=== PATIENT | female | born 1940 ===

== ENCOUNTER 2016-06-09 15:46 | Inpatient (IN) | payer MEDICARE, OTHER ==
[2016-06-09 15:48] VITALS: BMI 32.9
--- NOTE | 2016-06-09 17:27 | CP.PCM.CON ---
History of Present Illness - History of Present Illness History of Present Illness: 75 yo female patient with PMHx of Anemia, arthritis, Atrial Fib, CAD, CHF, DM, HTN, HLD, ESRD (dialysis on //Mon), Hyperthyroidism, Hypothyroidism was seen at bedside ED this afternoon after request for podiatry consult. Patient presents with necrotic changes to Left foot. Patient was referred by Dr. Herrera for scheduled TMA surgery. (add-on) Patient states that she had a lot of pain to Left foot today. Patient understands that we have plan for surgical amputation tomorrow with Dr. Herrera. Patient is to be admitted for Left foot infection and IV Abx. Denies F/C/N/V/SOB. today. Past Patient History - Infectious Disease Hx of Infectious Diseases: None - Past Medical History & Family History Past Medical History?: Yes - Past Social History Smoking Status: Never Smoked - CARDIAC Hx Cardiac Disorders: Yes Hx Atrial Fibrillation: Yes Hx Congestive Heart Failure: Yes Hx Hypertension: Yes Hx Pacemaker: Yes - PULMONARY Hx Respiratory Disorders: Yes Hx Pneumonia: Yes - NEUROLOGICAL Hx Neurological Disorder: Yes - HEENT Hx HEENT Problems: No - RENAL Hx Chronic Kidney Disease: Yes Hx Dialysis: Yes (,,) Date of Last Dialysis Treatment: 05/10/16 - ENDOCRINE/METABOLIC Hx Endocrine Disorders: Yes Hx Diabetes Insipidus: Yes Hx Diabetes Mellitus Type 2: Yes Hx Hyperthyroidism: Yes Hx Hypothyroidism: Yes - HEMATOLOGICAL/ONCOLOGICAL Hx Blood Disorders: Yes Hx Anemia: Yes Hx Human Immunodeficiency Virus (HIV): No - INTEGUMENTARY Hx Dermatological Problems: No - MUSCULOSKELETAL/RHEUMATOLOGICAL Hx Musculoskeletal Disorders: Yes Hx Arthritis: Yes Hx Falls: Yes - GASTROINTESTINAL Hx Gastrointestinal Disorders: Yes Hx Gall Bladder Disease: Yes - GENITOURINARY/GYNECOLOGICAL Hx Genitourinary Disorders: No - PSYCHIATRIC Hx Psychophysiologic Disorder: No Hx Substance Use: No - SURGICAL HISTORY Hx Surgeries: Yes Hx Cholecystectomy: Yes Hx Coronary Artery Bypass Graft: Yes Hx Coronary Stent: Yes Other/Comment: Stent placement x2 (as per son) to left popliteal - ANESTHESIA Hx Anesthesia: Yes Hx Anesthesia Reactions: No Hx Malignant Hyperthermia: No Meds Allergies/Adverse Reactions: Allergies Allergy/AdvReac Type Severity Reaction Status Date / Time No Known Allergies Allergy Verified 04/15/15 18:53 Physical Exam - Constitutional Appears: Well, Non-toxic, No Acute Distress - Extremities Exam Additional comments: Left lower extremity exam DERM: Necrotic changes noted to surgical site of Hallux amputation. Necrotic changes also noted to 2nd digit as well as 5th digit from distal end to level of PIPJ. No open wound is noted. No drainage is noted. Erythema is noted to Left foot around the skin necrosis. VASC: Palpable DP noted 2/4. Non-palpable PT. Blenchable digits, [employer] less than 3 seconds to all digits bilaterally noted. ORTHO: Pain on palpation to right hallux, distal to MPJ NEURO: Gross sensation diminished - Neurological Exam Neurological exam: Alert, Oriented x3 - Psychiatric Exam Psychiatric exam: Normal Affect, Normal Mood - Skin Skin Exam: Normal Color, Warm Results - Vital Signs Recent Vital Signs: Last Vital Signs Temp 98.2 F 06/09/16 16:58 Pulse 76 06/09/16 16:58 Resp 16 06/09/16 16:58 BP 162/72 H 06/09/16 16:58 Pulse Ox 100 06/09/16 16:58 Assessment & Plan - Assessment and Plan (Free Text) Assessment: 75 year old female patient painful Left foot with gangrenous areas to Hallux amputation site, 2nd digit and 5th digit Plan: Patient was seen, evaluated and treated at bedside ED discussed with Dr. Herrera Patient is scheduled for Left foot TMA tomorrow Patient needs Medical clearance Podiatry will follow in-house
[2016-06-09] MEDS ORDERED: Piperacillin/Tazobact 4.5 GM in Sodium Chloride 0.9% 100 ML IVPB STA (17:45)
--- NOTE | 2016-06-09 18:13 | ED PDOC ---
Lower Extremity Pain/Injury Time Seen by Provider: 06/09/16 16:00 Chief Complaint (Nursing): Lower Extremity Problem/Injury Chief Complaint (Provider): Left Foot Pain History Per: Patient History/Exam Limitations: no limitations Current Symptoms Are (Timing): Still Present Additional Complaint(s): 17:43 Yolanda Mac is a 75 year old female with a history of CAD, CHF, hypertension, diabetes, hyperlipidemia, and end stage renal disease presents to the ED with a chief complaint of mild left foot pain and is here in preparation for TMA surgery tomorrow with Dr. Herrera. Past Medical History Reviewed: Historical Data, Nursing Documentation, Vital Signs Vital Signs: Last Vital Signs Temp 98.2 F 06/09/16 16:58 Pulse 76 06/09/16 16:58 Resp 16 06/09/16 16:58 BP 162/72 H 06/09/16 16:58 Pulse Ox 100 06/09/16 16:58 - Medical History PMH: Anemia, Arthritis, Atrial Fibrillation, CAD, CHF, Diabetes, Gall Bladder Disease, HTN, Hypercholesterolemia, Hyperthyroidism, Hypothyroidism, Kidney Stones, Pneumonia, End Stage Renal Disease (TTF), Chronic Kidney Disease Denies: HIV - Surgical History Surgical History: CABG, Cholecystectomy, Coronary Stent, Pacemaker - Family History Family History: States: Unknown Family Hx - Social History Current smoker - smoking cessation education provided: No Alcohol: Occasional - Immunization History Hx Tetanus Toxoid Vaccination: Yes Hx Influenza Vaccination: Yes Hx Pneumococcal Vaccination: Yes - Home Medications Home Medications: Ambulatory Orders Medication Instructions Recorded Aspirin [Aspirin EC] 81 mg PO DAILY #30 ect 08/26/14 Insulin Detemir [Levemir Flexpen] 40 unit SC HS 09/18/14 Rosuvastatin Calcium [Crestor] 40 mg PO HS 09/18/14 Pregabalin [Lyrica] 50 mg PO QPM 09/11/15 Levothyroxine [Synthroid] 75 mcg PO DAILY 03/23/16 amLODIPine [Norvasc] 10 mg PO DAILY 03/23/16 Meclizine [Meclizine*] 25 mg PO DAILY PRN 05/10/16 Metoprolol Tartrate [Lopressor] 50 mg PO BID 05/10/16 Pantoprazole [Protonix EC Tab] 40 mg PO DAILY 05/10/16 Sevelamer Carbonate [Renvela] 2 tab PO BID 05/10/16 guaiFENesin/Dextromethorphan 2 tsp PO QID PRN 05/10/16 [Robitussin DM] oxyCODONE/Acetaminophen [Percocet 1 tab PO Q6 PRN #10 tab 05/16/16 5/325 mg Tab] Clopidogrel [Plavix] 75 mg PO DAILY 06/09/16 Insulin Aspart [Novolog Flexpen] 20 units SC DAILY 06/09/16 Linagliptin [Tradjenta] 5 mg PO DAILY 06/09/16 Liraglutide [Victoza 3-Rafi] 1.8 mg SC DAILY 06/09/16 Omeprazole [Omeprazole] 40 mg PO DAILY 06/09/16 Valsartan [Diovan] 160 mg PO DAILY 06/09/16 hydrALAZINE [Apresoline] 25 mg PO QID 06/09/16 - Allergies Allergies/Adverse Reactions: Allergies Allergy/AdvReac Type Severity Reaction Status Date / Time No Known Allergies Allergy Verified 04/15/15 18:53 Review of Systems ROS Statement: Except As Marked, All Systems Reviewed And Found Negative Musculoskeletal: Positive for: Foot Pain (left foot pain) Physical Exam - Reviewed Nursing Documentation Reviewed: Yes Vital Signs Reviewed: Yes - Physical Exam Appears: Positive for: Non-toxic, No Acute Distress Head Exam: Positive for: ATRAUMATIC, NORMOCEPHALIC Skin: Positive for: Normal Color, Warm ENT: Positive for: Normal ENT Inspection Neck: Positive for: Painless ROM Cardiovascular/Chest: Positive for: Regular Rate, Rhythm. Negative for: Murmur Respiratory: Positive for: Normal Breath Sounds. Negative for: Wheezing Gastrointestinal/Abdominal: Positive for: Soft. Negative for: Tenderness Extremity: Positive for: Normal ROM, Capillary Refill (less than 2 s), Other ( left foot has been wrapped by podiatry). Negative for: Tenderness, Pedal Edema , Calf Tenderness, Deformity, Swelling Neurologic/Psych: Positive for: Alert, Oriented (x3) - Laboratory Results Result Diagrams: 06/09/16 19:25 06/09/16 19:25 - ECG O2 Sat by Pulse Oximetry: 100 (RA) Pulse Ox Interpretation: Normal Medical Decision Making Medical Decision Makin:45 Initial Impression: Left Foot Pain surgery tomorrow Initial Plan: * Type and Screen * CMP * CBC * PTT * PT * Blood Culture * Urine C&S * Urinalysis * Vancomycin 1 gm IV * Zosyn 4.5 gm IV * X-Ray Left Foot * Reevaluation labs reviewed. podiatry evaluated pt at bedside. iv abx ordered. 19:[address] Green, agreed to admit patient. Scribe Attestation: Documented by Maame Olvera, acting as a scribe for Poli Ochoa MD. Provider Scribe Attestation: All medical record entries made by the Scribe were at my direction and personally dictated by me. I have reviewed the chart and agree that the record accurately reflects my personal performance of the history, physical exam, medical decision making, and the department course for this patient. I have also personally directed, reviewed, and agree with the discharge instructions and disposition. Disposition - Clinical Impression Clinical Impression: Left foot infection - Patient ED Disposition Is Patient to be Admitted: Yes Discussed With : Howie Green Counseled Patient/Family Regarding: Studies Performed, Diagnosis - Disposition Disposition Time: 18:45 Condition: STABLE
[2016-06-09] MEDS ORDERED: Vancomycin 1 g Inj ONE (19:14)
[2016-06-09 19:37] LABS: BASO # 0.1 K/uL (0.0-0.2); BASO % 1.3 % (0.0-2.0); EOS # 0.2 K/uL (0.0-0.7); EOS % 2.3 % (0.0-4.0); HEMATOCRIT 32.4 % (34.0-47.0); LYMPH # 1.4 K/uL (1.0-4.3); LYMPH % 16.5 % (20.0-40.0); MEAN CELL VOLUME 94.5 fl (81.0-99.0); MEAN CORPUSCULAR HEMOGLOBIN 30.3 pg (27.0-31.0); MEAN CORPUSCULAR HGB CONC 32.1 g/dL (33.0-37.0); MEAN PLATELET VOLUME 9.2 fl (7.2-11.7); MONO # 1.3 K/uL (0.0-0.8); MONO % 14.5 % (0.0-10.0); NEUT # 5.7 K/uL (1.8-7.0); NEUT % 65.4 % (50.0-75.0); NRBC % 0.1 % (0.0-0.0); RED CELL DISTRIBUTION WIDTH 15.1 % (11.5-14.5); WHITE BLOOD COUNT 8.7 K/uL (4.8-10.8)
[2016-06-09 19:51] LABS: ALB/GLOB RATIO 0.9 (1.0-2.1); BILIRUBIN,TOTAL 0.5 mg/dl (0.2-1.3); CALCIUM 9.3 mg/dL (8.4-10.2); POTASSIUM 4.3 MMOL/L (3.6-5.0); TOTAL PROTEIN 8.1 G/DL (6.3-8.2)
[2016-06-09 19:52] LABS: PARTIAL THROMBOPLASTIN TIME 22.1 SECONDS (23.3-32.5)
[2016-06-09 22:47] LABS: RBC URINE 3 /hpf (0-3); URINE BACTERIA FEW (<OCC); URINE BILIRUBIN NEGATIVE (NEGATIVE); URINE BLOOD NEGATIVE (NEGATIVE); URINE COLOR YELLOW (YELLOW); URINE GLUCOSE (UA) NEG (Normal); URINE KETONE NEGATIVE (NEGATIVE); URINE LEUKOCYTE ESTERASE MOD Leu/uL (Negative); URINE PROTEIN 100 mg/dL (NEGATIVE); URINE UROBILINOGEN 0.2-1.0 mg/dL (0.2-1.0); WBC URINE 34 /hpf (0-5)
[2016-06-10] MEDS: Insulin Lispro (humaLOG) 100 Units/ml Inj SC SCH ×4 (06:58→23:35)
--- NOTE | 2016-06-10 07:00 | CP.PCM.CON ---
History of Present Illness - History of Present Illness History of Present Illness: 75 year old female with a history of CAD, CHF, hypertension, diabetes, hyperlipidemia, and end stage renal disease presents to the ED with a chief complaint of mild left foot pain and is here in preparation for TMA surgery tomorrow with Dr. Herrera. Pt denies chest pains, SOB, [place], Palpitations PMH: Anemia, Arthritis, Atrial Fibrillation, CAD, CHF, Diabetes, Gall Bladder Disease, HTN, Hypercholesterolemia, Hypothyroidism, Kidney Stones, Pneumonia, End Stage Renal Disease, Chronic Kidney Disease - Surgical History Surgical History: Cholecystectomy, Coronary Stent, Pacemaker EKG: Pacemaker rhythm Past Patient History - Infectious Disease Hx of Infectious Diseases: None - Past Medical History & Family History Past Medical History?: Yes - Past Social History Alcohol: Occasional - CARDIAC Hx Atrial Fibrillation: Yes Hx Congestive Heart Failure: Yes Hx Hypercholesterolemia: Yes Hx Hypertension: Yes Hx Pacemaker: Yes - PULMONARY Hx Pneumonia: Yes - NEUROLOGICAL Hx Neurological Disorder: No - HEENT Hx HEENT Problems: No - RENAL Hx Chronic Kidney Disease: Yes Hx Kidney Stones: Yes - ENDOCRINE/METABOLIC Hx Hyperthyroidism: Yes Hx Hypothyroidism: Yes - HEMATOLOGICAL/ONCOLOGICAL Hx Anemia: Yes Hx Human Immunodeficiency Virus (HIV): No - INTEGUMENTARY Hx Dermatological Problems: No - MUSCULOSKELETAL/RHEUMATOLOGICAL Hx Arthritis: Yes - GASTROINTESTINAL Hx Gall Bladder Disease: Yes - GENITOURINARY/GYNECOLOGICAL Hx Genitourinary Disorders: No - PSYCHIATRIC Hx Psychophysiologic Disorder: No - SURGICAL HISTORY Hx Cholecystectomy: Yes Hx Coronary Artery Bypass Graft: Yes Hx Coronary Stent: Yes - ANESTHESIA Hx Anesthesia: Yes Hx Anesthesia Reactions: No Hx Malignant Hyperthermia: No Meds Allergies/Adverse Reactions: Allergies Allergy/AdvReac Type Severity Reaction Status Date / Time No Known Allergies Allergy Verified 04/15/15 18:53 - Medications Medications: Current Medications Hydromorphone HCl (Dilaudid) 1 mg IVP Q4 PRN PRN Reason: Pain, severe (8-10) Last Admin: 06/10/16 02:39 Dose: 1 mg Insulin Human Lispro (Humalog) 0 units SC ACHS CATHIE PRN Reason: Protocol Last Admin: 06/10/16 06:58 Dose: Not Given Physical Exam - Respiratory Exam Respiratory Exam: NORMAL BREATHING PATTERN - Cardiovascular Exam Cardiovascular Exam: REGULAR RHYTHM Additional comments: pacemaker rhythm Results - Vital Signs Recent Vital Signs: Last Vital Signs Temp 98.5 F 06/10/16 05:52 Pulse 70 06/10/16 06:01 Resp 16 06/10/16 05:52 BP 144/74 06/10/16 06:01 Pulse Ox 100 06/09/16 23:38 - Labs Result Diagrams: 06/10/16 05:30 06/10/16 05:30 Labs: Laboratory Results - last 24 hr 06/09/16 06/09/16 06/09/16 19:25 19:59 21:39 WBC 8.7 RBC 3.43 L Hgb 10.4 L Hct 32.4 L MCV 94.5 MCH 30.3 MCHC 32.1 L RDW 15.1 H Plt Count 236 MPV 9.2 Neut % (Auto) 65.4 Lymph % (Auto) 16.5 L [place] % (Auto) 14.5 H Eos % (Auto) 2.3 Baso % (Auto) 1.3 Neut # 5.7 Lymph # 1.4 Howell # 1.3 H Eos # 0.2 Baso # 0.1 PT 11.9 H INR 1.14 H APTT 22.1 L Sodium 140 Potassium 4.3 Chloride 94 L Carbon Dioxide 30 Anion Gap 20 BUN 16 Creatinine 2.4 H Est GFR ( Amer) 24 Est GFR (Non-Af Amer) 20 Random Glucose 123 H Calcium 9.3 Total Bilirubin 0.5 AST 23 ALT 16 Alkaline Phosphatase 88 Total Protein 8.1 Albumin 3.9 Globulin 4.2 H Albumin/Globulin Ratio 0.9 L Urine Color Yellow Urine Clarity Slighty-cloudy Urine pH 7.0 Ur Specific [place] 1.015 Urine Protein 100 Urine Glucose (UA) Neg Urine Ketones Negative Urine Blood Negative Urine Nitrate Negative Urine Bilirubin Negative Urine Urobilinogen 0.2-1.0 Ur Leukocyte Esterase Mod Urine RBC (Auto) 3 Urine Microscopic WBC 34 H Ur Squamous Epith Cells 6 H Urine Bacteria Few H Hyaline Casts 0-2 Blood Type AB POSITIVE Antibody Screen Negative BBK History Checked Patient has bt Assessment & Plan (1) Necrotic toes Assessment and Plan: Cardiac hdz the patient is cleared for surgery Status: Acute Priority: High (2) Left foot infection Status: Acute (3) ESRD on hemodialysis Status: Acute Priority: High (4) CAD (coronary artery disease) Status: Chronic Priority: Medium (5) HTN (hypertension) Status: Chronic Priority: Medium (6) Hx of cardiac pacemaker Status: Chronic Priority: Medium
[2016-06-10 07:10] LABS: BASO # 0.1 K/uL (0.0-0.2); BASO % 1.7 % (0.0-2.0); EOS # 0.3 K/uL (0.0-0.7); HEMATOCRIT 28.6 % (34.0-47.0); LYMPH # 1.3 K/uL (1.0-4.3); LYMPH % 17.7 % (20.0-40.0); MEAN CELL VOLUME 93.3 fl (81.0-99.0); MEAN CORPUSCULAR HEMOGLOBIN 30.4 pg (27.0-31.0); MEAN CORPUSCULAR HGB CONC 32.6 g/dL (33.0-37.0); MONO % 14.4 % (0.0-10.0); NEUT # 4.5 K/uL (1.8-7.0); NEUT % 62.2 % (50.0-75.0); NRBC % 0.1 % (0.0-0.0); RED CELL DISTRIBUTION WIDTH 14.7 % (11.5-14.5); WHITE BLOOD COUNT 7.3 K/uL (4.8-10.8)
[2016-06-10 07:13] LABS: CALCIUM 8.9 mg/dL (8.4-10.2); POTASSIUM 4.4 MMOL/L (3.6-5.0)
[2016-06-10 07:21] LABS: PARTIAL THROMBOPLASTIN TIME 25.9 SECONDS (23.3-32.5)
--- NOTE | 2016-06-10 08:48 | CP.PCM.PN ---
Subjective - Date & Time of Evaluation Date of Evaluation: 06/10/16 Time of Evaluation: 07:30 - Subjective Subjective: 75 yo female patient with PMHx of Anemia, arthritis, Atrial Fib, CAD, CHF, DM, HTN, HLD, ESRD (dialysis on //Mon), Hyperthyroidism, Hypothyroidism was seen at bedside this morning for scheduled surgery of Left foot TMA with Dr. Herrera today. Patient was resting comfortably in bed this morning without any acute distress. AAO x3. Dressing to Left foot remains c/d/i. Patient complains of pain to Left foot upon palpation. Patient was explained of the podiatry surgical plan and she agrees with the plan. Patient denies F/C/N/V/SOB today Patient to OR today 1PM with Dr. Herrera Medical clearance, Nephrology clearance, Cardiology clearance in chart Objective - Vital Signs/Intake and Output Vital Signs (last 24 hours): Temp Pulse Resp BP Pulse Ox 98.7 F 67 20 144/61 96 06/10/16 08:18 06/10/16 08:18 06/10/16 08:18 06/10/16 08:18 06/10/16 08:18 - Medications Medications: Current Medications Hydromorphone HCl (Dilaudid) 1 mg IVP Q4 PRN PRN Reason: Pain, severe (8-10) Last Admin: 06/10/16 02:39 Dose: 1 mg Insulin Human Lispro (Humalog) 0 units SC ACHS CATHIE PRN Reason: Protocol Last Admin: 06/10/16 06:58 Dose: Not Given - Labs Labs: 06/10/16 05:30 06/10/16 05:30 PT 12.3 SECONDS (9.6-11.2) H 06/10/16 05:30 INR 1.18 (0.92-1.08) H 06/10/16 05:30 APTT 25.9 SECONDS (23.3-32.5) 06/10/16 05:30 - Constitutional Appears: Well, Non-toxic, No Acute Distress - Extremities Exam Additional comments: Left foot dressing remains clean dry and intact - Neurological Exam Neurological Exam: Alert, Awake, Oriented x3 - Psychiatric Exam Psychiatric exam: Normal Affect, Normal Mood - Skin Skin Exam: Normal Color, Warm Assessment and Plan - Assessment and Plan (Free Text) Assessment: 75 year old female patient painful Left foot with gangrenous areas to Hallux amputation site, 2nd digit and 5th digit Scheduled for Trans-metatarsal Amputation today at 1:[address] Herrera Plan: Pt was seen and examined in SDS Pt NPO status was confirmed All Pre-op testing was in the chart Pt has exhausted all conservative treatment at this time and is opting for surgical intervention Pt was explained procedure and post-operative course All pt's questions were answered to satisfaction No guarantees were made Pt understands all risks, benefits and complications of procedure Pt will follow-up with Dr. Herrera Medical clearance in chart Nephrology clearance in chart Cardiac clearance in chart
--- NOTE | 2016-06-10 11:21 | CARD ---
APPROVED REPORT EKG Measurement Heart [id number] <Conclusion> Atrial-paced rhythm Possible Lateral infarct, age undetermined Inferior infarct, age undetermined Abnormal ECG
--- NOTE | 2016-06-10 12:08 | CP.PCM.PN ---
Subjective - Date & Time of Evaluation Date of Evaluation: 06/10/16 Time of Evaluation: 12:06 - Subjective Subjective: full consult to follow Objective - Vital Signs/Intake and Output Vital Signs (last 24 hours): Temp Pulse Resp BP Pulse Ox 98.7 F 67 20 144/61 96 06/10/16 08:18 06/10/16 08:18 06/10/16 08:18 06/10/16 08:18 06/10/16 08:18 - Medications Medications: Current Medications Hydromorphone HCl (Dilaudid) 1 mg IVP Q4 PRN PRN Reason: Pain, severe (8-10) Last Admin: 06/10/16 10:26 Dose: 1 mg Insulin Human Lispro (Humalog) 0 units SC ACHS CATHIE PRN Reason: Protocol Last Admin: 06/10/16 12:03 Dose: Not Given - Labs Labs: 06/10/16 05:30 06/10/16 05:30 PT 12.3 SECONDS (9.6-11.2) H 06/10/16 05:30 INR 1.18 (0.92-1.08) H 06/10/16 05:30 APTT 25.9 SECONDS (23.3-32.5) 06/10/16 05:30 Assessment and Plan - Assessment and Plan (Free Text) Assessment: Full consult to follow. There is no renal contraindication for her surgery today. Will plan on dialysis tomorrow per her usual schedule.
[2016-06-10] MEDS ORDERED: Bupivacaine 0.5% Inj(30mL) ONE (13:00)
[2016-06-10] MEDS ORDERED: Propofol 10 mg/ml Inj (20 ML) ONE (13:19)
[2016-06-10] MEDS ORDERED: Midazolam 2 MG/2 ML VIAL ONE (13:19)
[2016-06-10] MEDS ORDERED: Sodium Chloride 0.9% 500 ML IV ONE (13:25)
[2016-06-10] MEDS ORDERED: Bupivacaine 0.5% 50 ML IJ ONE (13:40)
--- NOTE | 2016-06-10 13:40 | CP.PCM.HP ---
History of Present Illness - History of Present Illness History of Present Illness: CC: L foot infection. 75 y/o F admitted to [facility] on 06/09/16 due to L foot pain/ infection to have L foot surgery. Pt with no relief of symptoms. Pt scheduled by mo Ui Software Engineer, Dr Herrera for L TMA surgery 2nd to L foot surgical site infection, necrotic, associated to swelling and pain on site upon palpation of moderated intensity. Pt is S/P L foot partial Hallux amputation on 05/13/16 2nd to L foot Hallux dry gangrene, after, Pt was discharged on 05/16/16 in stable post surgical condition to continue PT at home, to f/u with PMD and Ui Software Engineer. Pt refused to go to [facility]. Upon Ui Software Engineer evaluation as out Pt, she was found with increased worsening changes in L foot surgical site and was referred to hospital for OR on 06/10/16 after medical clearances. Aggravating factor: Difficulty walking, decreased ROM. Pt denied: Fever, chills, dizziness, CP, SOB, abdominal pain, n/v/d, urinary symptoms, sick contact. PMHx: L foot Partial Hallux amputation, ESRD on HD, CKD, HTN, CAD with PPM, , Coronary stent, CHF, A Fib, Hypothyroidism, Hypercholesterolemia, Anemia. CXR shows: No infiltrate. L Foot X-Ray= No acute fx. EKG= Atrial-pace rhythm , possible lateral infarct age undetermined, Inferior infarct age undetermined. Present on Admission - Present on Admission Any Indicators Present on Admission: Yes History Surgical Site Infection Following: Orthopedic Procedures Review of Systems - Constitutional Constitutional: Other (negative) - EENT Eyes: Other (negative) Ears: Other (negative) Nose/Mouth/Throat: Other (negative) - Cardiovascular Cardiovascular: Other (negative) - Respiratory Respiratory: Other (negative) - Gastrointestinal Gastrointestinal: Other (negative) - Genitourinary Genitourinary: Other (negative) - Musculoskeletal Musculoskeletal: Other (L foot pain 2nd to infection, s/p L foot amputation) - Integumentary Integumentary: Erythema (L foot), Swelling - Neurological Neurological: Other (negative) - Psychiatric Psychiatric: Other (negative) - Endocrine Endocrine: Other (negative) - Hematologic/Lymphatic Hematologic: Other (negative) Past Patient History - Infectious Disease Hx of Infectious Diseases: None - Past Medical History & Family History Past Medical History?: Yes Pertinent Family History: Unknown - Past Social History Smoking Status: Never Smoked Alcohol: Occasional Drugs: Denies - CARDIAC Hx Cardiac Disorders: Yes Hx Atrial Fibrillation: Yes Hx Congestive Heart Failure: Yes Hx Hypercholesterolemia: Yes Hx Hypertension: Yes Hx Pacemaker: Yes - PULMONARY Hx Respiratory Disorders: Yes Hx Pneumonia: Yes - NEUROLOGICAL Hx Neurological Disorder: No - HEENT Hx HEENT Problems: No - RENAL Hx Chronic Kidney Disease: Yes Hx Dialysis: Yes Hx Kidney Stones: Yes Hx Renal Failure: Yes - ENDOCRINE/METABOLIC Hx Hyperthyroidism: Yes Hx Hypothyroidism: Yes - HEMATOLOGICAL/ONCOLOGICAL Hx Anemia: Yes Hx Human Immunodeficiency Virus (HIV): No - INTEGUMENTARY Hx Dermatological Problems: No - MUSCULOSKELETAL/RHEUMATOLOGICAL Hx Arthritis: Yes - GASTROINTESTINAL Hx Gall Bladder Disease: Yes - GENITOURINARY/GYNECOLOGICAL Hx Genitourinary Disorders: No - PSYCHIATRIC Hx Psychophysiologic Disorder: No - SURGICAL HISTORY Hx Surgeries: Yes Hx Amputation: Yes (L foot partial hallux amputation,) Hx Cholecystectomy: Yes Hx Coronary Artery Bypass Graft: Yes Hx Coronary Stent: Yes - ANESTHESIA Hx Anesthesia: Yes Hx Anesthesia Reactions: No Hx Malignant Hyperthermia: No Meds Allergies/Adverse Reactions: Allergies Allergy/AdvReac Type Severity Reaction Status Date / Time No Known Allergies Allergy Verified 04/15/15 18:53 Physical Exam - Constitutional Appears: No Acute Distress, Chronically Ill - Head Exam Head Exam: NORMAL INSPECTION - Eye Exam Eye Exam: PERRL - ENT Exam ENT Exam: Normal Oropharynx - Neck Exam Neck exam: Positive for: Normal Inspection - Respiratory Exam Respiratory Exam: NORMAL BREATHING PATTERN - Cardiovascular Exam Cardiovascular Exam: REGULAR RHYTHM Additional comments: PPM - GI/Abdominal Exam GI & Abdominal Exam: Normal Bowel Sounds, Soft - Extremities Exam Additional comments: L foot gangrenous to Hallux amputation site , 2nd and 5th digit - Back Exam Back exam: NORMAL INSPECTION - Neurological Exam Neurological exam: Alert, Oriented x3 Additional comments: No focal motor deficit, decreased sensation R-L foot. - Psychiatric Exam Psychiatric exam: Normal Mood - Skin Skin Exam: Erythema (L foot), Warm Results - Vital Signs Recent Vital Signs: Last Vital Signs Temp 98.7 F 06/10/16 08:18 Pulse 67 06/10/16 08:18 Resp 20 06/10/16 08:18 BP 144/61 06/10/16 08:18 Pulse Ox 96 06/10/16 08:18 reviewed J.P. - Labs Result Diagrams: 06/10/16 05:30 06/10/16 05:30 Labs: Laboratory Results - last 24 hr 06/09/16 06/09/16 06/09/16 19:25 19:59 21:39 WBC 8.7 RBC 3.43 L Hgb 10.4 L Hct 32.4 L MCV 94.5 MCH 30.3 MCHC 32.1 L RDW 15.1 H Plt Count 236 MPV 9.2 Neut % (Auto) 65.4 Lymph % (Auto) 16.5 L [place] % (Auto) 14.5 H Eos % (Auto) 2.3 Baso % (Auto) 1.3 Neut # 5.7 Lymph # 1.4 [place] # 1.3 H Eos # 0.2 Baso # 0.1 PT 11.9 H INR 1.14 H APTT 22.1 L Sodium 140 Potassium 4.3 Chloride 94 L Carbon Dioxide 30 Anion Gap 20 BUN 16 Creatinine 2.4 H Est GFR ( Amer) 24 Est GFR (Non-Af Amer) 20 POC Glucose (mg/dL) Random Glucose 123 H Calcium 9.3 Total Bilirubin 0.5 AST 23 ALT 16 Alkaline Phosphatase 88 Total Protein 8.1 Albumin 3.9 Globulin 4.2 H Albumin/Globulin Ratio 0.9 L Urine Color Yellow Urine Clarity Slighty-cloudy Urine pH 7.0 Ur Specific [place] 1.015 Urine Protein 100 Urine Glucose (UA) Neg Urine Ketones Negative Urine Blood Negative Urine Nitrate Negative Urine Bilirubin Negative Urine Urobilinogen 0.2-1.0 Ur Leukocyte Esterase Mod Urine RBC (Auto) 3 Urine Microscopic WBC 34 H Ur Squamous Epith Cells 6 H Urine Bacteria Few H Hyaline Casts 0-2 Blood Type AB POSITIVE Antibody Screen Negative BBK History Checked Patient has bt 06/10/16 06/10/16 06/10/16 05:30 06:44 10:44 WBC 7.3 RBC 3.07 L Hgb 9.3 L Hct 28.6 L MCV 93.3 MCH 30.4 MCHC 32.6 L RDW 14.7 H Plt Count 237 MPV 9.0 Neut % (Auto) 62.2 Lymph % (Auto) 17.7 L [place] % (Auto) 14.4 H Eos % (Auto) 4.0 Baso % (Auto) 1.7 Neut # 4.5 Lymph # 1.3 [place] # 1.0 H Eos # 0.3 Baso # 0.1 PT 12.3 H INR 1.18 H APTT 25.9 Sodium 142 Potassium 4.4 Chloride 96 L Carbon Dioxide 29 Anion Gap 21 H BUN 22 H Creatinine 3.1 H Est GFR ( Amer) 18 Est GFR (Non-Af Amer) 15 POC Glucose (mg/dL) 114 H 85 Random Glucose 109 H Calcium 8.9 Total Bilirubin AST ALT Alkaline Phosphatase Total Protein Albumin Globulin Albumin/Globulin Ratio Urine Color Urine Clarity Urine pH Ur Specific [place] Urine Protein Urine Glucose (UA) Urine Ketones Urine Blood Urine Nitrate Urine Bilirubin Urine Urobilinogen Ur Leukocyte Esterase Urine RBC (Auto) Urine Microscopic WBC Ur Squamous Epith Cells Urine Bacteria Hyaline Casts Blood Type Antibody Screen BBK History Checked reviewed J.P. - EKG Data EKG comments: reviewed J.P. - Imaging and Cardiology Chest x-ray Status: Report reviewed by me (Coco) Additional comment: L foot X-Ray= Reviewed J.P. Assessment & Plan - Assessment and Plan (Free Text) Assessment: L foot gangrenous area to Hallux amputation site, 2nd and 5th digit Acute high L foot pain Chronic high PVD Chronic high Diabetic Neuropathy Chronic high ESRD on HD Chronic high CAD Chronic CHF Chronic Hx of Paroxysmal A Fib Chronic DMII Chronic Hx Cardiac Pacemaker Chronic HTN Chronic Hypothyroidism Chronic Hyperlypidemia Chronic Anemia Chronic. Plan: Pt was cleared by Cardiology, Nephrology, Pt is medically cleared for surgery. - Date & Time Date: 06/10/16 Time: 12:00
[2016-06-10] MEDS ORDERED: Piperacillin/Tazobact 2.25 gm Inj IVPB ONE (13:45)
--- NOTE | 2016-06-10 14:49 | RAD ---
PROCEDURE: Left Foot Radiographs. HISTORY: left foot pain COMPARISON: 05/13/2016 FINDINGS: BONES: Status post amputation 1st digit at base of 1st proximal phalanx. Unchanged from prior examination. No osseous fracture. Examination limited to two views. JOINTS: Normal. SOFT TISSUES: Vascular calcifications OTHER FINDINGS: None. IMPRESSION: No acute fracture. Amputation 1st digit. No change from 05/13/2016.
--- NOTE | 2016-06-10 14:51 | RAD ---
HISTORY: preop COMPARISON: 05/10/2016 FINDINGS: LUNGS: No active pulmonary disease. PLEURA: No significant pleural effusion identified, no pneumothorax apparent. CARDIOVASCULAR: Permanent pacemaker. Vascular stent in the region of right subclavian vein OSSEOUS STRUCTURES: No significant abnormalities. VISUALIZED UPPER ABDOMEN: Normal. OTHER FINDINGS: None. IMPRESSION: No acute infiltrate. Pacemaker noted.
[2016-06-10] MEDS ORDERED: Oxycodone/Acetaminophen 5/325 mg Tab PO PRN (15:18)
--- NOTE | 2016-06-10 15:24 | PCM.SURG1 ---
Surgeon's Initial Post Op Note - Surgeon's Notes Surgeon: Mustapha Herrera DPM Insurance Compliance Analyst: Vianca Rubin, PGY1 Type of Anesthesia: General IV, Local Anesthesia Administered By: Dr. 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 3-0 vycryl, 4-0 nylon Post-Operative Diagnosis: Same as above Operation Performed: Left foot transmetatarsal amputation Specimen/Specimens Removed: Bone and soft tissue Estimated Blood Loss: EBL {In ML}: 5 Blood Products Given: N/A Drains Used: No Drains Post-Op Condition: Good Date of Surgery/Procedure: 06/10/16 Time of Surgery/Procedure: 13:20
--- NOTE | 2016-06-10 16:42 | CP.PCM.CON ---
History of Present Illness - History of Present Illness History of Present Illness: 75 year old female w/ PMH of ESRD, HTN, CAD, DM that presented w/ L foot pain. Shewas evaluated by podiatry and is going for TMA surgery today. I saw the patient preoperatively. She had just received a dose of narcots and was mildly confused and unable to give me any further history. ros: a full detailed ROS is negative except as in my hpi famhx: unable to obtain as pt is confused sochx: unable to obtain as pt is confused Past Patient History - Infectious Disease Hx of Infectious Diseases: None - Past Medical History & Family History Past Medical History?: Yes - Past Social History Alcohol: Occasional - CARDIAC Hx Atrial Fibrillation: Yes Hx Congestive Heart Failure: Yes Hx Hypercholesterolemia: Yes Hx Hypertension: Yes Hx Pacemaker: Yes - PULMONARY Hx Pneumonia: Yes - NEUROLOGICAL Hx Neurological Disorder: No - HEENT Hx HEENT Problems: No - RENAL Hx Chronic Kidney Disease: Yes Hx Dialysis: Yes Hx Kidney Stones: Yes - ENDOCRINE/METABOLIC Hx Hyperthyroidism: Yes Hx Hypothyroidism: Yes - HEMATOLOGICAL/ONCOLOGICAL Hx Anemia: Yes Hx Human Immunodeficiency Virus (HIV): No - INTEGUMENTARY Hx Dermatological Problems: No - MUSCULOSKELETAL/RHEUMATOLOGICAL Hx Arthritis: Yes - GASTROINTESTINAL Hx Gall Bladder Disease: Yes - GENITOURINARY/GYNECOLOGICAL Hx Genitourinary Disorders: No - PSYCHIATRIC Hx Psychophysiologic Disorder: No - SURGICAL HISTORY Hx Cholecystectomy: Yes Hx Coronary Artery Bypass Graft: Yes Hx Coronary Stent: Yes - ANESTHESIA Hx Anesthesia: Yes Hx Anesthesia Reactions: No Hx Malignant Hyperthermia: No Meds Allergies/Adverse Reactions: Allergies Allergy/AdvReac Type Severity Reaction Status Date / Time No Known Allergies Allergy Verified 04/15/15 18:53 - Medications Medications: Current Medications Acetaminophen (Tylenol 325mg Tab) 650 mg PO Q4 PRN PRN Reason: Pain, Mild (1-3) Amlodipine Besylate (Norvasc) 10 mg PO DAILY CATHIE Atorvastatin Calcium (Lipitor) 80 mg PO HS CATHIE Hydromorphone HCl (Dilaudid) 1 mg IVP Q4 PRN PRN Reason: Pain, severe (8-10) Last Admin: 06/10/16 10:26 Dose: 1 mg Vancomycin HCl 750 mg/ Sodium (Chloride) 250 mls @ 166.667 mls/hr IVPB TTS CATHIE Piperacillin Sod/Tazobactam (Sod 2.25 gm/ Sodium Chloride) 100 mls @ 100 mls/ hr IVPB Q8 [facility] Last Admin: 06/10/16 15:01 Dose: Not Given Insulin Human Lispro (Humalog) 0 units SC ACHS CATHIE PRN Reason: Protocol Last Admin: 06/10/16 12:03 Dose: Not Given Levothyroxine Sodium (Synthroid) 75 mcg PO DAILY@0630 [facility] Metoprolol Tartrate (Lopressor) 50 mg PO BID [facility] Oxycodone/Acetaminophen (Percocet 5/325 Mg Tab) 1 tab PO Q4 PRN PRN Reason: Pain, moderate (4-7) Stop: 06/13/16 15:19 Pantoprazole Sodium (Protonix Ec Tab) 40 mg PO DAILY [facility] Pregabalin (Lyrica) 50 mg PO QPM [facility] Sevelamer HCl (Renagel) 800 mg PO BID CATHIE Valsartan (Diovan) 160 mg PO DAILY [facility] Physical Exam - Constitutional Appears: Non-toxic - Head Exam Head Exam: ATRAUMATIC - Eye Exam Eye Exam: Normal appearance - ENT Exam ENT Exam: Normal Exam - Respiratory Exam Respiratory Exam: NORMAL BREATHING PATTERN - Cardiovascular Exam Cardiovascular Exam: +S1, +S2 - GI/Abdominal Exam GI & Abdominal Exam: Normal Bowel Sounds - Extremities Exam Additional comments: no edema - Neurological Exam Additional comments: confused - Psychiatric Exam Psychiatric exam: Flat Affect - Skin Additional comments: dressing on LLE Results - Vital Signs Recent Vital Signs: Last Vital Signs Temp 97.4 F L 06/10/16 16:30 Pulse 74 06/10/16 16:30 Resp 18 06/10/16 16:30 BP 122/63 06/10/16 16:30 Pulse Ox 97 06/10/16 16:30 - Labs Result Diagrams: 06/10/16 05:30 06/10/16 05:30 Labs: Laboratory Results - last 24 hr 06/09/16 06/09/16 06/09/16 19:25 19:59 21:39 WBC 8.7 RBC 3.43 L Hgb 10.4 L Hct 32.4 L MCV 94.5 MCH 30.3 MCHC 32.1 L RDW 15.1 H Plt Count 236 MPV 9.2 Neut % (Auto) 65.4 Lymph % (Auto) 16.5 L [place] % (Auto) 14.5 H Eos % (Auto) 2.3 Baso % (Auto) 1.3 Neut # 5.7 Lymph # 1.4 [place] # 1.3 H Eos # 0.2 Baso # 0.1 PT 11.9 H INR 1.14 H APTT 22.1 L Sodium 140 Potassium 4.3 Chloride 94 L Carbon Dioxide 30 Anion Gap 20 BUN 16 Creatinine 2.4 H Est GFR ( Amer) 24 Est GFR (Non-Af Amer) 20 POC Glucose (mg/dL) Random Glucose 123 H Calcium 9.3 Total Bilirubin 0.5 AST 23 ALT 16 Alkaline Phosphatase 88 Total Protein 8.1 Albumin 3.9 Globulin 4.2 H Albumin/Globulin Ratio 0.9 L Urine Color Yellow Urine Clarity Slighty-cloudy Urine pH 7.0 Ur Specific [place] 1.015 Urine Protein 100 Urine Glucose (UA) Neg Urine Ketones Negative Urine Blood Negative Urine Nitrate Negative Urine Bilirubin Negative Urine Urobilinogen 0.2-1.0 Ur Leukocyte Esterase Mod Urine RBC (Auto) 3 Urine Microscopic WBC 34 H Ur Squamous Epith Cells 6 H Urine Bacteria Few H Hyaline Casts 0-2 Blood Type AB POSITIVE Antibody Screen Negative BBK History Checked Patient has bt 06/10/16 06/10/16 06/10/16 05:30 06:44 10:44 WBC 7.3 RBC 3.07 L Hgb 9.3 L Hct 28.6 L MCV 93.3 MCH 30.4 MCHC 32.6 L RDW 14.7 H Plt Count 237 MPV 9.0 Neut % (Auto) 62.2 Lymph % (Auto) 17.7 L [place] % (Auto) 14.4 H Eos % (Auto) 4.0 Baso % (Auto) 1.7 Neut # 4.5 Lymph # 1.3 [place] # 1.0 H Eos # 0.3 Baso # 0.1 PT 12.3 H INR 1.18 H APTT 25.9 Sodium 142 Potassium 4.4 Chloride 96 L Carbon Dioxide 29 Anion Gap 21 H BUN 22 H Creatinine 3.1 H Est GFR ( Amer) 18 Est GFR (Non-Af Amer) 15 POC Glucose (mg/dL) 114 H 85 Random Glucose 109 H Calcium 8.9 Total Bilirubin AST ALT Alkaline Phosphatase Total Protein Albumin Globulin Albumin/Globulin Ratio Urine Color Urine Clarity Urine pH Ur Specific [place] Urine Protein Urine Glucose (UA) Urine Ketones Urine Blood Urine Nitrate Urine Bilirubin Urine Urobilinogen Ur Leukocyte Esterase Urine RBC (Auto) Urine Microscopic WBC Ur Squamous Epith Cells Urine Bacteria Hyaline Casts Blood Type Antibody Screen BBK History Checked 06/10/16 15:19 WBC RBC Hgb Hct MCV MCH MCHC RDW Plt Count MPV Neut % (Auto) Lymph % (Auto) [place] % (Auto) Eos % (Auto) Baso % (Auto) Neut # Lymph # [place] # Eos # Baso # PT INR APTT Sodium Potassium Chloride Carbon Dioxide Anion Gap BUN Creatinine Est GFR ( Amer) Est GFR (Non-Af Amer) POC Glucose (mg/dL) 133 H Random Glucose Calcium Total Bilirubin AST ALT Alkaline Phosphatase Total Protein Albumin Globulin Albumin/Globulin Ratio Urine Color Urine Clarity Urine pH Ur Specific [place] Urine Protein Urine Glucose (UA) Urine Ketones Urine Blood Urine Nitrate Urine Bilirubin Urine Urobilinogen Ur Leukocyte Esterase Urine RBC (Auto) Urine Microscopic WBC Ur Squamous Epith Cells Urine Bacteria Hyaline Casts Blood Type Antibody Screen BBK History Checked Assessment & Plan - Assessment and Plan (Free Text) Assessment: ESRD / CAD / HTN / Anemia/ Secondary hyperpara of renal origin/ Necrotic Toes L plan: hd tomorrow bp acceptable will check phos - on renvela currently willl resume epogen. for surgery today
--- NOTE | 2016-06-10 17:19 | RAD ---
PROCEDURE: Left foot dated 06/10/2016 HISTORY: s/p left foot surgery COMPARISON: Comparison made with prior study dated 06/09/2016 TECHNIQUE: PA and lateral views of the left foot performed. FINDINGS: Current study reveals interval transmetatarsal amputation changes of the 1st through 5th rays. Distal bone margins are sharp with no definitive evidence of cortical destructive changes at this time to suggest osteomyelitis. . The remaining osseous structures appear demineralized of likely due to disuse. Vascular calcifications are present. No evidence of gas seen within the soft tissues of the distal stump. If symptoms cellulitis or osteomyelitis suspected clinically, recommend followup MRI. IMPRESSION: Status post transmetatarsal amputation 1st through 5th rays. Distant bone margins appear sharp with no definitive cortical destructive changes to suggest osteomyelitis at this time. . Consider followup MRI if cellulitis or osteomyelitis suspected clinically
[2016-06-10] MEDS: Levothyroxine 75 MCG TAB PO SCH ×2 (17:45→18:02)
[2016-06-10] MEDS: Pantoprazole 40 mg EC Tab PO SCH ×2 (17:45→18:06)
[2016-06-11] MEDS: Levothyroxine 75 MCG TAB PO SCH (06:59)
[2016-06-11] MEDS: Insulin Lispro (humaLOG) 100 Units/ml Inj SC SCH ×4 (07:09→22:35)
[2016-06-11] MEDS ORDERED: EPOETIN ALFA 10,000 UNIT/ML ML IV SCH (09:00)
[2016-06-11] MEDS: Pantoprazole 40 mg EC Tab PO SCH (09:47)
--- NOTE | 2016-06-11 10:57 | CP.PCM.PN ---
Subjective - Date & Time of Evaluation Date of Evaluation: 06/11/16 Time of Evaluation: 07:40 - Subjective Subjective: 75 yo female patient with PMHx of Anemia, arthritis, Atrial Fib, CAD, CHF, DM, HTN, HLD, ESRD (dialysis on //Mon), Hyperthyroidism, Hypothyroidism was seen at bedside this morning. The patient is 1 day s/p Left foot TMA by Dr. Herrera. Patient was resting comfortably in bed this morning without any acute distress. AAO x3. Dressing to Left foot remains c/d/i. Patient complains of mild pain to Left foot upon palpation. Patient denies F/C/N/V/SOB today Objective - Vital Signs/Intake and Output Vital Signs (last 24 hours): Temp Pulse Resp BP Pulse Ox 98 F 74 18 139/75 93 L 06/11/16 08:40 06/11/16 08:40 06/11/16 08:40 06/11/16 08:40 06/11/16 08:40 - Medications Medications: Current Medications Acetaminophen (Tylenol 325mg Tab) 650 mg PO Q4 PRN PRN Reason: Pain, Mild (1-3) Amlodipine Besylate (Norvasc) 10 mg PO DAILY [facility] Last Admin: 06/11/16 09:47 Dose: Not Given Atorvastatin Calcium (Lipitor) 80 mg PO HS CATHIE Last Admin: 06/10/16 23:32 Dose: 80 mg Epoetin Sudheer (Procrit) 10,000 unit IV TTS CATHIE Hydromorphone HCl (Dilaudid) 1 mg IVP Q4 PRN PRN Reason: Pain, severe (8-10) Last Admin: 06/11/16 06:59 Dose: 1 mg Vancomycin HCl 750 mg/ Sodium (Chloride) 250 mls @ 166.667 mls/hr IVPB TTS CATHIE Last Admin: 06/11/16 09:49 Dose: 166.667 mls/hr Piperacillin Sod/Tazobactam (Sod 2.25 gm/ Sodium Chloride) 100 mls @ 100 mls/ hr IVPB Q8 [facility]ATHIE Last Admin: 06/11/16 09:48 Dose: 100 mls/hr Insulin Human Lispro (Humalog) 0 units SC ACHS CATHIE PRN Reason: Protocol Last Admin: 06/11/16 07:09 Dose: Not Given Levothyroxine Sodium (Synthroid) 75 mcg PO DAILY@0630 [facility] Last Admin: 06/11/16 06:59 Dose: 75 mcg Metoprolol Tartrate (Lopressor) 50 mg PO BID [facility] Last Admin: 06/11/16 09:46 Dose: Not Given Oxycodone/Acetaminophen (Percocet 5/325 Mg Tab) 1 tab PO Q4 PRN PRN Reason: Pain, moderate (4-7) Stop: 06/13/16 15:19 Pantoprazole Sodium (Protonix Ec Tab) 40 mg PO DAILY [facility] Last Admin: 06/11/16 09:47 Dose: 40 mg Pregabalin (Lyrica) 50 mg PO QPM [facility] Last Admin: 06/10/16 18:06 Dose: 50 mg Sevelamer HCl (Renagel) 800 mg PO BID [facility] Last Admin: 06/11/16 09:49 Dose: 800 mg Valsartan (Diovan) 160 mg PO DAILY [facility] Last Admin: 06/11/16 09:45 Dose: 160 mg - Labs Labs: 06/10/16 05:30 06/10/16 05:30 PT 12.3 SECONDS (9.6-11.2) H 06/10/16 05:30 INR 1.18 (0.92-1.08) H 06/10/16 05:30 APTT 25.9 SECONDS (23.3-32.5) 06/10/16 05:30 - Constitutional Appears: Well, Non-toxic, No Acute Distress - Extremities Exam Additional comments: Left lower extremity exam DERM: Surgical site well coapted with all sutures intact. No dehiscence or maceration is noted. No drainage is noted. No erythema is noted. No acute sign of infection is noted. VASC: Palpable DP noted 2/4. Non-palpable PT. Blenchable digits, TILE GRINDER less than 3 seconds to all digits bilaterally noted. ORTHO: Pain on palpation to right hallux, distal to MPJ NEURO: Gross sensation diminished - Neurological Exam Neurological Exam: Alert, Awake, Oriented x3 - Psychiatric Exam Psychiatric exam: Normal Affect, Normal Mood - Skin Skin Exam: Normal Color, Warm Assessment and Plan - Assessment and Plan (Free Text) Assessment: 75 year old female patient 1 day s/p Left foot TMA by Dr. Herrera Plan: Patient was seen, evaluated and treated at bedside labs and vitals reviewed discussed with Dr. Herrera Left foot dressed with Adaptic, DSD Continue IV Abx Patient to be non-weight bearing to Left foot Podiatry will follow in-house
--- NOTE | 2016-06-11 11:21 | CP.PCM.PN ---
Subjective - Date & Time of Evaluation Date of Evaluation: 06/11/16 Time of Evaluation: 11:00 - Subjective Subjective: Appears comfortable in bed Objective - Vital Signs/Intake and Output Vital Signs (last 24 hours): Temp Pulse Resp BP Pulse Ox 98 F 74 18 139/75 93 L 06/11/16 08:40 06/11/16 08:40 06/11/16 08:40 06/11/16 08:40 06/11/16 08:40 - Medications Medications: Current Medications Acetaminophen (Tylenol 325mg Tab) 650 mg PO Q4 PRN PRN Reason: Pain, Mild (1-3) Amlodipine Besylate (Norvasc) 10 mg PO DAILY [facility] Last Admin: 06/11/16 09:47 Dose: Not Given Atorvastatin Calcium (Lipitor) 80 mg PO HS [facility] Last Admin: 06/10/16 23:32 Dose: 80 mg Epoetin Sudheer (Procrit) 10,000 unit IV TTS [facility] Hydromorphone HCl (Dilaudid) 1 mg IVP Q4 PRN PRN Reason: Pain, severe (8-10) Last Admin: 06/11/16 06:59 Dose: 1 mg Vancomycin HCl 750 mg/ Sodium (Chloride) 250 mls @ 166.667 mls/hr IVPB TTS [facility] Last Admin: 06/11/16 09:49 Dose: 166.667 mls/hr Piperacillin Sod/Tazobactam (Sod 2.25 gm/ Sodium Chloride) 100 mls @ 100 mls/ hr IVPB Q8 [facility] Last Admin: 06/11/16 09:48 Dose: 100 mls/hr Insulin Human Lispro (Humalog) 0 units SC ACHS [facility] PRN Reason: Protocol Last Admin: 06/11/16 07:09 Dose: Not Given Levothyroxine Sodium (Synthroid) 75 mcg PO DAILY@0630 [facility] Last Admin: 06/11/16 06:59 Dose: 75 mcg Metoprolol Tartrate (Lopressor) 50 mg PO BID [facility] Last Admin: 06/11/16 09:46 Dose: Not Given Oxycodone/Acetaminophen (Percocet 5/325 Mg Tab) 1 tab PO Q4 PRN PRN Reason: Pain, moderate (4-7) Stop: 06/13/16 15:19 Pantoprazole Sodium (Protonix Ec Tab) 40 mg PO DAILY [facility] Last Admin: 06/11/16 09:47 Dose: 40 mg Pregabalin (Lyrica) 50 mg PO QPM [facility] Last Admin: 06/10/16 18:06 Dose: 50 mg Sevelamer HCl (Renagel) 800 mg PO BID [facility] Last Admin: 06/11/16 09:49 Dose: 800 mg Valsartan (Diovan) 160 mg PO DAILY [facility] Last Admin: 06/11/16 09:45 Dose: 160 mg - Labs Labs: 06/10/16 05:30 06/10/16 05:30 PT 12.3 SECONDS (9.6-11.2) H 06/10/16 05:30 INR 1.18 (0.92-1.08) H 06/10/16 05:30 APTT 25.9 SECONDS (23.3-32.5) 06/10/16 05:30 - Respiratory Exam Additional comments: Lungs clear - Cardiovascular Exam Cardiovascular Exam: REGULAR RHYTHM - Extremities Exam Additional comments: No edema. Lt foot dressed Assessment and Plan - Assessment and Plan (Free Text) Assessment: ESRD on HD S/P Lt transmetatarsl amputation CAD, A.fib DM Plan: Scheduled for HD today Orders entered. Consent obtained BP stable
--- NOTE | 2016-06-11 19:34 | CP.PCM.PN ---
Subjective - Subjective Subjective: Pain L foot Objective - Vital Signs/Intake and Output Vital Signs (last 24 hours): Temp Pulse Resp BP Pulse Ox 97.8 F 63 20 155/72 H 98 06/11/16 17:00 06/11/16 17:00 06/11/16 17:00 06/11/16 17:00 06/11/16 17:00 - Medications Medications: Current Medications Acetaminophen (Tylenol 325mg Tab) 650 mg PO Q4 PRN PRN Reason: Pain, Mild (1-3) Amlodipine Besylate (Norvasc) 10 mg PO DAILY [facility] Last Admin: 06/11/16 09:47 Dose: Not Given Atorvastatin Calcium (Lipitor) 80 mg PO HS [facility] Last Admin: 06/10/16 23:32 Dose: 80 mg Epoetin Sudheer (Procrit) 10,000 unit IV TTS [facility] Hydromorphone HCl (Dilaudid) 1 mg IVP Q4 PRN PRN Reason: Pain, severe (8-10) Last Admin: 06/11/16 13:52 Dose: 1 mg Vancomycin HCl 750 mg/ Sodium (Chloride) 250 mls @ 166.667 mls/hr IVPB TTS [facility] Last Admin: 06/11/16 09:49 Dose: 166.667 mls/hr Piperacillin Sod/Tazobactam (Sod 2.25 gm/ Sodium Chloride) 100 mls @ 100 mls/ hr IVPB Q8 [facility] Last Admin: 06/11/16 16:00 Dose: 100 mls/hr Insulin Human Lispro (Humalog) 0 units SC ACHS [facility] PRN Reason: Protocol Last Admin: 06/11/16 17:08 Dose: 2 units Levothyroxine Sodium (Synthroid) 75 mcg PO DAILY@0630 [facility] Last Admin: 06/11/16 06:59 Dose: 75 mcg Metoprolol Tartrate (Lopressor) 50 mg PO BID [facility] Last Admin: 06/11/16 12:39 Dose: 50 mg Oxycodone/Acetaminophen (Percocet 5/325 Mg Tab) 1 tab PO Q4 PRN PRN Reason: Pain, moderate (4-7) Stop: 06/13/16 15:19 Pantoprazole Sodium (Protonix Ec Tab) 40 mg PO DAILY [facility] Last Admin: 06/11/16 09:47 Dose: 40 mg Pregabalin (Lyrica) 50 mg PO QPM [facility] Last Admin: 06/10/16 18:06 Dose: 50 mg Sevelamer HCl (Renagel) 800 mg PO BID [facility] Last Admin: 06/11/16 09:49 Dose: 800 mg Valsartan (Diovan) 160 mg PO DAILY [facility] Last Admin: 06/11/16 09:45 Dose: 160 mg - Labs Labs: 06/10/16 05:30 06/10/16 05:30 PT 12.3 SECONDS (9.6-11.2) H 06/10/16 05:30 INR 1.18 (0.92-1.08) H 06/10/16 05:30 APTT 25.9 SECONDS (23.3-32.5) 06/10/16 05:30 - Constitutional Appears: No Acute Distress, Chronically Ill - Head Exam Head Exam: NORMAL INSPECTION - Eye Exam Eye Exam: PERRL - ENT Exam ENT Exam: Normal Oropharynx - Neck Exam Neck Exam: Normal Inspection - Respiratory Exam Respiratory Exam: NORMAL BREATHING PATTERN - Cardiovascular Exam Cardiovascular Exam: REGULAR RHYTHM Additional comments: PPM - GI/Abdominal Exam GI & Abdominal Exam: Soft, Normal Bowel Sounds - Extremities Exam Extremities Exam: Tenderness (L foot , dressing in place) - Back Exam Back Exam: NORMAL INSPECTION - Neurological Exam Neurological Exam: Alert, Oriented x3 Additional comments: no focal motor deficit , decreased sensation R L foot - Psychiatric Exam Psychiatric exam: Normal Mood - Skin Skin Exam: Warm Assessment and Plan - Assessment and Plan (Free Text) Assessment: s/p L foot TMA Acute High PVD Chronic high DM neuropathy Chronic high ESKD HD chronic high CAD CHF Hc PAF PPM DMII HTN Hypothyroidism Hyperlipidemia Anemia Plan: Continue Percocet , Merren and rest of treatment , PT
[2016-06-11] MEDS: HYDROmorphone 0.5 mg/0.5 ml ISec IVP PRN (20:39)
[2016-06-12] MEDS: HYDROmorphone 0.5 mg/0.5 ml ISec IVP PRN ×2 (03:06→14:49)
[2016-06-12] MEDS: Levothyroxine 75 MCG TAB PO SCH (08:00)
[2016-06-12] MEDS: Insulin Lispro (humaLOG) 100 Units/ml Inj SC SCH ×4 (09:08→21:40)
[2016-06-12] MEDS: Pantoprazole 40 mg EC Tab PO SCH (09:09)
--- NOTE | 2016-06-12 13:21 | CP.PCM.PN ---
Subjective - Date & Time of Evaluation Date of Evaluation: 06/12/16 Time of Evaluation: 09:45 - Subjective Subjective: 75 yo female patient is 2 days s/p Left foot TMA by Dr. Herrera. The patient has PMHx of Anemia, arthritis, Atrial Fib, CAD, CHF, DM, HTN, HLD, ESRD ( dialysis on //Mon), Hyperthyroidism, Hypothyroidism. She was resting comfortably in bed this morning without any acute distress. AAO x3. Dressing to Left foot remains c/d/i. Patient complains of mild pain to Left foot upon palpation. Patient denies F/C/N/V/SOB today Objective - Vital Signs/Intake and Output Vital Signs (last 24 hours): Temp Pulse Resp BP Pulse Ox 98.5 F 69 18 136/66 93 L 06/12/16 07:59 06/12/16 07:59 06/12/16 07:59 06/12/16 09:09 06/12/16 07:59 - Medications Medications: Current Medications Acetaminophen (Tylenol 325mg Tab) 650 mg PO Q4 PRN PRN Reason: Pain, Mild (1-3) Amlodipine Besylate (Norvasc) 10 mg PO DAILY [facility] Last Admin: 06/12/16 09:09 Dose: 10 mg Atorvastatin Calcium (Lipitor) 80 mg PO HS [facility] Last Admin: 06/11/16 22:36 Dose: 80 mg Epoetin Sudheer (Procrit) 10,000 unit IV TTS [facility] Last Admin: 06/11/16 20:47 Dose: 10,000 unit Hydromorphone HCl (Dilaudid) 1 mg IVP Q4 PRN PRN Reason: Pain, severe (8-10) Last Admin: 06/12/16 03:06 Dose: 1 mg Vancomycin HCl 750 mg/ Sodium (Chloride) 250 mls @ 166.667 mls/hr IVPB TTS [facility] Last Admin: 06/11/16 09:49 Dose: 166.667 mls/hr Piperacillin Sod/Tazobactam (Sod 2.25 gm/ Sodium Chloride) 100 mls @ 100 mls/ hr IVPB Q8 [facility] Last Admin: 06/12/16 09:07 Dose: 100 mls/hr Insulin Human Lispro (Humalog) 0 units SC ACHS [facility] PRN Reason: Protocol Last Admin: 06/12/16 09:08 Dose: 2 units Levothyroxine Sodium (Synthroid) 75 mcg PO DAILY@0630 [facility] Last Admin: 06/12/16 08:00 Dose: 75 mcg Metoprolol Tartrate (Lopressor) 50 mg PO BID [facility] Last Admin: 06/12/16 09:09 Dose: 50 mg Oxycodone/Acetaminophen (Percocet 5/325 Mg Tab) 1 tab PO Q4 PRN PRN Reason: Pain, moderate (4-7) Stop: 06/13/16 15:19 Pantoprazole Sodium (Protonix Ec Tab) 40 mg PO DAILY [facility] Last Admin: 06/12/16 09:09 Dose: 40 mg Pregabalin (Lyrica) 50 mg PO QPM [facility] Last Admin: 06/11/16 22:35 Dose: 50 mg Sevelamer HCl (Renagel) 800 mg PO BID [facility] Last Admin: 06/12/16 09:08 Dose: 800 mg Valsartan (Diovan) 160 mg PO DAILY [facility] Last Admin: 06/12/16 09:08 Dose: 160 mg - Labs Labs: 06/10/16 05:30 06/10/16 05:30 PT 12.3 SECONDS (9.6-11.2) H 06/10/16 05:30 INR 1.18 (0.92-1.08) H 06/10/16 05:30 APTT 25.9 SECONDS (23.3-32.5) 06/10/16 05:30 - Constitutional Appears: Well, Non-toxic, No Acute Distress - Extremities Exam Additional comments: Left lower extremity exam DERM: Surgical site well coapted with all sutures intact. No dehiscence or maceration is noted. No drainage is noted. No erythema is noted. No acute sign of infection is noted. VASC: Palpable DP noted 2/4. Non-palpable PT. Blenchable digits, MAKE UP MAN less than 3 seconds to all digits bilaterally noted. ORTHO: Pain on palpation to right hallux, distal to MPJ NEURO: Gross sensation diminished - Neurological Exam Neurological Exam: Alert, Awake, Oriented x3 - Psychiatric Exam Psychiatric exam: Normal Affect, Normal Mood - Skin Skin Exam: Normal Color, Warm Assessment and Plan - Assessment and Plan (Free Text) Assessment: 75 year old female patient 2 days s/p Left foot TMA by Dr. Herrera Plan: Patient was seen, evaluated and treated at bedside labs and vitals reviewed discussed with Dr. Herrera Left foot dressed with Adaptic, DSD Continue IV Abx Patient to be non-weight bearing to Left foot Podiatry will follow in-house
--- NOTE | 2016-06-12 13:56 | CP.PCM.CON ---
History of Present Illness - History of Present Illness History of Present Illness: 75 year old female with a history of CAD, CHF, hypertension, diabetes, hyperlipidemia, and end stage renal disease presents to the ED with a chief complaint of mild left foot pain Underwent TMA for chronic left foot infection referred for ID ecal of ESBL + E coli urine culture denies burning /pain on urination - Medical History PMH: Anemia, Arthritis, Atrial Fibrillation, CAD, CHF, Diabetes, Gall Bladder Disease, HTN, Hypercholesterolemia, Hyperthyroidism, Hypothyroidism, Kidney Stones, Pneumonia, End Stage Renal Disease (TTF), Chronic Kidney Disease Denies: HIV - Surgical History Surgical History: CABG, Cholecystectomy, Coronary Stent, Pacemaker Review of Systems - Constitutional Constitutional: As Per HPI, Anorexia, Malaise. absent: Fever - EENT Eyes: absent: As Per HPI, Blind Spots, Blurred Vision, Change in Vision, Decreased Night Vision, Diplopia, Discharge, Dry Eye, Exophthalmos, Floaters, Irritation, Itchy Eyes, Loss of Peripheral Vision, Pain, Photophobia, Requires Corrective Lenses, Sees Flashes, Spots in Vision, Tunnel Vision, Other Visual Disturbances, Loss of Vision, Other Ears: absent: As Per HPI, Decreased Hearing, Ear Discharge, Ear Pain, Tinnitus, Abnormal Hearing, Disequilibrium, Dizziness, Other Nose/Mouth/Throat: absent: As Per HPI, Epistaxis, Nasal Congestion, Nasal Discharge, Nasal Obstruction, Nasal Trauma, Nose Pain, Post Nasal Drip, Sinus Pain, Sinus Pressure, Bleeding Gums, Change in Voice, Dental Pain, Dry Mouth, Dysphagia, Halitosis, Hoarsness, Lip Swelling, Mouth Lesions, Mouth Pain, Odynophagia, Sore Throat, Throat Swelling, Tongue Swelling, Facial Pain, Neck Pain, Neck Mass, Other - Breasts Breasts: absent: As Per HPI, Change in Shape, Mass, Pain, Nipple Discharge, Nipple Inversion, Skin Changes, Swelling, Other - Cardiovascular Cardiovascular: absent: As Per HPI, Acrocyanosis, Chest Pain, Chest Pain at Rest , Chest Pain with Activity, Claudication, Diaphoresis, Dyspnea, Dyspnea on Exertion, Edema, Irregular Heart Rhythm, Pain Radiating to Arm/Neck/Jaw, Leg Edema, Leg Ulcers, Lightheadedness, Orthopnea, Palpitations, Paroxysmal Nocturnal Dyspnea, Pedal Edema, Radiating Pain, Rapid Heart Rate, Slow Heart Rate, Syncope, Other - Respiratory Respiratory: absent: As Per HPI, Cough, Dyspnea, Hemoptysis, Dyspnea on Exertion , Wheezing, Snoring, Stridor, Pain on Inspiration, Chest Congestion, Excessive Mucous Production, Change in Mucous Color, Pain with Coughing, Other - Gastrointestinal Gastrointestinal: absent: As Per HPI, Abdominal Pain, Belching, Bloating, Change in Bowel Habits, Change in Stool Character, Coffee Ground Emesis, Constipation, Cramping, Diarrhea, Dyspepsia, Dysphagia, Early Satiety, Excessive Flatus, Fecal Incontinence, Heartburn, Hematemesis, Hematochezia, Loose Stools, Melena, Nausea, Odynophagia, Temesmus, Vomiting, Other - Genitourinary Genitourinary: As Per HPI - Reproductive: Female Reproductive:Female: absent: As Per HPI, Amenorrhea, Amenorrhea/ Control, Currently Menstual, Cycle <21 Days, Cycle >35 Days, Cycle Variable, Menses 1-7 Days, Menses >/= 8 Days, Menses Variable, Cycle > 4 Weeks Between, No Menses for 6 Months, Heavy Menses, Light Menses, Normal Menses, Spotting Between Cycles , S/P Hysterectomy, Menopausal, Post Menopausal, Premenarche, Abnormal Vaginal Bleeding, Dysmenorrhea, Dyspareunia, Genital Lesions, Genital Pruritis, Pelvic Pain, Prolapse Symptoms, Sexual Dysfunction, Vaginal Discharge, Vaginal Dryness , Vaginal Odor, Vaginal Pruritis, Other - Menstruation Menstruation: absent: As Per HPI, Amenorrhea, Amenorrhea/ Control, Currently Menstual, Cycle <21 Days, Cycle >35 Days, Cycle Variable, Menses 1-7 Days, Menses >/= 8 Days, Menses Variable, Cycle > 4 Weeks Between, No Menses for 6 Months, Heavy Menses, Light Menses, Normal Menses, Spotting Between Cycles , S/P Hysterectomy, Menopausal, Post Menopausal, Premenarche, Abnormal Vaginal Bleeding, Dysmenorrhea, Other - Musculoskeletal Musculoskeletal: As Per HPI - Integumentary Integumentary: As Per HPI, Wounds - Neurological Neurological: As Per HPI, Tingling - Psychiatric Psychiatric: absent: As Per HPI, Abnormal Sleep Pattern, Anhedonia, Anxiety, Auditory Hallucinations, Behavioral Changes, Change in Appetite, Change in Libido, Confusion, Depression, Difficulty Concentrating, Hallucinations, Homicidal Ideation, Hopelessness, Irritability, Memory Loss, Mood Swings, Panic Attacks, Paranoia, Suicidal Ideation, Visual Hallucinations, Tactile Hallucinations, Other - Endocrine Endocrine: As Per HPI - Hematologic/Lymphatic Hematologic: absent: As Per HPI, Easy Bleeding, Easy Bruising, Lymphadenopathy, Other Past Patient History - Infectious Disease Hx of Infectious Diseases: None - Past Medical History & Family History Past Medical History?: Yes - Past Social History Smoking Status: Never Smoked Alcohol: Occasional Drugs: Denies - CARDIAC Hx Cardiac Disorders: Yes Hx Atrial Fibrillation: Yes Hx Congestive Heart Failure: Yes Hx Hypercholesterolemia: Yes Hx Hypertension: Yes Hx Pacemaker: Yes - PULMONARY Hx Respiratory Disorders: Yes Hx Pneumonia: Yes - NEUROLOGICAL Hx Neurological Disorder: No - HEENT Hx HEENT Problems: No - RENAL Hx Chronic Kidney Disease: Yes Hx Dialysis: Yes Hx Kidney Stones: Yes Hx Renal Failure: Yes - ENDOCRINE/METABOLIC Hx Hyperthyroidism: Yes Hx Hypothyroidism: Yes - HEMATOLOGICAL/ONCOLOGICAL Hx Anemia: Yes Hx Human Immunodeficiency Virus (HIV): No - INTEGUMENTARY Hx Dermatological Problems: No - MUSCULOSKELETAL/RHEUMATOLOGICAL Hx Arthritis: Yes - GASTROINTESTINAL Hx Gall Bladder Disease: Yes - GENITOURINARY/GYNECOLOGICAL Hx Genitourinary Disorders: No - PSYCHIATRIC Hx Psychophysiologic Disorder: No - SURGICAL HISTORY Hx Surgeries: Yes Hx Amputation: Yes (L foot partial hallux amputation,) Hx Cholecystectomy: Yes Hx Coronary Artery Bypass Graft: Yes Hx Coronary Stent: Yes - ANESTHESIA Hx Anesthesia: Yes Hx Anesthesia Reactions: No Hx Malignant Hyperthermia: No Meds Allergies/Adverse Reactions: Allergies Allergy/AdvReac Type Severity Reaction Status Date / Time No Known Allergies Allergy Verified 04/15/15 18:53 - Medications Medications: Current Medications Acetaminophen (Tylenol 325mg Tab) 650 mg PO Q4 PRN PRN Reason: Pain, Mild (1-3) Amlodipine Besylate (Norvasc) 10 mg PO DAILY [facility] Last Admin: 06/12/16 09:09 Dose: 10 mg Atorvastatin Calcium (Lipitor) 80 mg PO HS [facility] Last Admin: 06/11/16 22:36 Dose: 80 mg Epoetin Sudheer (Procrit) 10,000 unit IV TTS [facility] Last Admin: 06/11/16 20:47 Dose: 10,000 unit Hydromorphone HCl (Dilaudid) 1 mg IVP Q4 PRN PRN Reason: Pain, severe (8-10) Last Admin: 06/12/16 03:06 Dose: 1 mg Vancomycin HCl 750 mg/ Sodium (Chloride) 250 mls @ 166.667 mls/hr IVPB TTS [facility] Last Admin: 06/11/16 09:49 Dose: 166.667 mls/hr Piperacillin Sod/Tazobactam (Sod 2.25 gm/ Sodium Chloride) 100 mls @ 100 mls/ hr IVPB Q8 [facility] Last Admin: 06/12/16 09:07 Dose: 100 mls/hr Insulin Human Lispro (Humalog) 0 units SC ACHS [facility] PRN Reason: Protocol Last Admin: 06/12/16 13:23 Dose: 4 units Levothyroxine Sodium (Synthroid) 75 mcg PO DAILY@0630 [facility] Last Admin: 06/12/16 08:00 Dose: 75 mcg Metoprolol Tartrate (Lopressor) 50 mg PO BID [facility] Last Admin: 06/12/16 09:09 Dose: 50 mg Oxycodone/Acetaminophen (Percocet 5/325 Mg Tab) 1 tab PO Q4 PRN PRN Reason: Pain, moderate (4-7) Stop: 06/13/16 15:19 Pantoprazole Sodium (Protonix Ec Tab) 40 mg PO DAILY [facility] Last Admin: 06/12/16 09:09 Dose: 40 mg Pregabalin (Lyrica) 50 mg PO QPM [facility] Last Admin: 06/11/16 22:35 Dose: 50 mg Sevelamer HCl (Renagel) 800 mg PO BID [facility] Last Admin: 06/12/16 09:08 Dose: 800 mg Valsartan (Diovan) 160 mg PO DAILY [facility] Last Admin: 06/12/16 09:08 Dose: 160 mg Physical Exam - Constitutional Appears: Non-toxic, Chronically Ill - Head Exam Head Exam: ATRAUMATIC, NORMAL INSPECTION, NORMOCEPHALIC - Eye Exam Eye Exam: Normal appearance, PERRL. absent: Scleral icterus - ENT Exam ENT Exam: Mucous Membranes Moist, Normal External Ear Exam, Normal Oropharynx - Neck Exam Neck exam: Negative for: Lymphadenopathy, Thyromegaly - Respiratory Exam Respiratory Exam: Decreased Breath Sounds, Clear to Auscultation Bilateral - Cardiovascular Exam Cardiovascular Exam: REGULAR RHYTHM, +S1, +S2 - GI/Abdominal Exam GI & Abdominal Exam: Diminished Bowel Sounds, Soft. absent: Tenderness - Rectal Exam Rectal Exam: Deferred - Exam Exam: NORMAL INSPECTION - Extremities Exam Extremities exam: Positive for: pedal pulses present. Negative for: calf tenderness, pedal edema, tenderness - Back Exam Back exam: absent: CVA tenderness (L), CVA tenderness (R), paraspinal tenderness - Neurological Exam Neurological exam: Alert, CN II-XII Intact, Oriented x3, Reflexes Normal - Psychiatric Exam Psychiatric exam: Normal Mood - Skin Skin Exam: Dry Results - Vital Signs Recent Vital Signs: Last Vital Signs Temp 98.5 F 06/12/16 07:59 Pulse 69 06/12/16 07:59 Resp 18 06/12/16 07:59 BP 136/66 06/12/16 09:09 Pulse Ox 93 L 06/12/16 07:59 - Labs Result Diagrams: 06/10/16 05:30 06/10/16 05:30 Labs: Laboratory Results - last 24 hr 06/11/16 06/11/16 06/12/16 17:02 21:40 05:55 POC Glucose (mg/dL) 152 H 201 H 169 H 06/12/16 11:05 POC Glucose (mg/dL) 235 H Assessment & Plan - Assessment and Plan (Free Text) Assessment: positive blood c/s likely a contaminant urine c/s noted - colonization vs infection cont merrem for 7 days
[2016-06-12] MEDS: Meropenem 500 MG in Sodium Chloride 0.9% 100 ML IVPB SCH (15:00)
--- NOTE | 2016-06-12 15:11 | CP.PCM.PN ---
Subjective - Date & Time of Evaluation Date of Evaluation: 06/12/16 - Subjective Subjective: Pain L foot Objective - Vital Signs/Intake and Output Vital Signs (last 24 hours): Temp Pulse Resp BP Pulse Ox 98.5 F 69 18 136/66 93 L 06/12/16 07:59 06/12/16 07:59 06/12/16 07:59 06/12/16 09:09 06/12/16 07:59 - Medications Medications: Current Medications Acetaminophen (Tylenol 325mg Tab) 650 mg PO Q4 PRN PRN Reason: Pain, Mild (1-3) Amlodipine Besylate (Norvasc) 10 mg PO DAILY [facility] Last Admin: 06/12/16 09:09 Dose: 10 mg Atorvastatin Calcium (Lipitor) 80 mg PO HS [facility] Last Admin: 06/11/16 22:36 Dose: 80 mg Epoetin Sudheer (Procrit) 10,000 unit IV TTS [facility] Last Admin: 06/11/16 20:47 Dose: 10,000 unit Hydromorphone HCl (Dilaudid) 1 mg IVP Q4 PRN PRN Reason: Pain, severe (8-10) Last Admin: 06/12/16 14:49 Dose: 1 mg Vancomycin HCl 750 mg/ Sodium (Chloride) 250 mls @ 166.667 mls/hr IVPB TTS [facility] Last Admin: 06/11/16 09:49 Dose: 166.667 mls/hr Meropenem 500 mg/ Sodium (Chloride) 100 mls @ 100 mls/hr IVPB Q12H [facility] Insulin Human Lispro (Humalog) 0 units SC ACHS [facility] PRN Reason: Protocol Last Admin: 06/12/16 13:23 Dose: 4 units Levothyroxine Sodium (Synthroid) 75 mcg PO DAILY@0630 [facility] Last Admin: 06/12/16 08:00 Dose: 75 mcg Metoprolol Tartrate (Lopressor) 50 mg PO BID [facility] Last Admin: 06/12/16 09:09 Dose: 50 mg Oxycodone/Acetaminophen (Percocet 5/325 Mg Tab) 1 tab PO Q4 PRN PRN Reason: Pain, moderate (4-7) Stop: 06/13/16 15:19 Pantoprazole Sodium (Protonix Ec Tab) 40 mg PO DAILY [facility] Last Admin: 06/12/16 09:09 Dose: 40 mg Pregabalin (Lyrica) 50 mg PO QPM [facility] Last Admin: 06/11/16 22:35 Dose: 50 mg Sevelamer HCl (Renagel) 800 mg PO BID [facility] Last Admin: 06/12/16 09:08 Dose: 800 mg Valsartan (Diovan) 160 mg PO DAILY [facility] Last Admin: 06/12/16 09:08 Dose: 160 mg - Labs Labs: 06/10/16 05:30 06/10/16 05:30 PT 12.3 SECONDS (9.6-11.2) H 06/10/16 05:30 INR 1.18 (0.92-1.08) H 06/10/16 05:30 APTT 25.9 SECONDS (23.3-32.5) 06/10/16 05:30 - Constitutional Appears: No Acute Distress, Chronically Ill - Head Exam Head Exam: NORMAL INSPECTION - Eye Exam Eye Exam: PERRL - ENT Exam ENT Exam: Normal Oropharynx - Neck Exam Neck Exam: Normal Inspection - Respiratory Exam Respiratory Exam: NORMAL BREATHING PATTERN - Cardiovascular Exam Cardiovascular Exam: REGULAR RHYTHM Additional comments: PPM - GI/Abdominal Exam GI & Abdominal Exam: Soft, Normal Bowel Sounds - Extremities Exam Extremities Exam: Tenderness (L foot dressing) - Back Exam Back Exam: NORMAL INSPECTION - Neurological Exam Neurological Exam: Alert, Oriented x3 Additional comments: no focal motor deficit , decreased sensation distal legs , R L foot - Skin Skin Exam: Warm Assessment and Plan - Assessment and Plan (Free Text) Assessment: s/p L TMA Acute High UTI PVD Chronic high DM Neuropathy Chronic high ESKD Chronic high CAD CHF PAF-PPM DMII HTN Hypothyroidism Hyperlipidemia Anemia Plan: Continue Dilaudid , Percocet ,Lyrica , Merren and rest of treatment
[2016-06-12] MEDS: Oxycodone/Acetaminophen 5/325 mg Tab PO PRN (15:47)
--- NOTE | 2016-06-12 16:13 | CP.PCM.PN ---
Subjective - Date & Time of Evaluation Date of Evaluation: 06/19/16 Time of Evaluation: 03:35 - Subjective Subjective: C/o pain in Rt foot Objective - Vital Signs/Intake and Output Vital Signs (last 24 hours): Temp Pulse Resp BP Pulse Ox 98.5 F 69 18 136/66 93 L 06/12/16 07:59 06/12/16 07:59 06/12/16 07:59 06/12/16 09:09 06/12/16 07:59 - Medications Medications: Current Medications Acetaminophen (Tylenol 325mg Tab) 650 mg PO Q4 PRN PRN Reason: Pain, Mild (1-3) Amlodipine Besylate (Norvasc) 10 mg PO DAILY [facility] Last Admin: 06/12/16 09:09 Dose: 10 mg Atorvastatin Calcium (Lipitor) 80 mg PO HS [facility] Last Admin: 06/11/16 22:36 Dose: 80 mg Docusate Sodium (Colace) 200 mg PO DAILY [facility] Epoetin Sudheer (Procrit) 10,000 unit IV TTS [facility] Last Admin: 06/11/16 20:47 Dose: 10,000 unit Hydromorphone HCl (Dilaudid) 1 mg IVP Q4 PRN PRN Reason: Pain, severe (8-10) Last Admin: 06/12/16 14:49 Dose: 1 mg Vancomycin HCl 750 mg/ Sodium (Chloride) 250 mls @ 166.667 mls/hr IVPB TTS [facility] Last Admin: 06/11/16 09:49 Dose: 166.667 mls/hr Meropenem 500 mg/ Sodium (Chloride) 100 mls @ 100 mls/hr IVPB Q12H [facility] Insulin Human Lispro (Humalog) 0 units SC ACHS [facility] PRN Reason: Protocol Last Admin: 06/12/16 13:23 Dose: 4 units Lactulose (Enulose) 20 gm PO BID PRN PRN Reason: Constipation Levothyroxine Sodium (Synthroid) 75 mcg PO DAILY@0630 [facility] Last Admin: 06/12/16 08:00 Dose: 75 mcg Metoprolol Tartrate (Lopressor) 50 mg PO BID [facility] Last Admin: 06/12/16 09:09 Dose: 50 mg Oxycodone/Acetaminophen (Percocet 5/325 Mg Tab) 1 tab PO Q4 PRN PRN Reason: Pain, moderate (4-7) Stop: 06/13/16 15:19 Last Admin: 06/12/16 15:47 Dose: 1 tab Pantoprazole Sodium (Protonix Ec Tab) 40 mg PO DAILY [facility] Last Admin: 06/12/16 09:09 Dose: 40 mg Pregabalin (Lyrica) 50 mg PO QPM [facility] Last Admin: 06/11/16 22:35 Dose: 50 mg Sevelamer HCl (Renagel) 800 mg PO BID [facility] Last Admin: 06/12/16 09:08 Dose: 800 mg Valsartan (Diovan) 160 mg PO DAILY [facility] Last Admin: 06/12/16 09:08 Dose: 160 mg - Labs Labs: 06/10/16 05:30 06/10/16 05:30 PT 12.3 SECONDS (9.6-11.2) H 06/10/16 05:30 INR 1.18 (0.92-1.08) H 06/10/16 05:30 APTT 25.9 SECONDS (23.3-32.5) 06/10/16 05:30 - Respiratory Exam Additional comments: Lungs clear - Cardiovascular Exam Cardiovascular Exam: Irregular Rhythm - Extremities Exam Additional comments: BNo edema. Rt foot dressed Assessment and Plan - Assessment and Plan (Free Text) Assessment: ESRD S/P Rt TMA CAD,A>fib DM Plan: Etable on dialysis. Continue HD per schedule
[2016-06-13] MEDS: HYDROmorphone 0.5 mg/0.5 ml ISec IVP PRN ×2 (00:40→08:55)
[2016-06-13] MEDS: Meropenem 500 MG in Sodium Chloride 0.9% 100 ML IVPB SCH ×2 (01:18→16:16)
[2016-06-13] MEDS: Levothyroxine 75 MCG TAB PO SCH (06:15)
--- NOTE | 2016-06-13 08:10 | CP.PCM.PN ---
Subjective - Date & Time of Evaluation Date of Evaluation: 06/13/16 Time of Evaluation: 08:13 - Subjective Subjective: 75 year old female with PMHx of anemia, arthritis, Atrial Fib, CAD, CHF, DM, HTN , HLD, ESRD (dialysis on //Mon), Hyperthyroidism, Hypothyroidism was seen resting comfortably at bedside with attending, Dr. Herrera 3 days s/p Left foot TMA. AAO x3. Dressing to Left foot remains c/d/i. Patient complains of mild pain to Left foot upon palpation. She admits to less pain now compared to before the surgery. Patient denies F/C/N/V/SOB/CP Objective - Vital Signs/Intake and Output Vital Signs (last 24 hours): Temp Pulse Resp BP Pulse Ox 98.9 F 67 20 131/77 97 06/12/16 21:00 06/12/16 21:00 06/12/16 21:00 06/12/16 21:00 06/12/16 21:00 - Medications Medications: Current Medications Acetaminophen (Tylenol 325mg Tab) 650 mg PO Q4 PRN PRN Reason: Pain, Mild (1-3) Amlodipine Besylate (Norvasc) 10 mg PO DAILY [facility] Last Admin: 06/12/16 09:09 Dose: 10 mg Atorvastatin Calcium (Lipitor) 80 mg PO HS [facility] Last Admin: 06/12/16 21:49 Dose: 80 mg Docusate Sodium (Colace) 200 mg PO DAILY [facility] Last Admin: 06/12/16 20:36 Dose: 200 mg Epoetin Sudheer (Procrit) 10,000 unit IV TTS [facility] Last Admin: 06/11/16 20:47 Dose: 10,000 unit Heparin Sodium (Porcine) (Heparin) 5,000 units SC Q12 [facility] PRN Reason: Protocol Last Admin: 06/12/16 20:37 Dose: 5,000 units Hydromorphone HCl (Dilaudid) 1 mg IVP Q4 PRN PRN Reason: Pain, severe (8-10) Last Admin: 06/13/16 00:40 Dose: 1 mg Vancomycin HCl 750 mg/ Sodium (Chloride) 250 mls @ 166.667 mls/hr IVPB TTS [facility] Last Admin: 06/11/16 09:49 Dose: 166.667 mls/hr Meropenem 500 mg/ Sodium (Chloride) 100 mls @ 100 mls/hr IVPB Q12H [facility] Last Admin: 06/13/16 01:18 Dose: 100 mls/hr Insulin Human Lispro (Humalog) 0 units SC ACHS [facility] PRN Reason: Protocol Last Admin: 06/12/16 21:40 Dose: Not Given Lactulose (Enulose) 20 gm PO BID PRN PRN Reason: Constipation Last Admin: 06/12/16 17:07 Dose: 20 gm Levothyroxine Sodium (Synthroid) 75 mcg PO DAILY@0630 [facility] Last Admin: 06/13/16 06:15 Dose: 75 mcg Metoprolol Tartrate (Lopressor) 50 mg PO BID [facility] Last Admin: 06/12/16 17:02 Dose: 50 mg Oxycodone/Acetaminophen (Percocet 5/325 Mg Tab) 1 tab PO Q4 PRN PRN Reason: Pain, moderate (4-7) Stop: 06/13/16 15:19 Last Admin: 06/12/16 15:47 Dose: 1 tab Pantoprazole Sodium (Protonix Ec Tab) 40 mg PO DAILY [facility] Last Admin: 06/12/16 09:09 Dose: 40 mg Pregabalin (Lyrica) 50 mg PO QPM [facility] Last Admin: 06/12/16 18:50 Dose: 50 mg Sevelamer HCl (Renagel) 800 mg PO BID [facility] Last Admin: 06/12/16 17:03 Dose: 800 mg Valsartan (Diovan) 160 mg PO DAILY [facility] Last Admin: 06/12/16 09:08 Dose: 160 mg - Labs Labs: 06/10/16 05:30 06/10/16 05:30 PT 12.3 SECONDS (9.6-11.2) H 06/10/16 05:30 INR 1.18 (0.92-1.08) H 06/10/16 05:30 APTT 28.0 SECONDS (23.3-32.5) 06/12/16 20:30 - Constitutional Appears: Well, Non-toxic, No Acute Distress - Extremities Exam Additional comments: Left lower extremity focused exam: VASC: Palpable DP noted 2/4. Non-palpable PT. No edema noted. Skin temperature warm to warm from proximal to distal DERM: Surgical site well coapted with all sutures intact. No dehiscence or maceration is noted. No drainage is noted. No erythema is noted. No acute sign of infection noted. ORTHO: Pain on palpation to TMA site NEURO: Gross sensation diminished - Neurological Exam Neurological Exam: Alert, Awake, Oriented x3 - Psychiatric Exam Psychiatric exam: Normal Affect, Normal Mood Assessment and Plan - Assessment and Plan (Free Text) Assessment: 75 year old female patient 3 days s/p Left foot TMA by Dr. Herrera Plan: Patient was examined and evaluated with attending, Dr. Herrera labs and vitals reviewed Left foot dressed with betadine, DSD Continue IV Abx Patient to be non-weight bearing to Left foot Podiatry will follow in-house
[2016-06-13] MEDS: Insulin Lispro (humaLOG) 100 Units/ml Inj SC SCH ×4 (08:48→21:27)
[2016-06-13] MEDS: Pantoprazole 40 mg EC Tab PO SCH (08:51)
--- NOTE | 2016-06-13 10:45 | PQF CHF ---
This form is a permanent part of the medical record 06/13/16 Dr. Green, Documentation of a history of CHF. Would you please clarify the type and acuity Clarification of your documentation is requested to better reflect the severity of illness and intensity of treatment of your patient. Indicators present [x] Diagnosis of a history of CHF [] BNP > 200 [] Imaging Finding of Pulmonary Edema /Pleural Effusions [] Fluid/Volume Overload [] Pitting edema [] Ejection Fraction < 40% (Indicative of Systolic Heart Failure) [x] Ejection Fraction > 40% (Indicative of Diastolic Heart Failure) Echo March 2016 [] Dyspnea / Orthopenea / Paroxysmal Nocturnal Dyspnea [] Other: Location in the medical record that reflects the above clinical findings: [] Treatment Provided: [] PHYSICIAN'S RESPONSE Based on your medical judgment of the clinical indicators outlined above, are you treating this patient for a known or suspected: [] Acute CHF [] Systolic [] Diastolic [] Combined [] Chronic CHF [] Systolic [] Diastolic [] Combined [] Acute on Chronic CHF []Systolic [] Diastolic [] Combined [] CHF due hypertension [] Acute systolic []Chronic systolic [] Acute/ chronic systolic [] Other, please indicate: [] [] If Unable to Determine, please check the box, sign and date. Present On Admission (POA) Indicator: [] Present at the time of admission [] Not present at the time of admission [] Clinically Undetermined In responding to this query, please exercise your independent professional judgment. The fact that a question is asked does not imply that any particular answer is desired or expected. Thank you for your clarification on this documentation. If you have any questions please call:[phone] * Thank you, Nicky Regan RN CDMP [facility]
--- NOTE | 2016-06-13 11:15 | OP ---
PROCEDURE DATE: 06/10/2016 PRIMARY SURGEON: Dr. Mustapha Herrera. RN BONE MARROW TRANSPLANT: Dr. Vianca Rubin, PGY-1. ANESTHESIOLOGIST: Dr. Lore Ramirez. ANESTHESIA TYPE: IV sedation with local. 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 PROCEDURE PERFORMED: Left foot transmetatarsal amputation. INDICATIONS: The patient is a 75-year-old female with the above diagnosis. The patient has exhausted all conservative treatment options at this time and now is in need of surgical intervention. The patient's daughter signed the consent after careful explanation of risks, benefits, complications and alternatives for the surgical procedure. No guarantees were neither given nor implied. The patient's n.p.o. status was confirmed prior to taking the patient to the OR. PREPARATION: The patient was brought to the operating room and placed on the operating room table in a supine position. A well-padded pneumatic ankle tourniquet was placed on the patient's left ankle loosely in a supramalleolar position for potential use intraoperatively to control arterial flow. After induction of IV sedation, the patient received a total of 15 mL of 0.5% Marcaine plain in a local block type fashion to the left foot. Once local anesthesia was confirmed to be achieved, the left foot was then prepped and draped in the usual sterile manner. Esmarch was used to exsanguinate the patient's left foot after holding in elevated position for 2 minutes and the procedure began. DESCRIPTION OF PROCEDURE: The attending was present during the entire case. Attention was then directed to the dorsal aspect of the left foot in which, using a #15 blade, a circumferential incision was made surrounding the distal aspect of the metatarsals down to the level of bone leaving more skin and soft tissue plantarly than dorsally. All excess bleeders were ligated and cauterized as needed using electrocautery. The left foot was disarticulated at level of the metatarsophalangeal joints using sharp dissection using a #15 blade. All the tissue was then freed from all 5 metatarsal heads using a combination of sharp dissection with a #15 blade and periosteal elevators to the level of the distal 1/3 margin of their respective metatarsals. At this level, all 5 metatarsals were transected using an oscillating saw and removed from the left foot. The remaining sharp bone was then debrided down using hand rasp and oscillating saw to smoothness. Plantar tissue flap was then brought up dorsally to cover the metatarsal stumps. Soft tissue coverage was noted to be adequate at this time with no protruding bony margins into soft tissue flap. Wound site was then flushed with copious amounts of normal sterile saline. Subcutaneous tissue layer was reapproximated using #3-0 Vicryl. The skin was fully reapproximated using #4-0 nylon in a interrupted simple to horizontal- mattress stitch pattern. The wound was then dressed with Betadine-soaked Adaptic, 4 x 4 gauze, Leticia, Kerlix and loose Dewayne. POSTOPERATIVE CONDITION: The patient tolerated the anesthesia and procedure well and was escorted to the recovery room with vital signs stable and neurovascular status intact to the left foot. The patient will follow up with Dr. Herrera while in-house on outpatient basis upon discharge. Vianca Rubin DPM Mustapha Herrera DPM cc: [id number] TT: 06/13/2016 11:14:33 jonnie JEROME
[2016-06-13] MEDS: Oxycodone/Acetaminophen 5/325 mg Tab PO PRN (12:41)
--- NOTE | 2016-06-13 16:52 | CP.PCM.PN ---
Subjective - Date & Time of Evaluation Date of Evaluation: 06/13/16 Time of Evaluation: 12:20 - Subjective Subjective: F/U L TMA. Pt c/o of pain in left foot. Objective - Vital Signs/Intake and Output Vital Signs (last 24 hours): Temp Pulse Resp BP Pulse Ox 98.0 F 64 18 162/73 H 95 06/13/16 09:00 06/13/16 16:44 06/13/16 09:00 06/13/16 16:44 06/13/16 09:00 - Medications Medications: Current Medications Acetaminophen (Tylenol 325mg Tab) 650 mg PO Q4 PRN PRN Reason: Pain, Mild (1-3) Amlodipine Besylate (Norvasc) 10 mg PO DAILY [facility] Last Admin: 06/13/16 08:50 Dose: 10 mg Atorvastatin Calcium (Lipitor) 80 mg PO HS [facility] Last Admin: 06/12/16 21:49 Dose: 80 mg Docusate Sodium (Colace) 200 mg PO DAILY [facility] Last Admin: 06/13/16 08:45 Dose: 200 mg Epoetin Sudheer (Procrit) 10,000 unit IV TTS [facility] Last Admin: 06/11/16 20:47 Dose: 10,000 unit Heparin Sodium (Porcine) (Heparin) 5,000 units SC Q12 [facility] PRN Reason: Protocol Last Admin: 06/13/16 08:47 Dose: 5,000 units Hydromorphone HCl (Dilaudid) 1 mg IVP Q4 PRN PRN Reason: Pain, severe (8-10) Last Admin: 06/13/16 08:55 Dose: 1 mg Vancomycin HCl 750 mg/ Sodium (Chloride) 250 mls @ 166.667 mls/hr IVPB TTS [facility] Last Admin: 06/11/16 09:49 Dose: 166.667 mls/hr Meropenem 500 mg/ Sodium (Chloride) 100 mls @ 100 mls/hr IVPB Q12H [facility] Last Admin: 06/13/16 16:16 Dose: 100 mls/hr Insulin Human Lispro (Humalog) 0 units SC ACHS [facility] PRN Reason: Protocol Last Admin: 06/13/16 16:46 Dose: 2 units Lactulose (Enulose) 20 gm PO BID PRN PRN Reason: Constipation Last Admin: 06/12/16 17:07 Dose: 20 gm Levothyroxine Sodium (Synthroid) 75 mcg PO DAILY@0630 [facility] Last Admin: 06/13/16 06:15 Dose: 75 mcg Metoprolol Tartrate (Lopressor) 50 mg PO BID [facility] Last Admin: 06/13/16 16:44 Dose: 50 mg Pantoprazole Sodium (Protonix Ec Tab) 40 mg PO DAILY [facility] Last Admin: 06/13/16 08:51 Dose: 40 mg Pregabalin (Lyrica) 50 mg PO QPM [facility] Last Admin: 06/12/16 18:50 Dose: 50 mg Sevelamer HCl (Renagel) 800 mg PO BID [facility] Last Admin: 06/13/16 16:45 Dose: 800 mg Valsartan (Diovan) 160 mg PO DAILY [facility] Last Admin: 06/13/16 08:46 Dose: 160 mg - Labs Labs: 06/10/16 05:30 06/10/16 05:30 PT 12.3 SECONDS (9.6-11.2) H 06/10/16 05:30 INR 1.18 (0.92-1.08) H 06/10/16 05:30 APTT 28.0 SECONDS (23.3-32.5) 06/12/16 20:30 - Constitutional Appears: No Acute Distress, Chronically Ill - Head Exam Head Exam: NORMAL INSPECTION - Eye Exam Eye Exam: PERRL - ENT Exam ENT Exam: Normal Oropharynx - Neck Exam Neck Exam: Normal Inspection - Respiratory Exam Respiratory Exam: NORMAL BREATHING PATTERN - Cardiovascular Exam Cardiovascular Exam: REGULAR RHYTHM Additional comments: PPM - GI/Abdominal Exam GI & Abdominal Exam: Soft, Normal Bowel Sounds - Extremities Exam Extremities Exam: Tenderness (L foot) Additional comments: L foot dressing in place. - Back Exam Back Exam: NORMAL INSPECTION - Neurological Exam Neurological Exam: Alert, Oriented x3 Additional comments: No focal motor sensory deficit - Psychiatric Exam Psychiatric exam: Normal Mood - Skin Skin Exam: Warm Assessment and Plan - Assessment and Plan (Free Text) Assessment: S/P L TMA Acute high UTI E Coli ESBL Acute High PVD Chronic high DM Neuropathy Chronin high ESRD Chronic high CAD CHF PAF-PPM DMII HTN Hypothyroidism Hyperlipidemia Anemia Plan: Continue Meropenem, Vanco, Dilaudid and rest of Tx, F/U PT eval.
--- NOTE | 2016-06-13 17:27 | CP.PCM.PN ---
Subjective - Date & Time of Evaluation Date of Evaluation: 06/13/16 Time of Evaluation: 05:20 - Subjective Subjective: Comfortable in bed Objective - Vital Signs/Intake and Output Vital Signs (last 24 hours): Temp Pulse Resp BP Pulse Ox 98.8 F 64 20 162/73 H 95 06/13/16 16:53 06/13/16 16:53 06/13/16 16:53 06/13/16 16:53 06/13/16 16:53 - Medications Medications: Current Medications Acetaminophen (Tylenol 325mg Tab) 650 mg PO Q4 PRN PRN Reason: Pain, Mild (1-3) Amlodipine Besylate (Norvasc) 10 mg PO DAILY [facility] Last Admin: 06/13/16 08:50 Dose: 10 mg Atorvastatin Calcium (Lipitor) 80 mg PO HS [facility] Last Admin: 06/12/16 21:49 Dose: 80 mg Docusate Sodium (Colace) 200 mg PO DAILY [facility] Last Admin: 06/13/16 08:45 Dose: 200 mg Epoetin Sudheer (Procrit) 10,000 unit IV TTS [facility] Last Admin: 06/11/16 20:47 Dose: 10,000 unit Heparin Sodium (Porcine) (Heparin) 5,000 units SC Q12 [facility] PRN Reason: Protocol Last Admin: 06/13/16 08:47 Dose: 5,000 units Hydromorphone HCl (Dilaudid) 1 mg IVP Q4 PRN PRN Reason: Pain, severe (8-10) Last Admin: 06/13/16 08:55 Dose: 1 mg Vancomycin HCl 750 mg/ Sodium (Chloride) 250 mls @ 166.667 mls/hr IVPB TTS [facility] Last Admin: 06/11/16 09:49 Dose: 166.667 mls/hr Meropenem 500 mg/ Sodium (Chloride) 100 mls @ 100 mls/hr IVPB Q12H [facility] Last Admin: 06/13/16 16:16 Dose: 100 mls/hr Insulin Human Lispro (Humalog) 0 units SC ACHS [facility] PRN Reason: Protocol Last Admin: 06/13/16 16:46 Dose: 2 units Lactulose (Enulose) 20 gm PO BID PRN PRN Reason: Constipation Last Admin: 06/12/16 17:07 Dose: 20 gm Levothyroxine Sodium (Synthroid) 75 mcg PO DAILY@0630 [facility] Last Admin: 06/13/16 06:15 Dose: 75 mcg Metoprolol Tartrate (Lopressor) 50 mg PO BID [facility] Last Admin: 06/13/16 16:44 Dose: 50 mg Pantoprazole Sodium (Protonix Ec Tab) 40 mg PO DAILY [facility] Last Admin: 06/13/16 08:51 Dose: 40 mg Pregabalin (Lyrica) 50 mg PO QPM [facility] Last Admin: 06/12/16 18:50 Dose: 50 mg Sevelamer HCl (Renagel) 800 mg PO BID [facility] Last Admin: 06/13/16 16:45 Dose: 800 mg Valsartan (Diovan) 160 mg PO DAILY [facility] Last Admin: 06/13/16 08:46 Dose: 160 mg - Labs Labs: 06/10/16 05:30 06/10/16 05:30 PT 12.3 SECONDS (9.6-11.2) H 06/10/16 05:30 INR 1.18 (0.92-1.08) H 06/10/16 05:30 APTT 28.0 SECONDS (23.3-32.5) 06/12/16 20:30 - Respiratory Exam Respiratory Exam: NORMAL BREATHING PATTERN - Cardiovascular Exam Cardiovascular Exam: REGULAR RHYTHM - Extremities Exam Additional comments: No edema. Rt foot dressed Assessment and Plan - Assessment and Plan (Free Text) Assessment: ESRD on HD CAD, A.fib HTN DM Plan: For dialysis tomorrow Labs in am
[2016-06-14] MEDS: HYDROmorphone 0.5 mg/0.5 ml ISec IVP PRN ×4 (01:27→17:35)
[2016-06-14] MEDS: Meropenem 500 MG in Sodium Chloride 0.9% 100 ML IVPB SCH ×2 (01:30→13:10)
[2016-06-14] MEDS: Levothyroxine 75 MCG TAB PO SCH (05:56)
[2016-06-14] MEDS: Insulin Lispro (humaLOG) 100 Units/ml Inj SC SCH ×4 (07:10→22:20)
--- NOTE | 2016-06-14 07:34 | CP.PCM.PN ---
Subjective - Date & Time of Evaluation Date of Evaluation: 06/14/16 Time of Evaluation: 07:33 - Subjective Subjective: 75 year old female with PMHx of anemia, arthritis, Atrial Fib, CAD, CHF, DM, HTN , HLD, ESRD (dialysis on //Mon), Hyperthyroidism, Hypothyroidism was seen resting comfortably at bedside 4 days s/p Left foot TMA. AAO x3. Dressing to Left foot remains c/d/i. Patient complains of mild pain to Left foot upon palpation, and complained of pain last night that was relieved by pain medication. She admits to less pain now compared to before the surgery. Patient denies F/C/N/V/SOB/CP Objective - Vital Signs/Intake and Output Vital Signs (last 24 hours): Temp Pulse Resp BP Pulse Ox 98.8 F 71 18 152/55 H 95 06/14/16 01:00 06/14/16 01:00 06/14/16 01:00 06/14/16 01:00 06/14/16 01:00 - Medications Medications: Current Medications Acetaminophen (Tylenol 325mg Tab) 650 mg PO Q4 PRN PRN Reason: Pain, Mild (1-3) Amlodipine Besylate (Norvasc) 10 mg PO DAILY [facility] Last Admin: 06/13/16 08:50 Dose: 10 mg Atorvastatin Calcium (Lipitor) 80 mg PO HS [facility] Last Admin: 06/13/16 21:28 Dose: 80 mg Docusate Sodium (Colace) 200 mg PO DAILY [facility] Last Admin: 06/13/16 08:45 Dose: 200 mg Epoetin Sudheer (Procrit) 10,000 unit IV TTS [facility] Last Admin: 06/11/16 20:47 Dose: 10,000 unit Heparin Sodium (Porcine) (Heparin) 5,000 units SC Q12 [facility] PRN Reason: Protocol Last Admin: 06/13/16 21:26 Dose: 5,000 units Hydromorphone HCl (Dilaudid) 1 mg IVP Q4 PRN PRN Reason: Pain, severe (8-10) Last Admin: 06/14/16 01:27 Dose: 1 mg Vancomycin HCl 750 mg/ Sodium (Chloride) 250 mls @ 166.667 mls/hr IVPB TTS [facility] Last Admin: 06/11/16 09:49 Dose: 166.667 mls/hr Meropenem 500 mg/ Sodium (Chloride) 100 mls @ 100 mls/hr IVPB Q12H [facility] Last Admin: 06/14/16 01:30 Dose: 100 mls/hr Insulin Human Lispro (Humalog) 0 units SC ACHS [facility] PRN Reason: Protocol Last Admin: 06/14/16 07:10 Dose: 2 units Lactulose (Enulose) 20 gm PO BID PRN PRN Reason: Constipation Last Admin: 06/12/16 17:07 Dose: 20 gm Levothyroxine Sodium (Synthroid) 75 mcg PO DAILY@0630 [facility] Last Admin: 06/14/16 05:56 Dose: 75 mcg Metoprolol Tartrate (Lopressor) 50 mg PO BID [facility] Last Admin: 06/13/16 16:44 Dose: 50 mg Pantoprazole Sodium (Protonix Ec Tab) 40 mg PO DAILY [facility] Last Admin: 06/13/16 08:51 Dose: 40 mg Pregabalin (Lyrica) 50 mg PO QPM [facility] Last Admin: 06/13/16 19:55 Dose: 50 mg Sevelamer HCl (Renagel) 800 mg PO BID [facility] Last Admin: 06/13/16 16:45 Dose: 800 mg Valsartan (Diovan) 160 mg PO DAILY [facility] Last Admin: 06/13/16 08:46 Dose: 160 mg - Labs Labs: 06/10/16 05:30 06/10/16 05:30 PT 12.3 SECONDS (9.6-11.2) H 06/10/16 05:30 INR 1.18 (0.92-1.08) H 06/10/16 05:30 APTT 28.0 SECONDS (23.3-32.5) 06/12/16 20:30 - Constitutional Appears: Well, Non-toxic, No Acute Distress - Extremities Exam Additional comments: Left lower extremity focused exam: VASC: Palpable DP pulse noted 2/4. Non-palpable PT pulse. No edema noted. Skin temperature warm to warm from proximal to distal. DERM: Surgical site well coapted with all sutures intact. No dehiscence or maceration is noted. No drainage is noted. Blanchable erythema noted to the distal aspect of the foot. No acute sign of infection noted. ORTHO: Pain on palpation to TMA site NEURO: Gross sensation diminished - Neurological Exam Neurological Exam: Alert, Awake, Oriented x3 - Psychiatric Exam Psychiatric exam: Normal Affect, Normal Mood Assessment and Plan - Assessment and Plan (Free Text) Assessment: 75 year old female patient 4 days s/p Left foot TMA by Dr. Herrera Plan: Patient was examined and evaluated with Chart and vitals reviewed Left foot dressed with betadine, DSD Continue IV Abx Patient to be non-weight bearing to Left foot Podiatry will follow in-house
[2016-06-14 07:44] LABS: HEMATOCRIT 29.3 % (34.0-47.0); MEAN CELL VOLUME 93.3 fl (81.0-99.0); MEAN CORPUSCULAR HEMOGLOBIN 29.5 pg (27.0-31.0); MEAN CORPUSCULAR HGB CONC 31.6 g/dL (33.0-37.0); RED CELL DISTRIBUTION WIDTH 15.4 % (11.5-14.5); WHITE BLOOD COUNT 11.6 K/uL (4.8-10.8)
[2016-06-14 07:45] LABS: CALCIUM 8.8 mg/dL (8.4-10.2); PHOSPHOROUS 6.8 mg/dl (2.5-4.5); POTASSIUM 4.7 MMOL/L (3.6-5.0)
[2016-06-14] MEDS: Pantoprazole 40 mg EC Tab PO SCH (09:07)
--- NOTE | 2016-06-14 10:25 | CP.PCM.PN ---
Subjective - Date & Time of Evaluation Date of Evaluation: 06/14/16 Time of Evaluation: 08:00 - Subjective Subjective: 75 year old female with a history of CAD, CHF, hypertension, diabetes, hyperlipidemia, and end stage renal disease presents to the ED with a chief complaint of mild left foot pain Underwent TMA for chronic left foot infection referred for ID eval of ESBL + E coli urine culture started on IV merrem blood grew corynebacterium- likely a contaminant Objective - Vital Signs/Intake and Output Vital Signs (last 24 hours): Temp Pulse Resp BP Pulse Ox 98.7 F 70 20 155/68 H 95 06/14/16 08:21 06/14/16 08:21 06/14/16 08:21 06/14/16 08:21 06/14/16 08:21 - Medications Medications: Current Medications Acetaminophen (Tylenol 325mg Tab) 650 mg PO Q4 PRN PRN Reason: Pain, Mild (1-3) Amlodipine Besylate (Norvasc) 10 mg PO DAILY [facility] Last Admin: 06/13/16 08:50 Dose: 10 mg Atorvastatin Calcium (Lipitor) 80 mg PO HS [facility] Last Admin: 06/13/16 21:28 Dose: 80 mg Docusate Sodium (Colace) 200 mg PO DAILY [facility] Last Admin: 06/14/16 09:07 Dose: 200 mg Epoetin Sudheer (Procrit) 10,000 unit IV TTS [facility] Last Admin: 06/11/16 20:47 Dose: 10,000 unit Heparin Sodium (Porcine) (Heparin) 5,000 units SC Q12 [facility] PRN Reason: Protocol Last Admin: 06/14/16 09:05 Dose: 5,000 units Hydromorphone HCl (Dilaudid) 1 mg IVP Q4 PRN PRN Reason: Pain, severe (8-10) Last Admin: 06/14/16 09:02 Dose: 1 mg Vancomycin HCl 750 mg/ Sodium (Chloride) 250 mls @ 166.667 mls/hr IVPB TTS [facility] Last Admin: 06/11/16 09:49 Dose: 166.667 mls/hr Meropenem 500 mg/ Sodium (Chloride) 100 mls @ 100 mls/hr IVPB Q12H [facility] Last Admin: 06/14/16 01:30 Dose: 100 mls/hr Insulin Human Lispro (Humalog) 0 units SC ACHS [facility] PRN Reason: Protocol Last Admin: 06/14/16 07:10 Dose: 2 units Lactulose (Enulose) 20 gm PO BID PRN PRN Reason: Constipation Last Admin: 06/12/16 17:07 Dose: 20 gm Levothyroxine Sodium (Synthroid) 75 mcg PO DAILY@0630 [facility] Last Admin: 06/14/16 05:56 Dose: 75 mcg Metoprolol Tartrate (Lopressor) 50 mg PO BID [facility] Last Admin: 06/13/16 16:44 Dose: 50 mg Pantoprazole Sodium (Protonix Ec Tab) 40 mg PO DAILY [facility] Last Admin: 06/14/16 09:07 Dose: 40 mg Pregabalin (Lyrica) 50 mg PO QPM [facility] Last Admin: 06/13/16 19:55 Dose: 50 mg Sevelamer HCl (Renagel) 800 mg PO BID [facility] Last Admin: 06/13/16 16:45 Dose: 800 mg Valsartan (Diovan) 160 mg PO DAILY [facility] Last Admin: 06/13/16 08:46 Dose: 160 mg - Labs Labs: 06/14/16 06:25 06/14/16 06:25 PT 12.3 SECONDS (9.6-11.2) H 06/10/16 05:30 INR 1.18 (0.92-1.08) H 06/10/16 05:30 APTT 28.0 SECONDS (23.3-32.5) 06/12/16 20:30 - Constitutional Appears: Non-toxic, Chronically Ill - Head Exam Head Exam: NORMOCEPHALIC - Eye Exam Eye Exam: absent: Scleral icterus - ENT Exam ENT Exam: Mucous Membranes Dry - Neck Exam Neck Exam: absent: Lymphadenopathy - Respiratory Exam Respiratory Exam: Decreased Breath Sounds - Cardiovascular Exam Cardiovascular Exam: REGULAR RHYTHM - GI/Abdominal Exam GI & Abdominal Exam: Distended, Soft. absent: Tenderness - Rectal Exam Rectal Exam: Deferred - Exam Exam: NORMAL INSPECTION - Extremities Exam Extremities Exam: Tenderness. absent: Calf Tenderness - Back Exam Back Exam: absent: CVA tenderness (L), CVA tenderness (R) - Neurological Exam Neurological Exam: Alert, Awake, Oriented x3 Assessment and Plan - Assessment and Plan (Free Text) Plan: to cont iv rx vanco/merrem fo0r 7 days post op cont wound care
--- NOTE | 2016-06-14 12:08 | CP.PCM.PN ---
Subjective - Date & Time of Evaluation Date of Evaluation: 06/14/16 Time of Evaluation: 11:00 - Subjective Subjective: Appears more comfortable today Objective - Vital Signs/Intake and Output Vital Signs (last 24 hours): Temp Pulse Resp BP Pulse Ox 98.7 F 70 20 155/68 H 95 06/14/16 08:21 06/14/16 08:21 06/14/16 08:21 06/14/16 08:21 06/14/16 08:21 - Medications Medications: Current Medications Acetaminophen (Tylenol 325mg Tab) 650 mg PO Q4 PRN PRN Reason: Pain, Mild (1-3) Amlodipine Besylate (Norvasc) 10 mg PO DAILY [facility] Last Admin: 06/13/16 08:50 Dose: 10 mg Atorvastatin Calcium (Lipitor) 80 mg PO HS [facility] Last Admin: 06/13/16 21:28 Dose: 80 mg Docusate Sodium (Colace) 200 mg PO DAILY [facility] Last Admin: 06/14/16 09:07 Dose: 200 mg Epoetin Sudheer (Procrit) 10,000 unit IV TTS [facility] Last Admin: 06/11/16 20:47 Dose: 10,000 unit Heparin Sodium (Porcine) (Heparin) 5,000 units SC Q12 CATHIE PRN Reason: Protocol Last Admin: 06/14/16 09:05 Dose: 5,000 units Hydromorphone HCl (Dilaudid) 1 mg IVP Q4 PRN PRN Reason: Pain, severe (8-10) Last Admin: 06/14/16 09:02 Dose: 1 mg Vancomycin HCl 750 mg/ Sodium (Chloride) 250 mls @ 166.667 mls/hr IVPB TTS [facility] Last Admin: 06/11/16 09:49 Dose: 166.667 mls/hr Meropenem 500 mg/ Sodium (Chloride) 100 mls @ 100 mls/hr IVPB Q12H [facility] Last Admin: 06/14/16 01:30 Dose: 100 mls/hr Insulin Human Lispro (Humalog) 0 units SC ACHS [facility] PRN Reason: Protocol Last Admin: 06/14/16 11:39 Dose: 2 units Lactulose (Enulose) 20 gm PO BID PRN PRN Reason: Constipation Last Admin: 06/12/16 17:07 Dose: 20 gm Levothyroxine Sodium (Synthroid) 75 mcg PO DAILY@0630 [facility] Last Admin: 06/14/16 05:56 Dose: 75 mcg Metoprolol Tartrate (Lopressor) 50 mg PO BID [facility] Last Admin: 06/14/16 11:30 Dose: Not Given Pantoprazole Sodium (Protonix Ec Tab) 40 mg PO DAILY [facility] Last Admin: 06/14/16 09:07 Dose: 40 mg Pregabalin (Lyrica) 50 mg PO QPM [facility] Last Admin: 06/13/16 19:55 Dose: 50 mg Sevelamer HCl (Renagel) 800 mg PO BID [facility] Last Admin: 06/14/16 09:00 Dose: 800 mg Valsartan (Diovan) 160 mg PO DAILY [facility] Last Admin: 06/14/16 11:30 Dose: Not Given - Labs Labs: 06/14/16 06:25 06/14/16 06:25 PT 12.3 SECONDS (9.6-11.2) H 06/10/16 05:30 INR 1.18 (0.92-1.08) H 06/10/16 05:30 APTT 28.0 SECONDS (23.3-32.5) 06/12/16 20:30 - Respiratory Exam Additional comments: Lungs clear - Cardiovascular Exam Cardiovascular Exam: REGULAR RHYTHM - Extremities Exam Additional comments: No edema Rt foot dressed Assessment and Plan - Assessment and Plan (Free Text) Assessment: ESRD on HD CAD HTN S/P Rt TMA Plan: For dialysis today Labs stable
--- NOTE | 2016-06-14 17:05 | CP.PCM.PN ---
Subjective - Date & Time of Evaluation Date of Evaluation: 06/14/16 Time of Evaluation: 11:20 - Subjective Subjective: F/U S/P L TMA Pain L foot Objective - Vital Signs/Intake and Output Vital Signs (last 24 hours): Temp Pulse Resp BP Pulse Ox 98.2 F 76 18 164/83 H 93 L 06/14/16 12:05 06/14/16 12:05 06/14/16 12:05 06/14/16 12:05 06/14/16 12:05 - Medications Medications: Current Medications Acetaminophen (Tylenol 325mg Tab) 650 mg PO Q4 PRN PRN Reason: Pain, Mild (1-3) Amlodipine Besylate (Norvasc) 10 mg PO DAILY [facility] Last Admin: 06/13/16 08:50 Dose: 10 mg Atorvastatin Calcium (Lipitor) 80 mg PO HS [facility] Last Admin: 06/13/16 21:28 Dose: 80 mg Docusate Sodium (Colace) 200 mg PO DAILY [facility] Last Admin: 06/14/16 09:07 Dose: 200 mg Epoetin Sudheer (Procrit) 10,000 unit IV TTS [facility] Last Admin: 06/11/16 20:47 Dose: 10,000 unit Heparin Sodium (Porcine) (Heparin) 5,000 units SC Q12 CATHIE PRN Reason: Protocol Last Admin: 06/14/16 09:05 Dose: 5,000 units Hydromorphone HCl (Dilaudid) 1 mg IVP Q4 PRN PRN Reason: Pain, severe (8-10) Last Admin: 06/14/16 13:09 Dose: 1 mg Vancomycin HCl 750 mg/ Sodium (Chloride) 250 mls @ 166.667 mls/hr IVPB TTS [facility] Last Admin: 06/11/16 09:49 Dose: 166.667 mls/hr Meropenem 500 mg/ Sodium (Chloride) 100 mls @ 100 mls/hr IVPB Q12H [facility] Last Admin: 06/14/16 13:10 Dose: 100 mls/hr Insulin Human Lispro (Humalog) 0 units SC ACHS CATHIE PRN Reason: Protocol Last Admin: 06/14/16 11:39 Dose: 2 units Lactulose (Enulose) 20 gm PO BID PRN PRN Reason: Constipation Last Admin: 06/12/16 17:07 Dose: 20 gm Levothyroxine Sodium (Synthroid) 75 mcg PO DAILY@0630 [facility] Last Admin: 06/14/16 05:56 Dose: 75 mcg Metoprolol Tartrate (Lopressor) 50 mg PO BID [facility] Last Admin: 06/14/16 11:30 Dose: Not Given Pantoprazole Sodium (Protonix Ec Tab) 40 mg PO DAILY [facility] Last Admin: 06/14/16 09:07 Dose: 40 mg Pregabalin (Lyrica) 50 mg PO QPM [facility] Last Admin: 06/13/16 19:55 Dose: 50 mg Sevelamer HCl (Renagel) 800 mg PO BID [facility] Last Admin: 06/14/16 09:00 Dose: 800 mg Valsartan (Diovan) 160 mg PO DAILY [facility] Last Admin: 06/14/16 11:30 Dose: Not Given - Labs Labs: 06/14/16 06:25 06/14/16 06:25 PT 12.3 SECONDS (9.6-11.2) H 06/10/16 05:30 INR 1.18 (0.92-1.08) H 06/10/16 05:30 APTT 28.0 SECONDS (23.3-32.5) 06/12/16 20:30 - Constitutional Appears: No Acute Distress, Chronically Ill - Head Exam Head Exam: NORMAL INSPECTION - Eye Exam Eye Exam: PERRL - ENT Exam ENT Exam: Normal Exam - Neck Exam Neck Exam: Normal Inspection - Respiratory Exam Respiratory Exam: NORMAL BREATHING PATTERN - Cardiovascular Exam Cardiovascular Exam: REGULAR RHYTHM Additional comments: PPM - GI/Abdominal Exam GI & Abdominal Exam: Soft, Normal Bowel Sounds - Extremities Exam Extremities Exam: Tenderness (L foot) Additional comments: L foot dressing in place. - Back Exam Back Exam: NORMAL INSPECTION - Neurological Exam Neurological Exam: Alert, Oriented x3 Additional comments: No focal motor/sensory deficit. - Psychiatric Exam Psychiatric exam: Normal Mood - Skin Skin Exam: Warm Assessment and Plan - Assessment and Plan (Free Text) Assessment: S/P L TMA Acute high UTI ESBL E Coli PVD Chronic high DM Neuropathy Chronic high ESRD Chronic high CAD CHF PAF PPM DMII HTN Hypothyroidism Hyperlipidemia Anemia. Plan: continue Dilaudid , Lyrica , Merren , Vanco and rest of treatment
[2016-06-14 17:57] VITALS: RESP 20
[2016-06-15] MEDS: Meropenem 500 MG in Sodium Chloride 0.9% 100 ML IVPB SCH ×2 (01:48→13:08)
[2016-06-15] MEDS: Levothyroxine 75 MCG TAB PO SCH (06:18)
--- NOTE | 2016-06-15 07:19 | CP.PCM.PN ---
Subjective - Date & Time of Evaluation Date of Evaluation: 06/15/16 Time of Evaluation: 07:19 - Subjective Subjective: 75 year old female with PMHx of anemia, arthritis, Atrial Fib, CAD, CHF, DM, HTN , HLD, ESRD (dialysis on //Mon), Hyperthyroidism, Hypothyroidism was seen resting comfortably at bedside 5 days s/p Left foot TMA. AAO x3. Dressing to Left foot remains c/d/i. Patient states that she does have pain to her left foot. She admits to less pain now compared to before the surgery. Patient denies n/v/f/c/sob/cp. Objective - Vital Signs/Intake and Output Vital Signs (last 24 hours): Temp Pulse Resp BP Pulse Ox 97.8 F 84 20 148/64 97 06/14/16 22:00 06/14/16 22:00 06/14/16 22:00 06/14/16 22:00 06/14/16 22:00 - Medications Medications: Current Medications Acetaminophen (Tylenol 325mg Tab) 650 mg PO Q4 PRN PRN Reason: Pain, Mild (1-3) Amlodipine Besylate (Norvasc) 10 mg PO DAILY [facility] Last Admin: 06/14/16 18:03 Dose: Not Given Atorvastatin Calcium (Lipitor) 80 mg PO HS [facility] Last Admin: 06/14/16 22:11 Dose: 80 mg Docusate Sodium (Colace) 200 mg PO DAILY [facility] Last Admin: 06/14/16 09:07 Dose: 200 mg Epoetin Sudheer (Procrit) 10,000 unit IV TTS [facility] Last Admin: 06/11/16 20:47 Dose: 10,000 unit Heparin Sodium (Porcine) (Heparin) 5,000 units SC Q12 CATHIE PRN Reason: Protocol Last Admin: 06/14/16 22:07 Dose: 5,000 units Hydromorphone HCl (Dilaudid) 1 mg IVP Q4 PRN PRN Reason: Pain, severe (8-10) Last Admin: 06/14/16 17:35 Dose: 1 mg Vancomycin HCl 750 mg/ Sodium (Chloride) 250 mls @ 166.667 mls/hr IVPB TTS [facility] Last Admin: 06/11/16 09:49 Dose: 166.667 mls/hr Meropenem 500 mg/ Sodium (Chloride) 100 mls @ 100 mls/hr IVPB Q12H [facility] Last Admin: 06/15/16 01:48 Dose: 100 mls/hr Insulin Human Lispro (Humalog) 0 units SC ACHS [facility] PRN Reason: Protocol Last Admin: 06/14/16 22:20 Dose: Not Given Lactulose (Enulose) 20 gm PO BID PRN PRN Reason: Constipation Last Admin: 06/12/16 17:07 Dose: 20 gm Levothyroxine Sodium (Synthroid) 75 mcg PO DAILY@0630 [facility] Last Admin: 06/15/16 06:18 Dose: 75 mcg Metoprolol Tartrate (Lopressor) 50 mg PO BID [facility] Last Admin: 06/14/16 18:00 Dose: Not Given Pantoprazole Sodium (Protonix Ec Tab) 40 mg PO DAILY [facility] Last Admin: 06/14/16 09:07 Dose: 40 mg Pregabalin (Lyrica) 50 mg PO QPM [facility] Last Admin: 06/14/16 18:48 Dose: 50 mg Sevelamer HCl (Renagel) 800 mg PO BID [facility] Last Admin: 06/14/16 17:39 Dose: 800 mg Valsartan (Diovan) 160 mg PO DAILY [facility] Last Admin: 06/14/16 11:30 Dose: Not Given - Labs Labs: 06/14/16 06:25 06/14/16 06:25 PT 12.3 SECONDS (9.6-11.2) H 06/10/16 05:30 INR 1.18 (0.92-1.08) H 06/10/16 05:30 APTT 28.0 SECONDS (23.3-32.5) 06/12/16 20:30 - Constitutional Appears: Non-toxic, No Acute Distress - Extremities Exam Additional comments: Left lower extremity focused exam: VASC: Palpable DP pulse noted 2/4. Non-palpable PT pulse. No edema noted. Skin temperature warm to warm from proximal to distal. DERM: Surgical site well coapted with all sutures intact. No dehiscence or maceration is noted. No drainage is noted. Blanchable erythema noted to the distal aspect of the foot. No acute sign of infection noted. ORTHO: Pain on palpation to TMA site NEURO: Gross sensation diminished - Neurological Exam Neurological Exam: Alert, Awake, Oriented x3 - Psychiatric Exam Psychiatric exam: Normal Affect, Normal Mood Assessment and Plan - Assessment and Plan (Free Text) Assessment: 75 year old female patient 5 days s/p Left foot TMA by Dr. Herrera Plan: Patient was examined and evaluated with Chart and vitals reviewed Left foot dressed with betadine, DSD Continue IV Abx per ID Patient to be non-weight bearing to Left foot Podiatry will follow in-house
[2016-06-15] MEDS: Pantoprazole 40 mg EC Tab PO SCH (08:37)
[2016-06-15] MEDS: Insulin Lispro (humaLOG) 100 Units/ml Inj SC SCH ×2 (08:43→12:30)
[2016-06-15 08:57] VITALS: PULSE 75; O2SAT 93
--- NOTE | 2016-06-15 10:30 | CP.PCM.PN ---
Subjective - Date & Time of Evaluation Date of Evaluation: 06/15/16 Time of Evaluation: 10:27 - Subjective Subjective: seen and examined feels ok no n/v Objective - Vital Signs/Intake and Output Vital Signs (last 24 hours): Temp Pulse Resp BP Pulse Ox 98.5 F 75 20 147/89 93 L 06/15/16 08:57 06/15/16 08:57 06/15/16 08:57 06/15/16 08:57 06/15/16 08:57 - Medications Medications: Current Medications Acetaminophen (Tylenol 325mg Tab) 650 mg PO Q4 PRN PRN Reason: Pain, Mild (1-3) Amlodipine Besylate (Norvasc) 10 mg PO DAILY [facility] Last Admin: 06/15/16 08:38 Dose: 10 mg Atorvastatin Calcium (Lipitor) 80 mg PO HS [facility] Last Admin: 06/14/16 22:11 Dose: 80 mg Docusate Sodium (Colace) 200 mg PO DAILY [facility] Last Admin: 06/15/16 08:33 Dose: 200 mg Epoetin Sudheer (Procrit) 10,000 unit IV TTS [facility] Last Admin: 06/11/16 20:47 Dose: 10,000 unit Heparin Sodium (Porcine) (Heparin) 5,000 units SC Q12 CATHIE PRN Reason: Protocol Last Admin: 06/15/16 08:34 Dose: 5,000 units Hydromorphone HCl (Dilaudid) 1 mg IVP Q4 PRN PRN Reason: Pain, severe (8-10) Last Admin: 06/14/16 17:35 Dose: 1 mg Vancomycin HCl 750 mg/ Sodium (Chloride) 250 mls @ 166.667 mls/hr IVPB TTS [facility] Last Admin: 06/11/16 09:49 Dose: 166.667 mls/hr Meropenem 500 mg/ Sodium (Chloride) 100 mls @ 100 mls/hr IVPB Q12H [facility] Last Admin: 06/15/16 01:48 Dose: 100 mls/hr Insulin Human Lispro (Humalog) 0 units SC ACHS CATHIE PRN Reason: Protocol Last Admin: 06/15/16 08:43 Dose: 4 units Lactulose (Enulose) 20 gm PO BID PRN PRN Reason: Constipation Last Admin: 06/12/16 17:07 Dose: 20 gm Levothyroxine Sodium (Synthroid) 75 mcg PO DAILY@0630 [facility] Last Admin: 06/15/16 06:18 Dose: 75 mcg Metoprolol Tartrate (Lopressor) 50 mg PO BID [facility] Last Admin: 06/15/16 08:36 Dose: 50 mg Pantoprazole Sodium (Protonix Ec Tab) 40 mg PO DAILY [facility] Last Admin: 06/15/16 08:37 Dose: 40 mg Pregabalin (Lyrica) 50 mg PO QPM [facility] Last Admin: 06/14/16 18:48 Dose: 50 mg Sevelamer HCl (Renagel) 800 mg PO BID [facility] Last Admin: 06/15/16 08:37 Dose: 800 mg Valsartan (Diovan) 160 mg PO DAILY [facility] Last Admin: 06/15/16 08:33 Dose: 160 mg - Labs Labs: 06/14/16 06:25 06/14/16 06:25 PT 12.3 SECONDS (9.6-11.2) H 06/10/16 05:30 INR 1.18 (0.92-1.08) H 06/10/16 05:30 APTT 28.0 SECONDS (23.3-32.5) 06/12/16 20:30 - Constitutional Appears: Non-toxic - Head Exam Head Exam: ATRAUMATIC - Eye Exam Eye Exam: Normal appearance - ENT Exam ENT Exam: Mucous Membranes Moist - Neck Exam Neck Exam: Normal Inspection - Respiratory Exam Respiratory Exam: NORMAL BREATHING PATTERN - Cardiovascular Exam Cardiovascular Exam: +S1, +S2 - GI/Abdominal Exam GI & Abdominal Exam: Soft - Extremities Exam Additional comments: no edema - Neurological Exam Neurological Exam: Alert, Oriented x3 - Psychiatric Exam Psychiatric exam: Normal Affect - Skin Additional comments: dressing LLE Assessment and Plan - Assessment and Plan (Free Text) Assessment: ESRD/ HTN/ L TMA/ Anemia/ DM /Anemia of renal disease plan: HD tomorrow bp acceptable epo w/ hd dm per primary will inc renveal to 1600 tid
--- NOTE | 2016-06-15 10:38 | PQF GENQUE ---
This form is a permanent part of the medical record 06/15/16 Dr. Abhishek Green, Would you please document the findings of the pathology report in your notes. If acute osteomyelitis is ruled in would you please clarify the possible etiology ?diabetic related or other etiology or unable to determine. Admitted with Necrotic changes noted to surgical site of Hallux amputation Necrotic changes also noted to 2nd digit as well as 5th digit from distal end to level of PIPJ. No open wound is noted. No drainage is noted. Erythema is noted to Left foot around the skin necrosis. Left foot TMA performed. Pathology has come back with " bone underlying gangrene is viable and shows acute osteomyelitis" and other information contained in the pathology report. Clarification of your documentation is requested to better reflect the severity of illness and intensity of treatment of your patient. PHYSICIAN'S RESPONSE [ ] Osteomyelitis due to diabetes [ ] Osteomyelitis due to Other explanation ( please clarify) [ ] Unable to determine Based on your medical judgment of the clinical indicators outlined above please clarify the following: [] Practitioner response [] If unable to determine, please check the box, sign and date. Present On Admission (POA) Indicator: [] Present at the time of admission [] Not present at the time of admission [] Clinically Undetermined In responding to this query, please exercise your independent professional judgment. The fact that a question is asked does not imply that any particular answer is desired or expected. Thank you for your clarification on this documentation. If you have any questions please call:[phone] * Thank you, Nicky Regan RN [facility]
[2016-06-15] MEDS: HYDROmorphone 0.5 mg/0.5 ml ISec IVP PRN (10:52)
--- NOTE | 2016-06-15 14:18 | CP.PCM.PN ---
Subjective - Date & Time of Evaluation Date of Evaluation: 06/15/16 Time of Evaluation: 09:00 - Subjective Subjective: F/U S/P L TMA Pt with less pain in L foot. Objective - Vital Signs/Intake and Output Vital Signs (last 24 hours): Temp Pulse Resp BP Pulse Ox 98.5 F 75 20 147/89 93 L 06/15/16 08:57 06/15/16 08:57 06/15/16 08:57 06/15/16 08:57 06/15/16 08:57 - Medications Medications: Current Medications Acetaminophen (Tylenol 325mg Tab) 650 mg PO Q4 PRN PRN Reason: Pain, Mild (1-3) Amlodipine Besylate (Norvasc) 10 mg PO DAILY [facility] Last Admin: 06/15/16 08:38 Dose: 10 mg Atorvastatin Calcium (Lipitor) 80 mg PO HS [facility] Last Admin: 06/14/16 22:11 Dose: 80 mg Docusate Sodium (Colace) 200 mg PO DAILY [facility] Last Admin: 06/15/16 08:33 Dose: 200 mg Epoetin Sudheer (Procrit) 10,000 unit IV TTS [facility] Last Admin: 06/11/16 20:47 Dose: 10,000 unit Heparin Sodium (Porcine) (Heparin) 5,000 units SC Q12 CATHIE PRN Reason: Protocol Last Admin: 06/15/16 08:34 Dose: 5,000 units Hydromorphone HCl (Dilaudid) 1 mg IVP Q4 PRN PRN Reason: Pain, severe (8-10) Last Admin: 06/15/16 10:52 Dose: 1 mg Vancomycin HCl 750 mg/ Sodium (Chloride) 250 mls @ 166.667 mls/hr IVPB TTS [facility] Last Admin: 06/11/16 09:49 Dose: 166.667 mls/hr Meropenem 500 mg/ Sodium (Chloride) 100 mls @ 100 mls/hr IVPB Q12H [facility] Last Admin: 06/15/16 13:08 Dose: 100 mls/hr Insulin Human Lispro (Humalog) 0 units SC ACHS [facility]ATHIE PRN Reason: Protocol Last Admin: 06/15/16 12:30 Dose: 2 units Lactulose (Enulose) 20 gm PO BID PRN PRN Reason: Constipation Last Admin: 06/12/16 17:07 Dose: 20 gm Levothyroxine Sodium (Synthroid) 75 mcg PO DAILY@0630 [facility] Last Admin: 06/15/16 06:18 Dose: 75 mcg Metoprolol Tartrate (Lopressor) 50 mg PO BID [facility] Last Admin: 06/15/16 08:36 Dose: 50 mg Pantoprazole Sodium (Protonix Ec Tab) 40 mg PO DAILY [facility] Last Admin: 06/15/16 08:37 Dose: 40 mg Pregabalin (Lyrica) 50 mg PO QPM [facility] Last Admin: 06/14/16 18:48 Dose: 50 mg Sevelamer HCl (Renagel) 800 mg PO BID [facility] Last Admin: 06/15/16 08:37 Dose: 800 mg Sevelamer HCl (Renagel) 1,600 mg PO TID [facility] Last Admin: 06/15/16 12:28 Dose: 1,600 mg Valsartan (Diovan) 160 mg PO DAILY [facility] Last Admin: 06/15/16 08:33 Dose: 160 mg - Labs Labs: 06/14/16 06:25 06/14/16 06:25 PT 12.3 SECONDS (9.6-11.2) H 06/10/16 05:30 INR 1.18 (0.92-1.08) H 06/10/16 05:30 APTT 28.0 SECONDS (23.3-32.5) 06/12/16 20:30 - Constitutional Appears: No Acute Distress, Chronically Ill - Head Exam Head Exam: NORMAL INSPECTION - Eye Exam Eye Exam: PERRL - ENT Exam ENT Exam: Normal Oropharynx - Neck Exam Neck Exam: Normal Inspection - Respiratory Exam Respiratory Exam: NORMAL BREATHING PATTERN - Cardiovascular Exam Cardiovascular Exam: REGULAR RHYTHM Additional comments: PPM - GI/Abdominal Exam GI & Abdominal Exam: Soft, Normal Bowel Sounds - Extremities Exam Extremities Exam: Tenderness (L foot.) Additional comments: L foot dressing in place - Back Exam Back Exam: NORMAL INSPECTION - Neurological Exam Neurological Exam: Alert, Oriented x3 Additional comments: No focal motor/sensory deficit. - Psychiatric Exam Psychiatric exam: Normal Mood - Skin Skin Exam: Warm Assessment and Plan - Assessment and Plan (Free Text) Assessment: S/P L TMA Acute high PVD Chronic high DM Neuropathy Chronic high ESRD Chronic high CAD CHF PAF-PPM DMII HTN Hypothyroidism Hyperlipidemia Anemia. Plan: Pt improved and stable to be discharged to [facility] today.
[2016-06-15 16:28] VITALS: BP 145/66; TEMP 99.2
== END 2016-06-15 16:36 | DRG 856 ==
LOC: H.ER 15:46 → H.ERHOLD 19:22 → H.MEDSURG1 23:22
PROVIDERS: ADMIT Internal Medicine Pulmonary Disease; ATTEND Internal Medicine Pulmonary Disease
PROC: 0Y6N0ZB Detachment at Left Foot, Partial 2nd Ray, Open Approach (ICD-10-PCS; 2016-06-10)
PROC: 0Y6N0ZC Detachment at Left Foot, Partial 3rd Ray, Open Approach (ICD-10-PCS; 2016-06-10)
PROC: 0Y6N0ZD Detachment at Left Foot, Partial 4th Ray, Open Approach (ICD-10-PCS; 2016-06-10)
PROC: 0Y6N0ZF Detachment at Left Foot, Partial 5th Ray, Open Approach (ICD-10-PCS; 2016-06-10)
PROC: 0Y6N0Z9 Detachment at Left Foot, Partial 1st Ray, Open Approach (ICD-10-PCS; principal; 2016-06-10 13:00)
PROC: 5A1D60Z (ICD-10-PCS; 2016-06-11)
DX: T81.4XXA Infection following a procedure, initial encounter (principal); N18.6 End stage renal disease; I13.2 Hypertensive heart and chronic kidney disease with heart failure and with stage 5 chronic kidney disease, or end stage renal disease; E11.52 Type 2 diabetes mellitus with diabetic peripheral angiopathy with gangrene; N25.81 Secondary hyperparathyroidism of renal origin; M86.672 Other chronic osteomyelitis, left ankle and foot; E11.22 Type 2 diabetes mellitus with diabetic chronic kidney disease; I50.32 Chronic diastolic (congestive) heart failure; N39.0 Urinary tract infection, site not specified; I48.0 Paroxysmal atrial fibrillation; E11.40 Type 2 diabetes mellitus with diabetic neuropathy, unspecified; L08.89 Other specified local infections of the skin and subcutaneous tissue; I48.2 Chronic atrial fibrillation; G89.29 Other chronic pain; E78.5 Hyperlipidemia, unspecified; E03.9 Hypothyroidism, unspecified; D63.1 Anemia in chronic kidney disease; B96.20 Unspecified Escherichia coli [E. coli] as the cause of diseases classified elsewhere; I25.10 Atherosclerotic heart disease of native coronary artery without angina pectoris; Z89.422 Acquired absence of other left toe(s); M19.90 Unspecified osteoarthritis, unspecified site; E78.00 Pure hypercholesterolemia, unspecified; Z99.2 Dependence on renal dialysis; Z95.0 Presence of cardiac pacemaker; Z95.1 Presence of aortocoronary bypass graft; Z95.5 Presence of coronary angioplasty implant and graft; Z79.4 Long term (current) use of insulin; Z79.82 Long term (current) use of aspirin; Z79.01 Long term (current) use of anticoagulants; Z87.442 Personal history of urinary calculi

== ENCOUNTER 2016-08-27 16:54 | Inpatient (IN) | payer OTHER, MEDICARE ==
[2016-08-27 16:54] VITALS: BMI 32.9
--- NOTE | 2016-08-27 17:25 | ED PDOC ---
Lower Extremity Pain/Injury Time Seen by Provider: 08/27/16 17:05 Chief Complaint (Nursing): Lower Extremity Problem/Injury Chief Complaint (Provider): Left foot pain History Per: Patient History/Exam Limitations: no limitations Current Symptoms Are (Timing): Still Present Severity: Moderate Additional Complaint(s): Yolanda Mac is a 76 y/o female, with a past medical history of Diabetes Mellitus and Chronic Renal Failure, presenting to the ER on 08/27/2016 after being referred from her dialysis center, after completing dialysis, with left foot/stump pain. Patient is s/p amputation of digits from her left foot and is complaining of pain, myalgia, fever, and chills. Past Medical History Reviewed: Historical Data, Nursing Documentation, Vital Signs Vital Signs: Last Vital Signs Temp 98.8 F 08/27/16 16:56 Pulse 95 H 08/27/16 16:56 Resp 16 08/27/16 16:56 BP 126/66 08/27/16 16:56 Pulse Ox 95 08/27/16 16:56 - Medical History PMH: Anemia, Arthritis, Atrial Fibrillation, CAD, CHF, Diabetes, Gall Bladder Disease, HTN, Hypercholesterolemia, Hyperthyroidism, Hypothyroidism, Kidney Stones, Pneumonia, End Stage Renal Disease (TTF), Chronic Kidney Disease Denies: HIV - Surgical History Surgical History: CABG, Cholecystectomy, Coronary Stent, Pacemaker - Family History Family History: States: Unknown Family Hx - Social History Current smoker - smoking cessation education provided: No Alcohol: None Drugs: Denies - Immunization History Hx Tetanus Toxoid Vaccination: Yes Hx Influenza Vaccination: Yes Hx Pneumococcal Vaccination: Yes - Home Medications Home Medications: Ambulatory Orders Medication Instructions Recorded Aspirin [Aspirin EC] 81 mg PO DAILY #30 ect 08/26/14 Insulin Detemir [Levemir Flexpen] 40 unit SC HS 09/18/14 Rosuvastatin Calcium [Crestor] 40 mg PO HS 09/18/14 Pregabalin [Lyrica] 50 mg PO QPM 09/11/15 Levothyroxine [Synthroid] 75 mcg PO DAILY 03/23/16 amLODIPine [Norvasc] 10 mg PO DAILY 03/23/16 Meclizine [Meclizine*] 25 mg PO DAILY PRN 05/10/16 Metoprolol Tartrate [Lopressor] 50 mg PO BID 05/10/16 Pantoprazole [Protonix EC Tab] 40 mg PO DAILY 05/10/16 guaiFENesin/Dextromethorphan 2 tsp PO QID PRN 05/10/16 [Robitussin DM] oxyCODONE/Acetaminophen [Percocet 1 tab PO Q6 PRN #10 tab 05/16/16 5/325 mg Tab] Clopidogrel [Plavix] 75 mg PO DAILY 06/09/16 Insulin Aspart [Novolog Flexpen] 20 units SC DAILY 06/09/16 Linagliptin [Tradjenta] 5 mg PO DAILY 06/09/16 Liraglutide [Victoza 3-Rafi] 1.8 mg SC DAILY 06/09/16 Omeprazole 40 mg PO DAILY 06/09/16 Valsartan [Diovan] 160 mg PO DAILY 06/09/16 hydrALAZINE [Apresoline] 25 mg PO QID 06/09/16 Lactulose [Enulose] 20 gm PO BID PRN #0 udc 06/15/16 Meropenem [Merrem IV] 500 mg IV Q12 #12 pds 06/15/16 Sevelamer [Renagel] 1,600 mg PO TID tab 06/15/16 Vancomycin 750mg [Vancomycin 750 750 mg IV TTS #6 bag 06/15/16 mg in NS] - Allergies Allergies/Adverse Reactions: Allergies Allergy/AdvReac Type Severity Reaction Status Date / Time No Known Allergies Allergy Verified 04/15/15 18:53 Review of Systems ROS Statement: Except As Marked, All Systems Reviewed And Found Negative Constitutional: Positive for: Fever, Chills, Other ((+) myalgia ) Musculoskeletal: Positive for: Foot Pain ((+) left foot pain ) Neurological: Negative for: Weakness, Numbness Physical Exam - Reviewed Nursing Documentation Reviewed: Yes Vital Signs Reviewed: Yes - Physical Exam Appears: Positive for: Non-toxic, No Acute Distress Head Exam: Positive for: ATRAUMATIC, NORMOCEPHALIC Skin: Positive for: Normal Color. Negative for: Rash Eye Exam: Positive for: Normal appearance, EOMI, PERRL Neck: Positive for: Normal, Painless ROM, Supple Cardiovascular/Chest: Positive for: Regular Rate, Rhythm. Negative for: Murmur Respiratory: Positive for: Normal Breath Sounds. Negative for: Wheezing, Respiratory Distress Gastrointestinal/Abdominal: Positive for: Normal Exam, Soft. Negative for: Tenderness Extremity: Positive for: Normal ROM, Tenderness, Other (left foot stump inferior flap erythematous and tender with necrotic ulcer laterally with small amount of purulent drainage ). Negative for: Deformity, Swelling Neurologic/Psych: Positive for: Alert, Oriented. Negative for: Motor/Sensory Deficits - ECG O2 Sat by Pulse Oximetry: 95 Medical Decision Making Medical Decision Makin:05 Initial Impression- 76 y/o female with left foot/stump pain Initial Plan- * VBG Shock Panel * CMP * Urine dip * CBC w/ differential * XR Left Foot * Blood Cx * Re-evaluate 17:20 Additional orders- * Wound Cx * Vancomycin IVPB Documented by Harley Pennington, acting as a scribe for Tom Hurtado MD. All medical record entries made by the Scribe were at my direction and personally dictated by me. I have reviewed the chart and agree that the record accurately reflects my personal performance of the history, physical exam, medical decision making, and the department course for this patient. I have also personally directed, reviewed, and agree with the discharge instructions and disposition. Disposition - Clinical Impression Clinical Impression: ESRD on hemodialysis, Infection of amputation stump - Patient ED Disposition Is Patient to be Admitted: Yes - Disposition Disposition Time: 18:15 Condition: FAIR - Pt Status Changed To: Hospital Disposition Of: Inpatient - Admit Certification Admit to Inpatient:: After my assessment, the patient will require hospitalization for at least two midnights. This is because of the severity of symptoms shown, intensity of services needed, and/or the medical risk in this patient being treated as an outpatient. - POA Present On Arrival: Surgical Site Infection
[2016-08-27] MEDS ORDERED: Povidone Iodine Oint 10% Foilpak UD ONE (18:08)
[2016-08-27 18:17] LABS: BASO # 0.1 K/uL (0.0-0.2); BASO % 0.6 % (0.0-2.0); EOS # 0.1 K/uL (0.0-0.7); LYMPH # 0.9 K/uL (1.0-4.3); LYMPH % 6.1 % (20.0-40.0); MEAN CELL VOLUME 89.5 fl (81.0-99.0); MEAN CORPUSCULAR HEMOGLOBIN 28.4 pg (27.0-31.0); MEAN CORPUSCULAR HGB CONC 31.8 g/dL (33.0-37.0); MONO # 1.6 K/uL (0.0-0.8); MONO % 11.1 % (0.0-10.0); NEUT # 11.5 K/uL (1.8-7.0); NEUT % 81.2 % (50.0-75.0); PLATELET COUNT 323 K/uL (130-400); RED CELL DISTRIBUTION WIDTH 17.1 % (11.5-14.5); WHITE BLOOD COUNT 14.1 K/uL (4.8-10.8)
[2016-08-27 18:24] LABS: VENOUS BLOOD GAS BASE EXCESS 6.5 mmol/L (0.0-2.0); VENOUS BLOOD GAS PCO2 51 mmHg (40-60); VENOUS BLOOD PH 7.41 (7.32-7.43)
[2016-08-27 18:28] LABS: ALB/GLOB RATIO 0.9 (1.0-2.1); BILIRUBIN,TOTAL 0.6 mg/dl (0.2-1.3); CALCIUM 9.4 mg/dL (8.4-10.2); POTASSIUM 3.9 MMOL/L (3.6-5.0); TOTAL PROTEIN 8.2 G/DL (6.3-8.2)
[2016-08-27] MEDS ORDERED: Vancomycin 1 g Inj ONE (18:28)
--- NOTE | 2016-08-27 18:47 | CP.PCM.CON ---
History of Present Illness - History of Present Illness History of Present Illness: 75 year old female with PMHx of anemia, arthritis, Atrial Fib, CAD, CHF, DM, HTN , HLD, ESRD (dialysis on //Mon), Hyperthyroidism, Hypothyroidism was seen at bedside ED. She is 11 weeks s/p Left foot TMA. Patient states that she has been experiencing some chills and body aches over the couple days and her daughter brought her to ED. Patient complains of pain to Left foot surgical site especially upon palpation. Patient denies of any N/V/F/C or SOB today. Past Patient History - Infectious Disease Hx of Infectious Diseases: None - Past Medical History & Family History Past Medical History?: Yes - Past Social History Alcohol: None Drugs: Denies - CARDIAC Hx Atrial Fibrillation: Yes Hx Congestive Heart Failure: Yes Hx Hypercholesterolemia: Yes Hx Hypertension: Yes Hx Pacemaker: Yes - PULMONARY Hx Pneumonia: Yes - NEUROLOGICAL Hx Neurological Disorder: No - HEENT Hx HEENT Problems: No - RENAL Hx Chronic Kidney Disease: Yes Hx Kidney Stones: Yes - ENDOCRINE/METABOLIC Hx Hyperthyroidism: Yes Hx Hypothyroidism: Yes - HEMATOLOGICAL/ONCOLOGICAL Hx Anemia: Yes Hx Human Immunodeficiency Virus (HIV): No - INTEGUMENTARY Hx Dermatological Problems: No - MUSCULOSKELETAL/RHEUMATOLOGICAL Hx Arthritis: Yes - GASTROINTESTINAL Hx Gall Bladder Disease: Yes - GENITOURINARY/GYNECOLOGICAL Hx Genitourinary Disorders: No - PSYCHIATRIC Hx Psychophysiologic Disorder: No Hx Substance Use: No - SURGICAL HISTORY Hx Cholecystectomy: Yes Hx Coronary Artery Bypass Graft: Yes Hx Coronary Stent: Yes - ANESTHESIA Hx Anesthesia: Yes Hx Anesthesia Reactions: No Hx Malignant Hyperthermia: No Meds Allergies/Adverse Reactions: Allergies Allergy/AdvReac Type Severity Reaction Status Date / Time No Known Allergies Allergy Verified 04/15/15 18:53 - Medications Medications: Current Medications Vancomycin HCl 1 gm/ Sodium (Chloride) 250 mls @ 166.667 mls/hr IVPB ONCE ONE Stop: 08/27/16 18:57 Last Admin: 08/27/16 18:40 Dose: 166.667 mls/hr Physical Exam - Constitutional Appears: Well, Non-toxic, No Acute Distress - Extremities Exam Additional comments: Left lower extremity focused exam: DERM: Open wound is noted to Left foot stump surgical site measuring 5cm x 2cm x 0.2cm with necrotic base. Mild sero-sanguinous drainage is noted. NO purulent discharge is noted. No probe to bone. Skin erythematous around the wound. No mal -odor is noted. VASC: Palpable DP pulse noted 2/4. Non-palpable PT pulse. No edema noted. Skin temperature warm to warm from proximal to distal. ORTHO: Pain on palpation to TMA site NEURO: Gross sensation diminished - Neurological Exam Neurological exam: Alert, Oriented x3 - Psychiatric Exam Psychiatric exam: Normal Affect, Normal Mood - Skin Skin Exam: Normal Color, Warm Results - Vital Signs Recent Vital Signs: Last Vital Signs Temp 98.8 F 08/27/16 16:56 Pulse 95 H 08/27/16 16:56 Resp 16 08/27/16 16:56 BP 126/66 08/27/16 16:56 Pulse Ox 95 08/27/16 18:16 - Labs Result Diagrams: 08/27/16 18:00 08/27/16 18:00 Assessment & Plan - Assessment and Plan (Free Text) Assessment: 75 year old female patient presenting with wound dehiscence to Left TMA site ( DOS 06/10/16) Plan: Patient was examined and evaluated at bedside ED with all questions and concerns addressed discussed in detail with attending Dr. Herrera Chart and vitals reviewed Left foot dressed with betadine, DSD Wound culture taken Left foot Continue IV Abx Podiatry will follow in-house
--- NOTE | 2016-08-27 18:56 | RAD ---
PROCEDURE: Left foot dated 08/27/2016 HISTORY: Status post amputation. Rule out infection. COMPARISON: Comparison made with prior study 06/10/2016. FINDINGS: BONES: Re- demonstrated are transmetatarsal amputation involving 1st through 5th metatarsals. . The distal bone margins exhibit irregular lucent changes which may represent osteomyelitis particularly involving the 5th and 4th metatarsals. Additionally,, there appears to be localized ulceration along the lateral soft tissues just distal to the distal margin of the 5th metatarsal. There is diffuse soft tissue swelling and infiltration of the surrounding metatarsals and stump likely representing cellulitis. No definitive air is seen within the soft tissues. Findings findings are felt to represent osteomyelitis and surrounding cellulitis therefore followup MRI recommended confirm. JOINTS: The the joint spaces of the bones of the midfoot appear preserved. Questionable degenerative osteoarthritis involving the at tibiotalar articulation. SOFT TISSUES: Vascular calcifications are present. OTHER FINDINGS: None. IMPRESSION: Transmetatarsal amputation changes 1st through 5th metatarsals with areas of lucency involving the distal margins of wall of the metatarsals (particularly the 4th and 5th metatarsals). Additionally, there appears to be localized ulceration along the lateral soft tissues just distal to the distal margin of the 5th metatarsal. There is also diffuse surrounding soft tissue swelling. Findings are consistent with osteomyelitis and cellulitis. Recommend followup MRI. Note that this report was placed in PA review folder for followup. In addition, findings discussed with Dr. Hurtado at approximately 6:54 p.m. with written down and read back verification.
[2016-08-27 19:01] LABS: BASOPHIL 1 % (0-2); EOSINOPHIL 1 % (0-7); MYELOCYTE 1 % (0-0); NEUTROPHIL 87 % (42-75); TOTAL CELLS COUNTED 100
[2016-08-27 19:04] LABS: LARGE PLATELETS PRESENT
--- NOTE | 2016-08-27 22:51 | CP.PCM.CON ---
History of Present Illness - History of Present Illness History of Present Illness: SURGERY CONSULT NOTE FOR DR. OLIVARES 76F presents to [facility] with leg pain during dialysis. Patient has a amy catheter in right upper arm for dialysis access. She is a hard stick and has been a hard stick every time she comes to the hospital. She requires IV antibiotics at this time and surgery is consulted for central line access. PMH: DM, ESRD, CHF, HTN, HLD, Thyroid disease PSH: CABG, Cher, coronary stent, pacemaker, amy catheter Allergies: NKDA Past Patient History - Infectious Disease Hx of Infectious Diseases: None - Past Medical History & Family History Past Medical History?: Yes - Past Social History Alcohol: None Drugs: Denies - CARDIAC Hx Cardiac Disorders: Yes - PULMONARY Hx Respiratory Disorders: Yes - NEUROLOGICAL Hx Neurological Disorder: No - HEENT Hx HEENT Problems: No - RENAL Hx Chronic Kidney Disease: Yes - ENDOCRINE/METABOLIC Hx Endocrine Disorders: Yes - HEMATOLOGICAL/ONCOLOGICAL Hx Blood Disorders: Yes - INTEGUMENTARY Hx Dermatological Problems: No - MUSCULOSKELETAL/RHEUMATOLOGICAL Hx Musculoskeletal Disorders: Yes - GASTROINTESTINAL Hx Gall Bladder Disease: Yes - GENITOURINARY/GYNECOLOGICAL Hx Genitourinary Disorders: No - PSYCHIATRIC Hx Psychophysiologic Disorder: No - SURGICAL HISTORY Hx Cholecystectomy: Yes Hx Coronary Artery Bypass Graft: Yes Hx Coronary Stent: Yes - ANESTHESIA Hx Anesthesia: Yes Hx Anesthesia Reactions: No Hx Malignant Hyperthermia: No Meds Allergies/Adverse Reactions: Allergies Allergy/AdvReac Type Severity Reaction Status Date / Time No Known Allergies Allergy Verified 04/15/15 18:53 Physical Exam - Constitutional Appears: Non-toxic, No Acute Distress - Eye Exam Eye Exam: EOMI, PERRL - ENT Exam ENT Exam: Mucous Membranes Moist - Respiratory Exam Respiratory Exam: Clear to Auscultation Bilateral, NORMAL BREATHING PATTERN - Cardiovascular Exam Cardiovascular Exam: REGULAR RHYTHM, +S1, +S2 - GI/Abdominal Exam GI & Abdominal Exam: Soft. absent: Distended, Firm, Guarding, Rebound, Rigid, Tenderness - Extremities Exam Extremities exam: Negative for: pedal edema, tenderness Additional comments: left toes amputated, dressing on - Neurological Exam Neurological exam: Alert, Oriented x3 - Skin Skin Exam: Dry, Intact, Normal Color, Warm Results - Vital Signs Recent Vital Signs: Last Vital Signs Temp 98.4 F 08/27/16 21:49 Pulse 93 H 08/27/16 21:49 Resp 16 08/27/16 21:49 BP 124/60 08/27/16 21:49 Pulse Ox 100 08/27/16 19:21 - Labs Result Diagrams: 08/27/16 18:00 08/27/16 18:00 Assessment & Plan - Assessment and Plan (Free Text) Assessment: 76F with ESRD - difficult peripheral venous access - needs stat antibiotics - right groin central line placed Further recs discuss with Dr Gabo Calvert, PGY1
[2016-08-28] MEDS ORDERED: Oxycodone/Acetaminophen 5/325 mg Tab PO PRN (00:06)
[2016-08-28] MEDS: Oxycodone/Acetaminophen 5/325 mg Tab PO PRN ×3 (00:26→16:41)
--- NOTE | 2016-08-28 01:38 | PCM.PROC ---
Procedures Attestation:: I certify that I have explained the specified Operation(s) or Procedure(s), risks, benefits and reasonable alternatives to the Patient and/or other person responsible. The opportunity was given to ask questions and all questions answered - Central Line Placement Right Femoral Triple Lumen Catheter Aseptic technique was employed throughout the procedure: Full sterile barriers ( mask, hair cover, sterile gown, sterile gloves), Full body sterile drape, Chloraprep Antiseptic: 2 minute prep for Femoral CVP Time Out Performed: Yes Central Line Prep: Chlorhexidine-Alcohol Combination Local Anesthesia Used: Lidocaine 1% Amount of Anesthesia Used (mls): 2 Ultrasound Used for Placement: Yes Central Line Lumen Inserted: triple Central Line Length: 20 cm Post Procedure: Sutured in Place, Good Blood Return, All Ports Aspirated, Flushed, Capped, Sterile Dressing Applied Secured by: Suture Post procedure dressing: Gauze, Clear vapor permeable, Chlorhexidine disc ( Biopatch) Patient Tolerated Procedure: Well Immediate Complications: None
[2016-08-28] MEDS: Levothyroxine 75 MCG TAB PO SCH (05:46)
[2016-08-28] MEDS ORDERED: Pantoprazole 40 mg EC Tab PO SCH (06:00)
[2016-08-28 06:17] LABS: HEMATOCRIT 28.4 % (34.0-47.0); MEAN CELL VOLUME 89.3 fl (81.0-99.0); MEAN CORPUSCULAR HEMOGLOBIN 28.4 pg (27.0-31.0); MEAN CORPUSCULAR HGB CONC 31.8 g/dL (33.0-37.0); RED CELL DISTRIBUTION WIDTH 16.7 % (11.5-14.5); WHITE BLOOD COUNT 10.1 K/uL (4.8-10.8)
[2016-08-28 06:34] LABS: ALB/GLOB RATIO 0.9 (1.0-2.1); ALKALINE PHOSPHATASE 105 U/L (38-126); ALT/SGPT 30 U/L (9-52); AST/SGOT 49 U/L (14-36); BILIRUBIN,TOTAL 0.3 mg/dl (0.2-1.3); BLOOD UREA NITROGEN 16 mg/dl (7-17); CALCIUM 9.1 mg/dL (8.4-10.2); CARBON DIOXIDE 31 mmol/L (22-30); CHLORIDE 95 mmol/L (98-107); CHOLESTEROL 89 mg/dL (0-199); GFR AFRICAN-AMERICAN 18; GLUCOSE,RANDOM 106 mg/dL (65-105); POTASSIUM 3.6 MMOL/L (3.6-5.0); SODIUM 137 mmol/l (132-148); TOTAL PROTEIN 7.3 G/DL (6.3-8.2)
[2016-08-28 06:48] LABS: T4 6.29 ug/dl (5.5-11.0)
[2016-08-28 07:02] LABS: THYROID STIMULATING HORMONE 3.72 mIU/ML (0.46-4.68)
[2016-08-28 08:45] LABS: PARTIAL THROMBOPLASTIN TIME 30.8 Seconds (25.6-37.1)
[2016-08-28] MEDS ORDERED: Patient's Own Med (Sevelamer Carbonate [Renvela] 800 MG) PO SCH (09:00)
--- NOTE | 2016-08-28 10:55 | RAD ---
Abdomen dated 08/28/2016 Single AP supine portable view of the abdomen performed. Comparison made with prior study 12/05/2013. Comparison also made with CT scan of the abdomen and pelvis dated 09/19/2014. Comparison also made with chest radiograph dated 06/09/2016 No evidence of acute mechanical bowel obstruction. . Metallic clips seen in the right upper quadrant of the abdomen consisted prior cholecystectomy. Re- demonstrated are splenic artery calcifications. Calcification of the abdominal aorta and iliac arteries. Central venous catheter overlying the right aspect of the pelvis. Vague calcification again seen overlying hepatic parenchyma. There is scoliotic deformity of the lower thoracic and lumbar spine. Patchy atelectasis and or infiltrate changes in the left lung base. Cardiomegaly. Distal tips of disease bipolar pacemaker wires are present Impression: No evidence acute mechanical bowel obstruction. Left lower lobe atelectasis and or infiltrate. Cardiomegaly. In situ central venous line overlying the right aspect of the pelvis as above.
[2016-08-28] MEDS ORDERED: ceFAZolin 1 GM in Sodium Chloride 0.9% 100 ML IVPB SCH (11:45)
--- NOTE | 2016-08-28 11:46 | CP.PCM.PN ---
Subjective - Date & Time of Evaluation Date of Evaluation: 08/28/16 Time of Evaluation: 11:45 - Subjective Subjective: 75 year old female 11 weeks s/p Left foot TMA was seen at bedside this morning concerning Left foot wound dehiscence. Dressing to Left foot remains clean dry and intact. Patient denies of any overnight distress. Patient complains of pain to left foot while changing dressing but no pain is induced when resting. Patient denies of any N/V/F/C or SOB today. Objective - Vital Signs/Intake and Output Vital Signs (last 24 hours): Temp Pulse Resp BP Pulse Ox 98.8 F 72 20 167/92 H 96 08/28/16 08:44 08/28/16 09:06 08/28/16 08:44 08/28/16 09:06 08/28/16 08:44 - Medications Medications: Current Medications Amlodipine Besylate (Norvasc) 10 mg PO DAILY [facility] Last Admin: 08/28/16 09:06 Dose: 10 mg Aspirin (Ecotrin) 81 mg PO DAILY [facility] Last Admin: 08/28/16 09:04 Dose: 81 mg Atorvastatin Calcium (Lipitor) 80 mg PO DAILY [facility] Last Admin: 08/28/16 09:06 Dose: 80 mg Heparin Sodium (Porcine) (Heparin) 5,000 units SC Q12 [facility] PRN Reason: Protocol Last Admin: 08/28/16 09:05 Dose: 5,000 units Insulin Detemir (Levemir) 30 units SC HS [facility] Levothyroxine Sodium (Synthroid) 75 mcg PO DAILY@0630 [facility] Last Admin: 08/28/16 05:46 Dose: 75 mcg Metoprolol Tartrate (Lopressor) 100 mg PO Q12 [facility] Last Admin: 08/28/16 09:02 Dose: 100 mg Oxycodone/Acetaminophen (Percocet 5/325 Mg Tab) 2 tab PO Q4 PRN PRN Reason: Pain, moderate (4-7) Stop: 08/31/16 08:18 Pantoprazole Sodium (Protonix Ec Tab) 40 mg PO DAILY@0600 [facility] Pregabalin (Lyrica) 50 mg PO DAILY [facility] Sevelamer HCl (Renagel) 800 mg PO TID [facility] Last Admin: 08/28/16 09:02 Dose: 800 mg Sitagliptin Phosphate (Januvia) 25 mg PO DAILY [facility] Last Admin: 08/28/16 09:05 Dose: 25 mg Valsartan (Diovan) 160 mg PO DAILY [facility] Last Admin: 08/28/16 09:03 Dose: 160 mg - Labs Labs: 08/28/16 06:05 08/28/16 06:05 PT 15.2 Seconds (9.8-13.1) H 08/28/16 06:05 INR 1.3 (0.9-1.2) H 08/28/16 06:05 APTT 30.8 Seconds (25.6-37.1) 08/28/16 06:05 - Constitutional Appears: Well, Non-toxic, No Acute Distress - Extremities Exam Additional comments: Left lower extremity focused exam: DERM: Open wound is noted to Left foot stump surgical site measuring 5cm x 2cm x 0.2cm with necrotic base. Mild sero-sanguinous drainage is noted. NO purulent discharge is noted. No probe to bone. Skin erythematous around the wound. No mal -odor is noted. VASC: Palpable DP pulse noted 2/4. Non-palpable PT pulse. No edema noted. Skin temperature warm to warm from proximal to distal. ORTHO: Pain on palpation to TMA site NEURO: Gross sensation diminished - Neurological Exam Neurological Exam: Alert, Awake, Oriented x3 - Psychiatric Exam Psychiatric exam: Normal Affect, Normal Mood - Skin Skin Exam: Normal Color, Warm Assessment and Plan - Assessment and Plan (Free Text) Assessment: 75 year old female patient presenting with wound dehiscence to Left TMA site ( DOS 06/10/16) Plan: Patient was examined and evaluated at bedside ED with all questions and concerns addressed discussed in detail with attending Dr. Herrera Chart and vitals reviewed Left foot dressed with betadine, DSD Wound culture Left foot; pending Continue IV Abx as per ID Podiatry will follow in-house
[2016-08-28] MEDS ORDERED: Povidone Iodine Topical 10% Sol ONE (14:44)
--- NOTE | 2016-08-28 15:21 | CP.PCM.CON ---
History of Present Illness - History of Present Illness History of Present Illness: 76 y/o female with ESRD on maintenance HD, Amputation of Lt toes, CAD,CHF, chronic A.fib, DM ,HLD is admitted for c/o Pain at lt foot amputation site Pts dalysis schedule is TTS & she had dialysis yesterday Past Patient History - Infectious Disease Hx of Infectious Diseases: None - Past Medical History & Family History Past Medical History?: Yes - Past Social History Alcohol: None Drugs: Denies - CARDIAC Hx Cardiac Disorders: Yes - PULMONARY Hx Respiratory Disorders: Yes - NEUROLOGICAL Hx Neurological Disorder: No - HEENT Hx HEENT Problems: No - RENAL Hx Chronic Kidney Disease: Yes - ENDOCRINE/METABOLIC Hx Endocrine Disorders: Yes - HEMATOLOGICAL/ONCOLOGICAL Hx Blood Disorders: Yes - INTEGUMENTARY Hx Dermatological Problems: No - MUSCULOSKELETAL/RHEUMATOLOGICAL Hx Musculoskeletal Disorders: Yes - GASTROINTESTINAL Hx Gall Bladder Disease: Yes - GENITOURINARY/GYNECOLOGICAL Hx Genitourinary Disorders: No - PSYCHIATRIC Hx Psychophysiologic Disorder: No - SURGICAL HISTORY Hx Cholecystectomy: Yes Hx Coronary Artery Bypass Graft: Yes Hx Coronary Stent: Yes - ANESTHESIA Hx Anesthesia: Yes Hx Anesthesia Reactions: No Hx Malignant Hyperthermia: No Meds Allergies/Adverse Reactions: Allergies Allergy/AdvReac Type Severity Reaction Status Date / Time No Known Allergies Allergy Verified 04/15/15 18:53 - Medications Medications: Current Medications Amlodipine Besylate (Norvasc) 10 mg PO DAILY [facility] Last Admin: 08/28/16 09:06 Dose: 10 mg Aspirin (Ecotrin) 81 mg PO DAILY [facility] Last Admin: 08/28/16 09:04 Dose: 81 mg Atorvastatin Calcium (Lipitor) 80 mg PO DAILY [facility] Last Admin: 08/28/16 09:06 Dose: 80 mg Heparin Sodium (Porcine) (Heparin) 5,000 units SC Q12 [facility] PRN Reason: Protocol Last Admin: 08/28/16 09:05 Dose: 5,000 units Vancomycin HCl 1 gm/ Sodium (Chloride) 250 mls @ 166.667 mls/hr IVPB DAILY [facility] Piperacillin Sod/Tazobactam (Sod 2.25 gm/ Sodium Chloride) 100 mls @ 100 mls/ hr IVPB Q8 [facility] Insulin Detemir (Levemir) 30 units SC HS [facility] Levothyroxine Sodium (Synthroid) 75 mcg PO DAILY@0630 [facility] Last Admin: 08/28/16 05:46 Dose: 75 mcg Metoprolol Tartrate (Lopressor) 100 mg PO Q12 [facility] Last Admin: 08/28/16 09:02 Dose: 100 mg Oxycodone/Acetaminophen (Percocet 5/325 Mg Tab) 2 tab PO Q4 PRN PRN Reason: Pain, moderate (4-7) Stop: 08/31/16 08:18 Pantoprazole Sodium (Protonix Ec Tab) 40 mg PO DAILY@0600 [facility] Pregabalin (Lyrica) 50 mg PO DAILY [facility] Last Admin: 08/28/16 13:06 Dose: 50 mg Sevelamer HCl (Renagel) 800 mg PO TID [facility] Last Admin: 08/28/16 13:04 Dose: 800 mg Sitagliptin Phosphate (Januvia) 25 mg PO DAILY [facility] Last Admin: 08/28/16 09:05 Dose: 25 mg Valsartan (Diovan) 160 mg PO DAILY [facility] Last Admin: 08/28/16 09:03 Dose: 160 mg Physical Exam - Constitutional Appears: No Acute Distress Additional comments: C/o pain Lt foot - Head Exam Head Exam: ATRAUMATIC, NORMOCEPHALIC - Eye Exam Additional comments: No icterus - ENT Exam ENT Exam: Mucous Membranes Dry - Neck Exam Additional comments: JVD neg - Respiratory Exam Additional comments: Lungs clear - Cardiovascular Exam Cardiovascular Exam: Irregular Rhythm - GI/Abdominal Exam GI & Abdominal Exam: Soft Additional comments: Tenderness Over RLQ - Extremities Exam Additional comments: No edema. Lt foot dressed Results - Vital Signs Recent Vital Signs: Last Vital Signs Temp 98.8 F 08/28/16 08:44 Pulse 72 08/28/16 09:06 Resp 20 08/28/16 08:44 BP 167/92 H 08/28/16 09:06 Pulse Ox 96 08/28/16 08:44 - Labs Result Diagrams: 08/28/16 06:05 08/28/16 06:05 Labs: Laboratory Results - last 24 hr 08/28/16 08/28/16 08/28/16 02:15 06:05 06:05 WBC 10.1 RBC 3.18 L Hgb 9.0 L Hct 28.4 L MCV 89.3 MCH 28.4 MCHC 31.8 L RDW 16.7 H Plt Count 333 PT 15.2 H INR 1.3 H APTT 30.8 Sodium Potassium Chloride Carbon Dioxide Anion Gap BUN Creatinine Est GFR ( Amer) Est GFR (Non-Af Amer) POC Glucose (mg/dL) 123 H Random Glucose Calcium Total Bilirubin AST ALT Alkaline Phosphatase Total Protein Albumin Globulin Albumin/Globulin Ratio Triglycerides Cholesterol LDL Cholesterol Direct HDL Cholesterol Thyroxine (T4) TSH 3rd Generation 08/28/16 08/28/16 08/28/16 06:05 06:51 11:37 WBC RBC Hgb Hct MCV MCH MCHC RDW Plt Count PT INR APTT Sodium 137 Potassium 3.6 Chloride 95 L Carbon Dioxide 31 H Anion Gap 15 BUN 16 Creatinine 3.1 H Est GFR ( Amer) 18 Est GFR (Non-Af Amer) 15 POC Glucose (mg/dL) 124 H 184 H Random Glucose 106 H Calcium 9.1 Total Bilirubin 0.3 AST 49 H D ALT 30 Alkaline Phosphatase 105 Total Protein 7.3 Albumin 3.4 L Globulin 4.0 H Albumin/Globulin Ratio 0.9 L Triglycerides 121 Cholesterol 89 LDL Cholesterol Direct < 30 HDL Cholesterol 30 Thyroxine (T4) 6.29 TSH 3rd Generation 3.72 Assessment & Plan - Assessment and Plan (Free Text) Assessment: ESRD on maintenance HD S/P Lt foot toes amputation Abdominal pain CAD, A.fib DM Plan: Continue HD every TTS Abdominal is ordered Labs stable Epogen with HD
--- NOTE | 2016-08-28 17:39 | CP.PCM.CON ---
History of Present Illness - History of Present Illness History of Present Illness: Infectious Disease Consultation Note- Asked to see this patient at the request of HPI- History obtained mostly from the medical chart and the nurse. Pt. is a 76 year old female with ESRD on HD , DM II who was admitted yesterday from the HD center with complaints of pain in her left foot stump site. Pt. is s /p left foot TMA amputation 11 weeks ago and has wound dehiscence and is being f/u with podiatry. I'm being asked to evaluate for abx management and possible infected stump site. pt. currently is resting comfortably in bed and other than pain at stump site denies any other complaints. Also as per pt's nurse pt. has a mid-chest wound that as per pt's daughter has been present for 2 years and is superficial and occcasionally bleeds but has never had any pus. Review of Systems - Review of Systems Review of Systems: ROS- denies any fever or chills, denies any PURCELL, denies any cough, denies any sob, denies any chest pain, denies any abd. pain, denies any diarrhea, denies any n/v , pain at left foot stump site, denies any pus discharge Past Patient History - Infectious Disease Hx of Infectious Diseases: None - Past Medical History & Family History Past Medical History?: Yes - Past Social History Smoking Status: Never Smoked Alcohol: None Drugs: Denies Home Situation {Lives}: With Family - CARDIAC Hx Cardiac Disorders: Yes - PULMONARY Hx Respiratory Disorders: Yes - NEUROLOGICAL Hx Neurological Disorder: No - HEENT Hx HEENT Problems: No - RENAL Hx Chronic Kidney Disease: Yes - ENDOCRINE/METABOLIC Hx Endocrine Disorders: Yes Hx Diabetes Mellitus Type 2: Yes - INTEGUMENTARY Hx Dermatological Problems: No - MUSCULOSKELETAL/RHEUMATOLOGICAL Hx Musculoskeletal Disorders: Yes - GASTROINTESTINAL Hx Gall Bladder Disease: Yes - GENITOURINARY/GYNECOLOGICAL Hx Genitourinary Disorders: No - PSYCHIATRIC Hx Psychophysiologic Disorder: No - SURGICAL HISTORY Hx Cholecystectomy: Yes Hx Coronary Artery Bypass Graft: Yes Hx Coronary Stent: Yes - ANESTHESIA Hx Anesthesia: Yes Hx Anesthesia Reactions: No Hx Malignant Hyperthermia: No Meds Allergies/Adverse Reactions: Allergies Allergy/AdvReac Type Severity Reaction Status Date / Time No Known Allergies Allergy Verified 04/15/15 18:53 - Medications Medications: Current Medications Amlodipine Besylate (Norvasc) 10 mg PO DAILY [facility] Last Admin: 08/28/16 09:06 Dose: 10 mg Aspirin (Ecotrin) 81 mg PO DAILY [facility] Last Admin: 08/28/16 09:04 Dose: 81 mg Atorvastatin Calcium (Lipitor) 80 mg PO DAILY [facility] Last Admin: 08/28/16 09:06 Dose: 80 mg Epoetin Sudheer (Procrit) 4,000 unit IV TTS [facility] Heparin Sodium (Porcine) (Heparin) 5,000 units SC Q12 [facility] PRN Reason: Protocol Last Admin: 08/28/16 09:05 Dose: 5,000 units Vancomycin HCl 1 gm/ Sodium (Chloride) 250 mls @ 166.667 mls/hr IVPB DAILY [facility] Last Admin: 08/28/16 16:44 Dose: 166.667 mls/hr Piperacillin Sod/Tazobactam (Sod 2.25 gm/ Sodium Chloride) 100 mls @ 100 mls/ hr IVPB Q8 [facility] Last Admin: 08/28/16 16:45 Dose: 100 mls/hr Insulin Detemir (Levemir) 30 units SC HS [facility] Levothyroxine Sodium (Synthroid) 75 mcg PO DAILY@0630 [facility] Last Admin: 08/28/16 05:46 Dose: 75 mcg Metoprolol Tartrate (Lopressor) 100 mg PO Q12 [facility] Last Admin: 08/28/16 09:02 Dose: 100 mg Oxycodone/Acetaminophen (Percocet 5/325 Mg Tab) 2 tab PO Q4 PRN PRN Reason: Pain, moderate (4-7) Stop: 08/31/16 08:18 Last Admin: 08/28/16 16:41 Dose: 2 tab Pantoprazole Sodium (Protonix Ec Tab) 40 mg PO DAILY@0600 [facility] Pregabalin (Lyrica) 50 mg PO DAILY [facility] Last Admin: 08/28/16 13:06 Dose: 50 mg Sevelamer HCl (Renagel) 800 mg PO TID [facility] Last Admin: 08/28/16 16:43 Dose: 800 mg Sitagliptin Phosphate (Januvia) 25 mg PO DAILY [facility] Last Admin: 08/28/16 09:05 Dose: 25 mg Valsartan (Diovan) 160 mg PO DAILY [facility] Last Admin: 08/28/16 09:03 Dose: 160 mg Physical Exam - Constitutional Appears: Non-toxic, No Acute Distress - Head Exam Head Exam: ATRAUMATIC - Eye Exam Eye Exam: EOMI Pupil Exam: PERRL - ENT Exam ENT Exam: Normal Oropharynx - Neck Exam Neck exam: Positive for: Full Rom - Respiratory Exam Respiratory Exam: Clear to Auscultation Bilateral, NORMAL BREATHING PATTERN - Cardiovascular Exam Cardiovascular Exam: RRR, +S1, +S2 Additional comments: midchest superficail area of denuded skin 2 x 4 cm wirh mild bleeding, no pus, no malodor - GI/Abdominal Exam GI & Abdominal Exam: Normal Bowel Sounds, Soft Additional comments: NT, ND - Extremities Exam Additional comments: left foot TMA site the lateral edge with eschar necrotic , no discharge, no malodor - Neurological Exam Neurological exam: Alert, Oriented x3 Results - Vital Signs Recent Vital Signs: Last Vital Signs Temp 99.4 F 08/28/16 16:14 Pulse 63 08/28/16 16:14 Resp 20 08/28/16 16:14 BP 146/67 08/28/16 16:14 Pulse Ox 95 08/28/16 16:14 - Labs Result Diagrams: 08/28/16 06:05 08/28/16 06:05 Labs: Laboratory Results - last 24 hr 08/28/16 08/28/16 08/28/16 02:15 06:05 06:05 WBC 10.1 RBC 3.18 L Hgb 9.0 L Hct 28.4 L MCV 89.3 MCH 28.4 MCHC 31.8 L RDW 16.7 H Plt Count 333 PT 15.2 H INR 1.3 H APTT 30.8 Sodium Potassium Chloride Carbon Dioxide Anion Gap BUN Creatinine Est GFR ( Amer) Est GFR (Non-Af Amer) POC Glucose (mg/dL) 123 H Random Glucose Calcium Total Bilirubin AST ALT Alkaline Phosphatase Total Protein Albumin Globulin Albumin/Globulin Ratio Triglycerides Cholesterol LDL Cholesterol Direct HDL Cholesterol Thyroxine (T4) TSH 3rd Generation 08/28/16 08/28/16 08/28/16 06:05 06:51 11:37 WBC RBC Hgb Hct MCV MCH MCHC RDW Plt Count PT INR APTT Sodium 137 Potassium 3.6 Chloride 95 L Carbon Dioxide 31 H Anion Gap 15 BUN 16 Creatinine 3.1 H Est GFR ( Amer) 18 Est GFR (Non-Af Amer) 15 POC Glucose (mg/dL) 124 H 184 H Random Glucose 106 H Calcium 9.1 Total Bilirubin 0.3 AST 49 H D ALT 30 Alkaline Phosphatase 105 Total Protein 7.3 Albumin 3.4 L Globulin 4.0 H Albumin/Globulin Ratio 0.9 L Triglycerides 121 Cholesterol 89 LDL Cholesterol Direct < 30 HDL Cholesterol 30 Thyroxine (T4) 6.29 TSH 3rd Generation 3.72 08/28/16 16:34 WBC RBC Hgb Hct MCV MCH MCHC RDW Plt Count PT INR APTT Sodium Potassium Chloride Carbon Dioxide Anion Gap BUN Creatinine Est GFR ( Amer) Est GFR (Non-Af Amer) POC Glucose (mg/dL) 169 H Random Glucose Calcium Total Bilirubin AST ALT Alkaline Phosphatase Total Protein Albumin Globulin Albumin/Globulin Ratio Triglycerides Cholesterol LDL Cholesterol Direct HDL Cholesterol Thyroxine (T4) TSH 3rd Generation [facility] 08/27/16 18:00 Blood Blood Culture - Preliminary NO GROWTH AFTER 24 HOURS 08/27/16 18:00 Blood Blood Culture - Preliminary NO GROWTH AFTER 24 HOURS 08/27/16 17:40 Foot - Left Gram Stain - Final Accession No. : [id number] Patient Name / ID : JAJA ANI / [id number] Exam Date : 08/27/2016 17:22:06 ( Approved ) Study Comment : Sex / Age : F / 76Y Creator : Oli Avalos MD Dictator : Oli Avalos MD Nicker : Mission Assessment Specialist : Oli Avalos MD Approver2 : Report Date : 08/27/2016 18:55:00 My Comment : PROCEDURE: Left foot dated 08/27/2016 HISTORY: Status post amputation. Rule out infection. COMPARISON: Comparison made with prior study 06/10/2016. FINDINGS: BONES: Re- demonstrated are transmetatarsal amputation involving 1st through 5th metatarsals. . The distal bone margins exhibit irregular lucent changes which may represent osteomyelitis particularly involving the 5th and 4th metatarsals. Additionally,, there appears to be localized ulceration along the lateral soft tissues just distal to the distal margin of the 5th metatarsal. There is diffuse soft tissue swelling and infiltration of the surrounding metatarsals and stump likely representing cellulitis. No definitive air is seen within the soft tissues. Findings findings are felt to represent osteomyelitis and surrounding cellulitis therefore followup MRI recommended confirm. JOINTS: The the joint spaces of the bones of the midfoot appear preserved. Questionable degenerative osteoarthritis involving the at tibiotalar articulation. SOFT TISSUES: Vascular calcifications are present. OTHER FINDINGS: None. IMPRESSION: Transmetatarsal amputation changes 1st through 5th metatarsals with areas of lucency involving the distal margins of wall of the metatarsals (particularly the 4th and 5th metatarsals). Additionally, there appears to be localized ulceration along the lateral soft tissues just distal to the distal margin of the 5th metatarsal. There is also diffuse surrounding soft tissue swelling. Findings are consistent with osteomyelitis and cellulitis. Recommend followup MRI. Note that this report was placed in PA review folder for followup. In addition, findings discussed with Dr. Hurtado at approximately 6:54 p.m. with written down and read back verification. Assessment & Plan (1) Infection of amputation stump Status: Acute (2) ESRD on hemodialysis Status: Acute Priority: High - Assessment and Plan (Free Text) Assessment: A/P- 76 year old female with DM II, ESRD on HD, s/p left foot TMA admitted with left foot TMA infected stump. afebrile minimal leukocytosis resolving. blood cx- neg x 2 wound cx- pending foot xray- OM as per report. plan- check ESR. check MRI if no contraindication for f/o OM . No objection to continuing with current abx vanco and zosyn pending further results. may need arterial dopplers . May need further debridement or amputation pending further results. Thank you for allowing me to take part in the care of this patient.
--- NOTE | 2016-08-28 21:19 | CP.PCM.HP ---
History of Present Illness - History of Present Illness History of Present Illness: CC: Pain L foot stump. 76 y/o F with Hx of ESRD on HD TTS, was sent via EMS to [facility] from HD center dialysis for evaluation and Tx of intermittent L foot Stump pain, onset 3 wks BLACK TOPPER with no relief. Pt c/o of increased L foot aching pain, severe intensity of 9:10 not relief with pain medication, associated to tenderness and purulent discharge from site on DOA. Worsening symptoms: C/O of RUQ abdominal pain x one week increased with meals, denied: Nausea, vomiting or diarrhea , complains of open skin lesion mid upper sternum for one year , initially She had a verrucae , She took it out by herself , there after lesion was opening and closing. Pt denied: Fever, chills, n/v/d, melena, SOB, CP, dizziness, urinary symptoms, headache, sick contact. PMHx: S/P L TMA, PVD, Hx CABG, Coronary Stent, DM Neuropathy, DMII, ESRD on HD , CKD, CAD, CHF, PAF, PPM, HTN, Hypothyroidism, Hyperlipidemia, Anemia. Foot X-Ray consistent with Osteomyelitis and Cellulites. Abdomen X-Ray shows: No bowel obstructions. Present on Admission - Present on Admission Any Indicators Present on Admission: Yes History Surgical Site Infection Following: Orthopedic Procedures Review of Systems - Constitutional Constitutional: Other (negative) - EENT Eyes: Other (negative) Ears: Other (negative) Nose/Mouth/Throat: Other (negative) - Cardiovascular Cardiovascular: Other (negative) - Respiratory Respiratory: Other (negative) - Gastrointestinal Gastrointestinal: Abdominal Pain (RUQ) - Genitourinary Genitourinary: Other (negative) - Musculoskeletal Musculoskeletal: Other (L foot pain) - Integumentary Integumentary: Lesions (mid upper chest) - Neurological Neurological: Other (negative) - Psychiatric Psychiatric: Other (negative) - Endocrine Endocrine: Other (negative) - Hematologic/Lymphatic Hematologic: Other (negative) Past Patient History - Infectious Disease Hx of Infectious Diseases: None - Past Medical History & Family History Past Medical History?: Yes Pertinent Family History: Unknown - Past Social History Alcohol: None Drugs: Denies - CARDIAC Hx Cardiac Disorders: Yes Hx Atrial Fibrillation: Yes Hx Congestive Heart Failure: Yes Hx Hypercholesterolemia: Yes Hx Hypertension: Yes Hx Pacemaker: Yes - PULMONARY Hx Respiratory Disorders: Yes Hx Pneumonia: Yes - NEUROLOGICAL Hx Neurological Disorder: No - HEENT Hx HEENT Problems: No - RENAL Hx Chronic Kidney Disease: Yes Hx Dialysis: Yes Hx Kidney Stones: Yes Hx Renal Failure: Yes - ENDOCRINE/METABOLIC Hx Endocrine Disorders: Yes Hx Diabetes Mellitus Type 2: Yes Hx Hypothyroidism: Yes - HEMATOLOGICAL/ONCOLOGICAL Hx Blood Disorders: Yes Hx Anemia: Yes - INTEGUMENTARY Hx Dermatological Problems: No - MUSCULOSKELETAL/RHEUMATOLOGICAL Hx Musculoskeletal Disorders: Yes Hx Arthritis: Yes - GASTROINTESTINAL Hx Gastrointestinal Disorders: Yes Hx Gall Bladder Disease: Yes - GENITOURINARY/GYNECOLOGICAL Hx Genitourinary Disorders: No - PSYCHIATRIC Hx Psychophysiologic Disorder: No - SURGICAL HISTORY Hx Surgeries: Yes Hx Amputation: Yes (L TMA) Hx Cholecystectomy: Yes Hx Coronary Artery Bypass Graft: Yes Hx Coronary Stent: Yes - ANESTHESIA Hx Anesthesia: Yes Hx Anesthesia Reactions: No Hx Malignant Hyperthermia: No Meds Allergies/Adverse Reactions: Allergies Allergy/AdvReac Type Severity Reaction Status Date / Time No Known Allergies Allergy Verified 04/15/15 18:53 Physical Exam - Constitutional Appears: No Acute Distress, Chronically Ill - Head Exam Head Exam: NORMAL INSPECTION - Eye Exam Eye Exam: PERRL - ENT Exam ENT Exam: Normal Oropharynx - Neck Exam Neck exam: Positive for: Normal Inspection - Respiratory Exam Respiratory Exam: NORMAL BREATHING PATTERN - Cardiovascular Exam Cardiovascular Exam: Irregular Rhythm Additional comments: Mid upper chest with chronic non healing superficial abrasion. PPM. - GI/Abdominal Exam GI & Abdominal Exam: Normal Bowel Sounds, Soft, Tenderness (RUQ). absent: Guarding, Rebound - Extremities Exam Additional comments: Pain on palpation in L TMA, dressing , open wound L foot surgical stump, necrotic base , no supuration , DP palpable , R femoral LTC in place. - Back Exam Additional comments: Sacrum with dry healed scar and redness. - Neurological Exam Neurological exam: Alert, Oriented x3 Additional comments: Gross sensation diminished L R foot , motor no focal deficit. - Psychiatric Exam Psychiatric exam: Normal Affect, Normal Mood - Skin Skin Exam: Warm Additional comments: upper area skin mid upper sternum , round aprox 3 cm , small bleeding after taking out dressing, Results - Vital Signs Recent Vital Signs: Last Vital Signs Temp 99.4 F 08/28/16 16:14 Pulse 63 08/28/16 16:14 Resp 20 08/28/16 16:14 BP 146/67 08/28/16 16:14 Pulse Ox 95 08/28/16 16:14 reviewed J.P. - Labs Result Diagrams: 08/30/16 06:00 08/30/16 06:00 Labs: Laboratory Results - last 24 hr 08/28/16 08/28/16 08/28/16 02:15 06:05 06:05 WBC 10.1 RBC 3.18 L Hgb 9.0 L Hct 28.4 L MCV 89.3 MCH 28.4 MCHC 31.8 L RDW 16.7 H Plt Count 333 PT 15.2 H INR 1.3 H APTT 30.8 Sodium Potassium Chloride Carbon Dioxide Anion Gap BUN Creatinine Est GFR ( Amer) Est GFR (Non-Af Amer) POC Glucose (mg/dL) 123 H Random Glucose Calcium Total Bilirubin AST ALT Alkaline Phosphatase Total Protein Albumin Globulin Albumin/Globulin Ratio Triglycerides Cholesterol LDL Cholesterol Direct HDL Cholesterol Thyroxine (T4) TSH 3rd Generation 08/28/16 08/28/16 08/28/16 06:05 06:51 11:37 WBC RBC Hgb Hct MCV MCH MCHC RDW Plt Count PT INR APTT Sodium 137 Potassium 3.6 Chloride 95 L Carbon Dioxide 31 H Anion Gap 15 BUN 16 Creatinine 3.1 H Est GFR ( Amer) 18 Est GFR (Non-Af Amer) 15 POC Glucose (mg/dL) 124 H 184 H Random Glucose 106 H Calcium 9.1 Total Bilirubin 0.3 AST 49 H D ALT 30 Alkaline Phosphatase 105 Total Protein 7.3 Albumin 3.4 L Globulin 4.0 H Albumin/Globulin Ratio 0.9 L Triglycerides 121 Cholesterol 89 LDL Cholesterol Direct < 30 HDL Cholesterol 30 Thyroxine (T4) 6.29 TSH 3rd Generation 3.72 08/28/16 16:34 WBC RBC Hgb Hct MCV MCH MCHC RDW Plt Count PT INR APTT Sodium Potassium Chloride Carbon Dioxide Anion Gap BUN Creatinine Est GFR ( Amer) Est GFR (Non-Af Amer) POC Glucose (mg/dL) 169 H Random Glucose Calcium Total Bilirubin AST ALT Alkaline Phosphatase Total Protein Albumin Globulin Albumin/Globulin Ratio Triglycerides Cholesterol LDL Cholesterol Direct HDL Cholesterol Thyroxine (T4) TSH 3rd Generation reviewed J.P. - EKG Data EKG comments: reviewed J.P. - Impressions Impression: Foot and Abdomen X-Ray reviewed J.P. 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 Surgical and Senior Training Specialist consult appreciated, F/U: GI, ID, Nephrology consults. - Date & Time Date: 08/28/16 Time: 14:00
[2016-08-28] MEDS ORDERED: Patient's Own Med (Rosuvastatin Calcium [Crestor] 40 MG) PO SCH (22:00)
[2016-08-28] MEDS: Insulin Detemir 100 Units/ml Inj SC SCH (22:30)
[2016-08-29] MEDS: Levothyroxine 75 MCG TAB PO SCH ×2 (06:08→10:44)
[2016-08-29] MEDS: Pantoprazole 40 mg EC Tab PO SCH ×2 (06:08→10:44)
--- NOTE | 2016-08-29 06:39 | CP.PCM.PN ---
Subjective - Date & Time of Evaluation Date of Evaluation: 08/29/16 Time of Evaluation: 06:40 - Subjective Subjective: 75 year old female pt seen at bedside this AM 11 weeks s/p Left foot TMA concerning Left foot wound dehiscence with Dr. Herrera present. Dressing to Left foot remains clean dry and intact. Patient denies of any overnight distress. Pt does say the foot is tender, denies any calf pain however. Denies f /n/v/c/sob/cp at this time. Objective - Vital Signs/Intake and Output Vital Signs (last 24 hours): Temp Pulse Resp BP Pulse Ox 99.4 F 63 20 149/73 95 08/28/16 16:14 08/28/16 21:38 08/28/16 16:14 08/28/16 21:38 08/28/16 16:14 - Medications Medications: Current Medications Amlodipine Besylate (Norvasc) 10 mg PO DAILY [facility] Last Admin: 08/28/16 09:06 Dose: 10 mg Aspirin (Ecotrin) 81 mg PO DAILY [facility] Last Admin: 08/28/16 09:04 Dose: 81 mg Atorvastatin Calcium (Lipitor) 80 mg PO DAILY [facility] Last Admin: 08/28/16 09:06 Dose: 80 mg Epoetin Sudheer (Procrit) 4,000 unit IV TTS [facility] Heparin Sodium (Porcine) (Heparin) 5,000 units SC Q12 [facility] PRN Reason: Protocol Last Admin: 08/28/16 20:18 Dose: 5,000 units Vancomycin HCl 1 gm/ Sodium (Chloride) 250 mls @ 166.667 mls/hr IVPB DAILY [facility] Last Admin: 08/28/16 16:44 Dose: 166.667 mls/hr Piperacillin Sod/Tazobactam (Sod 2.25 gm/ Sodium Chloride) 100 mls @ 100 mls/ hr IVPB Q8 [facility] Last Admin: 08/29/16 00:36 Dose: 100 mls/hr Insulin Detemir (Levemir) 30 units SC HS [facility] Last Admin: 08/28/16 22:30 Dose: 30 units Levothyroxine Sodium (Synthroid) 75 mcg PO DAILY@0630 [facility] Last Admin: 08/29/16 06:08 Dose: Not Given Metoprolol Tartrate (Lopressor) 100 mg PO Q12 [facility] Last Admin: 08/28/16 21:38 Dose: 100 mg Oxycodone/Acetaminophen (Percocet 5/325 Mg Tab) 2 tab PO Q4 PRN PRN Reason: Pain, moderate (4-7) Stop: 08/31/16 08:18 Last Admin: 08/28/16 16:41 Dose: 2 tab Pantoprazole Sodium (Protonix Ec Tab) 40 mg PO DAILY@0600 [facility] Last Admin: 08/29/16 06:08 Dose: Not Given Pregabalin (Lyrica) 50 mg PO DAILY [facility] Last Admin: 08/28/16 13:06 Dose: 50 mg Sevelamer HCl (Renagel) 800 mg PO TID [facility] Last Admin: 08/28/16 16:43 Dose: 800 mg Sitagliptin Phosphate (Januvia) 25 mg PO DAILY [facility] Last Admin: 08/28/16 09:05 Dose: 25 mg Valsartan (Diovan) 160 mg PO DAILY [facility] Last Admin: 08/28/16 09:03 Dose: 160 mg - Labs Labs: 08/28/16 06:05 08/28/16 06:05 PT 15.2 Seconds (9.8-13.1) H 08/28/16 06:05 INR 1.3 (0.9-1.2) H 08/28/16 06:05 APTT 30.8 Seconds (25.6-37.1) 08/28/16 06:05 - Constitutional Appears: Non-toxic, No Acute Distress - Extremities Exam Extremities Exam: absent: Calf Tenderness Additional comments: Left lower extremity focused exam: DERM: open wound is noted to left foot stump surgical site measuring 5cm x 2cm x 0.2cm with necrotic base. No drainage noted today, no purulence,No probe to bone. Skin erythematous around the wound. No mal-odor is noted. VASC: Palpable DP pulse noted 2/4. Non-palpable PT pulse. No edema noted. Skin temperature warm to warm from proximal to distal. ORTHO: tenderness to palpation to TMA site NEURO: Gross sensation diminished - Neurological Exam Neurological Exam: Alert, Awake, Oriented x3 - Psychiatric Exam Psychiatric exam: Normal Affect, Normal Mood Assessment and Plan - Assessment and Plan (Free Text) Assessment: 75 year old female patient presenting with wound dehiscence to Left TMA site ( DOS 06/10/16) Plan: Patient S&E at bedside with Dr. Herrera present Chart, labs and vitals reviewed All sutures removed from left foot stump site with sterile #15 blade and ulceration was excisionally debrided of hyperkeratotic borders Pt tolerated procedure well without incident. Foot redressed with DSD. Santyl ordered and to be applied tomorrow C/w IV abx as per ID (vanc and zosyn) F/u wound cx left foot. No surgical interventions indicated at this time Podiatry will follow
--- NOTE | 2016-08-29 10:20 | US ---
HISTORY: right quad pain COMPARISON: None available. TECHNIQUE: Sonographic evaluation of the right upper quadrant of the abdomen. FINDINGS: LIVER: Measures 19.3 cm in length. Echotexture appears within normal limits. No focal hepatic mass identified. The main portal vein appears patent with normal directional flow. No intrahepatic bile duct dilatation. GALLBLADDER: Cholecystectomy. COMMON BILE DUCT: Measures approximately 7-8 mm, within normal limits in a patient of this age and cholecystectomy state. PANCREAS: Not visualized. RIGHT KIDNEY: Measures 9.8 x 4.7 x 4.1 cm. No obstructing calculus or hydronephrosis identified. AORTA: Limited visualization appears grossly unremarkable. IVC: Limited visualization appears grossly unremarkable. OTHER FINDINGS: None . IMPRESSION: Cholecystectomy. Hepatomegaly.
--- NOTE | 2016-08-29 11:14 | CP.PCM.PN ---
Subjective - Date & Time of Evaluation Date of Evaluation: 08/29/16 Time of Evaluation: 11:11 - Subjective Subjective: No new event reported overnight Patient and bed Complaining of some pain in the foot Objective - Vital Signs/Intake and Output Vital Signs (last 24 hours): Temp Pulse Resp BP Pulse Ox 97.8 F 61 20 168/69 H 96 08/29/16 07:35 08/29/16 07:35 08/29/16 07:35 08/29/16 10:43 08/29/16 07:35 - Medications Medications: Current Medications Amlodipine Besylate (Norvasc) 10 mg PO DAILY [facility] Last Admin: 08/29/16 10:43 Dose: 10 mg Aspirin (Ecotrin) 81 mg PO DAILY [facility] Last Admin: 08/29/16 10:44 Dose: 81 mg Atorvastatin Calcium (Lipitor) 80 mg PO DAILY [facility] Last Admin: 08/29/16 10:44 Dose: 80 mg Epoetin Sudheer (Procrit) 4,000 unit IV TTS [facility] Heparin Sodium (Porcine) (Heparin) 5,000 units SC Q12 [facility] PRN Reason: Protocol Last Admin: 08/29/16 10:45 Dose: 5,000 units Vancomycin HCl 1 gm/ Sodium (Chloride) 250 mls @ 166.667 mls/hr IVPB DAILY [facility] Last Admin: 08/29/16 10:42 Dose: 166.667 mls/hr Piperacillin Sod/Tazobactam (Sod 2.25 gm/ Sodium Chloride) 100 mls @ 100 mls/ hr IVPB Q8 [facility] Last Admin: 08/29/16 10:42 Dose: 100 mls/hr Insulin Detemir (Levemir) 30 units SC HS [facility] Last Admin: 08/28/16 22:30 Dose: 30 units Levothyroxine Sodium (Synthroid) 75 mcg PO DAILY@0630 [facility] Last Admin: 08/29/16 10:44 Dose: 75 mcg Metoprolol Tartrate (Lopressor) 100 mg PO Q12 [facility] Last Admin: 08/29/16 10:43 Dose: 100 mg Oxycodone/Acetaminophen (Percocet 5/325 Mg Tab) 2 tab PO Q4 PRN PRN Reason: Pain, moderate (4-7) Stop: 08/31/16 08:18 Last Admin: 08/28/16 16:41 Dose: 2 tab Pantoprazole Sodium (Protonix Ec Tab) 40 mg PO DAILY@0600 [facility] Last Admin: 08/29/16 10:44 Dose: 40 mg Pregabalin (Lyrica) 50 mg PO DAILY [facility] Last Admin: 08/29/16 10:47 Dose: 50 mg Sevelamer HCl (Renagel) 800 mg PO TID [facility] Last Admin: 08/29/16 10:43 Dose: 800 mg Sitagliptin Phosphate (Januvia) 25 mg PO DAILY [facility] Last Admin: 08/29/16 10:44 Dose: 25 mg Valsartan (Diovan) 160 mg PO DAILY [facility] Last Admin: 08/29/16 10:43 Dose: 160 mg - Labs Labs: 08/28/16 06:05 08/28/16 06:05 PT 15.2 Seconds (9.8-13.1) H 08/28/16 06:05 INR 1.3 (0.9-1.2) H 08/28/16 06:05 APTT 30.8 Seconds (25.6-37.1) 08/28/16 06:05 - Constitutional Appears: No Acute Distress - ENT Exam ENT Exam: Mucous Membranes Moist - Respiratory Exam Respiratory Exam: NORMAL BREATHING PATTERN. absent: Chest Wall Tenderness - Cardiovascular Exam Cardiovascular Exam: absent: JVD, Rubs - GI/Abdominal Exam GI & Abdominal Exam: Normal Bowel Sounds - Extremities Exam Extremities Exam: absent: Calf Tenderness - Back Exam Back Exam: absent: CVA tenderness (L), CVA tenderness (R) - Neurological Exam Neurological Exam: Alert Assessment and Plan (1) ESRD on hemodialysis Assessment & Plan: Patient with end stage renal disease on maintenance dialysis admitted with infected transmetatarsal amputation site. Patient receiving antibiotics as per ID Scheduled for hemodialysis TTS Continue monitoring Status: Acute
--- NOTE | 2016-08-29 13:11 | CP.PCM.PN ---
Subjective - Date & Time of Evaluation Date of Evaluation: 08/29/16 Time of Evaluation: 13:10 - Subjective Subjective: ID Note- Pt. seen and examined today. Denies any fever or chills. s/p bedside debridement of the necrotic TMA site by podiatry this am. Objective - Vital Signs/Intake and Output Vital Signs (last 24 hours): Temp Pulse Resp BP Pulse Ox 97.8 F 61 20 168/69 H 96 08/29/16 07:35 08/29/16 07:35 08/29/16 07:35 08/29/16 10:43 08/29/16 07:35 - Medications Medications: Current Medications Amlodipine Besylate (Norvasc) 10 mg PO DAILY [facility] Last Admin: 08/29/16 10:43 Dose: 10 mg Aspirin (Ecotrin) 81 mg PO DAILY [facility] Last Admin: 08/29/16 10:44 Dose: 81 mg Atorvastatin Calcium (Lipitor) 80 mg PO DAILY [facility] Last Admin: 08/29/16 10:44 Dose: 80 mg Collagenase (Santyl) 1 applic TOP DAILY [facility] Epoetin Sudheer (Procrit) 4,000 unit IV TTS [facility] Heparin Sodium (Porcine) (Heparin) 5,000 units SC Q12 [facility] PRN Reason: Protocol Last Admin: 08/29/16 10:45 Dose: 5,000 units Vancomycin HCl 1 gm/ Sodium (Chloride) 250 mls @ 166.667 mls/hr IVPB DAILY [facility] Last Admin: 08/29/16 10:42 Dose: 166.667 mls/hr Piperacillin Sod/Tazobactam (Sod 2.25 gm/ Sodium Chloride) 100 mls @ 100 mls/ hr IVPB Q8 [facility] Last Admin: 08/29/16 10:42 Dose: 100 mls/hr Insulin Detemir (Levemir) 30 units SC HS [facility] Last Admin: 08/28/16 22:30 Dose: 30 units Levothyroxine Sodium (Synthroid) 75 mcg PO DAILY@0630 [facility] Last Admin: 08/29/16 10:44 Dose: 75 mcg Metoprolol Tartrate (Lopressor) 100 mg PO Q12 [facility] Last Admin: 08/29/16 10:43 Dose: 100 mg Oxycodone/Acetaminophen (Percocet 5/325 Mg Tab) 2 tab PO Q4 PRN PRN Reason: Pain, moderate (4-7) Stop: 08/31/16 08:18 Last Admin: 08/28/16 16:41 Dose: 2 tab Pantoprazole Sodium (Protonix Ec Tab) 40 mg PO DAILY@0600 [facility] Last Admin: 08/29/16 10:44 Dose: 40 mg Pregabalin (Lyrica) 50 mg PO DAILY [facility] Last Admin: 08/29/16 10:47 Dose: 50 mg Sevelamer HCl (Renagel) 800 mg PO TID [facility] Last Admin: 08/29/16 10:43 Dose: 800 mg Sitagliptin Phosphate (Januvia) 25 mg PO DAILY [facility] Last Admin: 08/29/16 10:44 Dose: 25 mg Valsartan (Diovan) 160 mg PO DAILY [facility] Last Admin: 08/29/16 10:43 Dose: 160 mg - Labs Labs: 08/28/16 06:05 08/28/16 06:05 PT 15.2 Seconds (9.8-13.1) H 08/28/16 06:05 INR 1.3 (0.9-1.2) H 08/28/16 06:05 APTT 30.8 Seconds (25.6-37.1) 08/28/16 06:05 - Additional Findings Additional findings: - Constitutional Appears: Non-toxic, No Acute Distress - Head Exam Head Exam: ATRAUMATIC - Eye Exam Eye Exam: EOMI Pupil Exam: PERRL - ENT Exam ENT Exam: Normal Oropharynx - Neck Exam Neck exam: Positive for: Full Rom - Respiratory Exam Respiratory Exam: Clear to Auscultation Bilateral, NORMAL BREATHING PATTERN - Cardiovascular Exam Cardiovascular Exam: RRR, +S1, +S2 Additional comments: midchest superficail area of denuded skin 2 x 4 cm wirh mild bleeding, no pus, no malodor - GI/Abdominal Exam GI & Abdominal Exam: Normal Bowel Sounds, Soft Additional comments: NT, ND - Extremities Exam Additional comments: left foot TMA site dressing clean/dry/intact - Neurological Exam Neurological exam: Alert, Oriented x 3 Laboratory Results - last 72 hr 08/27/16 08/27/16 08/27/16 17:18 17:24 18:00 WBC 14.1 H RBC 3.69 L Hgb 10.5 L Hct 33.0 L MCV 89.5 D MCH 28.4 MCHC 31.8 L RDW 17.1 H Plt Count 323 MPV 9.0 Neut % (Auto) 81.2 H Lymph % (Auto) 6.1 L Dickenson % (Auto) 11.1 H Eos % (Auto) 1.0 Baso % (Auto) 0.6 Neut # 11.5 H Lymph # 0.9 L Dickenson # 1.6 H Eos # 0.1 Baso # 0.1 Neutrophils % (Manual) 87 H Lymphocytes % (Manual) 5 L Monocytes % (Manual) 5 Eosinophils % (Manual) 1 Basophils % (Manual) 1 Myelocytes % 1 H Platelet Estimate Normal Large Platelets Present Hypochromasia (manual) Slight Anisocytosis (manual) Slight PT INR APTT pO2 21 L VBG pH 7.41 VBG pCO2 51 VBG HCO3 28.8 VBG Total CO2 33.9 H VBG O2 Sat (Calc) 45.1 VBG Base Excess 6.5 H VBG Potassium 3.9 Sodium 130.0 L Chloride 95.0 L Glucose 140 H Lactate 1.6 FiO2 21.0 Potassium Carbon Dioxide Anion Gap BUN Creatinine Est GFR ( Amer) Est GFR (Non-Af Amer) POC Glucose (mg/dL) 166 H Random Glucose Hemoglobin A1c Calcium Total Bilirubin AST ALT Alkaline Phosphatase Total Protein Albumin Globulin Albumin/Globulin Ratio Triglycerides Cholesterol LDL Cholesterol Direct HDL Cholesterol Thyroxine (T4) TSH 3rd Generation Venous Blood Potassium 3.9 08/27/16 08/28/16 08/28/16 18:00 02:15 06:05 WBC 10.1 RBC 3.18 L Hgb 9.0 L Hct 28.4 L MCV 89.3 MCH 28.4 MCHC 31.8 L RDW 16.7 H Plt Count 333 MPV Neut % (Auto) Lymph % (Auto) Dickenson % (Auto) Eos % (Auto) Baso % (Auto) Neut # Lymph # Dickenson # Eos # Baso # Neutrophils % (Manual) Lymphocytes % (Manual) Monocytes % (Manual) Eosinophils % (Manual) Basophils % (Manual) Myelocytes % Platelet Estimate Large Platelets Hypochromasia (manual) Anisocytosis (manual) PT INR APTT pO2 VBG pH VBG pCO2 VBG HCO3 VBG Total CO2 VBG O2 Sat (Calc) VBG Base Excess VBG Potassium Sodium 135 Chloride 93 L Glucose Lactate FiO2 Potassium 3.9 Carbon Dioxide 28 Anion Gap 18 BUN 14 Creatinine 2.2 H Est GFR ( Amer) 26 Est GFR (Non-Af Amer) 22 POC Glucose (mg/dL) 123 H Random Glucose 142 H Hemoglobin A1c Calcium 9.4 Total Bilirubin 0.6 AST 38 H D ALT 31 Alkaline Phosphatase 122 Total Protein 8.2 Albumin 3.9 Globulin 4.3 H Albumin/Globulin Ratio 0.9 L Triglycerides Cholesterol LDL Cholesterol Direct HDL Cholesterol Thyroxine (T4) TSH 3rd Generation Venous Blood Potassium 08/28/16 08/28/16 08/28/16 06:05 06:05 06:05 WBC RBC Hgb Hct MCV MCH MCHC RDW Plt Count MPV Neut % (Auto) Lymph % (Auto) Dickenson % (Auto) Eos % (Auto) Baso % (Auto) Neut # Lymph # Dickenson # Eos # Baso # Neutrophils % (Manual) Lymphocytes % (Manual) Monocytes % (Manual) Eosinophils % (Manual) Basophils % (Manual) Myelocytes % Platelet Estimate Large Platelets Hypochromasia (manual) Anisocytosis (manual) PT 15.2 H INR 1.3 H APTT 30.8 pO2 VBG pH VBG pCO2 VBG HCO3 VBG Total CO2 VBG O2 Sat (Calc) VBG Base Excess VBG Potassium Sodium 137 Chloride 95 L Glucose Lactate FiO2 Potassium 3.6 Carbon Dioxide 31 H Anion Gap 15 BUN 16 Creatinine 3.1 H Est GFR ( Amer) 18 Est GFR (Non-Af Amer) 15 POC Glucose (mg/dL) Random Glucose 106 H Hemoglobin A1c 6.2 Calcium 9.1 Total Bilirubin 0.3 AST 49 H D ALT 30 Alkaline Phosphatase 105 Total Protein 7.3 Albumin 3.4 L Globulin 4.0 H Albumin/Globulin Ratio 0.9 L Triglycerides 121 Cholesterol 89 LDL Cholesterol Direct < 30 HDL Cholesterol 30 Thyroxine (T4) 6.29 TSH 3rd Generation 3.72 Venous Blood Potassium 08/28/16 08/28/16 08/28/16 06:51 11:37 16:34 WBC RBC Hgb Hct MCV MCH MCHC RDW Plt Count MPV Neut % (Auto) Lymph % (Auto) Dickenson % (Auto) Eos % (Auto) Baso % (Auto) Neut # Lymph # Dickenson # Eos # Baso # Neutrophils % (Manual) Lymphocytes % (Manual) Monocytes % (Manual) Eosinophils % (Manual) Basophils % (Manual) Myelocytes % Platelet Estimate Large Platelets Hypochromasia (manual) Anisocytosis (manual) PT INR APTT pO2 VBG pH VBG pCO2 VBG HCO3 VBG Total CO2 VBG O2 Sat (Calc) VBG Base Excess VBG Potassium Sodium Chloride Glucose Lactate FiO2 Potassium Carbon Dioxide Anion Gap BUN Creatinine Est GFR ( Amer) Est GFR (Non-Af Amer) POC Glucose (mg/dL) 124 H 184 H 169 H Random Glucose Hemoglobin A1c Calcium Total Bilirubin AST ALT Alkaline Phosphatase Total Protein Albumin Globulin Albumin/Globulin Ratio Triglycerides Cholesterol LDL Cholesterol Direct HDL Cholesterol Thyroxine (T4) TSH 3rd Generation Venous Blood Potassium 08/28/16 08/29/16 08/29/16 21:47 05:58 10:48 WBC RBC Hgb Hct MCV MCH MCHC RDW Plt Count MPV Neut % (Auto) Lymph % (Auto) Dickenson % (Auto) Eos % (Auto) Baso % (Auto) Neut # Lymph # Dickenson # Eos # Baso # Neutrophils % (Manual) Lymphocytes % (Manual) Monocytes % (Manual) Eosinophils % (Manual) Basophils % (Manual) Myelocytes % Platelet Estimate Large Platelets Hypochromasia (manual) Anisocytosis (manual) PT INR APTT pO2 VBG pH VBG pCO2 VBG HCO3 VBG Total CO2 VBG O2 Sat (Calc) VBG Base Excess VBG Potassium Sodium Chloride Glucose Lactate FiO2 Potassium Carbon Dioxide Anion Gap BUN Creatinine Est GFR ( Amer) Est GFR (Non-Af Amer) POC Glucose (mg/dL) 148 H 113 H 140 H Random Glucose Hemoglobin A1c Calcium Total Bilirubin AST ALT Alkaline Phosphatase Total Protein Albumin Globulin Albumin/Globulin Ratio Triglycerides Cholesterol LDL Cholesterol Direct HDL Cholesterol Thyroxine (T4) TSH 3rd Generation Venous Blood Potassium Microbiology 08/27/16 17:40 Foot - Left Gram Stain - Final 08/27/16 17:40 Foot - Left Wound Culture - Preliminary Gram Negative Cedrick Gram Positive Cocci 08/27/16 18:00 Blood Blood Culture - Preliminary NO GROWTH AFTER 24 HOURS 08/27/16 18:00 Blood Blood Culture - Preliminary NO GROWTH AFTER 24 HOURS Assessment and Plan (1) Infection of amputation stump Status: Acute (2) ESRD on hemodialysis Status: Acute - Assessment and Plan (Free Text) Assessment: A/P- 76 year old female with DM II, ESRD on HD, s/p left foot TMA admitted with left foot TMA infected stump. s/p excisional debridement of hyperkeratotic borders of the TMA ulcer afebrile minimal leukocytosis resolved. blood cx- neg x 2 wound cx- GNR and GPC foot xray- OM as per report. plan- as per podiatry no further surgical intervention needed at this time. since OM on plain xray advise to treat with IV abx for at least 4-6 weeks as outpatient. await ID and sensitivity of the GNR and GPC before deciding on abx as outpatient . for now continue current vanco and zosyn pending ID and sensitivity of the foot wound cx. pt. may be able to receive abx post HD days.
--- NOTE | 2016-08-29 14:54 | CP.PCM.PN ---
Subjective - Date & Time of Evaluation Date of Evaluation: 08/29/16 Time of Evaluation: 12:00 - Subjective Subjective: General Surgery progress note for Dr. Ayon General Surgery was asked to come see the patient again regarding a non-healing wound on the chest for 2 years. They are requesting a biopsy. Patient describes some bumps on her skin which she tried to remove at home. Patient says the wound periodically improves and then worsens again. Patient states that it starts bleeding when she gets dialysis. Patient denies any previous work up for this problem Objective - Vital Signs/Intake and Output Vital Signs (last 24 hours): Temp Pulse Resp BP Pulse Ox 97.8 F 61 20 168/69 H 96 08/29/16 07:35 08/29/16 07:35 08/29/16 07:35 08/29/16 10:43 08/29/16 07:35 - Medications Medications: Current Medications Amlodipine Besylate (Norvasc) 10 mg PO DAILY [facility] Last Admin: 08/29/16 10:43 Dose: 10 mg Aspirin (Ecotrin) 81 mg PO DAILY [facility] Last Admin: 08/29/16 10:44 Dose: 81 mg Atorvastatin Calcium (Lipitor) 80 mg PO DAILY [facility] Last Admin: 08/29/16 10:44 Dose: 80 mg Collagenase (Santyl) 1 applic TOP DAILY [facility] Epoetin Sudheer (Procrit) 4,000 unit IV TTS [facility] Heparin Sodium (Porcine) (Heparin) 5,000 units SC Q12 [facility] PRN Reason: Protocol Last Admin: 08/29/16 10:45 Dose: 5,000 units Vancomycin HCl 1 gm/ Sodium (Chloride) 250 mls @ 166.667 mls/hr IVPB DAILY [facility] Last Admin: 08/29/16 10:42 Dose: 166.667 mls/hr Piperacillin Sod/Tazobactam (Sod 2.25 gm/ Sodium Chloride) 100 mls @ 100 mls/ hr IVPB Q8 [facility] Last Admin: 08/29/16 10:42 Dose: 100 mls/hr Insulin Detemir (Levemir) 30 units SC HS [facility] Last Admin: 08/28/16 22:30 Dose: 30 units Levothyroxine Sodium (Synthroid) 75 mcg PO DAILY@0630 [facility] Last Admin: 08/29/16 10:44 Dose: 75 mcg Metoprolol Tartrate (Lopressor) 100 mg PO Q12 [facility] Last Admin: 08/29/16 10:43 Dose: 100 mg Oxycodone/Acetaminophen (Percocet 5/325 Mg Tab) 2 tab PO Q4 PRN PRN Reason: Pain, moderate (4-7) Stop: 08/31/16 08:18 Last Admin: 08/28/16 16:41 Dose: 2 tab Pantoprazole Sodium (Protonix Ec Tab) 40 mg PO DAILY@0600 [facility] Last Admin: 08/29/16 10:44 Dose: 40 mg Pregabalin (Lyrica) 50 mg PO DAILY [facility] Last Admin: 08/29/16 10:47 Dose: 50 mg Sevelamer HCl (Renagel) 800 mg PO TID [facility] Last Admin: 08/29/16 10:43 Dose: 800 mg Sitagliptin Phosphate (Januvia) 25 mg PO DAILY [facility] Last Admin: 08/29/16 10:44 Dose: 25 mg Valsartan (Diovan) 160 mg PO DAILY [facility] Last Admin: 08/29/16 10:43 Dose: 160 mg - Labs Labs: 08/28/16 06:05 08/28/16 06:05 PT 15.2 Seconds (9.8-13.1) H 08/28/16 06:05 INR 1.3 (0.9-1.2) H 08/28/16 06:05 APTT 30.8 Seconds (25.6-37.1) 08/28/16 06:05 - Constitutional Appears: Well, Non-toxic, No Acute Distress - Head Exam Head Exam: ATRAUMATIC, NORMOCEPHALIC - Eye Exam Eye Exam: Periorbital tenderness. absent: Conjunctival injection, Scleral icterus - ENT Exam ENT Exam: Mucous Membranes Moist, Normal Oropharynx - Respiratory Exam Respiratory Exam: NORMAL BREATHING PATTERN. absent: Accessory Muscle Use, Respiratory Distress - Cardiovascular Exam Cardiovascular Exam: RRR - GI/Abdominal Exam GI & Abdominal Exam: absent: Distended - Extremities Exam Extremities Exam: absent: Calf Tenderness, Pedal Edema, Tenderness Additional comments: right femoral triple lumen catheter in place with no erythema, discharge, bleed or hematoma appreciated - Neurological Exam Neurological Exam: Alert, Awake, Oriented x3 - Psychiatric Exam Psychiatric exam: Normal Affect, Normal Mood - Skin Additional comments: superficial skin wound in the upper chest approximately 3cm wide and 2cm vertical not extending into the subcutaneous tissue, actively bleeding, no purulent drainage expressible, no surrounding erythema. Borders of elevated scar tissue present. Assessment and Plan - Assessment and Plan (Free Text) Assessment: 76F with extensive PMH including CHF, DM, and ESRD on HD with a chronic non- healing skin wound of the chest for 2 years Plan: -Continue current manaement per primary -Apply compression dressings and change as needed -Consult wound care -Further recs regarding biopsy after evaluation by Dr. Ayon Thank you for this consult Discussed with Dr. Gabo Buchanan, PGY-4
--- NOTE | 2016-08-29 16:56 | CP.PCM.PN ---
Subjective - Date & Time of Evaluation Date of Evaluation: 08/29/16 Time of Evaluation: 10:20 - Subjective Subjective: Pain L foot Objective - Vital Signs/Intake and Output Vital Signs (last 24 hours): Temp Pulse Resp BP Pulse Ox 98.7 F 64 20 131/65 94 L 08/29/16 16:20 08/29/16 16:20 08/29/16 16:20 08/29/16 16:20 08/29/16 16:20 - Medications Medications: Current Medications Amlodipine Besylate (Norvasc) 10 mg PO DAILY [facility] Last Admin: 08/29/16 10:43 Dose: 10 mg Aspirin (Ecotrin) 81 mg PO DAILY [facility] Last Admin: 08/29/16 10:44 Dose: 81 mg Atorvastatin Calcium (Lipitor) 80 mg PO DAILY [facility] Last Admin: 08/29/16 10:44 Dose: 80 mg Collagenase (Santyl) 1 applic TOP DAILY [facility] Epoetin Sudheer (Procrit) 4,000 unit IV TTS [facility] Heparin Sodium (Porcine) (Heparin) 5,000 units SC Q12 [facility] PRN Reason: Protocol Last Admin: 08/29/16 10:45 Dose: 5,000 units Vancomycin HCl 1 gm/ Sodium (Chloride) 250 mls @ 166.667 mls/hr IVPB DAILY [facility] Last Admin: 08/29/16 10:42 Dose: 166.667 mls/hr Piperacillin Sod/Tazobactam (Sod 2.25 gm/ Sodium Chloride) 100 mls @ 100 mls/ hr IVPB Q8 [facility] Last Admin: 08/29/16 10:42 Dose: 100 mls/hr Insulin Detemir (Levemir) 30 units SC HS [facility] Last Admin: 08/28/16 22:30 Dose: 30 units Levothyroxine Sodium (Synthroid) 75 mcg PO DAILY@0630 [facility] Last Admin: 08/29/16 10:44 Dose: 75 mcg Metoprolol Tartrate (Lopressor) 100 mg PO Q12 [facility] Last Admin: 08/29/16 10:43 Dose: 100 mg Oxycodone/Acetaminophen (Percocet 5/325 Mg Tab) 2 tab PO Q4 PRN PRN Reason: Pain, moderate (4-7) Stop: 08/31/16 08:18 Last Admin: 08/28/16 16:41 Dose: 2 tab Pantoprazole Sodium (Protonix Ec Tab) 40 mg PO DAILY@0600 [facility] Last Admin: 08/29/16 10:44 Dose: 40 mg Pregabalin (Lyrica) 50 mg PO DAILY [facility] Last Admin: 08/29/16 10:47 Dose: 50 mg Sevelamer HCl (Renagel) 800 mg PO TID [facility] Last Admin: 08/29/16 10:43 Dose: 800 mg Sitagliptin Phosphate (Januvia) 25 mg PO DAILY [facility] Last Admin: 08/29/16 10:44 Dose: 25 mg Valsartan (Diovan) 160 mg PO DAILY [facility] Last Admin: 08/29/16 10:43 Dose: 160 mg - Labs Labs: 08/28/16 06:05 08/28/16 06:05 PT 15.2 Seconds (9.8-13.1) H 08/28/16 06:05 INR 1.3 (0.9-1.2) H 08/28/16 06:05 APTT 30.8 Seconds (25.6-37.1) 08/28/16 06:05 - Constitutional Appears: No Acute Distress, Chronically Ill - Eye Exam Eye Exam: PERRL - ENT Exam ENT Exam: Normal Exam - Neck Exam Neck Exam: Normal Inspection - Respiratory Exam Respiratory Exam: NORMAL BREATHING PATTERN - Cardiovascular Exam Cardiovascular Exam: Irregular Rhythm - GI/Abdominal Exam GI & Abdominal Exam: Soft, Tenderness (RUQ). 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
--- NOTE | 2016-08-29 17:54 | RAD ---
Right foot radiographs Comparison: None available Indication: Right heel pain Findings: Osseous demineralization limits evaluation for acute fracture lines. No acute displaced fracture identified. Mild degenerative changes. Small calcaneal enthesophyte/heel spur. No evidence of dislocation. Vascular calcifications. Soft tissue swelling. No evidence of radiopaque foreign body. Impression: No acute displaced fracture or dislocation identified. If symptoms persist or if there is continued clinical concern, x-ray follow-up in 7-10 days should be considered. Osseous demineralization. Degenerative changes.
[2016-08-29] MEDS: Insulin Detemir 100 Units/ml Inj SC SCH (23:16)
[2016-08-30] MEDS: Oxycodone/Acetaminophen 5/325 mg Tab PO PRN ×3 (01:11→14:39)
[2016-08-30] MEDS: Pantoprazole 40 mg EC Tab PO SCH (07:23)
[2016-08-30] MEDS: Levothyroxine 75 MCG TAB PO SCH (07:23)
[2016-08-30 08:07] LABS: HEMATOCRIT 30.1 % (34.0-47.0); MEAN CELL VOLUME 91.6 fl (81.0-99.0); MEAN CORPUSCULAR HEMOGLOBIN 28.3 pg (27.0-31.0); MEAN CORPUSCULAR HGB CONC 30.9 g/dL (33.0-37.0); RED CELL DISTRIBUTION WIDTH 17.5 % (11.5-14.5); WHITE BLOOD COUNT 10.9 K/uL (4.8-10.8)
--- NOTE | 2016-08-30 08:08 | CP.PCM.PN ---
Subjective - Date & Time of Evaluation Date of Evaluation: 08/30/16 Time of Evaluation: 07:03 - Subjective Subjective: General Surgery progress note for Dr. Ayon 76 yo Female patient was seen at bedside concerning chronic non-healing skin wound of the chest for 2 years. Pain controlled with Percocet. Patient denies of N/V/F/C or SOB Objective - Vital Signs/Intake and Output Vital Signs (last 24 hours): Temp Pulse Resp BP Pulse Ox 98.6 F 65 19 172/66 H 98 08/30/16 00:41 08/30/16 00:41 08/30/16 00:41 08/30/16 00:41 08/30/16 00:41 - Medications Medications: Current Medications Amlodipine Besylate (Norvasc) 10 mg PO DAILY [facility] Last Admin: 08/29/16 10:43 Dose: 10 mg Aspirin (Ecotrin) 81 mg PO DAILY [facility] Last Admin: 08/29/16 10:44 Dose: 81 mg Atorvastatin Calcium (Lipitor) 80 mg PO DAILY [facility] Last Admin: 08/29/16 10:44 Dose: 80 mg Collagenase (Santyl) 1 applic TOP DAILY [facility] Epoetin Sudheer (Procrit) 4,000 unit IV TTS [facility] Heparin Sodium (Porcine) (Heparin) 5,000 units SC Q12 [facility] PRN Reason: Protocol Last Admin: 08/29/16 21:24 Dose: 5,000 units Vancomycin HCl 1 gm/ Sodium (Chloride) 250 mls @ 166.667 mls/hr IVPB DAILY [facility] Last Admin: 08/29/16 10:42 Dose: 166.667 mls/hr Piperacillin Sod/Tazobactam (Sod 2.25 gm/ Sodium Chloride) 100 mls @ 100 mls/ hr IVPB Q8 [facility] Last Admin: 08/30/16 01:12 Dose: 100 mls/hr Insulin Detemir (Levemir) 30 units SC HS [facility] Last Admin: 08/29/16 23:16 Dose: 30 units Levothyroxine Sodium (Synthroid) 75 mcg PO DAILY@0630 [facility] Last Admin: 08/30/16 07:23 Dose: 75 mcg Metoprolol Tartrate (Lopressor) 100 mg PO Q12 [facility] Last Admin: 08/29/16 21:32 Dose: 100 mg Oxycodone/Acetaminophen (Percocet 5/325 Mg Tab) 2 tab PO Q4 PRN PRN Reason: Pain, moderate (4-7) Stop: 08/31/16 08:18 Last Admin: 08/30/16 07:25 Dose: 2 tab Pantoprazole Sodium (Protonix Ec Tab) 40 mg PO DAILY@0600 [facility] Last Admin: 08/30/16 07:23 Dose: 40 mg Pregabalin (Lyrica) 50 mg PO DAILY [facility] Last Admin: 08/29/16 10:47 Dose: 50 mg Sevelamer HCl (Renagel) 800 mg PO TID [facility] Last Admin: 08/29/16 17:33 Dose: 800 mg Sitagliptin Phosphate (Januvia) 25 mg PO DAILY [facility] Last Admin: 08/29/16 10:44 Dose: 25 mg Valsartan (Diovan) 160 mg PO DAILY [facility] Last Admin: 08/29/16 10:43 Dose: 160 mg - Labs Labs: 08/28/16 06:05 08/28/16 06:05 PT 15.2 Seconds (9.8-13.1) H 08/28/16 06:05 INR 1.3 (0.9-1.2) H 08/28/16 06:05 APTT 30.8 Seconds (25.6-37.1) 08/28/16 06:05 - Constitutional Appears: Well, Non-toxic, No Acute Distress - Head Exam Head Exam: ATRAUMATIC, NORMOCEPHALIC - Eye Exam Eye Exam: Periorbital tenderness. absent: Conjunctival injection, Scleral icterus - ENT Exam ENT Exam: Mucous Membranes Moist, Normal Oropharynx - Cardiovascular Exam Cardiovascular Exam: RRR - Extremities Exam Additional comments: right femoral triple lumen catheter in place with no erythema, discharge, bleed or hematoma appreciated - Psychiatric Exam Psychiatric exam: Normal Affect, Normal Mood - Skin Additional comments: superficial skin wound in the upper chest approximately 3cm wide and 2cm vertical not extending into the subcutaneous tissue, actively bleeding, no purulent drainage expressible, no surrounding erythema. Borders of elevated scar tissue present. Assessment and Plan - Assessment and Plan (Free Text) Assessment: 76F with extensive PMH including CHF, DM, and ESRD on HD with a chronic non- healing skin wound of the chest for 2 years Plan: -Continue current management per primary -Apply compression dressings and change as needed -Discussed with Dr. Ayon -Continue Woundcare -Planned for bedside skip biopsy tomorrow by Dr. Ayon
[2016-08-30 08:10] LABS: CALCIUM 8.6 mg/dL (8.4-10.2); POTASSIUM 4.6 MMOL/L (3.6-5.0)
--- NOTE | 2016-08-30 08:27 | PQF CHF ---
This form is a permanent part of the medical record 08/30/16 Dr. Green, Documentation of a history of CHF. Would you please clarify the type of CHF if known. Clarification of your documentation is requested to better reflect the severity of illness and intensity of treatment of your patient. Indicators present [x] Diagnosis of a history of CHF [] BNP > 200 [] Imaging Finding of Pulmonary Edema /Pleural Effusions [] Fluid/Volume Overload [] Pitting edema [] Ejection Fraction < 40% (Indicative of Systolic Heart Failure) [x] Ejection Fraction > 40% (Indicative of Diastolic Heart Failure) [] Dyspnea / Orthopenea / Paroxysmal Nocturnal Dyspnea [] Other: Location in the medical record that reflects the above clinical findings: [] Treatment Provided: [] PHYSICIAN'S RESPONSE Based on your medical judgment of the clinical indicators outlined above, are you treating this patient for a known or suspected: [] Acute CHF [] Systolic [] Diastolic [] Combined [] Chronic CHF [] Systolic [] Diastolic [] Combined [] Acute on Chronic CHF []Systolic [] Diastolic [] Combined [] CHF due hypertension [] Acute systolic []Chronic systolic [] Acute/ chronic systolic [] Other, please indicate: [] [] If Unable to Determine, please check the box, sign and date. Present On Admission (POA) Indicator: [] Present at the time of admission [] Not present at the time of admission [] Clinically Undetermined In responding to this query, please exercise your independent professional judgment. The fact that a question is asked does not imply that any particular answer is desired or expected. Thank you for your clarification on this documentation. If you have any questions please call:extension [phone] Medical Records Dept * Thank you, Nicky Regan RN CDMP MTDD
--- NOTE | 2016-08-30 08:34 | CON ---
DATE: 08/29/2016 REFERRING PHYSICIAN: Dr. Green. REASON FOR CONSULTATION: Abdominal pain. HISTORY OF PRESENT ILLNESS: This is a 76-year-old female with history of end-stage renal dialysis, ama heath, initially admitted for pain in the left foot stump site. She had a TMA about 11 weeks ago wi th dehiscence and basically had an infected wound site, for which she is being moderate. GI sh e has some intermittent chronic abdominal pain. The patient is lying in bed, comfortable, no apparen t distress. PAST MEDICAL HISTORY: As above. PAST SURGICAL HISTORY: As above. MEDICATIONS: Have been reviewed. REVIEW OF SYSTEMS: All other systems have been reviewed and negative apart from the HPI. PHYSICAL EXAMINATION: VITAL SIGNS: Here in the hospital grossly unremarkable. GENERAL: This is a pleasant, elderly-appearing female lying in bed, comfortable, in no apparent dist ress. HEAD: Normocephalic, atraumatic. EYES: Pupils equally reactive to light bilaterally. No conjunctival pallor or icterus. NECK: Supple, normal range of motion. No lymphadenopathy appreciated. LUNGS: Coarse breath sounds bilaterally. HEART: S1, S2. Regular rate and rhythm. No murmurs appreciated. ALLERGIES: Abdomen soft, nontender. Some discomfort in the right upper quadrant. . RECTAL: Deferred. EXTREMITIES: The patient had a left TMA. NEUROLOGIC: Alert and oriented x 3. LABORATORY DATA: WBC , hemoglobin , hematocrit 28.4, platelet count is normal. Abd ominal ultrasound shows cholecystectomy. ASSESSMENT AND PLAN: This is a 76-year-old female with abdominal pain and discomfort. This is probably more likely secondary to . From a gastroenterology standpoint, advance diet as tolerate d. Proton pump inhibitor twice a day. Consider CAT scan if patient's pain is not improved. Thank you for the consult. Neeraj Mike MD, PhD cc:Howie Green MD [id number] TT: 08/29/2016 17:41:27 Confirmation # [id number] Dictation # [id number]
--- NOTE | 2016-08-30 08:36 | CP.PCM.PN ---
Subjective - Date & Time of Evaluation Date of Evaluation: 08/30/16 Time of Evaluation: 08:50 - Subjective Subjective: 75 y/o female seen at bedside s/p 11 weeks of Left foot TMA concerning Left foot wound dehiscence. Patient complaints of mild pain at the surgical site but denies of any calf pain. Dressing appears to be C/D/I. Denies f/n/v/c/sob/cp at this time. No other pedal complaints at this time. Objective - Vital Signs/Intake and Output Vital Signs (last 24 hours): Temp Pulse Resp BP Pulse Ox 98.6 F 65 19 172/66 H 98 08/30/16 00:41 08/30/16 00:41 08/30/16 00:41 08/30/16 00:41 08/30/16 00:41 - Medications Medications: Current Medications Amlodipine Besylate (Norvasc) 10 mg PO DAILY [facility] Last Admin: 08/29/16 10:43 Dose: 10 mg Aspirin (Ecotrin) 81 mg PO DAILY [facility] Last Admin: 08/29/16 10:44 Dose: 81 mg Atorvastatin Calcium (Lipitor) 80 mg PO DAILY [facility] Last Admin: 08/29/16 10:44 Dose: 80 mg Collagenase (Santyl) 1 applic TOP DAILY [facility] Epoetin Sudheer (Procrit) 4,000 unit IV TTS [facility] Heparin Sodium (Porcine) (Heparin) 5,000 units SC Q12 [facility] PRN Reason: Protocol Last Admin: 08/29/16 21:24 Dose: 5,000 units Vancomycin HCl 1 gm/ Sodium (Chloride) 250 mls @ 166.667 mls/hr IVPB DAILY [facility] Last Admin: 08/29/16 10:42 Dose: 166.667 mls/hr Piperacillin Sod/Tazobactam (Sod 2.25 gm/ Sodium Chloride) 100 mls @ 100 mls/ hr IVPB Q8 [facility] Last Admin: 08/30/16 01:12 Dose: 100 mls/hr Insulin Detemir (Levemir) 30 units SC HS [facility] Last Admin: 08/29/16 23:16 Dose: 30 units Levothyroxine Sodium (Synthroid) 75 mcg PO DAILY@0630 [facility] Last Admin: 08/30/16 07:23 Dose: 75 mcg Metoprolol Tartrate (Lopressor) 100 mg PO Q12 [facility] Last Admin: 08/29/16 21:32 Dose: 100 mg Oxycodone/Acetaminophen (Percocet 5/325 Mg Tab) 2 tab PO Q4 PRN PRN Reason: Pain, moderate (4-7) Stop: 08/31/16 08:18 Last Admin: 08/30/16 07:25 Dose: 2 tab Pantoprazole Sodium (Protonix Ec Tab) 40 mg PO DAILY@0600 [facility] Last Admin: 08/30/16 07:23 Dose: 40 mg Pregabalin (Lyrica) 50 mg PO DAILY [facility] Last Admin: 08/29/16 10:47 Dose: 50 mg Sevelamer HCl (Renagel) 800 mg PO TID [facility] Last Admin: 08/29/16 17:33 Dose: 800 mg Sitagliptin Phosphate (Januvia) 25 mg PO DAILY [facility] Last Admin: 08/29/16 10:44 Dose: 25 mg Valsartan (Diovan) 160 mg PO DAILY [facility] Last Admin: 08/29/16 10:43 Dose: 160 mg - Labs Labs: 08/30/16 06:00 08/30/16 06:00 PT 15.2 Seconds (9.8-13.1) H 08/28/16 06:05 INR 1.3 (0.9-1.2) H 08/28/16 06:05 APTT 30.8 Seconds (25.6-37.1) 08/28/16 06:05 - Constitutional Appears: Well, Non-toxic, No Acute Distress - Extremities Exam Additional comments: Left lower extremity focused exam: DERM: Open wound is noted to left foot stump surgical site measuring 5cm x 2cm x 0.2cm. Wound base is necrotic. No noted purulence, drainage, or malodor. No probe to bone. Periwound is erythematous in nature. VASC: DP 2/4 bilaterally. Non-palpable PT pulse. No edema noted to the LE. Skin temperature warm to warm from proximal to distal. ORTHO: mild tenderness elicited to palpation to TMA site NEURO: Gross sensation diminished - Neurological Exam Neurological Exam: Alert, Awake, Oriented x3 - Psychiatric Exam Psychiatric exam: Normal Affect, Normal Mood Assessment and Plan - Assessment and Plan (Free Text) Assessment: 75 y/o female with wound dehiscence to Left TMA site (DOS 06/10/16) Plan: Patient was seen and evaluated at bedside Discussed plan with Dr. Herrera Chart, labs and vitals reviewed Open wound is dressed with saline wet to dry, Santyl application, DSD, and kerlix. C/w IV abx as per ID (kylie and sandrine), Dr. Whitt on consult recommendations appreciated Left foot wound culture positive for E.coli and positive for MRSA No surgical interventions indicated at this time Will order offloading prevalon boots to be worn at all times to both feet while in bed Podiatry will continue to follow
--- NOTE | 2016-08-30 11:13 | CP.PCM.PN ---
Subjective - Date & Time of Evaluation Date of Evaluation: 08/30/16 Time of Evaluation: 13:00 - Subjective Subjective: Id Note- pt. seen and examined today. Pt. denies any fever or chills. Only c/o pain in the left foot and some abd pain after eating. denies any nausea, denies any diarrhea. Objective - Vital Signs/Intake and Output Vital Signs (last 24 hours): Temp Pulse Resp BP Pulse Ox 97.9 F 62 20 146/67 94 L 08/30/16 08:38 08/30/16 08:38 08/30/16 08:38 08/30/16 08:38 08/30/16 08:38 - Medications Medications: Current Medications Amlodipine Besylate (Norvasc) 10 mg PO DAILY [facility] Last Admin: 08/29/16 10:43 Dose: 10 mg Aspirin (Ecotrin) 81 mg PO DAILY [facility] Last Admin: 08/30/16 10:49 Dose: 81 mg Atorvastatin Calcium (Lipitor) 80 mg PO DAILY [facility] Last Admin: 08/30/16 10:50 Dose: 80 mg Collagenase (Santyl) 1 applic TOP DAILY [facility] Epoetin Sudheer (Procrit) 4,000 unit IV TTS [facility] Heparin Sodium (Porcine) (Heparin) 5,000 units SC Q12 [facility] PRN Reason: Protocol Last Admin: 08/30/16 10:49 Dose: 5,000 units Vancomycin HCl 1 gm/ Sodium (Chloride) 250 mls @ 166.667 mls/hr IVPB DAILY [facility] Last Admin: 08/30/16 10:47 Dose: 166.667 mls/hr Piperacillin Sod/Tazobactam (Sod 2.25 gm/ Sodium Chloride) 100 mls @ 100 mls/ hr IVPB Q8 [facility] Last Admin: 08/30/16 10:48 Dose: 100 mls/hr Insulin Detemir (Levemir) 30 units SC HS [facility] Last Admin: 08/29/16 23:16 Dose: 30 units Levothyroxine Sodium (Synthroid) 75 mcg PO DAILY@0630 [facility] Last Admin: 08/30/16 07:23 Dose: 75 mcg Metoprolol Tartrate (Lopressor) 100 mg PO Q12 [facility] Last Admin: 08/29/16 21:32 Dose: 100 mg Oxycodone/Acetaminophen (Percocet 5/325 Mg Tab) 2 tab PO Q4 PRN PRN Reason: Pain, moderate (4-7) Stop: 08/31/16 08:18 Last Admin: 08/30/16 07:25 Dose: 2 tab Pantoprazole Sodium (Protonix Ec Tab) 40 mg PO DAILY@0600 [facility] Last Admin: 08/30/16 07:23 Dose: 40 mg Pregabalin (Lyrica) 50 mg PO DAILY [facility] Last Admin: 08/29/16 10:47 Dose: 50 mg Sevelamer HCl (Renagel) 800 mg PO TID [facility] Last Admin: 08/30/16 10:50 Dose: 800 mg Sitagliptin Phosphate (Januvia) 25 mg PO DAILY [facility] Last Admin: 08/30/16 10:49 Dose: 25 mg Valsartan (Diovan) 160 mg PO DAILY [facility] Last Admin: 08/29/16 10:43 Dose: 160 mg - Labs Labs: - Additional Findings Additional findings: - Constitutional Appears: Non-toxic, No Acute Distress - Head Exam Head Exam: ATRAUMATIC - Eye Exam Eye Exam: EOMI Pupil Exam: PERRL - ENT Exam ENT Exam: Normal Oropharynx - Neck Exam Neck exam: Positive for: Full Rom - Respiratory Exam Respiratory Exam: Clear to Auscultation Bilateral, NORMAL BREATHING PATTERN - Cardiovascular Exam Cardiovascular Exam: RRR, +S1, +S2 Additional comments: midchest superficial area of denuded skin 2 x 4 cm wit h mild bleeding, no pus, no malodor - GI/Abdominal Exam GI & Abdominal Exam: Normal Bowel Sounds, Soft Additional comments: NT, ND - Extremities Exam Additional comments: left foot TMA site dressing clean/dry/intact - Neurological Exam Neurological exam: Alert, Oriented x 3 Laboratory Results - last 72 hr 08/27/16 08/27/16 08/27/16 17:18 17:24 18:00 WBC 14.1 H RBC 3.69 L Hgb 10.5 L Hct 33.0 L MCV 89.5 D MCH 28.4 MCHC 31.8 L RDW 17.1 H Plt Count 323 MPV 9.0 Neut % (Auto) 81.2 H Lymph % (Auto) 6.1 L [place] % (Auto) 11.1 H Eos % (Auto) 1.0 Baso % (Auto) 0.6 Neut # 11.5 H Lymph # 0.9 L [place] # 1.6 H Eos # 0.1 Baso # 0.1 Neutrophils % (Manual) 87 H Lymphocytes % (Manual) 5 L Monocytes % (Manual) 5 Eosinophils % (Manual) 1 Basophils % (Manual) 1 Myelocytes % 1 H Platelet Estimate Normal Large Platelets Present Hypochromasia (manual) Slight Anisocytosis (manual) Slight ESR PT INR APTT pO2 21 L VBG pH 7.41 VBG pCO2 51 VBG HCO3 28.8 VBG Total CO2 33.9 H VBG O2 Sat (Calc) 45.1 VBG Base Excess 6.5 H VBG Potassium 3.9 Sodium 130.0 L Chloride 95.0 L Glucose 140 H Lactate 1.6 FiO2 21.0 Potassium Carbon Dioxide Anion Gap BUN Creatinine Est GFR ( Amer) Est GFR (Non-Af Amer) POC Glucose (mg/dL) 166 H Random Glucose Hemoglobin A1c Calcium Total Bilirubin AST ALT Alkaline Phosphatase Total Protein Albumin Globulin Albumin/Globulin Ratio Triglycerides Cholesterol LDL Cholesterol Direct HDL Cholesterol Thyroxine (T4) TSH 3rd Generation Venous Blood Potassium 3.9 Vancomycin Trough 08/27/16 08/28/16 08/28/16 18:00 02:15 06:05 WBC 10.1 RBC 3.18 L Hgb 9.0 L Hct 28.4 L MCV 89.3 MCH 28.4 MCHC 31.8 L RDW 16.7 H Plt Count 333 MPV Neut % (Auto) Lymph % (Auto) [place] % (Auto) Eos % (Auto) Baso % (Auto) Neut # Lymph # [place] # Eos # Baso # Neutrophils % (Manual) Lymphocytes % (Manual) Monocytes % (Manual) Eosinophils % (Manual) Basophils % (Manual) Myelocytes % Platelet Estimate Large Platelets Hypochromasia (manual) Anisocytosis (manual) ESR PT INR APTT pO2 VBG pH VBG pCO2 VBG HCO3 VBG Total CO2 VBG O2 Sat (Calc) VBG Base Excess VBG Potassium Sodium 135 Chloride 93 L Glucose Lactate FiO2 Potassium 3.9 Carbon Dioxide 28 Anion Gap 18 BUN 14 Creatinine 2.2 H Est GFR ( Amer) 26 Est GFR (Non-Af Amer) 22 POC Glucose (mg/dL) 123 H Random Glucose 142 H Hemoglobin A1c Calcium 9.4 Total Bilirubin 0.6 AST 38 H D ALT 31 Alkaline Phosphatase 122 Total Protein 8.2 Albumin 3.9 Globulin 4.3 H Albumin/Globulin Ratio 0.9 L Triglycerides Cholesterol LDL Cholesterol Direct HDL Cholesterol Thyroxine (T4) TSH 3rd Generation Venous Blood Potassium Vancomycin Trough 08/28/16 08/28/16 08/28/16 06:05 06:05 06:05 WBC RBC Hgb Hct MCV MCH MCHC RDW Plt Count MPV Neut % (Auto) Lymph % (Auto) [place] % (Auto) Eos % (Auto) Baso % (Auto) Neut # Lymph # [place] # Eos # Baso # Neutrophils % (Manual) Lymphocytes % (Manual) Monocytes % (Manual) Eosinophils % (Manual) Basophils % (Manual) Myelocytes % Platelet Estimate Large Platelets Hypochromasia (manual) Anisocytosis (manual) ESR PT 15.2 H INR 1.3 H APTT 30.8 pO2 VBG pH VBG pCO2 VBG HCO3 VBG Total CO2 VBG O2 Sat (Calc) VBG Base Excess VBG Potassium Sodium 137 Chloride 95 L Glucose Lactate FiO2 Potassium 3.6 Carbon Dioxide 31 H Anion Gap 15 BUN 16 Creatinine 3.1 H Est GFR ( Amer) 18 Est GFR (Non-Af Amer) 15 POC Glucose (mg/dL) Random Glucose 106 H Hemoglobin A1c 6.2 Calcium 9.1 Total Bilirubin 0.3 AST 49 H D ALT 30 Alkaline Phosphatase 105 Total Protein 7.3 Albumin 3.4 L Globulin 4.0 H Albumin/Globulin Ratio 0.9 L Triglycerides 121 Cholesterol 89 LDL Cholesterol Direct < 30 HDL Cholesterol 30 Thyroxine (T4) 6.29 TSH 3rd Generation 3.72 Venous Blood Potassium Vancomycin Trough 08/28/16 08/28/16 08/28/16 06:51 11:37 16:34 WBC RBC Hgb Hct MCV MCH MCHC RDW Plt Count MPV Neut % (Auto) Lymph % (Auto) [place] % (Auto) Eos % (Auto) Baso % (Auto) Neut # Lymph # [place] # Eos # Baso # Neutrophils % (Manual) Lymphocytes % (Manual) Monocytes % (Manual) Eosinophils % (Manual) Basophils % (Manual) Myelocytes % Platelet Estimate Large Platelets Hypochromasia (manual) Anisocytosis (manual) ESR PT INR APTT pO2 VBG pH VBG pCO2 VBG HCO3 VBG Total CO2 VBG O2 Sat (Calc) VBG Base Excess VBG Potassium Sodium Chloride Glucose Lactate FiO2 Potassium Carbon Dioxide Anion Gap BUN Creatinine Est GFR ( Amer) Est GFR (Non-Af Amer) POC Glucose (mg/dL) 124 H 184 H 169 H Random Glucose Hemoglobin A1c Calcium Total Bilirubin AST ALT Alkaline Phosphatase Total Protein Albumin Globulin Albumin/Globulin Ratio Triglycerides Cholesterol LDL Cholesterol Direct HDL Cholesterol Thyroxine (T4) TSH 3rd Generation Venous Blood Potassium Vancomycin Trough 08/28/16 08/29/16 08/29/16 21:47 05:58 10:48 WBC RBC Hgb Hct MCV MCH MCHC RDW Plt Count MPV Neut % (Auto) Lymph % (Auto) [place] % (Auto) Eos % (Auto) Baso % (Auto) Neut # Lymph # [place] # Eos # Baso # Neutrophils % (Manual) Lymphocytes % (Manual) Monocytes % (Manual) Eosinophils % (Manual) Basophils % (Manual) Myelocytes % Platelet Estimate Large Platelets Hypochromasia (manual) Anisocytosis (manual) ESR PT INR APTT pO2 VBG pH VBG pCO2 VBG HCO3 VBG Total CO2 VBG O2 Sat (Calc) VBG Base Excess VBG Potassium Sodium Chloride Glucose Lactate FiO2 Potassium Carbon Dioxide Anion Gap BUN Creatinine Est GFR ( Amer) Est GFR (Non-Af Amer) POC Glucose (mg/dL) 148 H 113 H 140 H Random Glucose Hemoglobin A1c Calcium Total Bilirubin AST ALT Alkaline Phosphatase Total Protein Albumin Globulin Albumin/Globulin Ratio Triglycerides Cholesterol LDL Cholesterol Direct HDL Cholesterol Thyroxine (T4) TSH 3rd Generation Venous Blood Potassium Vancomycin Trough 08/29/16 08/29/16 08/29/16 15:20 18:06 23:03 WBC RBC Hgb Hct MCV MCH MCHC RDW Plt Count MPV Neut % (Auto) Lymph % (Auto) [place] % (Auto) Eos % (Auto) Baso % (Auto) Neut # Lymph # [place] # Eos # Baso # Neutrophils % (Manual) Lymphocytes % (Manual) Monocytes % (Manual) Eosinophils % (Manual) Basophils % (Manual) Myelocytes % Platelet Estimate Large Platelets Hypochromasia (manual) Anisocytosis (manual) ESR 105 H PT INR APTT pO2 VBG pH VBG pCO2 VBG HCO3 VBG Total CO2 VBG O2 Sat (Calc) VBG Base Excess VBG Potassium Sodium Chloride Glucose Lactate FiO2 Potassium Carbon Dioxide Anion Gap BUN Creatinine Est GFR ( Amer) Est GFR (Non-Af Amer) POC Glucose (mg/dL) 184 H 152 H Random Glucose Hemoglobin A1c Calcium Total Bilirubin AST ALT Alkaline Phosphatase Total Protein Albumin Globulin Albumin/Globulin Ratio Triglycerides Cholesterol LDL Cholesterol Direct HDL Cholesterol Thyroxine (T4) TSH 3rd Generation Venous Blood Potassium Vancomycin Trough 08/30/16 08/30/16 08/30/16 05:04 06:00 06:00 WBC 10.9 H RBC 3.29 L Hgb 9.3 L Hct 30.1 L MCV 91.6 D MCH 28.3 MCHC 30.9 L RDW 17.5 H Plt Count 386 MPV Neut % (Auto) Lymph % (Auto) [place] % (Auto) Eos % (Auto) Baso % (Auto) Neut # Lymph # [place] # Eos # Baso # Neutrophils % (Manual) Lymphocytes % (Manual) Monocytes % (Manual) Eosinophils % (Manual) Basophils % (Manual) Myelocytes % Platelet Estimate Large Platelets Hypochromasia (manual) Anisocytosis (manual) ESR PT INR APTT pO2 VBG pH VBG pCO2 VBG HCO3 VBG Total CO2 VBG O2 Sat (Calc) VBG Base Excess VBG Potassium Sodium 130 L Chloride 93 L Glucose Lactate FiO2 Potassium 4.6 Carbon Dioxide 23 Anion Gap 19 BUN 34 H Creatinine 4.9 H Est GFR ( Amer) 10 Est GFR (Non-Af Amer) 9 POC Glucose (mg/dL) 149 H Random Glucose 128 H Hemoglobin A1c Calcium 8.6 Total Bilirubin AST ALT Alkaline Phosphatase Total Protein Albumin Globulin Albumin/Globulin Ratio Triglycerides Cholesterol LDL Cholesterol Direct HDL Cholesterol Thyroxine (T4) TSH 3rd Generation Venous Blood Potassium Vancomycin Trough 08/30/16 08/30/16 06:00 11:44 WBC RBC Hgb Hct MCV MCH MCHC RDW Plt Count MPV Neut % (Auto) Lymph % (Auto) [place] % (Auto) Eos % (Auto) Baso % (Auto) Neut # Lymph # [place] # Eos # Baso # Neutrophils % (Manual) Lymphocytes % (Manual) Monocytes % (Manual) Eosinophils % (Manual) Basophils % (Manual) Myelocytes % Platelet Estimate Large Platelets Hypochromasia (manual) Anisocytosis (manual) ESR PT INR APTT pO2 VBG pH VBG pCO2 VBG HCO3 VBG Total CO2 VBG O2 Sat (Calc) VBG Base Excess VBG Potassium Sodium Chloride Glucose Lactate FiO2 Potassium Carbon Dioxide Anion Gap BUN Creatinine Est GFR ( Amer) Est GFR (Non-Af Amer) POC Glucose (mg/dL) 117 H Random Glucose Hemoglobin A1c Calcium Total Bilirubin AST ALT Alkaline Phosphatase Total Protein Albumin Globulin Albumin/Globulin Ratio Triglycerides Cholesterol LDL Cholesterol Direct HDL Cholesterol Thyroxine (T4) TSH 3rd Generation Venous Blood Potassium Vancomycin Trough 29.2 H Microbiology 08/29/16 18:06 Chest Gram Stain - Final 08/27/16 17:40 Foot - Left Gram Stain - Final 08/27/16 17:40 Foot - Left Wound Culture - Final Escherichia Coli Methicillin Resistant S Aureus 08/27/16 18:00 Blood Blood Culture - Preliminary NO GROWTH AFTER 48 HOURS 08/27/16 18:00 Blood Blood Culture - Preliminary NO GROWTH AFTER 48 HOURS Assessment and Plan (1) Infection of amputation stump Status: Acute (2) ESRD on hemodialysis Status: Acute - Assessment and Plan (Free Text) Assessment: A/P- 76 year old female with DM II, ESRD on HD, s/p left foot TMA admitted with left foot TMA infected stump. s/p excisional debridement of hyperkeratotic borders of the TMA ulcer 1 day ago afebrile minimal leukocytosis resolved. blood cx- neg x 2 wound cx- MRSA, ESBL e.coli foot xray- OM as per report. plan- as per podiatry no further surgical intervention needed at this time. since OM on plain xray advise to treat with IV abx for at least 4-6 weeks as outpatient. based on the Id and sensitivity of the foot cx result advise to change zosyn to meropenem (renal dose ) and to continue with vancomycin . advise to get vancomycin 1 gram post HD days for total of 6 weeks and Meropenem 1 gram IV daily for total of 6 weeks. keep vanco trough <15. All above d/w patient and the [employer] freddy at length. .
--- NOTE | 2016-08-30 12:02 | CP.PCM.PN ---
Subjective - Date & Time of Evaluation Date of Evaluation: 08/30/16 Time of Evaluation: 07:20 Objective - Vital Signs/Intake and Output Vital Signs (last 24 hours): Temp Pulse Resp BP Pulse Ox 97.9 F 62 20 146/67 94 L 08/30/16 08:38 08/30/16 08:38 08/30/16 08:38 08/30/16 08:38 08/30/16 08:38 - Medications Medications: Current Medications Amlodipine Besylate (Norvasc) 10 mg PO DAILY [facility] Last Admin: 08/29/16 10:43 Dose: 10 mg Aspirin (Ecotrin) 81 mg PO DAILY [facility] Last Admin: 08/30/16 10:49 Dose: 81 mg Atorvastatin Calcium (Lipitor) 80 mg PO DAILY [facility] Last Admin: 08/30/16 10:50 Dose: 80 mg Collagenase (Santyl) 1 applic TOP DAILY [facility] Epoetin Sudheer (Procrit) 4,000 unit IV TTS [facility] Heparin Sodium (Porcine) (Heparin) 5,000 units SC Q12 [facility] PRN Reason: Protocol Last Admin: 08/30/16 10:49 Dose: 5,000 units Vancomycin HCl 1 gm/ Sodium (Chloride) 250 mls @ 166.667 mls/hr IVPB DAILY [facility] Last Admin: 08/30/16 10:47 Dose: 166.667 mls/hr Piperacillin Sod/Tazobactam (Sod 2.25 gm/ Sodium Chloride) 100 mls @ 100 mls/ hr IVPB Q8 [facility] Last Admin: 08/30/16 10:48 Dose: 100 mls/hr Insulin Detemir (Levemir) 30 units SC HS [facility] Last Admin: 08/29/16 23:16 Dose: 30 units Levothyroxine Sodium (Synthroid) 75 mcg PO DAILY@0630 [facility] Last Admin: 08/30/16 07:23 Dose: 75 mcg Metoprolol Tartrate (Lopressor) 100 mg PO Q12 [facility] Last Admin: 08/29/16 21:32 Dose: 100 mg Oxycodone/Acetaminophen (Percocet 5/325 Mg Tab) 2 tab PO Q4 PRN PRN Reason: Pain, moderate (4-7) Stop: 08/31/16 08:18 Last Admin: 08/30/16 07:25 Dose: 2 tab Pantoprazole Sodium (Protonix Ec Tab) 40 mg PO DAILY@0600 [facility] Last Admin: 08/30/16 07:23 Dose: 40 mg Pregabalin (Lyrica) 50 mg PO DAILY [facility] Last Admin: 08/29/16 10:47 Dose: 50 mg Sevelamer HCl (Renagel) 800 mg PO TID [facility] Last Admin: 08/30/16 10:50 Dose: 800 mg Sitagliptin Phosphate (Januvia) 25 mg PO DAILY [facility] Last Admin: 08/30/16 10:49 Dose: 25 mg Valsartan (Diovan) 160 mg PO DAILY [facility] Last Admin: 08/29/16 10:43 Dose: 160 mg - Labs Labs: 08/30/16 06:00 08/30/16 06:00 PT 15.2 Seconds (9.8-13.1) H 08/28/16 06:05 INR 1.3 (0.9-1.2) H 08/28/16 06:05 APTT 30.8 Seconds (25.6-37.1) 08/28/16 06:05
--- NOTE | 2016-08-30 13:26 | CP.PCM.PN ---
Subjective - Date & Time of Evaluation Date of Evaluation: 08/30/16 Time of Evaluation: 11:00 - Subjective Subjective: She was seen on hemodialysis Patient is awake and conscious Tolerating dialysis well Ultrafiltration goal about 5110-4082 mL Potassium about 2 mEq Sodium 138 Bicarbonate 34 Chest no rales Heart no rubs Abdomen soft Extremity no edema Status post transmetatarsal on the left with infected wound patient receiving intravenous antibiotics as per primary team Continue monitoring. Objective - Vital Signs/Intake and Output Vital Signs (last 24 hours): Temp Pulse Resp BP Pulse Ox 97.9 F 62 20 146/67 94 L 08/30/16 08:38 08/30/16 08:38 08/30/16 08:38 08/30/16 08:38 08/30/16 08:38 - Medications Medications: Current Medications Amlodipine Besylate (Norvasc) 10 mg PO DAILY [facility] Last Admin: 08/29/16 10:43 Dose: 10 mg Aspirin (Ecotrin) 81 mg PO DAILY [facility] Last Admin: 08/30/16 10:49 Dose: 81 mg Atorvastatin Calcium (Lipitor) 80 mg PO DAILY [facility] Last Admin: 08/30/16 10:50 Dose: 80 mg Collagenase (Santyl) 1 applic TOP DAILY [facility] Epoetin Sudheer (Procrit) 4,000 unit IV TTS [facility] Heparin Sodium (Porcine) (Heparin) 5,000 units SC Q12 [facility] PRN Reason: Protocol Last Admin: 08/30/16 10:49 Dose: 5,000 units Vancomycin HCl 1 gm/ Sodium (Chloride) 250 mls @ 166.667 mls/hr IVPB DAILY [facility] Last Admin: 08/30/16 10:47 Dose: 166.667 mls/hr Piperacillin Sod/Tazobactam (Sod 2.25 gm/ Sodium Chloride) 100 mls @ 100 mls/ hr IVPB Q8 [facility] Last Admin: 08/30/16 10:48 Dose: 100 mls/hr Insulin Detemir (Levemir) 30 units SC HS [facility] Last Admin: 08/29/16 23:16 Dose: 30 units Levothyroxine Sodium (Synthroid) 75 mcg PO DAILY@0630 [facility] Last Admin: 08/30/16 07:23 Dose: 75 mcg Metoprolol Tartrate (Lopressor) 100 mg PO Q12 [facility] Last Admin: 08/29/16 21:32 Dose: 100 mg Oxycodone/Acetaminophen (Percocet 5/325 Mg Tab) 2 tab PO Q4 PRN PRN Reason: Pain, moderate (4-7) Stop: 08/31/16 08:18 Last Admin: 08/30/16 07:25 Dose: 2 tab Pantoprazole Sodium (Protonix Ec Tab) 40 mg PO DAILY@0600 [facility] Last Admin: 08/30/16 07:23 Dose: 40 mg Pregabalin (Lyrica) 50 mg PO DAILY [facility] Last Admin: 08/29/16 10:47 Dose: 50 mg Sevelamer HCl (Renagel) 800 mg PO TID [facility] Last Admin: 08/30/16 10:50 Dose: 800 mg Sitagliptin Phosphate (Januvia) 25 mg PO DAILY [facility] Last Admin: 08/30/16 10:49 Dose: 25 mg Valsartan (Diovan) 160 mg PO DAILY [facility] Last Admin: 08/29/16 10:43 Dose: 160 mg - Labs Labs: 08/30/16 06:00 08/30/16 06:00 PT 15.2 Seconds (9.8-13.1) H 08/28/16 06:05 INR 1.3 (0.9-1.2) H 08/28/16 06:05 APTT 30.8 Seconds (25.6-37.1) 08/28/16 06:05 Assessment and Plan (1) ESRD on hemodialysis Status: Acute
[2016-08-30] MEDS: Epoetin Alfa 4000 UNIT/ML Inj IV SCH (14:35)
[2016-08-30] MEDS: Santyl Collagenase OINTMENT TOP SCH (14:35)
--- NOTE | 2016-08-30 16:36 | CP.PCM.PN ---
Subjective - Date & Time of Evaluation Date of Evaluation: 08/30/16 Time of Evaluation: 09:40 - Subjective Subjective: F/U Osteomyelitis L foot. Pt c/o of pain in L foot, no c/o of pain in chest open lesion. Objective - Vital Signs/Intake and Output Vital Signs (last 24 hours): Temp Pulse Resp BP Pulse Ox 98.4 F 70 17 164/73 H 97 08/30/16 16:06 08/30/16 16:06 08/30/16 16:06 08/30/16 16:06 08/30/16 16:06 - Medications Medications: Current Medications Amlodipine Besylate (Norvasc) 10 mg PO DAILY [facility] Last Admin: 08/30/16 14:34 Dose: 10 mg Aspirin (Ecotrin) 81 mg PO DAILY [facility] Last Admin: 08/30/16 10:49 Dose: 81 mg Atorvastatin Calcium (Lipitor) 80 mg PO DAILY [facility] Last Admin: 08/30/16 10:50 Dose: 80 mg Collagenase (Santyl) 1 applic TOP DAILY [facility] Last Admin: 08/30/16 14:35 Dose: 1 unit Epoetin Sudheer (Procrit) 4,000 unit IV TTS [facility] Last Admin: 08/30/16 14:35 Dose: 4,000 unit Heparin Sodium (Porcine) (Heparin) 5,000 units SC Q12 [facility] PRN Reason: Protocol Last Admin: 08/30/16 10:49 Dose: 5,000 units Vancomycin HCl 1 gm/ Sodium (Chloride) 250 mls @ 166.667 mls/hr IVPB DAILY [facility] Last Admin: 08/30/16 10:47 Dose: 166.667 mls/hr Piperacillin Sod/Tazobactam (Sod 2.25 gm/ Sodium Chloride) 100 mls @ 100 mls/ hr IVPB Q8 [facility] Last Admin: 08/30/16 10:48 Dose: 100 mls/hr Insulin Detemir (Levemir) 30 units SC HS [facility] Last Admin: 08/29/16 23:16 Dose: 30 units Levothyroxine Sodium (Synthroid) 75 mcg PO DAILY@0630 [facility] Last Admin: 08/30/16 07:23 Dose: 75 mcg Metoprolol Tartrate (Lopressor) 100 mg PO Q12 [facility] Last Admin: 08/30/16 14:34 Dose: 100 mg Oxycodone/Acetaminophen (Percocet 5/325 Mg Tab) 2 tab PO Q4 PRN PRN Reason: Pain, moderate (4-7) Stop: 08/31/16 08:18 Last Admin: 08/30/16 14:39 Dose: 2 tab Pantoprazole Sodium (Protonix Ec Tab) 40 mg PO DAILY@0600 [facility] Last Admin: 08/30/16 07:23 Dose: 40 mg Pregabalin (Lyrica) 50 mg PO DAILY [facility] Last Admin: 08/30/16 11:30 Dose: 50 mg Sevelamer HCl (Renagel) 800 mg PO TID [facility] Last Admin: 08/30/16 14:35 Dose: 800 mg Sitagliptin Phosphate (Januvia) 25 mg PO DAILY [facility] Last Admin: 08/30/16 10:49 Dose: 25 mg Valsartan (Diovan) 160 mg PO DAILY [facility] Last Admin: 08/30/16 14:33 Dose: 160 mg - Labs Labs: 08/30/16 06:00 08/30/16 06:00 PT 15.2 Seconds (9.8-13.1) H 08/28/16 06:05 INR 1.3 (0.9-1.2) H 08/28/16 06:05 APTT 30.8 Seconds (25.6-37.1) 08/28/16 06:05 - Constitutional Appears: No Acute Distress, Chronically Ill - Eye Exam Eye Exam: PERRL - ENT Exam ENT Exam: Normal Oropharynx - Neck Exam Neck Exam: Normal Inspection - Respiratory Exam Respiratory Exam: NORMAL BREATHING PATTERN - Cardiovascular Exam Cardiovascular Exam: Irregular Rhythm - GI/Abdominal Exam GI & Abdominal Exam: Soft, Tenderness (RUQ). absent: Guarding, Rebound - Extremities Exam Extremities Exam: Tenderness (L foot dressing in place) - Back Exam Back Exam: NORMAL INSPECTION - Neurological Exam Neurological Exam: Alert, Oriented x3 Additional comments: Decreased sensation R-L foot, no focal motor deficit. 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 Check up MRI, DC R femoral Catheter, to have pick line, continue Merro , Vanco and rest of Tx.
--- NOTE | 2016-08-30 18:10 | CP.PCM.PN ---
Subjective - Date & Time of Evaluation Date of Evaluation: 08/30/16 Time of Evaluation: 12:05 - Subjective Subjective: no overnight events Objective - Vital Signs/Intake and Output Vital Signs (last 24 hours): Temp Pulse Resp BP Pulse Ox 98.4 F 70 17 164/73 H 97 08/30/16 16:06 08/30/16 16:06 08/30/16 16:06 08/30/16 16:06 08/30/16 16:06 - Medications Medications: Current Medications Amlodipine Besylate (Norvasc) 10 mg PO DAILY [facility] Last Admin: 08/30/16 14:34 Dose: 10 mg Aspirin (Ecotrin) 81 mg PO DAILY [facility] Last Admin: 08/30/16 10:49 Dose: 81 mg Atorvastatin Calcium (Lipitor) 80 mg PO DAILY [facility] Last Admin: 08/30/16 10:50 Dose: 80 mg Collagenase (Santyl) 1 applic TOP DAILY [facility] Last Admin: 08/30/16 14:35 Dose: 1 unit Epoetin Sudheer (Procrit) 4,000 unit IV TTS [facility] Last Admin: 08/30/16 14:35 Dose: 4,000 unit Heparin Sodium (Porcine) (Heparin) 5,000 units SC Q12 [facility] PRN Reason: Protocol Last Admin: 08/30/16 10:49 Dose: 5,000 units Vancomycin HCl 1 gm/ Sodium (Chloride) 250 mls @ 166.667 mls/hr IVPB DAILY [facility] Last Admin: 08/30/16 10:47 Dose: 166.667 mls/hr Meropenem 1 gm/ Sodium (Chloride) 100 mls @ 100 mls/hr IVPB DAILY [facility] Insulin Detemir (Levemir) 30 units SC HS [facility] Last Admin: 08/29/16 23:16 Dose: 30 units Levothyroxine Sodium (Synthroid) 75 mcg PO DAILY@0630 [facility] Last Admin: 08/30/16 07:23 Dose: 75 mcg Metoprolol Tartrate (Lopressor) 100 mg PO Q12 [facility] Last Admin: 08/30/16 14:34 Dose: 100 mg Oxycodone/Acetaminophen (Percocet 5/325 Mg Tab) 2 tab PO Q4 PRN PRN Reason: Pain, moderate (4-7) Stop: 08/31/16 08:18 Last Admin: 08/30/16 14:39 Dose: 2 tab Pantoprazole Sodium (Protonix Ec Tab) 40 mg PO DAILY@0600 [facility] Last Admin: 08/30/16 07:23 Dose: 40 mg Pregabalin (Lyrica) 50 mg PO DAILY [facility] Last Admin: 08/30/16 11:30 Dose: 50 mg Sevelamer HCl (Renagel) 800 mg PO TID [facility] Last Admin: 08/30/16 17:19 Dose: 800 mg Sitagliptin Phosphate (Januvia) 25 mg PO DAILY [facility] Last Admin: 08/30/16 10:49 Dose: 25 mg Valsartan (Diovan) 160 mg PO DAILY [facility] Last Admin: 08/30/16 14:33 Dose: 160 mg - Labs Labs: 08/30/16 06:00 08/30/16 06:00 PT 15.2 Seconds (9.8-13.1) H 08/28/16 06:05 INR 1.3 (0.9-1.2) H 08/28/16 06:05 APTT 30.8 Seconds (25.6-37.1) 08/28/16 06:05 - GI/Abdominal Exam GI & Abdominal Exam: Soft, Normal Bowel Sounds Assessment and Plan - Assessment and Plan (Free Text) Assessment: 76 yo female with abd pain continue current plan abx laxatives prn
--- NOTE | 2016-08-30 18:55 | RAD ---
HISTORY: Attention right rib cage-pain COMPARISON: Chest x-ray performed 06/09/16 TECHNIQUE: Chest, one view. FINDINGS: LUNGS: The left lung base is not well visualized, presumably due to soft tissue attenuation due to habitus. Mild atelectasis/ infiltrate or small effusion cannot be excluded. No definite pneumothorax. Please note that chest x-ray has limited sensitivity for the detection of pulmonary masses. CARDIOVASCULAR: Dual lead left-sided pacemaker. Cardiomegaly. Atherosclerotic calcification of the aorta. OSSEOUS STRUCTURES: Degenerative changes of the spine and shoulders. Acromioclavicular arthropathy. Evidence of bilateral calcific tendinitis. VISUALIZED UPPER ABDOMEN: Unremarkable. OTHER FINDINGS: Vascular stent in expected location of the right subclavian vein. IMPRESSION: The left lung base is not well visualized, presumably due to soft tissue attenuation secondary to habitus. Mild atelectasis/ infiltrate or small effusion cannot be excluded. Cardiomegaly. Dual lead left-sided pacemaker.
[2016-08-30] MEDS: Insulin Detemir 100 Units/ml Inj SC SCH (22:00)
[2016-08-31] MEDS: Pantoprazole 40 mg EC Tab PO SCH (05:32)
[2016-08-31] MEDS: Levothyroxine 75 MCG TAB PO SCH (05:33)
[2016-08-31 07:16] LABS: HEMATOCRIT 29.4 % (34.0-47.0); MEAN CELL VOLUME 91.3 fl (81.0-99.0); MEAN CORPUSCULAR HEMOGLOBIN 28.2 pg (27.0-31.0); MEAN CORPUSCULAR HGB CONC 30.9 g/dL (33.0-37.0); RED CELL DISTRIBUTION WIDTH 17.2 % (11.5-14.5); WHITE BLOOD COUNT 12.8 K/uL (4.8-10.8)
[2016-08-31 07:25] LABS: ALB/GLOB RATIO 0.9 (1.0-2.1); BILIRUBIN,TOTAL 0.1 mg/dl (0.2-1.3); CALCIUM 8.8 mg/dL (8.4-10.2); POTASSIUM 4.2 MMOL/L (3.6-5.0)
--- NOTE | 2016-08-31 07:47 | CP.PCM.PN ---
Subjective - Date & Time of Evaluation Date of Evaluation: 08/31/16 Time of Evaluation: 08:30 - Subjective Subjective: 75 y/o female seen at bedside today 11 weeks s/p left foot TMA concerning left foot wound dehiscence. Patient complaints of mild pain at the surgical site and in the general area of the left foot. Dressing appears to be C/D/I. Denies f/n/ v/c/sob/cp at this time. Patient has no other pedal complaints at this time. Objective - Vital Signs/Intake and Output Vital Signs (last 24 hours): Temp Pulse Resp BP Pulse Ox 98.1 F 61 20 135/69 96 08/31/16 00:30 08/31/16 00:30 08/31/16 00:30 08/31/16 00:30 08/31/16 00:30 - Medications Medications: Current Medications Amlodipine Besylate (Norvasc) 10 mg PO DAILY [facility] Last Admin: 08/30/16 14:34 Dose: 10 mg Aspirin (Ecotrin) 81 mg PO DAILY [facility] Last Admin: 08/30/16 10:49 Dose: 81 mg Atorvastatin Calcium (Lipitor) 80 mg PO DAILY [facility] Last Admin: 08/30/16 10:50 Dose: 80 mg Collagenase (Santyl) 1 applic TOP DAILY [facility] Last Admin: 08/30/16 14:35 Dose: 1 unit Epoetin Sudheer (Procrit) 4,000 unit IV TTS [facility] Last Admin: 08/30/16 14:35 Dose: 4,000 unit Heparin Sodium (Porcine) (Heparin) 5,000 units SC Q12 [facility] PRN Reason: Protocol Last Admin: 08/30/16 21:21 Dose: 5,000 units Vancomycin HCl 1 gm/ Sodium (Chloride) 250 mls @ 166.667 mls/hr IVPB DAILY [facility] Last Admin: 08/30/16 10:47 Dose: 166.667 mls/hr Meropenem 1 gm/ Sodium (Chloride) 100 mls @ 100 mls/hr IVPB DAILY [facility] Insulin Detemir (Levemir) 30 units SC HS [facility] Last Admin: 08/30/16 22:00 Dose: 30 units Levothyroxine Sodium (Synthroid) 75 mcg PO DAILY@0630 [facility] Last Admin: 08/31/16 05:33 Dose: 75 mcg Metoprolol Tartrate (Lopressor) 100 mg PO Q12 [facility] Last Admin: 08/30/16 21:58 Dose: 100 mg Oxycodone/Acetaminophen (Percocet 5/325 Mg Tab) 2 tab PO Q4 PRN PRN Reason: Pain, moderate (4-7) Stop: 08/31/16 08:18 Last Admin: 08/30/16 14:39 Dose: 2 tab Pantoprazole Sodium (Protonix Ec Tab) 40 mg PO DAILY@0600 [facility] Last Admin: 08/31/16 05:32 Dose: 40 mg Pregabalin (Lyrica) 50 mg PO DAILY [facility] Last Admin: 08/30/16 11:30 Dose: 50 mg Sevelamer HCl (Renagel) 800 mg PO TID [facility] Last Admin: 08/30/16 17:19 Dose: 800 mg Sitagliptin Phosphate (Januvia) 25 mg PO DAILY [facility] Last Admin: 08/30/16 10:49 Dose: 25 mg Valsartan (Diovan) 160 mg PO DAILY [facility] Last Admin: 08/30/16 14:33 Dose: 160 mg - Labs Labs: 08/31/16 05:15 08/31/16 05:15 PT 15.2 Seconds (9.8-13.1) H 08/28/16 06:05 INR 1.3 (0.9-1.2) H 08/28/16 06:05 APTT 30.8 Seconds (25.6-37.1) 08/28/16 06:05 - Constitutional Appears: Well, Non-toxic, No Acute Distress - Extremities Exam Additional comments: Left lower extremity focused exam: DERM: Open wound noted to left foot stump surgical site measuring 5cm x 2cm x 0.2cm. Wound base is necrotic. No noted purulence, drainage, or malodor. Wound does not probe to bone. Periwound is erythematous. VASC: DP 2/4. Non-palpable PT pulse. No edema noted to the LE. Skin temperature warm to warm from proximal to distal. ORTHO: Mild tenderness to palpation at TMA surgical ite NEURO: Gross sensation diminished - Neurological Exam Neurological Exam: Alert, Awake, Oriented x3 - Psychiatric Exam Psychiatric exam: Normal Affect, Normal Mood Assessment and Plan - Assessment and Plan (Free Text) Assessment: 75 y/o female with wound dehiscence to Left TMA site (DOS 06/10/16) Plan: Patient was seen and evaluated at bedside Discussed plan with Dr. Herrera Chart, labs and vitals reviewed Open wound is dressed with saline wet to dry dressing, Santyl, DSD, and kerlix. Per Dr. Herrera pt will require daily dressing changes with santyl x 4-6 weeks at [facility] C/w IV abx as per ID - Dr. Whitt changed to Vanco and Meropenem, recommending IB abx for 4-6 weeks Left foot wound culture positive for E.coli and positive for MRSA No surgical interventions indicated at this time Applied offloading prevalon boots to both feet to be worn at all times while in bed Stable per podiatry Podiatry will continue to follow
--- NOTE | 2016-08-31 07:54 | CP.PCM.PN ---
Subjective - Date & Time of Evaluation Date of Evaluation: 08/31/16 Time of Evaluation: 07:20 - Subjective Subjective: Pt S/e at bedside this AM. NAEO. Patient's wound is being treated with medihoney and has stopped bleeding. Objective - Vital Signs/Intake and Output Vital Signs (last 24 hours): Temp Pulse Resp BP Pulse Ox 98.1 F 61 20 135/69 96 08/31/16 00:30 08/31/16 00:30 08/31/16 00:30 08/31/16 00:30 08/31/16 00:30 - Medications Medications: Current Medications Amlodipine Besylate (Norvasc) 10 mg PO DAILY [facility] Last Admin: 08/30/16 14:34 Dose: 10 mg Aspirin (Ecotrin) 81 mg PO DAILY [facility] Last Admin: 08/30/16 10:49 Dose: 81 mg Atorvastatin Calcium (Lipitor) 80 mg PO DAILY [facility] Last Admin: 08/30/16 10:50 Dose: 80 mg Collagenase (Santyl) 1 applic TOP DAILY [facility] Last Admin: 08/30/16 14:35 Dose: 1 unit Epoetin Sudheer (Procrit) 4,000 unit IV TTS [facility] Last Admin: 08/30/16 14:35 Dose: 4,000 unit Heparin Sodium (Porcine) (Heparin) 5,000 units SC Q12 [facility] PRN Reason: Protocol Last Admin: 08/30/16 21:21 Dose: 5,000 units Vancomycin HCl 1 gm/ Sodium (Chloride) 250 mls @ 166.667 mls/hr IVPB DAILY [facility] Last Admin: 08/30/16 10:47 Dose: 166.667 mls/hr Meropenem 1 gm/ Sodium (Chloride) 100 mls @ 100 mls/hr IVPB DAILY [facility] Insulin Detemir (Levemir) 30 units SC HS [facility] Last Admin: 08/30/16 22:00 Dose: 30 units Levothyroxine Sodium (Synthroid) 75 mcg PO DAILY@0630 [facility] Last Admin: 08/31/16 05:33 Dose: 75 mcg Metoprolol Tartrate (Lopressor) 100 mg PO Q12 [facility] Last Admin: 08/30/16 21:58 Dose: 100 mg Oxycodone/Acetaminophen (Percocet 5/325 Mg Tab) 2 tab PO Q4 PRN PRN Reason: Pain, moderate (4-7) Stop: 08/31/16 08:18 Last Admin: 08/30/16 14:39 Dose: 2 tab Pantoprazole Sodium (Protonix Ec Tab) 40 mg PO DAILY@0600 [facility] Last Admin: 08/31/16 05:32 Dose: 40 mg Pregabalin (Lyrica) 50 mg PO DAILY [facility] Last Admin: 08/30/16 11:30 Dose: 50 mg Sevelamer HCl (Renagel) 800 mg PO TID [facility] Last Admin: 08/30/16 17:19 Dose: 800 mg Sitagliptin Phosphate (Januvia) 25 mg PO DAILY [facility] Last Admin: 08/30/16 10:49 Dose: 25 mg Valsartan (Diovan) 160 mg PO DAILY [facility] Last Admin: 08/30/16 14:33 Dose: 160 mg - Labs Labs: 08/31/16 05:15 08/31/16 05:15 PT 15.2 Seconds (9.8-13.1) H 08/28/16 06:05 INR 1.3 (0.9-1.2) H 08/28/16 06:05 APTT 30.8 Seconds (25.6-37.1) 08/28/16 06:05 - Constitutional Appears: Well, Non-toxic, No Acute Distress - Head Exam Head Exam: ATRAUMATIC, NORMOCEPHALIC - Eye Exam Eye Exam: Normal appearance. absent: Conjunctival injection, Scleral icterus - ENT Exam ENT Exam: Mucous Membranes Moist, Normal Oropharynx - Respiratory Exam Respiratory Exam: NORMAL BREATHING PATTERN. absent: Accessory Muscle Use, Respiratory Distress - Extremities Exam Extremities Exam: absent: Calf Tenderness, Pedal Edema, Tenderness - Neurological Exam Neurological Exam: Alert, Awake, Oriented x3 - Psychiatric Exam Psychiatric exam: Normal Affect, Normal Mood - Skin Additional comments: Superficial skin wound of the anterior chest not actively bleeding with heaped up scar tissue border Assessment and Plan - Assessment and Plan (Free Text) Assessment: 76F with extensive PMH including CHF, DM, and ESRD on HD with a chronic non- healing skin wound of the chest for 2 years Plan: -Continue current management per primary -Apply compression dressings and change as needed -Continue woundcare per woundcare nurse -Planned for bedside skip biopsy today Discussed with Dr. Gabo Buchanan, PGY1
[2016-08-31] MEDS: Meropenem 1 GM in Sodium Chloride 0.9% 100 ML IVPB SCH (08:49)
[2016-08-31] MEDS ORDERED: Oxycodone/Acetaminophen 5/325 mg Tab PO PRN (09:49)
--- NOTE | 2016-08-31 10:09 | CP.PCM.PN ---
Subjective - Date & Time of Evaluation Date of Evaluation: 08/31/16 Time of Evaluation: 10:08 - Subjective Subjective: Patient and bed no significant changes Appeared to be comfortable Vital sign noted to be acceptable Chest no rales Heart no rubs Abdomen soft Extremity no edema Impression and plan Patient has a foot ulcer receiving intravenous antibiotics as recommended End stage renal disease hemodialysis TTS as ordered Continue monitoring Objective - Vital Signs/Intake and Output Vital Signs (last 24 hours): Temp Pulse Resp BP Pulse Ox 98 F 67 20 180/77 H 93 L 08/31/16 08:40 08/31/16 08:54 08/31/16 08:40 08/31/16 08:54 08/31/16 08:40 - Medications Medications: Current Medications Amlodipine Besylate (Norvasc) 10 mg PO DAILY [facility] Last Admin: 08/31/16 08:48 Dose: 10 mg Aspirin (Ecotrin) 81 mg PO DAILY [facility] Last Admin: 08/31/16 08:52 Dose: 81 mg Atorvastatin Calcium (Lipitor) 80 mg PO DAILY [facility] Last Admin: 08/31/16 08:53 Dose: 80 mg Collagenase (Santyl) 1 applic TOP DAILY [facility] Last Admin: 08/30/16 14:35 Dose: 1 unit Epoetin Sudheer (Procrit) 4,000 unit IV TTS [facility] Last Admin: 08/30/16 14:35 Dose: 4,000 unit Heparin Sodium (Porcine) (Heparin) 5,000 units SC Q12 [facility] PRN Reason: Protocol Last Admin: 08/30/16 21:21 Dose: 5,000 units Vancomycin HCl 1 gm/ Sodium (Chloride) 250 mls @ 166.667 mls/hr IVPB DAILY [facility] Last Admin: 08/30/16 10:47 Dose: 166.667 mls/hr Meropenem 1 gm/ Sodium (Chloride) 100 mls @ 100 mls/hr IVPB DAILY [facility] Last Admin: 08/31/16 08:49 Dose: 100 mls/hr Insulin Detemir (Levemir) 30 units SC HS [facility] Last Admin: 08/30/16 22:00 Dose: 30 units Levothyroxine Sodium (Synthroid) 75 mcg PO DAILY@0630 [facility] Last Admin: 08/31/16 05:33 Dose: 75 mcg Metoprolol Tartrate (Lopressor) 100 mg PO Q12 [facility] Last Admin: 08/31/16 08:54 Dose: 100 mg Oxycodone/Acetaminophen (Percocet 5/325 Mg Tab) 2 tab PO Q6 PRN PRN Reason: Pain, severe (8-10) Stop: 09/03/16 10:01 Last Admin: 08/31/16 10:05 Dose: 2 tab Pantoprazole Sodium (Protonix Ec Tab) 40 mg PO DAILY@0600 [facility] Last Admin: 08/31/16 05:32 Dose: 40 mg Pregabalin (Lyrica) 50 mg PO DAILY [facility] Last Admin: 08/31/16 09:00 Dose: 50 mg Sevelamer HCl (Renagel) 800 mg PO TID [facility] Last Admin: 08/31/16 08:50 Dose: 800 mg Sitagliptin Phosphate (Januvia) 25 mg PO DAILY [facility] Last Admin: 08/30/16 10:49 Dose: 25 mg Valsartan (Diovan) 160 mg PO DAILY [facility] Last Admin: 08/31/16 08:52 Dose: 160 mg - Labs Labs: 08/31/16 05:15 08/31/16 05:15 PT 15.2 Seconds (9.8-13.1) H 08/28/16 06:05 INR 1.3 (0.9-1.2) H 08/28/16 06:05 APTT 30.8 Seconds (25.6-37.1) 08/28/16 06:05 Assessment and Plan (1) ESRD on hemodialysis Status: Acute
[2016-08-31] MEDS ORDERED: Epinephrine /Lidocaine HCL 1:100,000/2% 30 ml INJ ONE (12:34)
[2016-08-31] MEDS ORDERED: Lidocaine 2% Inj (20ml) ONE (12:59)
[2016-08-31] MEDS: Oxycodone/Acetaminophen 5/325 mg Tab PO PRN ×2 (14:03→20:36)
--- NOTE | 2016-08-31 16:16 | CP.PCM.PN ---
Subjective - Date & Time of Evaluation Date of Evaluation: 08/31/16 Time of Evaluation: 12:00 - Subjective Subjective: F/U Osteomyelitis L foot. Pt c/o of severe pain in L foot earlier, intensity 8:10, taking Percocet. Objective - Vital Signs/Intake and Output Vital Signs (last 24 hours): Temp Pulse Resp BP Pulse Ox 98 F 67 20 180/77 H 93 L 08/31/16 08:40 08/31/16 08:54 08/31/16 08:40 08/31/16 08:54 08/31/16 08:40 - Medications Medications: Current Medications Amlodipine Besylate (Norvasc) 10 mg PO DAILY [facility] Last Admin: 08/31/16 08:48 Dose: 10 mg Aspirin (Ecotrin) 81 mg PO DAILY [facility] Last Admin: 08/31/16 08:52 Dose: 81 mg Atorvastatin Calcium (Lipitor) 80 mg PO DAILY [facility] Last Admin: 08/31/16 08:53 Dose: 80 mg Collagenase (Santyl) 1 applic TOP DAILY [facility] Last Admin: 08/30/16 14:35 Dose: 1 unit Epoetin Sudheer (Procrit) 4,000 unit IV TTS [facility] Last Admin: 08/30/16 14:35 Dose: 4,000 unit Heparin Sodium (Porcine) (Heparin) 5,000 units SC Q12 [facility] PRN Reason: Protocol Last Admin: 08/30/16 21:21 Dose: 5,000 units Vancomycin HCl 1 gm/ Sodium (Chloride) 250 mls @ 166.667 mls/hr IVPB DAILY [facility] Last Admin: 08/30/16 10:47 Dose: 166.667 mls/hr Meropenem 1 gm/ Sodium (Chloride) 100 mls @ 100 mls/hr IVPB DAILY [facility] Last Admin: 08/31/16 08:49 Dose: 100 mls/hr Insulin Detemir (Levemir) 30 units SC HS [facility] Last Admin: 08/30/16 22:00 Dose: 30 units Levothyroxine Sodium (Synthroid) 75 mcg PO DAILY@0630 [facility] Last Admin: 08/31/16 05:33 Dose: 75 mcg Metoprolol Tartrate (Lopressor) 100 mg PO Q12 [facility] Last Admin: 08/31/16 08:54 Dose: 100 mg Oxycodone/Acetaminophen (Percocet 5/325 Mg Tab) 2 tab PO Q4 PRN PRN Reason: Pain, severe (8-10) Stop: 09/03/16 17:01 Last Admin: 08/31/16 14:03 Dose: 2 tab Pantoprazole Sodium (Protonix Ec Tab) 40 mg PO DAILY@0600 [facility] Last Admin: 08/31/16 05:32 Dose: 40 mg Pregabalin (Lyrica) 50 mg PO DAILY [facility] Last Admin: 08/31/16 09:00 Dose: 50 mg Sevelamer HCl (Renagel) 800 mg PO TID [facility] Last Admin: 08/31/16 08:50 Dose: 800 mg Sitagliptin Phosphate (Januvia) 25 mg PO DAILY [facility] Last Admin: 08/30/16 10:49 Dose: 25 mg Valsartan (Diovan) 160 mg PO DAILY [facility] Last Admin: 08/31/16 08:52 Dose: 160 mg - Labs Labs: 08/31/16 05:15 08/31/16 05:15 PT 15.2 Seconds (9.8-13.1) H 08/28/16 06:05 INR 1.3 (0.9-1.2) H 08/28/16 06:05 APTT 30.8 Seconds (25.6-37.1) 08/28/16 06:05 - Constitutional Appears: No Acute Distress, Chronically Ill - Head Exam Head Exam: NORMAL INSPECTION - Eye Exam Eye Exam: PERRL - ENT Exam ENT Exam: Normal Oropharynx - Neck Exam Neck Exam: Normal Inspection - Respiratory Exam Respiratory Exam: NORMAL BREATHING PATTERN - Cardiovascular Exam Cardiovascular Exam: Irregular Rhythm - GI/Abdominal Exam GI & Abdominal Exam: Soft, Tenderness (RUQ), Normal Bowel Sounds. absent: Guarding, Rebound - Extremities Exam Extremities Exam: Tenderness (L foot, dressing in place) - Back Exam Back Exam: NORMAL INSPECTION - Neurological Exam Neurological Exam: Alert, Oriented x3 Additional comments: Decreased sensation R-L foot, no focal motor deficit. 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
--- NOTE | 2016-08-31 21:37 | CP.PCM.PN ---
Subjective - Date & Time of Evaluation Date of Evaluation: 08/31/16 Time of Evaluation: 15:30 - Subjective Subjective: no overnight events Objective - Vital Signs/Intake and Output Vital Signs (last 24 hours): Temp Pulse Resp BP Pulse Ox 98.1 F 71 20 117/58 L 90 L 08/31/16 16:18 08/31/16 16:18 08/31/16 16:18 08/31/16 16:18 08/31/16 16:18 - Medications Medications: Current Medications Amlodipine Besylate (Norvasc) 10 mg PO DAILY [facility] Last Admin: 08/31/16 08:48 Dose: 10 mg Aspirin (Ecotrin) 81 mg PO DAILY [facility] Last Admin: 08/31/16 08:52 Dose: 81 mg Atorvastatin Calcium (Lipitor) 80 mg PO DAILY [facility] Last Admin: 08/31/16 08:53 Dose: 80 mg Collagenase (Santyl) 1 applic TOP DAILY [facility] Last Admin: 08/30/16 14:35 Dose: 1 unit Epoetin Sudheer (Procrit) 4,000 unit IV TTS [facility] Last Admin: 08/30/16 14:35 Dose: 4,000 unit Heparin Sodium (Porcine) (Heparin) 5,000 units SC Q12 [facility] PRN Reason: Protocol Last Admin: 08/31/16 09:00 Dose: 5,000 units Vancomycin HCl 1 gm/ Sodium (Chloride) 250 mls @ 166.667 mls/hr IVPB DAILY [facility] Last Admin: 08/30/16 10:47 Dose: 166.667 mls/hr Meropenem 1 gm/ Sodium (Chloride) 100 mls @ 100 mls/hr IVPB DAILY [facility] Last Admin: 08/31/16 08:49 Dose: 100 mls/hr Insulin Detemir (Levemir) 30 units SC HS [facility] Last Admin: 08/30/16 22:00 Dose: 30 units Levothyroxine Sodium (Synthroid) 75 mcg PO DAILY@0630 [facility] Last Admin: 08/31/16 05:33 Dose: 75 mcg Metoprolol Tartrate (Lopressor) 100 mg PO Q12 [facility] Last Admin: 08/31/16 08:54 Dose: 100 mg Oxycodone/Acetaminophen (Percocet 5/325 Mg Tab) 2 tab PO Q4 PRN PRN Reason: Pain, severe (8-10) Stop: 09/03/16 17:01 Last Admin: 08/31/16 20:36 Dose: 2 tab Pantoprazole Sodium (Protonix Ec Tab) 40 mg PO DAILY@0600 [facility] Last Admin: 08/31/16 05:32 Dose: 40 mg Pregabalin (Lyrica) 50 mg PO DAILY [facility] Last Admin: 08/31/16 09:00 Dose: 50 mg Sevelamer HCl (Renagel) 800 mg PO TID [facility] Last Admin: 08/31/16 17:58 Dose: 800 mg Sitagliptin Phosphate (Januvia) 25 mg PO DAILY [facility] Last Admin: 08/31/16 09:00 Dose: 25 mg Valsartan (Diovan) 160 mg PO DAILY [facility] Last Admin: 08/31/16 08:52 Dose: 160 mg - Labs Labs: 08/31/16 05:15 08/31/16 05:15 PT 15.2 Seconds (9.8-13.1) H 08/28/16 06:05 INR 1.3 (0.9-1.2) H 08/28/16 06:05 APTT 30.8 Seconds (25.6-37.1) 08/28/16 06:05 - GI/Abdominal Exam GI & Abdominal Exam: Tenderness, Normal Bowel Sounds Assessment and Plan - Assessment and Plan (Free Text) Assessment: 76 yo female with multiple medical problems cont current care await bx results
[2016-08-31] MEDS: Insulin Detemir 100 Units/ml Inj SC SCH (21:51)
[2016-09-01] MEDS: Oxycodone/Acetaminophen 5/325 mg Tab PO PRN ×2 (03:46→21:37)
[2016-09-01] MEDS: Levothyroxine 75 MCG TAB PO SCH (05:52)
[2016-09-01] MEDS: Pantoprazole 40 mg EC Tab PO SCH (05:52)
--- NOTE | 2016-09-01 07:14 | CP.PCM.PN ---
Subjective - Date & Time of Evaluation Date of Evaluation: 09/01/16 Time of Evaluation: 06:30 - Subjective Subjective: 75 y/o female seen at bedside today 11 weeks s/p left foot TMA concerning left foot wound dehiscence. Patient continues to experience mild to moderate pain at the surgical site. Dressing is clean, dry and intact. Patient denies f/n/v/c/sob /cp at this time. Patient has no other pedal complaints. Objective - Vital Signs/Intake and Output Vital Signs (last 24 hours): Temp Pulse Resp BP Pulse Ox 98.3 F 61 20 150/70 91 L 09/01/16 00:06 09/01/16 00:06 09/01/16 00:06 09/01/16 00:06 09/01/16 00:06 - Medications Medications: Current Medications Amlodipine Besylate (Norvasc) 10 mg PO DAILY [facility] Last Admin: 08/31/16 08:48 Dose: 10 mg Aspirin (Ecotrin) 81 mg PO DAILY [facility] Last Admin: 08/31/16 08:52 Dose: 81 mg Atorvastatin Calcium (Lipitor) 80 mg PO DAILY [facility] Last Admin: 08/31/16 08:53 Dose: 80 mg Collagenase (Santyl) 1 applic TOP DAILY [facility] Last Admin: 08/30/16 14:35 Dose: 1 unit Epoetin Sudheer (Procrit) 4,000 unit IV TTS [facility] Last Admin: 08/30/16 14:35 Dose: 4,000 unit Heparin Sodium (Porcine) (Heparin) 5,000 units SC Q12 [facility] PRN Reason: Protocol Last Admin: 08/31/16 21:52 Dose: 5,000 units Vancomycin HCl 1 gm/ Sodium (Chloride) 250 mls @ 166.667 mls/hr IVPB DAILY [facility] Last Admin: 08/30/16 10:47 Dose: 166.667 mls/hr Meropenem 1 gm/ Sodium (Chloride) 100 mls @ 100 mls/hr IVPB DAILY [facility] Last Admin: 08/31/16 08:49 Dose: 100 mls/hr Insulin Detemir (Levemir) 30 units SC HS [facility] Last Admin: 08/31/16 21:51 Dose: 30 units Levothyroxine Sodium (Synthroid) 75 mcg PO DAILY@0630 [facility] Last Admin: 09/01/16 05:52 Dose: 75 mcg Metoprolol Tartrate (Lopressor) 100 mg PO Q12 [facility] Last Admin: 08/31/16 21:51 Dose: 100 mg Oxycodone/Acetaminophen (Percocet 5/325 Mg Tab) 2 tab PO Q4 PRN PRN Reason: Pain, severe (8-10) Stop: 09/03/16 17:01 Last Admin: 09/01/16 03:46 Dose: 2 tab Pantoprazole Sodium (Protonix Ec Tab) 40 mg PO DAILY@0600 [facility] Last Admin: 09/01/16 05:52 Dose: 40 mg Pregabalin (Lyrica) 50 mg PO DAILY [facility] Last Admin: 08/31/16 09:00 Dose: 50 mg Sevelamer HCl (Renagel) 800 mg PO TID [facility] Last Admin: 08/31/16 17:58 Dose: 800 mg Sitagliptin Phosphate (Januvia) 25 mg PO DAILY [facility] Last Admin: 08/31/16 09:00 Dose: 25 mg Valsartan (Diovan) 160 mg PO DAILY [facility] Last Admin: 08/31/16 08:52 Dose: 160 mg - Labs Labs: 08/31/16 05:15 08/31/16 05:15 PT 15.2 Seconds (9.8-13.1) H 08/28/16 06:05 INR 1.3 (0.9-1.2) H 08/28/16 06:05 APTT 30.8 Seconds (25.6-37.1) 08/28/16 06:05 - Constitutional Appears: Well, Non-toxic, No Acute Distress - Extremities Exam Additional comments: Left lower extremity focused exam: DERM: Open wound noted to left foot stump surgical site measuring 5cm x 2cm x 0.2cm. Wound base is necrotic. No noted purulence, drainage, or malodor. Wound does not probe to bone. Periwound is erythematous. VASC: DP 2/4. PT pulse non-palpable. No edema noted to the LE. Skin temperature warm to warm from proximal to distal. ORTHO: Mild tenderness to palpation at TMA surgical site NEURO: Gross sensation diminished - Neurological Exam Neurological Exam: Alert, Awake, Oriented x3 Assessment and Plan - Assessment and Plan (Free Text) Assessment: 75 y/o female with wound dehiscence to Left TMA site (DOS 3/31/17) Plan: Patient was seen and evaluated at bedside Discussed plan with Dr. Herrera Chart, labs and vitals reviewed Open wound dressed with saline wet to dry dressing, Santyl, DSD, and kerlix. Per Dr. Herrera pt will require daily dressing changes with santyl x 4-6 weeks at residential C/w IV abx as per ID - Dr. Whitt changed to Vanco and Meropenem, recommending IV abx for 4-6 weeks Left foot wound culture positive for E.coli and positive for MRSA No surgical interventions indicated at this time Continue with offloading prevalon boots to both feet to be worn at all times while in bed Stable per podiatry Podiatry will continue to follow
[2016-09-01] MEDS: Meropenem 1 GM in Sodium Chloride 0.9% 100 ML IVPB SCH (09:37)
--- NOTE | 2016-09-01 10:06 | CP.PCM.PN ---
Subjective - Date & Time of Evaluation Date of Evaluation: 09/01/16 Time of Evaluation: 10:00 - Subjective Subjective: no new complaints Objective - Vital Signs/Intake and Output Vital Signs (last 24 hours): Temp Pulse Resp BP Pulse Ox 97.8 F 70 20 160/71 H 93 L 09/01/16 08:18 09/01/16 09:38 09/01/16 08:18 09/01/16 09:38 09/01/16 08:18 - Medications Medications: Current Medications Amlodipine Besylate (Norvasc) 10 mg PO DAILY [facility] Last Admin: 09/01/16 09:38 Dose: 10 mg Aspirin (Ecotrin) 81 mg PO DAILY [facility] Last Admin: 09/01/16 09:35 Dose: 81 mg Atorvastatin Calcium (Lipitor) 80 mg PO DAILY [facility] Last Admin: 09/01/16 09:36 Dose: 80 mg Collagenase (Santyl) 1 applic TOP DAILY [facility] Last Admin: 08/30/16 14:35 Dose: 1 unit Epoetin Sudheer (Procrit) 4,000 unit IV TTS [facility] Last Admin: 08/30/16 14:35 Dose: 4,000 unit Heparin Sodium (Porcine) (Heparin) 5,000 units SC Q12 [facility] PRN Reason: Protocol Last Admin: 08/31/16 21:52 Dose: 5,000 units Vancomycin HCl 1 gm/ Sodium (Chloride) 250 mls @ 166.667 mls/hr IVPB DAILY [facility] Last Admin: 08/30/16 10:47 Dose: 166.667 mls/hr Meropenem 1 gm/ Sodium (Chloride) 100 mls @ 100 mls/hr IVPB DAILY [facility] Last Admin: 09/01/16 09:37 Dose: 100 mls/hr Insulin Detemir (Levemir) 30 units SC HS [facility] Last Admin: 08/31/16 21:51 Dose: 30 units Levothyroxine Sodium (Synthroid) 75 mcg PO DAILY@0630 [facility] Last Admin: 09/01/16 05:52 Dose: 75 mcg Metoprolol Tartrate (Lopressor) 100 mg PO Q12 [facility] Last Admin: 09/01/16 09:36 Dose: 100 mg Oxycodone/Acetaminophen (Percocet 5/325 Mg Tab) 2 tab PO Q4 PRN PRN Reason: Pain, severe (8-10) Stop: 09/03/16 17:01 Last Admin: 09/01/16 03:46 Dose: 2 tab Pantoprazole Sodium (Protonix Ec Tab) 40 mg PO DAILY@0600 [facility] Last Admin: 09/01/16 05:52 Dose: 40 mg Pregabalin (Lyrica) 50 mg PO DAILY [facility] Last Admin: 09/01/16 09:48 Dose: 50 mg Sevelamer HCl (Renagel) 800 mg PO TID [facility] Last Admin: 09/01/16 09:41 Dose: 800 mg Sitagliptin Phosphate (Januvia) 25 mg PO DAILY [facility] Last Admin: 09/01/16 09:42 Dose: 25 mg Valsartan (Diovan) 160 mg PO DAILY [facility] Last Admin: 09/01/16 09:35 Dose: 160 mg - Labs Labs: 08/31/16 05:15 08/31/16 05:15 PT 15.2 Seconds (9.8-13.1) H 08/28/16 06:05 INR 1.3 (0.9-1.2) H 08/28/16 06:05 APTT 30.8 Seconds (25.6-37.1) 08/28/16 06:05 - GI/Abdominal Exam GI & Abdominal Exam: Soft, Normal Bowel Sounds Assessment and Plan - Assessment and Plan (Free Text) Assessment: 76 yo female with abd discomfort await bx results laxatives prn
[2016-09-01] MEDS ORDERED: Lidocaine 1% Inj (20ml) ONE (11:15)
--- NOTE | 2016-09-01 11:21 | CP.PCM.PN ---
Subjective - Date & Time of Evaluation Date of Evaluation: 09/01/16 Time of Evaluation: 11:20 - Subjective Subjective: Patient about to have hemodialysis now No significant changes reported Vital signs stable Chest no rales Heart no rubs Abdomen soft Extremity no edema Impression and plan End stage renal disease hemodialysis Scheduled was sodium bath 138 Potassium bath 2.5 mEq Bicarbonate bath 34 Patient has anemia I disease EPO to 8000u Continue the same otherwise Objective - Vital Signs/Intake and Output Vital Signs (last 24 hours): Temp Pulse Resp BP Pulse Ox 97.8 F 70 20 160/71 H 93 L 09/01/16 08:18 09/01/16 09:38 09/01/16 08:18 09/01/16 09:38 09/01/16 08:18 - Medications Medications: Current Medications Amlodipine Besylate (Norvasc) 10 mg PO DAILY [facility] Last Admin: 09/01/16 09:38 Dose: 10 mg Aspirin (Ecotrin) 81 mg PO DAILY [facility] Last Admin: 09/01/16 09:35 Dose: 81 mg Atorvastatin Calcium (Lipitor) 80 mg PO DAILY [facility] Last Admin: 09/01/16 09:36 Dose: 80 mg Collagenase (Santyl) 1 applic TOP DAILY [facility] Last Admin: 08/30/16 14:35 Dose: 1 unit Epoetin Sudheer (Procrit) 8,000 unit IV TTS [facility] Heparin Sodium (Porcine) (Heparin) 5,000 units SC Q12 [facility] PRN Reason: Protocol Last Admin: 08/31/16 21:52 Dose: 5,000 units Vancomycin HCl 1 gm/ Sodium (Chloride) 250 mls @ 166.667 mls/hr IVPB DAILY [facility] Last Admin: 08/30/16 10:47 Dose: 166.667 mls/hr Meropenem 1 gm/ Sodium (Chloride) 100 mls @ 100 mls/hr IVPB DAILY [facility] Last Admin: 09/01/16 09:37 Dose: 100 mls/hr Insulin Detemir (Levemir) 30 units SC HS [facility] Last Admin: 08/31/16 21:51 Dose: 30 units Levothyroxine Sodium (Synthroid) 75 mcg PO DAILY@0630 [facility] Last Admin: 09/01/16 05:52 Dose: 75 mcg Metoprolol Tartrate (Lopressor) 100 mg PO Q12 [facility] Last Admin: 09/01/16 09:36 Dose: 100 mg Oxycodone/Acetaminophen (Percocet 5/325 Mg Tab) 2 tab PO Q4 PRN PRN Reason: Pain, severe (8-10) Stop: 09/03/16 17:01 Last Admin: 09/01/16 03:46 Dose: 2 tab Pantoprazole Sodium (Protonix Ec Tab) 40 mg PO DAILY@0600 [facility] Last Admin: 09/01/16 05:52 Dose: 40 mg Pregabalin (Lyrica) 50 mg PO DAILY [facility] Last Admin: 09/01/16 09:48 Dose: 50 mg Sevelamer HCl (Renagel) 800 mg PO TID [facility] Last Admin: 09/01/16 09:41 Dose: 800 mg Sitagliptin Phosphate (Januvia) 25 mg PO DAILY [facility] Last Admin: 09/01/16 09:42 Dose: 25 mg Valsartan (Diovan) 160 mg PO DAILY [facility] Last Admin: 09/01/16 09:35 Dose: 160 mg - Labs Labs: 08/31/16 05:15 08/31/16 05:15 PT 15.2 Seconds (9.8-13.1) H 08/28/16 06:05 INR 1.3 (0.9-1.2) H 08/28/16 06:05 APTT 30.8 Seconds (25.6-37.1) 08/28/16 06:05 Assessment and Plan (1) ESRD on hemodialysis Status: Acute
--- NOTE | 2016-09-01 11:39 | PCM.SURG1 ---
Surgeon's Initial Post Op Note - Surgeon's Notes Surgeon: [employer] Repairer: None Type of Anesthesia: Local Pre-Operative Diagnosis: Infection Operative Findings: Patent left basilic vein. Possible occlusion/stenosis in the brachicephalic vein junction. Post-Operative Diagnosis: Infection. Operation Performed: Left arm basilic vein 4F SL 35cm PICC placed with tip at the brachiocephalic vein junction. Specimen/Specimens Removed: None. Estimated Blood Loss: EBL {In ML}: 1 Blood Products Given: N/A Drains Used: No Drains Post-Op Condition: Good Date of Surgery/Procedure: 09/01/16 Time of Surgery/Procedure: 11:30
--- NOTE | 2016-09-01 11:50 | CP.PCM.PN ---
Subjective - Date & Time of Evaluation Date of Evaluation: 09/01/16 Time of Evaluation: 11:50 - Subjective Subjective: ID Note- pt. seen and examined today. denies any fever or chills . c/o left foot pain. Objective - Vital Signs/Intake and Output Vital Signs (last 24 hours): Temp Pulse Resp BP Pulse Ox 98 F 84 18 148/87 99 09/01/16 11:21 09/01/16 11:21 09/01/16 11:21 09/01/16 11:21 09/01/16 11:21 - Medications Medications: Current Medications Amlodipine Besylate (Norvasc) 10 mg PO DAILY [facility] Last Admin: 09/01/16 09:38 Dose: 10 mg Aspirin (Ecotrin) 81 mg PO DAILY [facility] Last Admin: 09/01/16 09:35 Dose: 81 mg Atorvastatin Calcium (Lipitor) 80 mg PO DAILY [facility] Last Admin: 09/01/16 09:36 Dose: 80 mg Collagenase (Santyl) 1 applic TOP DAILY [facility] Last Admin: 08/30/16 14:35 Dose: 1 unit Epoetin Sudheer (Procrit) 8,000 unit IV TTS [facility] Heparin Sodium (Porcine) (Heparin) 5,000 units SC Q12 [facility] PRN Reason: Protocol Last Admin: 08/31/16 21:52 Dose: 5,000 units Vancomycin HCl 1 gm/ Sodium (Chloride) 250 mls @ 166.667 mls/hr IVPB DAILY [facility] Last Admin: 08/30/16 10:47 Dose: 166.667 mls/hr Meropenem 1 gm/ Sodium (Chloride) 100 mls @ 100 mls/hr IVPB DAILY [facility] Last Admin: 09/01/16 09:37 Dose: 100 mls/hr Insulin Detemir (Levemir) 30 units SC HS [facility] Last Admin: 08/31/16 21:51 Dose: 30 units Levothyroxine Sodium (Synthroid) 75 mcg PO DAILY@0630 [facility] Last Admin: 09/01/16 05:52 Dose: 75 mcg Metoprolol Tartrate (Lopressor) 100 mg PO Q12 [facility] Last Admin: 09/01/16 09:36 Dose: 100 mg Oxycodone/Acetaminophen (Percocet 5/325 Mg Tab) 2 tab PO Q4 PRN PRN Reason: Pain, severe (8-10) Stop: 09/03/16 17:01 Last Admin: 09/01/16 03:46 Dose: 2 tab Pantoprazole Sodium (Protonix Ec Tab) 40 mg PO DAILY@0600 [facility] Last Admin: 09/01/16 05:52 Dose: 40 mg Pregabalin (Lyrica) 50 mg PO DAILY [facility] Last Admin: 09/01/16 09:48 Dose: 50 mg Sevelamer HCl (Renagel) 800 mg PO TID [facility] Last Admin: 09/01/16 09:41 Dose: 800 mg Sitagliptin Phosphate (Januvia) 25 mg PO DAILY [facility] Last Admin: 09/01/16 09:42 Dose: 25 mg Valsartan (Diovan) 160 mg PO DAILY [facility] Last Admin: 09/01/16 09:35 Dose: 160 mg - Labs Labs: - Additional Findings Additional findings: - Constitutional Appears: Non-toxic, No Acute Distress - Head Exam Head Exam: ATRAUMATIC - Eye Exam Eye Exam: EOMI Pupil Exam: PERRL - ENT Exam ENT Exam: Normal Oropharynx - Neck Exam Neck exam: Positive for: Full Rom - Respiratory Exam Respiratory Exam: Clear to Auscultation Bilateral, NORMAL BREATHING PATTERN - Cardiovascular Exam Cardiovascular Exam: RRR, +S1, +S2 Additional comments: midchest superficial area of denuded skin 2 x 4 cm wit h mild bleeding, no pus, no malodor - GI/Abdominal Exam GI & Abdominal Exam: Normal Bowel Sounds, Soft Additional comments: NT, ND - Extremities Exam Additional comments: left foot TMA site dressing clean/dry/intact - Neurological Exam Neurological exam: Alert, Oriented x 3 Laboratory Results - last 72 hr 08/29/16 08/29/16 08/29/16 15:20 18:06 23:03 WBC RBC Hgb Hct MCV MCH MCHC RDW Plt Count ESR 105 H Sodium Potassium Chloride Carbon Dioxide Anion Gap BUN Creatinine Est GFR ( Amer) Est GFR (Non-Af Amer) POC Glucose (mg/dL) 184 H 152 H Random Glucose Calcium Total Bilirubin AST ALT Alkaline Phosphatase Total Protein Albumin Globulin Albumin/Globulin Ratio Vancomycin Trough Hepatitis A IgM Ab Hep Bs Antigen Hep B Core IgM Ab Hepatitis C Antibody 08/30/16 08/30/16 08/30/16 05:04 06:00 06:00 WBC 10.9 H RBC 3.29 L Hgb 9.3 L Hct 30.1 L MCV 91.6 D MCH 28.3 MCHC 30.9 L RDW 17.5 H Plt Count 386 ESR Sodium 130 L Potassium 4.6 Chloride 93 L Carbon Dioxide 23 Anion Gap 19 BUN 34 H Creatinine 4.9 H Est GFR ( Amer) 10 Est GFR (Non-Af Amer) 9 POC Glucose (mg/dL) 149 H Random Glucose 128 H Calcium 8.6 Total Bilirubin AST ALT Alkaline Phosphatase Total Protein Albumin Globulin Albumin/Globulin Ratio Vancomycin Trough Hepatitis A IgM Ab Hep Bs Antigen Hep B Core IgM Ab Hepatitis C Antibody 08/30/16 08/30/16 08/30/16 06:00 10:59 11:44 WBC RBC Hgb Hct MCV MCH MCHC RDW Plt Count ESR Sodium Potassium Chloride Carbon Dioxide Anion Gap BUN Creatinine Est GFR ( Amer) Est GFR (Non-Af Amer) POC Glucose (mg/dL) 117 H Random Glucose Calcium Total Bilirubin AST ALT Alkaline Phosphatase Total Protein Albumin Globulin Albumin/Globulin Ratio Vancomycin Trough 29.2 H Hepatitis A IgM Ab Negative Hep Bs Antigen Negative Hep B Core IgM Ab Negative Hepatitis C Antibody Reactive H 08/30/16 08/30/16 08/31/16 16:17 21:47 05:14 WBC RBC Hgb Hct MCV MCH MCHC RDW Plt Count ESR Sodium Potassium Chloride Carbon Dioxide Anion Gap BUN Creatinine Est GFR ( Amer) Est GFR (Non-Af Amer) POC Glucose (mg/dL) 155 H 157 H 70 Random Glucose Calcium Total Bilirubin AST ALT Alkaline Phosphatase Total Protein Albumin Globulin Albumin/Globulin Ratio Vancomycin Trough Hepatitis A IgM Ab Hep Bs Antigen Hep B Core IgM Ab Hepatitis C Antibody 08/31/16 08/31/16 08/31/16 05:15 05:15 08:22 WBC 12.8 H RBC 3.22 L Hgb 9.1 L Hct 29.4 L MCV 91.3 MCH 28.2 MCHC 30.9 L RDW 17.2 H Plt Count 377 ESR Sodium 139 Potassium 4.2 Chloride 98 Carbon Dioxide 29 Anion Gap 16 BUN 19 H Creatinine 3.9 H Est GFR ( Amer) 13 Est GFR (Non-Af Amer) 11 POC Glucose (mg/dL) Random Glucose 53 L Calcium 8.8 Total Bilirubin 0.1 L AST 38 H D ALT 25 Alkaline Phosphatase 71 Total Protein 7.0 Albumin 3.3 L Globulin 3.7 Albumin/Globulin Ratio 0.9 L Vancomycin Trough 34.9 H Hepatitis A IgM Ab Hep Bs Antigen Hep B Core IgM Ab Hepatitis C Antibody 08/31/16 08/31/16 08/31/16 11:10 15:46 21:48 WBC RBC Hgb Hct MCV MCH MCHC RDW Plt Count ESR Sodium Potassium Chloride Carbon Dioxide Anion Gap BUN Creatinine Est GFR ( Amer) Est GFR (Non-Af Amer) POC Glucose (mg/dL) 100 132 H 143 H Random Glucose Calcium Total Bilirubin AST ALT Alkaline Phosphatase Total Protein Albumin Globulin Albumin/Globulin Ratio Vancomycin Trough Hepatitis A IgM Ab Hep Bs Antigen Hep B Core IgM Ab Hepatitis C Antibody 09/01/16 09/01/16 09/01/16 06:17 06:53 12:11 WBC RBC Hgb Hct MCV MCH MCHC RDW Plt Count ESR Sodium Potassium Chloride Carbon Dioxide Anion Gap BUN Creatinine Est GFR ( Amer) Est GFR (Non-Af Amer) POC Glucose (mg/dL) 66 68 91 Random Glucose Calcium Total Bilirubin AST ALT Alkaline Phosphatase Total Protein Albumin Globulin Albumin/Globulin Ratio Vancomycin Trough Hepatitis A IgM Ab Hep Bs Antigen Hep B Core IgM Ab Hepatitis C Antibody Microbiology 08/29/16 18:06 Chest Gram Stain - Final 08/29/16 18:06 Chest Wound Culture - Preliminary No growth. 08/27/16 18:00 Blood Blood Culture - Preliminary NO GROWTH AFTER 4 DAYS 08/27/16 18:00 Blood Blood Culture - Preliminary NO GROWTH AFTER 4 DAYS 08/27/16 17:40 Foot - Left Gram Stain - Final 08/27/16 17:40 Foot - Left Wound Culture - Final Escherichia Coli Methicillin Resistant S Aureus Accession No. : [id number] Patient Name / ID : JAJA LAW / [id number] Exam Date : 08/30/2016 17:13:46 ( Approved ) Study Comment : Sex / Age : F / [id number] Creator : Maria E Kenyon MD Dictator : Maria E Kenyon MD Review Consultant : Lineworker : Maria E Kenyon MD Approver2 : Report Date : 08/30/2016 18:53:36 My Comment : HISTORY: Attention right rib cage-pain COMPARISON: Chest x-ray performed 06/09/16 TECHNIQUE: Chest, one view. FINDINGS: LUNGS: The left lung base is not well visualized, presumably due to soft tissue attenuation due to habitus. Mild atelectasis/ infiltrate or small effusion cannot be excluded. No definite pneumothorax. Please note that chest x-ray has limited sensitivity for the detection of pulmonary masses. CARDIOVASCULAR: Dual lead left-sided pacemaker. Cardiomegaly. Atherosclerotic calcification of the aorta. OSSEOUS STRUCTURES: Degenerative changes of the spine and shoulders. Acromioclavicular arthropathy. Evidence of bilateral calcific tendinitis. VISUALIZED UPPER ABDOMEN: Unremarkable. OTHER FINDINGS: Vascular stent in expected location of the right subclavian vein. IMPRESSION: The left lung base is not well visualized, presumably due to soft tissue attenuation secondary to habitus. Mild atelectasis/ infiltrate or small effusion cannot be excluded. Cardiomegaly. Dual lead left-sided pacemaker. Assessment and Plan (1) Infection of amputation stump Status: Acute (2) ESRD on hemodialysis Status: Acute - Assessment and Plan (Free Text) Assessment: A/P- 76 year old female with DM II, ESRD on HD, s/p left foot TMA admitted with left foot TMA infected stump. s/p excisional debridement of hyperkeratotic borders of the TMA ulcer 2 day ago afebrile minimal leukocytosis today blood cx- neg x 2 wound cx- MRSA, ESBL e.coli foot xray- OM as per report. chest wound cx- negative plan- as per podiatry no further surgical intervention needed at this time. since OM on plain xray advise to treat with IV abx for at least 4-6 weeks as outpatient. based on the Id and sensitivity of the foot cx result advise to continue meropenem (renal dose ) and to continue with vancomycin . advise to get vancomycin 1 gram post HD days for total of 6 weeks and Meropenem 1 gram IV daily for total of 6 weeks. keep vanco trough <15. check wbc in am. All above d/w patient and the [employer] freddy at length. .
--- NOTE | 2016-09-01 15:38 | CP.PCM.PN ---
Subjective - Date & Time of Evaluation Date of Evaluation: 09/01/16 Time of Evaluation: 14:00 - Subjective Subjective: Pt s/e at bedside this AM. NAEO. Patient underwent a PICC today successfully. Patient was resting comfortably when we went in. We removed the femoral TLC without any complications Objective - Vital Signs/Intake and Output Vital Signs (last 24 hours): Temp Pulse Resp BP Pulse Ox 98 F 84 18 148/87 99 09/01/16 11:21 09/01/16 11:21 09/01/16 11:21 09/01/16 11:09/01/16 11:21 - Medications Medications: Current Medications Amlodipine Besylate (Norvasc) 10 mg PO DAILY [facility] Last Admin: 09/01/16 09:38 Dose: 10 mg Aspirin (Ecotrin) 81 mg PO DAILY [facility] Last Admin: 09/01/16 09:35 Dose: 81 mg Atorvastatin Calcium (Lipitor) 80 mg PO DAILY [facility] Last Admin: 09/01/16 09:36 Dose: 80 mg Collagenase (Santyl) 1 applic TOP DAILY [facility] Last Admin: 08/30/16 14:35 Dose: 1 unit Epoetin Sudheer (Procrit) 8,000 unit IV TTS [facility] Heparin Sodium (Porcine) (Heparin) 5,000 units SC Q12 [facility] PRN Reason: Protocol Last Admin: 08/31/16 21:52 Dose: 5,000 units Vancomycin HCl 1 gm/ Sodium (Chloride) 250 mls @ 166.667 mls/hr IVPB DAILY [facility] Last Admin: 08/30/16 10:47 Dose: 166.667 mls/hr Meropenem 1 gm/ Sodium (Chloride) 100 mls @ 100 mls/hr IVPB DAILY [facility] Last Admin: 09/01/16 09:37 Dose: 100 mls/hr Insulin Detemir (Levemir) 30 units SC HS [facility] Last Admin: 08/31/16 21:51 Dose: 30 units Levothyroxine Sodium (Synthroid) 75 mcg PO DAILY@0630 [facility] Last Admin: 09/01/16 05:52 Dose: 75 mcg Metoprolol Tartrate (Lopressor) 100 mg PO Q12 [facility] Last Admin: 09/01/16 09:36 Dose: 100 mg Oxycodone/Acetaminophen (Percocet 5/325 Mg Tab) 2 tab PO Q4 PRN PRN Reason: Pain, severe (8-10) Stop: 09/03/16 17:01 Last Admin: 09/01/16 03:46 Dose: 2 tab Pantoprazole Sodium (Protonix Ec Tab) 40 mg PO DAILY@0600 [facility] Last Admin: 09/01/16 05:52 Dose: 40 mg Pregabalin (Lyrica) 50 mg PO DAILY [facility] Last Admin: 09/01/16 09:48 Dose: 50 mg Sevelamer HCl (Renagel) 800 mg PO TID [facility] Last Admin: 09/01/16 09:41 Dose: 800 mg Sitagliptin Phosphate (Januvia) 25 mg PO DAILY [facility] Last Admin: 09/01/16 09:42 Dose: 25 mg Valsartan (Diovan) 160 mg PO DAILY [facility] Last Admin: 09/01/16 09:35 Dose: 160 mg - Labs Labs: 08/31/16 05:15 08/31/16 05:15 PT 15.2 Seconds (9.8-13.1) H 08/28/16 06:05 INR 1.3 (0.9-1.2) H 08/28/16 06:05 APTT 30.8 Seconds (25.6-37.1) 08/28/16 06:05 - Constitutional Appears: Non-toxic, No Acute Distress - Head Exam Head Exam: ATRAUMATIC, NORMOCEPHALIC - Eye Exam Eye Exam: Normal appearance. absent: Conjunctival injection, Scleral icterus - ENT Exam ENT Exam: Mucous Membranes Moist, Normal Oropharynx - Respiratory Exam Respiratory Exam: NORMAL BREATHING PATTERN. absent: Accessory Muscle Use, Wheezes - GI/Abdominal Exam GI & Abdominal Exam: absent: Distended - Extremities Exam Additional comments: TLC in the right groin without sign of hematoma, drainage, or infection - Neurological Exam Neurological Exam: Alert, Awake, Oriented x3 - Psychiatric Exam Psychiatric exam: Flat Affect, Normal Mood - Skin Skin Exam: Dry, Normal Color, Warm Additional comments: Chronic wound on chest covered in dressing intact and medihoney, no active bleeding Assessment and Plan - Assessment and Plan (Free Text) Assessment: 76F with extensive past medical history with TLC in the right groin and chronic skin wound of the chest POD#1 s/p punch biopsy -PICC placed today -Removed TLC -Skin wound doing well, follow up pathology At this time surgery will sign off the patient. Please contact surgery again with any concerns or questions. Discussed with Dr. Gabo Buhcanan, PGY1
[2016-09-01] MEDS ORDERED: Epoetin Alfa 4000 UNIT/ML Inj IV ONE (17:54)
[2016-09-01] MEDS: Epoetin Alfa 4000 UNIT/ML Inj IV SCH (18:15)
--- NOTE | 2016-09-01 18:29 | CP.PCM.PN ---
Subjective - Date & Time of Evaluation Date of Evaluation: 09/01/16 Time of Evaluation: 16:50 - Subjective Subjective: F/U L foot Osteomyelitis. Pt continue with pain in L leg and L foot, having HD now, L arm PICC inserted today. Objective - Vital Signs/Intake and Output Vital Signs (last 24 hours): Temp Pulse Resp BP Pulse Ox 98.2 F 72 20 124/59 L 93 L 09/01/16 16:06 09/01/16 16:06 09/01/16 16:06 09/01/16 16:06 09/01/16 16:06 - Medications Medications: Current Medications Amlodipine Besylate (Norvasc) 10 mg PO DAILY [facility] Last Admin: 09/01/16 09:38 Dose: 10 mg Aspirin (Ecotrin) 81 mg PO DAILY [facility] Last Admin: 09/01/16 09:35 Dose: 81 mg Atorvastatin Calcium (Lipitor) 80 mg PO DAILY [facility] Last Admin: 09/01/16 09:36 Dose: 80 mg Collagenase (Santyl) 1 applic TOP DAILY [facility] Last Admin: 08/30/16 14:35 Dose: 1 unit Epoetin Sudheer (Procrit) 8,000 unit IV TTS [facility] Heparin Sodium (Porcine) (Heparin) 5,000 units SC Q12 [facility] PRN Reason: Protocol Last Admin: 09/01/16 09:00 Dose: 5,000 units Vancomycin HCl 1 gm/ Sodium (Chloride) 250 mls @ 166.667 mls/hr IVPB DAILY [facility] Last Admin: 08/30/16 10:47 Dose: 166.667 mls/hr Meropenem 1 gm/ Sodium (Chloride) 100 mls @ 100 mls/hr IVPB DAILY [facility] Last Admin: 09/01/16 09:37 Dose: 100 mls/hr Insulin Detemir (Levemir) 30 units SC HS [facility] Last Admin: 08/31/16 21:51 Dose: 30 units Levothyroxine Sodium (Synthroid) 75 mcg PO DAILY@0630 [facility] Last Admin: 09/01/16 05:52 Dose: 75 mcg Metoprolol Tartrate (Lopressor) 100 mg PO Q12 [facility] Last Admin: 09/01/16 09:36 Dose: 100 mg Oxycodone/Acetaminophen (Percocet 5/325 Mg Tab) 2 tab PO Q4 PRN PRN Reason: Pain, severe (8-10) Stop: 09/03/16 17:01 Last Admin: 09/01/16 03:46 Dose: 2 tab Pantoprazole Sodium (Protonix Ec Tab) 40 mg PO DAILY@0600 [facility] Last Admin: 09/01/16 05:52 Dose: 40 mg Pregabalin (Lyrica) 50 mg PO DAILY [facility] Last Admin: 09/01/16 09:48 Dose: 50 mg Sevelamer HCl (Renagel) 800 mg PO TID [facility] Last Admin: 09/01/16 17:40 Dose: 800 mg Sitagliptin Phosphate (Januvia) 25 mg PO DAILY [facility] Last Admin: 09/01/16 09:42 Dose: 25 mg Valsartan (Diovan) 160 mg PO DAILY [facility] Last Admin: 09/01/16 09:35 Dose: 160 mg - Labs Labs: 08/31/16 05:15 08/31/16 05:15 PT 15.2 Seconds (9.8-13.1) H 08/28/16 06:05 INR 1.3 (0.9-1.2) H 08/28/16 06:05 APTT 30.8 Seconds (25.6-37.1) 08/28/16 06:05 - Constitutional Appears: No Acute Distress, Chronically Ill - Head Exam Head Exam: NORMAL INSPECTION - Eye Exam Eye Exam: PERRL - ENT Exam ENT Exam: Normal Oropharynx - Neck Exam Neck Exam: Normal Inspection - Respiratory Exam Respiratory Exam: NORMAL BREATHING PATTERN - Cardiovascular Exam Cardiovascular Exam: Irregular Rhythm - GI/Abdominal Exam GI & Abdominal Exam: Soft, Tenderness (RUQ), Normal Bowel Sounds. absent: Guarding, Rebound - Extremities Exam Extremities Exam: Tenderness (L foot, dressing in place) Additional comments: L arm PICC line in place. 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
[2016-09-01 18:33] LABS: HEMATOCRIT 32.6 % (34.0-47.0); MEAN CELL VOLUME 89.7 fl (81.0-99.0); MEAN CORPUSCULAR HGB CONC 31.2 g/dL (33.0-37.0); RED CELL DISTRIBUTION WIDTH 17.9 % (11.5-14.5); WHITE BLOOD COUNT 16.6 K/uL (4.8-10.8)
[2016-09-01] MEDS: Insulin Detemir 100 Units/ml Inj SC SCH (21:40)
[2016-09-02] MEDS: Levothyroxine 75 MCG TAB PO SCH (05:57)
[2016-09-02] MEDS: Pantoprazole 40 mg EC Tab PO SCH (05:57)
[2016-09-02] MEDS: Oxycodone/Acetaminophen 5/325 mg Tab PO PRN ×2 (05:58→18:47)
--- NOTE | 2016-09-02 06:29 | CP.PCM.PN ---
Subjective - Date & Time of Evaluation Date of Evaluation: 09/02/16 Time of Evaluation: 06:27 - Subjective Subjective: 76 year old female patient seen at bedside today 11 weeks s/p left foot TMA with distal stump wound dehiscence. Patient reports persistent pain at the surgical site and on the bottom of her foot. Patient denies any calf pain to her LLE. Patient denies pain to her RLE. Patient denies N/V/F/C/SOB. No other pedal complaints. Objective - Vital Signs/Intake and Output Vital Signs (last 24 hours): Temp Pulse Resp BP Pulse Ox 98.2 F 81 20 121/61 93 L 09/01/16 16:06 09/01/16 21:38 09/01/16 16:06 09/01/16 21:38 09/01/16 16:06 - Medications Medications: Current Medications Amlodipine Besylate (Norvasc) 10 mg PO DAILY [facility] Last Admin: 09/01/16 09:38 Dose: 10 mg Aspirin (Ecotrin) 81 mg PO DAILY [facility] Last Admin: 09/01/16 09:35 Dose: 81 mg Atorvastatin Calcium (Lipitor) 80 mg PO DAILY [facility] Last Admin: 09/01/16 09:36 Dose: 80 mg Collagenase (Santyl) 1 applic TOP DAILY [facility] Last Admin: 08/30/16 14:35 Dose: 1 unit Epoetin Sudheer (Procrit) 8,000 unit IV TTS [facility] Heparin Sodium (Porcine) (Heparin) 5,000 units SC Q12 [facility] PRN Reason: Protocol Last Admin: 09/01/16 21:39 Dose: 5,000 units Vancomycin HCl 1 gm/ Sodium (Chloride) 250 mls @ 166.667 mls/hr IVPB DAILY [facility] Last Admin: 08/30/16 10:47 Dose: 166.667 mls/hr Meropenem 1 gm/ Sodium (Chloride) 100 mls @ 100 mls/hr IVPB DAILY [facility] Last Admin: 09/01/16 09:37 Dose: 100 mls/hr Insulin Detemir (Levemir) 30 units SC HS [facility] Last Admin: 09/01/16 21:40 Dose: 30 units Levothyroxine Sodium (Synthroid) 75 mcg PO DAILY@0630 [facility] Last Admin: 09/02/16 05:57 Dose: 75 mcg Metoprolol Tartrate (Lopressor) 100 mg PO Q12 [facility] Last Admin: 09/01/16 21:38 Dose: 100 mg Oxycodone/Acetaminophen (Percocet 5/325 Mg Tab) 2 tab PO Q4 PRN PRN Reason: Pain, severe (8-10) Stop: 09/03/16 17:01 Last Admin: 09/02/16 05:58 Dose: 2 tab Pantoprazole Sodium (Protonix Ec Tab) 40 mg PO DAILY@0600 [facility] Last Admin: 09/02/16 05:57 Dose: 40 mg Pregabalin (Lyrica) 50 mg PO DAILY [facility] Last Admin: 09/01/16 09:48 Dose: 50 mg Sevelamer HCl (Renagel) 800 mg PO TID [facility] Last Admin: 09/01/16 17:40 Dose: 800 mg Sitagliptin Phosphate (Januvia) 25 mg PO DAILY [facility] Last Admin: 09/01/16 09:42 Dose: 25 mg Valsartan (Diovan) 160 mg PO DAILY [facility] Last Admin: 09/01/16 09:35 Dose: 160 mg - Labs Labs: 09/01/16 18:29 09/01/16 18:29 PT 15.2 Seconds (9.8-13.1) H 08/28/16 06:05 INR 1.3 (0.9-1.2) H 08/28/16 06:05 APTT 30.8 Seconds (25.6-37.1) 08/28/16 06:05 - Constitutional Appears: Well, Non-toxic, No Acute Distress - Extremities Exam Additional comments: Focused LLE exam: Vasc: DP pulse 2/4. PT pulse nonpalpable. No edema noted. Skin temperature warm to cool from proximal to distal b/l. Neuro: Gross sensation diminished. Derm: Wound noted to lateral aspect of left foot stump surgical site measuring 5 x 2 x 0.2 cm. Wound base is 50% necrotic and 50% fibrous. Mild serosanguinous drainage noted. No purulence, fluctuance, or malodor noted. Periwound erythema noted. Superficial wound noted to distal medial stump surgical site. Wound is 20 % necrotic and 80% fibrous. No drainage noted. No purulence, fluctuance, or malodor noted. Ortho: Pain on palpation to distal stump. Mild pain on palpation noted to plantar aspect of foot. - Neurological Exam Neurological Exam: Alert, Awake, Oriented x3 - Psychiatric Exam Psychiatric exam: Normal Affect, Normal Mood Assessment and Plan - Assessment and Plan (Free Text) Assessment: 75 year old female with wound dehiscence to left TMA surgical site (DOS 06/10/16) Plan: Patient seen and evaluated at bedside Discussed with attending, Dr. Herrera Charts, labs, vitals reviewed: afebrile, leukocytosis Santyl was not at bedside - wounds dressed with DSD, Santyl to be reordered from pharmacy Per Dr. Herrera pt will require daily dressing changes [facility] C/w IV abx as per ID - Dr. Whitt changed to Meropenem, recommending IB abx for 4-6 weeks Left foot wound culture positive for E.coli and positive for MRSA No surgical interventions indicated at this time offloading prevalon boots to both feet to be worn at all times while in bed Stable per podiatry Podiatry will continue to follow while in-house
[2016-09-02] MEDS: Meropenem 1 GM in Sodium Chloride 0.9% 100 ML IVPB SCH (11:20)
--- NOTE | 2016-09-02 13:12 | CP.PCM.PN ---
Subjective - Date & Time of Evaluation Date of Evaluation: 09/02/16 Time of Evaluation: 13:10 - Subjective Subjective: Patient in bed awake consciousness No acute distress Eating okay with good appetite Physical exam Chest clear no rales Heart no rubs Abdomen soft Extremity no edema Lab data reviewed because of the anemia we'll increase EPO yesterday Continue hemodialysis TTS Antibiotics as per primary team Objective - Vital Signs/Intake and Output Vital Signs (last 24 hours): Temp Pulse Resp BP Pulse Ox 98.4 F 71 20 108/61 92 L 09/02/16 09:00 09/02/16 11:21 09/02/16 09:00 09/02/16 11:21 09/02/16 09:00 - Medications Medications: Current Medications Amlodipine Besylate (Norvasc) 10 mg PO DAILY [facility] Last Admin: 09/02/16 11:21 Dose: 10 mg Aspirin (Ecotrin) 81 mg PO DAILY [facility] Last Admin: 09/02/16 11:19 Dose: 81 mg Atorvastatin Calcium (Lipitor) 80 mg PO DAILY [facility] Last Admin: 09/02/16 11:19 Dose: 80 mg Collagenase (Santyl) 1 applic TOP DAILY [facility] Last Admin: 08/30/16 14:35 Dose: 1 unit Epoetin Sudheer (Procrit) 8,000 unit IV TTS [facility] Heparin Sodium (Porcine) (Heparin) 5,000 units SC Q12 [facility] PRN Reason: Protocol Last Admin: 09/02/16 11:19 Dose: 5,000 units Vancomycin HCl 1 gm/ Sodium (Chloride) 250 mls @ 166.667 mls/hr IVPB DAILY [facility] Last Admin: 08/30/16 10:47 Dose: 166.667 mls/hr Meropenem 1 gm/ Sodium (Chloride) 100 mls @ 100 mls/hr IVPB DAILY [facility] Last Admin: 09/02/16 11:20 Dose: 100 mls/hr Insulin Detemir (Levemir) 30 units SC HS [facility] Last Admin: 09/01/16 21:40 Dose: 30 units Levothyroxine Sodium (Synthroid) 75 mcg PO DAILY@0630 [facility] Last Admin: 09/02/16 05:57 Dose: 75 mcg Metoprolol Tartrate (Lopressor) 100 mg PO Q12 [facility] Last Admin: 09/02/16 11:20 Dose: 100 mg Oxycodone/Acetaminophen (Percocet 5/325 Mg Tab) 2 tab PO Q4 PRN PRN Reason: Pain, severe (8-10) Stop: 09/03/16 17:01 Last Admin: 09/02/16 05:58 Dose: 2 tab Pantoprazole Sodium (Protonix Ec Tab) 40 mg PO DAILY@0600 [facility] Last Admin: 09/02/16 05:57 Dose: 40 mg Pregabalin (Lyrica) 50 mg PO DAILY [facility] Last Admin: 09/02/16 11:27 Dose: 50 mg Sevelamer HCl (Renagel) 800 mg PO TID [facility] Last Admin: 09/02/16 11:21 Dose: 800 mg Sitagliptin Phosphate (Januvia) 25 mg PO DAILY [facility] Last Admin: 09/02/16 11:19 Dose: 25 mg Valsartan (Diovan) 160 mg PO DAILY [facility] Last Admin: 09/02/16 11:18 Dose: 160 mg - Labs Labs: 09/01/16 18:29 09/01/16 18:29 PT 15.2 Seconds (9.8-13.1) H 08/28/16 06:05 INR 1.3 (0.9-1.2) H 08/28/16 06:05 APTT 30.8 Seconds (25.6-37.1) 08/28/16 06:05 Assessment and Plan (1) ESRD on hemodialysis Status: Acute
--- NOTE | 2016-09-02 13:32 | CP.PCM.PN ---
Subjective - Date & Time of Evaluation Date of Evaluation: 09/02/16 Time of Evaluation: 13:31 - Subjective Subjective: ID Note- pt. s/p punch bx of her chest skin lesion . pt. denies any fever. Objective - Vital Signs/Intake and Output Vital Signs (last 24 hours): Temp Pulse Resp BP Pulse Ox 98.4 F 71 20 108/61 92 L 09/02/16 09:00 09/02/16 11:21 09/02/16 09:00 09/02/16 11:21 09/02/16 09:00 - Medications Medications: Current Medications Amlodipine Besylate (Norvasc) 10 mg PO DAILY [facility] Last Admin: 09/02/16 11:21 Dose: 10 mg Aspirin (Ecotrin) 81 mg PO DAILY [facility] Last Admin: 09/02/16 11:19 Dose: 81 mg Atorvastatin Calcium (Lipitor) 80 mg PO DAILY [facility] Last Admin: 09/02/16 11:19 Dose: 80 mg Collagenase (Santyl) 1 applic TOP DAILY [facility] Last Admin: 08/30/16 14:35 Dose: 1 unit Epoetin Sudheer (Procrit) 8,000 unit IV TTS [facility] Heparin Sodium (Porcine) (Heparin) 5,000 units SC Q12 [facility]ATHIE PRN Reason: Protocol Last Admin: 09/02/16 11:19 Dose: 5,000 units Vancomycin HCl 1 gm/ Sodium (Chloride) 250 mls @ 166.667 mls/hr IVPB DAILY [facility] Last Admin: 08/30/16 10:47 Dose: 166.667 mls/hr Meropenem 1 gm/ Sodium (Chloride) 100 mls @ 100 mls/hr IVPB DAILY [facility] Last Admin: 09/02/16 11:20 Dose: 100 mls/hr Insulin Detemir (Levemir) 30 units SC HS [facility] Last Admin: 09/01/16 21:40 Dose: 30 units Levothyroxine Sodium (Synthroid) 75 mcg PO DAILY@0630 [facility] Last Admin: 09/02/16 05:57 Dose: 75 mcg Metoprolol Tartrate (Lopressor) 100 mg PO Q12 [facility] Last Admin: 09/02/16 11:20 Dose: 100 mg Oxycodone/Acetaminophen (Percocet 5/325 Mg Tab) 2 tab PO Q4 PRN PRN Reason: Pain, severe (8-10) Stop: 09/03/16 17:01 Last Admin: 09/02/16 05:58 Dose: 2 tab Pantoprazole Sodium (Protonix Ec Tab) 40 mg PO DAILY@0600 [facility] Last Admin: 09/02/16 05:57 Dose: 40 mg Pregabalin (Lyrica) 50 mg PO DAILY [facility] Last Admin: 09/02/16 11:27 Dose: 50 mg Sevelamer HCl (Renagel) 800 mg PO TID [facility] Last Admin: 09/02/16 11:21 Dose: 800 mg Sitagliptin Phosphate (Januvia) 25 mg PO DAILY [facility] Last Admin: 09/02/16 11:19 Dose: 25 mg Valsartan (Diovan) 160 mg PO DAILY [facility] Last Admin: 09/02/16 11:18 Dose: 160 mg - Labs Labs: - Additional Findings Additional findings: - Constitutional Appears: Non-toxic, No Acute Distress - Head Exam Head Exam: ATRAUMATIC - Eye Exam Eye Exam: EOMI Pupil Exam: PERRL - ENT Exam ENT Exam: Normal Oropharynx - Neck Exam Neck exam: Positive for: Full Rom - Respiratory Exam Respiratory Exam: Clear to Auscultation Bilateral, NORMAL BREATHING PATTERN - Cardiovascular Exam Cardiovascular Exam: RRR, +S1, +S2 Additional comments: midchest superficial area of denuded skin 2 x 4 cm with superfical skin lesion and mild pus, no malodor Laboratory Results - last 72 hr 08/30/16 08/30/16 08/30/16 10:59 16:17 21:47 WBC RBC Hgb Hct MCV MCH MCHC RDW Plt Count Sodium Potassium Chloride Carbon Dioxide Anion Gap BUN Creatinine Est GFR ( Amer) Est GFR (Non-Af Amer) POC Glucose (mg/dL) 155 H 157 H Random Glucose Calcium Total Bilirubin AST ALT Alkaline Phosphatase Total Protein Albumin Globulin Albumin/Globulin Ratio Vancomycin Trough Hepatitis A IgM Ab Negative Hep Bs Antigen Negative Hep B Core IgM Ab Negative Hepatitis C Antibody Reactive H 08/31/16 08/31/16 08/31/16 05:14 05:15 05:15 WBC 12.8 H RBC 3.22 L Hgb 9.1 L Hct 29.4 L MCV 91.3 MCH 28.2 MCHC 30.9 L RDW 17.2 H Plt Count 377 Sodium 139 Potassium 4.2 Chloride 98 Carbon Dioxide 29 Anion Gap 16 BUN 19 H Creatinine 3.9 H Est GFR ( Amer) 13 Est GFR (Non-Af Amer) 11 POC Glucose (mg/dL) 70 Random Glucose 53 L Calcium 8.8 Total Bilirubin 0.1 L AST 38 H D ALT 25 Alkaline Phosphatase 71 Total Protein 7.0 Albumin 3.3 L Globulin 3.7 Albumin/Globulin Ratio 0.9 L Vancomycin Trough Hepatitis A IgM Ab Hep Bs Antigen Hep B Core IgM Ab Hepatitis C Antibody 08/31/16 08/31/16 08/31/16 08:22 11:10 15:46 WBC RBC Hgb Hct MCV MCH MCHC RDW Plt Count Sodium Potassium Chloride Carbon Dioxide Anion Gap BUN Creatinine Est GFR ( Amer) Est GFR (Non-Af Amer) POC Glucose (mg/dL) 100 132 H Random Glucose Calcium Total Bilirubin AST ALT Alkaline Phosphatase Total Protein Albumin Globulin Albumin/Globulin Ratio Vancomycin Trough 34.9 H Hepatitis A IgM Ab Hep Bs Antigen Hep B Core IgM Ab Hepatitis C Antibody 08/31/16 09/01/16 09/01/16 21:48 06:17 06:53 WBC RBC Hgb Hct MCV MCH MCHC RDW Plt Count Sodium Potassium Chloride Carbon Dioxide Anion Gap BUN Creatinine Est GFR ( Amer) Est GFR (Non-Af Amer) POC Glucose (mg/dL) 143 H 66 68 Random Glucose Calcium Total Bilirubin AST ALT Alkaline Phosphatase Total Protein Albumin Globulin Albumin/Globulin Ratio Vancomycin Trough Hepatitis A IgM Ab Hep Bs Antigen Hep B Core IgM Ab Hepatitis C Antibody 09/01/16 09/01/16 09/01/16 12:11 15:48 18:29 WBC 16.6 H RBC 3.64 L Hgb 10.2 L Hct 32.6 L MCV 89.7 MCH 28.0 MCHC 31.2 L RDW 17.9 H Plt Count 395 Sodium Potassium Chloride Carbon Dioxide Anion Gap BUN Creatinine Est GFR ( Amer) Est GFR (Non-Af Amer) POC Glucose (mg/dL) 91 99 Random Glucose Calcium Total Bilirubin AST ALT Alkaline Phosphatase Total Protein Albumin Globulin Albumin/Globulin Ratio Vancomycin Trough Hepatitis A IgM Ab Hep Bs Antigen Hep B Core IgM Ab Hepatitis C Antibody 09/01/16 09/01/16 09/02/16 18:29 21:30 07:10 WBC RBC Hgb Hct MCV MCH MCHC RDW Plt Count Sodium 139 Potassium 4.0 Chloride 98 Carbon Dioxide 32 H Anion Gap 13 BUN 10 Creatinine 2.2 H Est GFR ( Amer) 26 Est GFR (Non-Af Amer) 22 POC Glucose (mg/dL) 187 H 107 Random Glucose 129 H Calcium 9.0 Total Bilirubin AST ALT Alkaline Phosphatase Total Protein Albumin Globulin Albumin/Globulin Ratio Vancomycin Trough Hepatitis A IgM Ab Hep Bs Antigen Hep B Core IgM Ab Hepatitis C Antibody 09/02/16 09/02/16 09/02/16 11:29 11:30 15:46 WBC RBC Hgb Hct MCV MCH MCHC RDW Plt Count Sodium Potassium Chloride Carbon Dioxide Anion Gap BUN Creatinine Est GFR ( Amer) Est GFR (Non-Af Amer) POC Glucose (mg/dL) 103 151 H Random Glucose Calcium Total Bilirubin AST ALT Alkaline Phosphatase Total Protein Albumin Globulin Albumin/Globulin Ratio Vancomycin Trough 24.6 H Hepatitis A IgM Ab Hep Bs Antigen Hep B Core IgM Ab Hepatitis C Antibody Microbiology 08/29/16 18:06 Chest Gram Stain - Final 08/29/16 18:06 Chest Wound Culture - Final Coagulase Neg Staphylococcus 08/27/16 18:00 Blood Blood Culture - Final NO GROWTH AFTER 5 DAYS 08/27/16 18:00 Blood Gram Stain - Final TEST NOT PERFORMED 08/27/16 18:00 Blood Blood Culture - Final NO GROWTH AFTER 5 DAYS 08/27/16 18:00 Blood Gram Stain - Final TEST NOT PERFORMED 08/27/16 17:40 Foot - Left Gram Stain - Final 08/27/16 17:40 Foot - Left Wound Culture - Final Escherichia Coli Methicillin Resistant S Aureus - GI/Abdominal Exam GI & Abdominal Exam: Normal Bowel Sounds, Soft Additional comments: NT, ND - Extremities Exam Additional comments: left foot TMA site dressing clean/dry/intact - Neurological Exam Neurological exam: Alert, Oriented x 3 Assessment and Plan (1) Infection of amputation stump Status: Acute (2) ESRD on hemodialysis Status: Acute - Assessment and Plan (Free Text) Assessment: A/P- 76 year old female with DM II, ESRD on HD, s/p left foot TMA admitted with left foot TMA infected stump. s/p excisional debridement of hyperkeratotic borders of the TMA ulcer 3 day ago at bedside by podiatry. s/p punch bx of the chest lesion 2 days ago - Path report basal cell carcinoma afebrile rise in leukocytosis today blood cx- neg x 2 foot wound cx- MRSA, ESBL e.coli chest wound ccx- coag neg staph foot xray- OM as per report. chest wound cx- negative plan- as per podiatry no further surgical intervention needed at this time. since OM on plain xray advise to treat with IV abx for at least 4-6 weeks as outpatient. based on the Id and sensitivity of the foot cx result advise to continue meropenem (renal dose ) and to continue with vancomycin . advise to get vancomycin 1 gram post HD days for total of 6 weeks and Meropenem 1 gram IV daily for total of 6 weeks. today is day #6 of meropenem, keep vanco trough <15. check wbc in am. await chest Ct result r/o any effusoin or infiltrate. await oncology rec regarding new finding of basal cell carcinoma of the chest wall lesion. All above d/w patient and the [employer] freddy at length. .
--- NOTE | 2016-09-02 14:33 | CP.PCM.PN ---
Subjective - Date & Time of Evaluation Date of Evaluation: 09/02/16 Time of Evaluation: 15:00 - Subjective Subjective: Patient s/e at bedside this AM. NAEO. Patient denies any chest pain or pain in the skin wound of her chest. Objective - Vital Signs/Intake and Output Vital Signs (last 24 hours): Temp Pulse Resp BP Pulse Ox 98.4 F 71 20 108/61 92 L 09/02/16 09:00 09/02/16 11:21 09/02/16 09:00 09/02/16 11:21 09/02/16 09:00 - Medications Medications: Current Medications Amlodipine Besylate (Norvasc) 10 mg PO DAILY [facility] Last Admin: 09/02/16 11:21 Dose: 10 mg Aspirin (Ecotrin) 81 mg PO DAILY [facility] Last Admin: 09/02/16 11:19 Dose: 81 mg Atorvastatin Calcium (Lipitor) 80 mg PO DAILY [facility] Last Admin: 09/02/16 11:19 Dose: 80 mg Collagenase (Santyl) 1 applic TOP DAILY [facility] Last Admin: 08/30/16 14:35 Dose: 1 unit Epoetin Sudheer (Procrit) 8,000 unit IV TTS [facility] Heparin Sodium (Porcine) (Heparin) 5,000 units SC Q12 [facility]ATHIE PRN Reason: Protocol Last Admin: 09/02/16 11:19 Dose: 5,000 units Vancomycin HCl 1 gm/ Sodium (Chloride) 250 mls @ 166.667 mls/hr IVPB DAILY [facility] Last Admin: 08/30/16 10:47 Dose: 166.667 mls/hr Meropenem 1 gm/ Sodium (Chloride) 100 mls @ 100 mls/hr IVPB DAILY [facility] Last Admin: 09/02/16 11:20 Dose: 100 mls/hr Insulin Detemir (Levemir) 30 units SC HS [facility] Last Admin: 09/01/16 21:40 Dose: 30 units Levothyroxine Sodium (Synthroid) 75 mcg PO DAILY@0630 [facility] Last Admin: 09/02/16 05:57 Dose: 75 mcg Metoprolol Tartrate (Lopressor) 100 mg PO Q12 [facility] Last Admin: 09/02/16 11:20 Dose: 100 mg Oxycodone/Acetaminophen (Percocet 5/325 Mg Tab) 2 tab PO Q4 PRN PRN Reason: Pain, severe (8-10) Stop: 09/03/16 17:01 Last Admin: 09/02/16 05:58 Dose: 2 tab Pantoprazole Sodium (Protonix Ec Tab) 40 mg PO DAILY@0600 [facility] Last Admin: 09/02/16 05:57 Dose: 40 mg Pregabalin (Lyrica) 50 mg PO DAILY [facility] Last Admin: 09/02/16 11:27 Dose: 50 mg Sevelamer HCl (Renagel) 800 mg PO TID [facility] Last Admin: 09/02/16 11:21 Dose: 800 mg Sitagliptin Phosphate (Januvia) 25 mg PO DAILY [facility] Last Admin: 09/02/16 11:19 Dose: 25 mg Valsartan (Diovan) 160 mg PO DAILY [facility] Last Admin: 09/02/16 11:18 Dose: 160 mg - Labs Labs: 09/01/16 18:29 09/01/16 18:29 PT 15.2 Seconds (9.8-13.1) H 08/28/16 06:05 INR 1.3 (0.9-1.2) H 08/28/16 06:05 APTT 30.8 Seconds (25.6-37.1) 08/28/16 06:05 - Constitutional Appears: No Acute Distress - Head Exam Head Exam: ATRAUMATIC, NORMOCEPHALIC - Eye Exam Eye Exam: Normal appearance. absent: Conjunctival injection, Scleral icterus - ENT Exam ENT Exam: Mucous Membranes Moist, Normal Oropharynx - Respiratory Exam Respiratory Exam: NORMAL BREATHING PATTERN. absent: Accessory Muscle Use, Respiratory Distress - GI/Abdominal Exam GI & Abdominal Exam: absent: Distended - Extremities Exam Additional comments: right groin site where the TLC was removed is covered in a dressing c/d/i with no swelling or surrounding erythema - Neurological Exam Neurological Exam: Altered (lethargic), Awake - Psychiatric Exam Psychiatric exam: Normal Affect, Normal Mood - Skin Skin Exam: Dry, Normal Color, Warm Additional comments: Skin lesion on anterior chest--raised, smooth borders with central ulceration, approximately 4xcm horizontal and 3cm vertical dimensions Assessment and Plan - Assessment and Plan (Free Text) Assessment: 76F with extensive past medical history with chronic skin lesion of the chest POD#2 s/p punch biopsy Pathology from skin lesion: basal cell carcinoma Surgical recommendation is excision of skin lesion. Given its size it will likely need a skin graft after excision. Discussed results with Dr. Green who consulted heme/onc and is awaiting their recommendations regarding treatment Please contact surgery team once decision has been made about treatment plan and patient/family decisions regarding possible surgery We will continue to follow with you CT of chest ordered by primary d/t increasing WBC. Will follow up Discussed with Dr. Gabo Buchanan, PGY1
[2016-09-02] MEDS: Santyl Collagenase OINTMENT TOP SCH (14:49)
--- NOTE | 2016-09-02 15:00 | CP.PCM.PN ---
Subjective - Date & Time of Evaluation Date of Evaluation: 09/02/16 - Subjective Subjective: F/U Osteomyelitis L foot. Pain L foot requiring pain medication, edema RUE Objective - Vital Signs/Intake and Output Vital Signs (last 24 hours): Temp Pulse Resp BP Pulse Ox 98.4 F 71 20 108/61 92 L 09/02/16 09:00 09/02/16 11:21 09/02/16 09:00 09/02/16 11:21 09/02/16 09:00 - Medications Medications: Current Medications Amlodipine Besylate (Norvasc) 10 mg PO DAILY [facility] Last Admin: 09/02/16 11:21 Dose: 10 mg Aspirin (Ecotrin) 81 mg PO DAILY [facility] Last Admin: 09/02/16 11:19 Dose: 81 mg Atorvastatin Calcium (Lipitor) 80 mg PO DAILY [facility] Last Admin: 09/02/16 11:19 Dose: 80 mg Collagenase (Santyl) 1 applic TOP DAILY [facility] Last Admin: 09/02/16 14:49 Dose: 1 unit Epoetin Sudheer (Procrit) 8,000 unit IV TTS [facility] Heparin Sodium (Porcine) (Heparin) 5,000 units SC Q12 [facility] PRN Reason: Protocol Last Admin: 09/02/16 11:19 Dose: 5,000 units Vancomycin HCl 1 gm/ Sodium (Chloride) 250 mls @ 166.667 mls/hr IVPB DAILY [facility] Last Admin: 08/30/16 10:47 Dose: 166.667 mls/hr Meropenem 1 gm/ Sodium (Chloride) 100 mls @ 100 mls/hr IVPB DAILY [facility] Last Admin: 09/02/16 11:20 Dose: 100 mls/hr Insulin Detemir (Levemir) 30 units SC HS [facility] Last Admin: 09/01/16 21:40 Dose: 30 units Levothyroxine Sodium (Synthroid) 75 mcg PO DAILY@0630 [facility] Last Admin: 09/02/16 05:57 Dose: 75 mcg Metoprolol Tartrate (Lopressor) 100 mg PO Q12 [facility] Last Admin: 09/02/16 11:20 Dose: 100 mg Oxycodone/Acetaminophen (Percocet 5/325 Mg Tab) 2 tab PO Q4 PRN PRN Reason: Pain, severe (8-10) Stop: 09/03/16 17:01 Last Admin: 09/02/16 05:58 Dose: 2 tab Pantoprazole Sodium (Protonix Ec Tab) 40 mg PO DAILY@0600 [facility] Last Admin: 09/02/16 05:57 Dose: 40 mg Pregabalin (Lyrica) 50 mg PO DAILY [facility] Last Admin: 09/02/16 11:27 Dose: 50 mg Sevelamer HCl (Renagel) 800 mg PO TID [facility] Last Admin: 09/02/16 14:49 Dose: 800 mg Sitagliptin Phosphate (Januvia) 25 mg PO DAILY [facility] Last Admin: 09/02/16 11:19 Dose: 25 mg Valsartan (Diovan) 160 mg PO DAILY [facility] Last Admin: 09/02/16 11:18 Dose: 160 mg - Labs Labs: 09/01/16 18:29 09/01/16 18:29 PT 15.2 Seconds (9.8-13.1) H 08/28/16 06:05 INR 1.3 (0.9-1.2) H 08/28/16 06:05 APTT 30.8 Seconds (25.6-37.1) 08/28/16 06:05 - Constitutional Appears: No Acute Distress, Chronically Ill - Head Exam Head Exam: NORMAL INSPECTION - Eye Exam Eye Exam: PERRL - ENT Exam ENT Exam: Normal Oropharynx - Neck Exam Neck Exam: Normal Inspection - Respiratory Exam Respiratory Exam: NORMAL BREATHING PATTERN - Cardiovascular Exam Cardiovascular Exam: Irregular Rhythm - GI/Abdominal Exam GI & Abdominal Exam: Soft, Normal Bowel Sounds - Extremities Exam Extremities Exam: Tenderness (L foot TMA, dressing in place) Additional comments: Swelling ,edema RUE , AV shunt R arm , PICC line L arm in place - Back Exam Back Exam: NORMAL INSPECTION - Neurological Exam Neurological Exam: Alert, Oriented x3 Additional comments: Decreased sensation R-L foot, no focal motor deficit. 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
--- NOTE | 2016-09-02 15:41 | CT ---
CT chest without IV contrast Indication: Leukocytosis Technique: Contiguous axial images were obtained through the chest without intravenous contrast enhancement. Sagittal and coronal reconstructions were generated and reviewed. This CT exam was performed using 1 or more of the falling dose reduction techniques: Automated exposure control, adjustment of the MAA and/or kV according to patient size, and/or use of iterative reconstruction technique. Radiation dose (DLP): 650.74 MGy-cm. Comparison: Chest x-ray performed 08/30/16, CT chest without contrast performed 03/27/16 Findings: The inferior thyroid gland is not well visualized due to streak artifact from left-sided pacer. Question calcified nodule within the right lobe. Consider thyroid ultrasound follow-up if indicated. Endovascular stent within the right subclavian vein extending to the SVC. Dual lead left-sided pacemaker. Cardiomegaly. Dense coronary artery and valvular calcifications. Dense atherosclerotic calcifications of the aorta. Moderate size left lower lobe and lingular consolidation. Small left pleural effusion. Right basilar atelectasis. No pneumothorax. Small hiatal hernia/distal esophageal wall thickening. Limited visualization of the noncontrast upper abdomen: Cholecystectomy. Dense calcifications in the right hepatic lobe of unclear significance. Dense vascular calcifications. Degenerative changes. Chronic T11 and L1 vertebral body compression fracture deformities. Minor fish mouth end-plate deformities involving several upper thoracic vertebral bodies. Impression: Moderate size left lower lobe and lingular consolidation. Small left pleural effusion. Right basilar atelectasis. Additional findings as above.
--- NOTE | 2016-09-02 17:39 | VASCULAR ---
Procedure: Ultrasound and fluoroscopically placed left upper extremity PICC. Clinical indication: Long-term IV antibiotics. Technique: The relative risks and indications of the procedure were explained to the patient and written informed consent obtained. The patient was placed supine on the angiographic table and the left arm prepped and draped in the usual sterile fashion. A tourniquet was applied to the left axilla. 1% lidocaine was used to anesthetize the skin and soft tissues at the puncture site above the elbow. The left basilic vein was punctured under direct ultrasound guidance with a micropuncture set. Permanent image was stored. A 0.018 guidewire was advanced centrally and used to measure the length to the SVC/RA junction. A for Japanese single -lumen PICC size 35 cm long was advanced to the SVC/RA junction under fluoroscopic guidance. The catheter was flushed and secured. The patient tolerated the procedure well. Postprocedure chest image was obtained to ensure location of the catheter tip at the SVC right atrial junction. No postprocedure pneumothorax identified. Impression: Ultrasound and fluoroscopically placed left upper extremity PICC. A 4 Japanese single -lumen PICC line size 35 cm long was advanced to the SVC/RA junction. PICC is ready for use.
[2016-09-02] MEDS: Insulin Detemir 100 Units/ml Inj SC SCH (22:51)
[2016-09-03] MEDS: Levothyroxine 75 MCG TAB PO SCH (06:58)
[2016-09-03 08:03] LABS: BASO # 0.1 K/uL (0.0-0.2); BASO % 0.8 % (0.0-2.0); EOS # 0.2 K/uL (0.0-0.7); HEMATOCRIT 32.7 % (34.0-47.0); LYMPH # 1.6 K/uL (1.0-4.3); LYMPH % 13.7 % (20.0-40.0); MEAN CORPUSCULAR HEMOGLOBIN 27.9 pg (27.0-31.0); MEAN CORPUSCULAR HGB CONC 30.4 g/dL (33.0-37.0); MEAN PLATELET VOLUME 8.3 fl (7.2-11.7); MONO # 1.7 K/uL (0.0-0.8); MONO % 14.5 % (0.0-10.0); NEUT # 8.2 K/uL (1.8-7.0); NRBC % 0.2 % (0.0-0.0); RED CELL DISTRIBUTION WIDTH 18.4 % (11.5-14.5); WHITE BLOOD COUNT 11.8 K/uL (4.8-10.8)
[2016-09-03 08:06] LABS: MEAN CELL VOLUME 91.9 fl (81.0-99.0)
[2016-09-03 08:11] LABS: ALB/GLOB RATIO 0.9 (1.0-2.1); BILIRUBIN,TOTAL 0.2 mg/dl (0.2-1.3); CALCIUM 9.3 mg/dL (8.4-10.2); TOTAL PROTEIN 7.6 G/DL (6.3-8.2)
[2016-09-03] MEDS: Pantoprazole 40 mg EC Tab PO SCH (08:36)
[2016-09-03] MEDS: Meropenem 1 GM in Sodium Chloride 0.9% 100 ML IVPB SCH (09:36)
[2016-09-03] MEDS: Oxycodone/Acetaminophen 5/325 mg Tab PO PRN ×2 (09:50→22:06)
--- NOTE | 2016-09-03 09:53 | CP.PCM.CON ---
History of Present Illness - History of Present Illness History of Present Illness: This is a 76 yrs old female who was admitted for severe stump pain after amputation of 3 digits of her left foot. She has a h/o HTN, DM, CAD, CRD, Hypothyroidism, hyperlopidemia, and Gall bladder disease. She has been in the hospital since 08/27 and her foot has been taken care of with minimal pain, no signs of infection. Now she had a lesion on the right chest wall , and the biopsy of this shows a basal cell carcinoma. A consult is requested for the treatment of the same. She does have some itching of the lesion, but no pain. Past Patient History - Infectious Disease Hx of Infectious Diseases: None - Past Medical History & Family History Past Medical History?: Yes - Past Social History Alcohol: None Drugs: Denies - CARDIAC Hx Cardiac Disorders: Yes Hx Atrial Fibrillation: Yes Hx Congestive Heart Failure: Yes Hx Hypercholesterolemia: Yes Hx Hypertension: Yes Hx Pacemaker: Yes - PULMONARY Hx Respiratory Disorders: Yes Hx Pneumonia: Yes - NEUROLOGICAL Hx Neurological Disorder: No - HEENT Hx HEENT Problems: No - RENAL Hx Chronic Kidney Disease: Yes Hx Dialysis: Yes Hx Kidney Stones: Yes Hx Renal Failure: Yes - ENDOCRINE/METABOLIC Hx Endocrine Disorders: Yes Hx Diabetes Mellitus Type 2: Yes Hx Hypothyroidism: Yes - HEMATOLOGICAL/ONCOLOGICAL Hx Blood Disorders: Yes Hx Anemia: Yes - INTEGUMENTARY Hx Dermatological Problems: No - MUSCULOSKELETAL/RHEUMATOLOGICAL Hx Musculoskeletal Disorders: Yes Hx Arthritis: Yes - GASTROINTESTINAL Hx Gastrointestinal Disorders: Yes Hx Gall Bladder Disease: Yes - GENITOURINARY/GYNECOLOGICAL Hx Genitourinary Disorders: No - PSYCHIATRIC Hx Psychophysiologic Disorder: No - SURGICAL HISTORY Hx Surgeries: Yes Hx Amputation: Yes (L TMA) Hx Cholecystectomy: Yes Hx Coronary Artery Bypass Graft: Yes Hx Coronary Stent: Yes - ANESTHESIA Hx Anesthesia: Yes Hx Anesthesia Reactions: No Hx Malignant Hyperthermia: No Meds Home Medications: Home Medication List Medication Instructions Recorded Confirmed Type Collagenase [Santyl] 1 applic TOP DAILY 09/01/16 Rx Epoetin Sudheer [Procrit] 8,000 unit IV TTS ml 09/01/16 Rx Heparin 5,000 units SC Q12 vial 09/01/16 Rx Meropenem [Merrem IV] 1 gm IVPB DAILY #42 vial 09/01/16 Rx Vancomycin 1 GM [Vancomycin 1GM in 1 gm IVPB TTS #18 bag 09/01/16 Rx Normal Saline Addvantage] oxyCODONE/Acetaminophen [Percocet 2 tab PO Q4 PRN #20 tab 09/01/16 Rx 5/325 mg Tab] Allergies/Adverse Reactions: Allergies Allergy/AdvReac Type Severity Reaction Status Date / Time No Known Allergies Allergy Verified 04/15/15 18:53 - Medications Medications: Current Medications Amlodipine Besylate (Norvasc) 10 mg PO DAILY [facility] Last Admin: 09/03/16 09:35 Dose: Not Given Aspirin (Ecotrin) 81 mg PO DAILY [facility] Last Admin: 09/03/16 09:34 Dose: 81 mg Atorvastatin Calcium (Lipitor) 80 mg PO DAILY [facility] Last Admin: 09/03/16 09:33 Dose: 80 mg Collagenase (Santyl) 1 applic TOP DAILY [facility] Last Admin: 09/02/16 14:49 Dose: 1 unit Epoetin Sudheer (Procrit) 8,000 unit IV TTS [facility] Heparin Sodium (Porcine) (Heparin) 5,000 units SC Q12 [facility] PRN Reason: Protocol Last Admin: 09/03/16 09:34 Dose: 5,000 units Vancomycin HCl 1 gm/ Sodium (Chloride) 250 mls @ 166.667 mls/hr IVPB DAILY [facility] Last Admin: 08/30/16 10:47 Dose: 166.667 mls/hr Meropenem 1 gm/ Sodium (Chloride) 100 mls @ 100 mls/hr IVPB DAILY [facility] Last Admin: 09/03/16 09:36 Dose: 100 mls/hr Insulin Detemir (Levemir) 30 units SC HS [facility] Last Admin: 09/02/16 22:51 Dose: 30 units Levothyroxine Sodium (Synthroid) 75 mcg PO DAILY@0630 [facility] Last Admin: 09/03/16 06:58 Dose: 75 mcg Metoprolol Tartrate (Lopressor) 100 mg PO Q12 [facility] Last Admin: 09/03/16 09:35 Dose: Not Given Oxycodone/Acetaminophen (Percocet 5/325 Mg Tab) 2 tab PO Q4 PRN PRN Reason: Pain, severe (8-10) Stop: 09/03/16 17:01 Last Admin: 09/03/16 09:50 Dose: 2 tab Pantoprazole Sodium (Protonix Ec Tab) 40 mg PO DAILY@0600 [facility] Last Admin: 09/03/16 08:36 Dose: 40 mg Pregabalin (Lyrica) 50 mg PO DAILY [facility] Last Admin: 09/03/16 09:50 Dose: 50 mg Sevelamer HCl (Renagel) 800 mg PO TID [facility] Last Admin: 09/03/16 09:33 Dose: 800 mg Sitagliptin Phosphate (Januvia) 25 mg PO DAILY [facility] Last Admin: 09/03/16 09:33 Dose: 25 mg Valsartan (Diovan) 160 mg PO DAILY [facility] Last Admin: 09/03/16 09:32 Dose: 160 mg Physical Exam - Additional Findings Additional findings: Physical exam: Pt is alert, awake in no acute distress neck; supple, no adenopathy Chest; Clear, no rales or rhonchi Heart ; RSR, no murmur Abd; Soft no mass, no h/s megaly EXT:Foot wound healing well. On the right chest wall closer to the midline is a lesion 3 cms in size, raised edges,biopsy diagnosis of basal cell cancer Results - Vital Signs Recent Vital Signs: Last Vital Signs Temp 97.7 F 09/03/16 08:03 Pulse 62 09/03/16 08:03 Resp 20 09/03/16 08:03 BP 142/63 09/03/16 08:03 Pulse Ox 96 09/03/16 08:03 - Labs Result Diagrams: 09/03/16 06:00 09/03/16 06:00 Labs: Laboratory Results - last 24 hr 09/02/16 09/02/16 09/02/16 11:29 11:30 15:46 WBC RBC Hgb Hct MCV MCH MCHC RDW Plt Count MPV Neut % (Auto) Lymph % (Auto) [place] % (Auto) Eos % (Auto) Baso % (Auto) Neut # Lymph # [place] # Eos # Baso # Sodium Potassium Chloride Carbon Dioxide Anion Gap BUN Creatinine Est GFR ( Amer) Est GFR (Non-Af Amer) POC Glucose (mg/dL) 103 151 H Random Glucose Calcium Total Bilirubin AST ALT Alkaline Phosphatase Total Protein Albumin Globulin Albumin/Globulin Ratio Vancomycin Trough 24.6 H 09/02/16 09/03/16 09/03/16 21:44 06:00 06:00 WBC 11.8 H RBC 3.56 L Hgb 9.9 L Hct 32.7 L MCV 91.9 D MCH 27.9 MCHC 30.4 L RDW 18.4 H Plt Count 375 MPV 8.3 Neut % (Auto) 69.0 Lymph % (Auto) 13.7 L [place] % (Auto) 14.5 H Eos % (Auto) 2.0 Baso % (Auto) 0.8 Neut # 8.2 H Lymph # 1.6 [place] # 1.7 H Eos # 0.2 Baso # 0.1 Sodium 138 Potassium 5.0 Chloride 98 Carbon Dioxide 27 Anion Gap 18 BUN 27 H Creatinine 4.5 H Est GFR ( Amer) 11 Est GFR (Non-Af Amer) 9 POC Glucose (mg/dL) 140 H Random Glucose 47 L Calcium 9.3 Total Bilirubin 0.2 AST 19 ALT 27 Alkaline Phosphatase 71 Total Protein 7.6 Albumin 3.6 Globulin 4.1 H Albumin/Globulin Ratio 0.9 L Vancomycin Trough 09/03/16 09/03/16 06:28 08:29 WBC RBC Hgb Hct MCV MCH MCHC RDW Plt Count MPV Neut % (Auto) Lymph % (Auto) [place] % (Auto) Eos % (Auto) Baso % (Auto) Neut # Lymph # [place] # Eos # Baso # Sodium Potassium Chloride Carbon Dioxide Anion Gap BUN Creatinine Est GFR ( Amer) Est GFR (Non-Af Amer) POC Glucose (mg/dL) 60 L 72 Random Glucose Calcium Total Bilirubin AST ALT Alkaline Phosphatase Total Protein Albumin Globulin Albumin/Globulin Ratio Vancomycin Trough Assessment & Plan - Assessment and Plan (Free Text) Assessment: Impression; In addition to several co morbid problems, pt has a basal cell cancer on the right chest wall. Plan: Plan; I feel pt needs a wider and deeper exicion of the lesion. - Date & Time Date: 09/03/16 Time: 10:09
--- NOTE | 2016-09-03 12:07 | CP.PCM.PN ---
Subjective - Date & Time of Evaluation Date of Evaluation: 09/03/16 Time of Evaluation: 08:10 - Subjective Subjective: 76 year old female seen at bedside today resting comfortably. Patient is AAOx3 and NAD. Patient is 11 weeks s/p left foot TMA concerning wound dehiscence. Patient reports persistent pain to left foot, specifically at the bottom of her foot and at the surgical site. Patient denies any pain to either heel. Patient denies calf pain. Patient denies N/V/F/D/SOB. No other pedal complaints. Objective - Vital Signs/Intake and Output Vital Signs (last 24 hours): Temp Pulse Resp BP Pulse Ox 97.7 F 62 20 142/63 96 09/03/16 08:03 09/03/16 08:03 09/03/16 08:03 09/03/16 08:03 09/03/16 08:03 - Medications Medications: Current Medications Amlodipine Besylate (Norvasc) 10 mg PO DAILY [facility] Last Admin: 09/03/16 09:35 Dose: Not Given Aspirin (Ecotrin) 81 mg PO DAILY [facility] Last Admin: 09/03/16 09:34 Dose: 81 mg Atorvastatin Calcium (Lipitor) 80 mg PO DAILY [facility] Last Admin: 09/03/16 09:33 Dose: 80 mg Collagenase (Santyl) 1 applic TOP DAILY [facility] Last Admin: 09/02/16 14:49 Dose: 1 unit Epoetin Sudheer (Procrit) 8,000 unit IV TTS [facility] Heparin Sodium (Porcine) (Heparin) 5,000 units SC Q12 [facility] PRN Reason: Protocol Last Admin: 09/03/16 09:34 Dose: 5,000 units Vancomycin HCl 1 gm/ Sodium (Chloride) 250 mls @ 166.667 mls/hr IVPB DAILY [facility] Last Admin: 08/30/16 10:47 Dose: 166.667 mls/hr Meropenem 1 gm/ Sodium (Chloride) 100 mls @ 100 mls/hr IVPB DAILY [facility] Last Admin: 09/03/16 09:36 Dose: 100 mls/hr Insulin Detemir (Levemir) 30 units SC HS [facility] Last Admin: 09/02/16 22:51 Dose: 30 units Levothyroxine Sodium (Synthroid) 75 mcg PO DAILY@0630 [facility] Last Admin: 09/03/16 06:58 Dose: 75 mcg Metoprolol Tartrate (Lopressor) 100 mg PO Q12 [facility] Last Admin: 09/03/16 09:35 Dose: Not Given Oxycodone/Acetaminophen (Percocet 5/325 Mg Tab) 2 tab PO Q4 PRN PRN Reason: Pain, severe (8-10) Stop: 09/03/16 17:01 Last Admin: 09/03/16 09:50 Dose: 2 tab Pantoprazole Sodium (Protonix Ec Tab) 40 mg PO DAILY@0600 [facility] Last Admin: 09/03/16 08:36 Dose: 40 mg Pregabalin (Lyrica) 50 mg PO DAILY [facility] Last Admin: 09/03/16 09:50 Dose: 50 mg Sevelamer HCl (Renagel) 800 mg PO TID [facility] Last Admin: 09/03/16 09:33 Dose: 800 mg Sitagliptin Phosphate (Januvia) 25 mg PO DAILY [facility] Last Admin: 09/03/16 09:33 Dose: 25 mg Valsartan (Diovan) 160 mg PO DAILY [facility] Last Admin: 09/03/16 09:32 Dose: 160 mg - Labs Labs: 09/03/16 06:00 09/03/16 06:00 PT 15.2 Seconds (9.8-13.1) H 08/28/16 06:05 INR 1.3 (0.9-1.2) H 08/28/16 06:05 APTT 30.8 Seconds (25.6-37.1) 08/28/16 06:05 - Constitutional Appears: Well, Non-toxic, No Acute Distress - Extremities Exam Additional comments: Focused left lower extremity physical exam: Vasc: DP pulse 2/4. PT pulse nonpalpable. No edema noted. SKin temperature warm to cool from proximal to distal. Neuro: Gross sensation diminished. Derm: Open wound noted to distal aspect of left stump measuring 5 x 2 x 0.2 cm. Wound base is necrotic. No purulence, drainage, malodor noted. Wound does not probe to bone. Periwound is erythematous. Ortho: Tenderness to palpation to TMA surgical site and plantar aspect of foot. No pain on palpation noted to calf. - Neurological Exam Neurological Exam: Alert, Awake, Oriented x3 - Psychiatric Exam Psychiatric exam: Normal Affect Assessment and Plan - Assessment and Plan (Free Text) Assessment: 76 year old F with wound dehiscence to L TMA (DOS 06/10/16) Plan: Patient was seen and evaluated at bedside Discussed plan with Dr. Herrera Chart, labs and vitals reviewed Open wound dressed with saline wet to dry dressing, DSD, and kerlix. Santyl ordered --will dress tomorrow. Per Dr. Herrera pt will require daily dressing changes with santyl x 4-6 weeks at custodial C/w IV abx as per ID - Dr. Whitt changed to Vanco and Meropenem, recommending IV abx for 4-6 weeks Left foot wound culture positive for E.coli and positive for MRSA No surgical interventions indicated at this time Continue with offloading prevalon boots to both feet to be worn at all times while in bed Stable per podiatry Podiatry will continue to follow
[2016-09-03] MEDS: Epoetin Alfa 20000 UNIT/ML (RENAL DOSE) IV SCH (16:28)
[2016-09-03] MEDS: Santyl Collagenase OINTMENT TOP SCH (16:31)
[2016-09-03] MEDS ORDERED: Meropenem 1 GM in Sodium Chloride 0.9% 100 ML IVPB SCH (17:01)
--- NOTE | 2016-09-03 17:10 | CP.PCM.PN ---
Subjective - Date & Time of Evaluation Date of Evaluation: 09/03/16 Time of Evaluation: 15:20 - Subjective Subjective: L foot Osteomyelitis. Pt c/o of pain in L foot. Objective - Vital Signs/Intake and Output Vital Signs (last 24 hours): Temp Pulse Resp BP Pulse Ox 98.5 F 64 20 123/66 95 09/03/16 16:53 09/03/16 16:53 09/03/16 16:53 09/03/16 16:53 09/03/16 16:53 - Medications Medications: Current Medications Amlodipine Besylate (Norvasc) 10 mg PO DAILY [facility] Last Admin: 09/03/16 09:35 Dose: Not Given Aspirin (Ecotrin) 81 mg PO DAILY [facility] Last Admin: 09/03/16 09:34 Dose: 81 mg Atorvastatin Calcium (Lipitor) 80 mg PO DAILY [facility] Last Admin: 09/03/16 09:33 Dose: 80 mg Collagenase (Santyl) 1 applic TOP DAILY [facility] Last Admin: 09/03/16 16:31 Dose: Not Given Epoetin Sudheer (Procrit) 8,000 unit IV TTS [facility] Last Admin: 09/03/16 16:28 Dose: 8,000 unit Heparin Sodium (Porcine) (Heparin) 5,000 units SC Q12 [facility] PRN Reason: Protocol Last Admin: 09/03/16 09:34 Dose: 5,000 units Vancomycin HCl 1 gm/ Sodium (Chloride) 250 mls @ 166.667 mls/hr IVPB DAILY [facility] Last Admin: 08/30/16 10:47 Dose: 166.667 mls/hr Meropenem 1 gm/ Sodium (Chloride) 100 mls @ 100 mls/hr IVPB DAILY [facility] Insulin Detemir (Levemir) 30 units SC HS [facility] Last Admin: 09/02/16 22:51 Dose: 30 units Levothyroxine Sodium (Synthroid) 75 mcg PO DAILY@0630 [facility] Last Admin: 09/03/16 06:58 Dose: 75 mcg Metoprolol Tartrate (Lopressor) 100 mg PO Q12 [facility] Last Admin: 09/03/16 09:35 Dose: Not Given Pantoprazole Sodium (Protonix Ec Tab) 40 mg PO DAILY@0600 [facility] Last Admin: 09/03/16 08:36 Dose: 40 mg Pregabalin (Lyrica) 50 mg PO DAILY [facility] Last Admin: 09/03/16 09:50 Dose: 50 mg Sevelamer HCl (Renagel) 800 mg PO TID [facility] Last Admin: 09/03/16 16:42 Dose: 800 mg Sitagliptin Phosphate (Januvia) 25 mg PO DAILY [facility] Last Admin: 09/03/16 09:33 Dose: 25 mg Valsartan (Diovan) 160 mg PO DAILY [facility] Last Admin: 09/03/16 09:32 Dose: 160 mg - Labs Labs: 09/03/16 06:00 09/03/16 06:00 PT 15.2 Seconds (9.8-13.1) H 08/28/16 06:05 INR 1.3 (0.9-1.2) H 08/28/16 06:05 APTT 30.8 Seconds (25.6-37.1) 08/28/16 06:05 - Constitutional Appears: No Acute Distress, Chronically Ill - Head Exam Head Exam: NORMAL INSPECTION - Eye Exam Eye Exam: PERRL - ENT Exam ENT Exam: Normal Oropharynx - Neck Exam Neck Exam: Normal Inspection - Respiratory Exam Respiratory Exam: NORMAL BREATHING PATTERN - Cardiovascular Exam Cardiovascular Exam: Irregular Rhythm - GI/Abdominal Exam GI & Abdominal Exam: Soft, Normal Bowel Sounds - Extremities Exam Extremities Exam: Tenderness (L foot TMA, dressing in place) Additional comments: Swelling, edema RUE, AV shunt R arm, PICC line L arm in place. - Back Exam Back Exam: NORMAL INSPECTION - Neurological Exam Neurological Exam: Alert, Oriented x3 Additional comments: Decreased sensation R-L foot, no focal motor deficit. 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 Hematology consult appreciated, f/u Venous U-S RUE, Plastic Surgery consult for excision and skin graft of basal cell carcinoma.
[2016-09-03] MEDS: Insulin Detemir 100 Units/ml Inj SC SCH (22:00)
--- NOTE | 2016-09-03 22:39 | CP.PCM.PN ---
Subjective - Date & Time of Evaluation Date of Evaluation: 09/03/16 Time of Evaluation: 15:00 - Subjective Subjective: no events overnight Objective - Vital Signs/Intake and Output Vital Signs (last 24 hours): Temp Pulse Resp BP Pulse Ox 98.5 F 88 20 106/61 95 09/03/16 16:53 09/03/16 21:56 09/03/16 16:53 09/03/16 21:56 09/03/16 16:53 - Medications Medications: Current Medications Amlodipine Besylate (Norvasc) 10 mg PO DAILY [facility] Last Admin: 09/03/16 09:35 Dose: Not Given Aspirin (Ecotrin) 81 mg PO DAILY [facility] Last Admin: 09/03/16 09:34 Dose: 81 mg Atorvastatin Calcium (Lipitor) 80 mg PO DAILY [facility] Last Admin: 09/03/16 09:33 Dose: 80 mg Collagenase (Santyl) 1 applic TOP DAILY [facility] Last Admin: 09/03/16 16:31 Dose: Not Given Epoetin Sudheer (Procrit) 8,000 unit IV TTS [facility] Last Admin: 09/03/16 16:28 Dose: 8,000 unit Heparin Sodium (Porcine) (Heparin) 5,000 units SC Q12 [facility] PRN Reason: Protocol Last Admin: 09/03/16 21:57 Dose: 5,000 units Vancomycin HCl 1 gm/ Sodium (Chloride) 250 mls @ 166.667 mls/hr IVPB DAILY [facility] Last Admin: 08/30/16 10:47 Dose: 166.667 mls/hr Meropenem 1 gm/ Sodium (Chloride) 100 mls @ 100 mls/hr IVPB DAILY@0900 [facility] Insulin Detemir (Levemir) 30 units SC HS [facility] Last Admin: 09/03/16 22:00 Dose: 30 units Levothyroxine Sodium (Synthroid) 75 mcg PO DAILY@0630 [facility] Last Admin: 09/03/16 06:58 Dose: 75 mcg Metoprolol Tartrate (Lopressor) 100 mg PO Q12 [facility] Last Admin: 09/03/16 21:56 Dose: 100 mg Oxycodone/Acetaminophen (Percocet 5/325 Mg Tab) 2 tab PO Q4 PRN PRN Reason: Pain, severe (8-10) Stop: 09/06/16 21:53 Last Admin: 06/24/17 22:06 Dose: 2 tab Pantoprazole Sodium (Protonix Ec Tab) 40 mg PO DAILY@0600 [facility] Last Admin: 09/03/16 08:36 Dose: 40 mg Pregabalin (Lyrica) 50 mg PO DAILY [facility] Last Admin: 09/03/16 09:50 Dose: 50 mg Sevelamer HCl (Renagel) 800 mg PO TID [facility] Last Admin: 09/03/16 16:42 Dose: 800 mg Sitagliptin Phosphate (Januvia) 25 mg PO DAILY [facility] Last Admin: 09/03/16 09:33 Dose: 25 mg Valsartan (Diovan) 160 mg PO DAILY [facility] Last Admin: 09/03/16 09:32 Dose: 160 mg - Labs Labs: 09/03/16 06:00 09/03/16 06:00 PT 15.2 Seconds (9.8-13.1) H 08/28/16 06:05 INR 1.3 (0.9-1.2) H 08/28/16 06:05 APTT 30.8 Seconds (25.6-37.1) 08/28/16 06:05 - Constitutional Appears: Non-toxic, No Acute Distress - Head Exam Head Exam: NORMAL INSPECTION - Eye Exam Eye Exam: Normal appearance - ENT Exam ENT Exam: Mucous Membranes Moist - Neck Exam Neck Exam: Normal Inspection - Respiratory Exam Respiratory Exam: NORMAL BREATHING PATTERN - Cardiovascular Exam Cardiovascular Exam: +S1, +S2 - GI/Abdominal Exam GI & Abdominal Exam: Soft - Neurological Exam Neurological Exam: Alert, Awake, Oriented x3 Assessment and Plan - Assessment and Plan (Free Text) Plan: esrd/htn/skin lesion BCC/anemia hd tts anemia,stable on epo but with new diagnosis of basal cell cancer, defer to oncology for recommendations if any about mark and BCC jayson reviewed bp ok
[2016-09-04] MEDS: Oxycodone/Acetaminophen 5/325 mg Tab PO PRN ×2 (02:17→06:28)
[2016-09-04] MEDS: Levothyroxine 75 MCG TAB PO SCH (06:28)
[2016-09-04] MEDS: Pantoprazole 40 mg EC Tab PO SCH (06:29)
[2016-09-04] MEDS: Santyl Collagenase OINTMENT TOP SCH ×2 (08:57→08:58)
[2016-09-04] MEDS: Meropenem 1 GM in Sodium Chloride 0.9% 100 ML IVPB SCH (09:02)
--- NOTE | 2016-09-04 09:41 | CP.PCM.PN ---
Subjective - Date & Time of Evaluation Date of Evaluation: 09/04/16 Time of Evaluation: 08:35 - Subjective Subjective: 76 year old female seen at bedside for 11 weeks s/p left foot TMA concerning wound dehiscence. She is seen at bedside resting comfortably in bed. She is seen alert and orientated. Patient admits to pain to left foot in the same location at the bottom of her foot and at the surgical site. Patient denies N/V/ F/D/SOB. Objective - Vital Signs/Intake and Output Vital Signs (last 24 hours): Temp Pulse Resp BP Pulse Ox 97.8 F 60 17 136/67 95 09/04/16 08:07 09/04/16 08:55 09/04/16 08:07 09/04/16 08:55 09/04/16 08:07 - Medications Medications: Current Medications Amlodipine Besylate (Norvasc) 10 mg PO DAILY [facility] Last Admin: 09/04/16 08:55 Dose: 10 mg Aspirin (Ecotrin) 81 mg PO DAILY [facility] Last Admin: 09/04/16 08:56 Dose: 81 mg Atorvastatin Calcium (Lipitor) 80 mg PO DAILY [facility] Last Admin: 09/04/16 08:58 Dose: 80 mg Collagenase (Santyl) 1 applic TOP DAILY [facility] Last Admin: 09/04/16 08:58 Dose: 1 applic Epoetin Sudheer (Procrit) 8,000 unit IV TTS [facility] Last Admin: 09/03/16 16:28 Dose: 8,000 unit Heparin Sodium (Porcine) (Heparin) 5,000 units SC Q12 [facility] PRN Reason: Protocol Last Admin: 09/04/16 08:56 Dose: 5,000 units Vancomycin HCl 1 gm/ Sodium (Chloride) 250 mls @ 166.667 mls/hr IVPB DAILY [facility] Last Admin: 08/30/16 10:47 Dose: 166.667 mls/hr Meropenem 1 gm/ Sodium (Chloride) 100 mls @ 100 mls/hr IVPB DAILY@0900 [facility] Last Admin: 09/04/16 09:02 Dose: 100 mls/hr Insulin Detemir (Levemir) 30 units SC HS [facility] Last Admin: 09/03/16 22:00 Dose: 30 units Levothyroxine Sodium (Synthroid) 75 mcg PO DAILY@0630 [facility] Last Admin: 09/04/16 06:28 Dose: 75 mcg Metoprolol Tartrate (Lopressor) 100 mg PO Q12 [facility] Last Admin: 09/04/16 08:54 Dose: 100 mg Oxycodone/Acetaminophen (Percocet 5/325 Mg Tab) 2 tab PO Q4 PRN PRN Reason: Pain, severe (8-10) Stop: 09/06/16 21:53 Last Admin: 09/04/16 06:28 Dose: 2 tab Pantoprazole Sodium (Protonix Ec Tab) 40 mg PO DAILY@0600 [facility] Last Admin: 09/04/16 06:29 Dose: 40 mg Pregabalin (Lyrica) 50 mg PO DAILY [facility] Last Admin: 09/04/16 09:10 Dose: 50 mg Sevelamer HCl (Renagel) 800 mg PO TID [facility] Last Admin: 09/04/16 08:53 Dose: 800 mg Sitagliptin Phosphate (Januvia) 25 mg PO DAILY [facility] Last Admin: 09/04/16 08:54 Dose: 25 mg Valsartan (Diovan) 160 mg PO DAILY [facility] Last Admin: 09/04/16 08:56 Dose: 160 mg - Labs Labs: 09/03/16 06:00 09/03/16 06:00 PT 15.2 Seconds (9.8-13.1) H 08/28/16 06:05 INR 1.3 (0.9-1.2) H 08/28/16 06:05 APTT 30.8 Seconds (25.6-37.1) 08/28/16 06:05 - Constitutional Appears: Well, Non-toxic, No Acute Distress - Extremities Exam Additional comments: Focused left lower extremity physical exam: Vasc: DP pulse 2/4. PT pulse nonpalpable. No edema noted. SKin temperature warm to cool from proximal to distal. Neuro: Gross sensation diminished. Derm: Open wound noted to distal aspect of left stump measuring 5 x 2 x 0.2 cm. Wound base is necrotic. No purulence, drainage, malodor noted. No tunneling or undermining noted. Wound does not probe to bone. Ortho: Pain to palpation to TMA surgical site and plantar aspect of foot. - Neurological Exam Neurological Exam: Alert, Awake, Oriented x3 - Psychiatric Exam Psychiatric exam: Normal Affect, Normal Mood Assessment and Plan - Assessment and Plan (Free Text) Assessment: 76 year old female with wound dehiscence to L TMA (DOS 06/10/16) Plan: Patient was seen and evaluated at bedside Discussed plan in detail with Dr. Herrera Chart and vitals reviewed Wound was dressed with saline wet to dry dressing and Santyl, DSD, and kerlix. Per Dr. Herrera pt will require daily dressing changes with santyl x 4-6 weeks at [facility] C/w IV abx as per ID - Dr. Whitt changed to Vanco and Meropenem, recommending IV abx for 4-6 weeks Left foot wound culture positive for E.coli and positive for MRSA No surgical interventions indicated at this time Continue with offloading prevalon boots to both feet to be worn at all times while in bed Stable per podiatry Podiatry will continue to follow
--- NOTE | 2016-09-04 19:53 | CP.PCM.PN ---
Subjective - Date & Time of Evaluation Date of Evaluation: 09/04/16 Time of Evaluation: 11:30 - Subjective Subjective: L Foot Osteomyelitis. Pain L foot, but requiring less pain medication as per nurse Objective - Vital Signs/Intake and Output Vital Signs (last 24 hours): Temp Pulse Resp BP Pulse Ox 98 F 63 20 134/69 96 09/04/16 16:22 09/04/16 16:22 09/04/16 16:22 09/04/16 16:22 09/04/16 16:22 - Medications Medications: Current Medications Amlodipine Besylate (Norvasc) 10 mg PO DAILY [facility] Last Admin: 09/04/16 08:55 Dose: 10 mg Aspirin (Ecotrin) 81 mg PO DAILY [facility] Last Admin: 09/04/16 08:56 Dose: 81 mg Atorvastatin Calcium (Lipitor) 80 mg PO DAILY [facility] Last Admin: 09/04/16 08:58 Dose: 80 mg Collagenase (Santyl) 1 applic TOP DAILY [facility] Last Admin: 09/04/16 08:58 Dose: 1 applic Epoetin Sudheer (Procrit) 8,000 unit IV TTS [facility] Last Admin: 09/03/16 16:28 Dose: 8,000 unit Heparin Sodium (Porcine) (Heparin) 5,000 units SC Q12 [facility] PRN Reason: Protocol Last Admin: 09/04/16 08:56 Dose: 5,000 units Meropenem 1 gm/ Sodium (Chloride) 100 mls @ 100 mls/hr IVPB DAILY@0900 [facility] Last Admin: 09/04/16 09:02 Dose: 100 mls/hr Insulin Detemir (Levemir) 20 units SC HS [facility] Levothyroxine Sodium (Synthroid) 75 mcg PO DAILY@0630 [facility] Last Admin: 09/04/16 06:28 Dose: 75 mcg Metoprolol Tartrate (Lopressor) 100 mg PO Q12 [facility] Last Admin: 09/04/16 08:54 Dose: 100 mg Oxycodone/Acetaminophen (Percocet 5/325 Mg Tab) 2 tab PO Q4 PRN PRN Reason: Pain, severe (8-10) Stop: 09/06/16 21:53 Last Admin: 09/04/16 06:28 Dose: 2 tab Pantoprazole Sodium (Protonix Ec Tab) 40 mg PO DAILY@0600 [facility] Last Admin: 09/04/16 06:29 Dose: 40 mg Sevelamer HCl (Renagel) 800 mg PO TID [facility] Last Admin: 09/04/16 16:38 Dose: 800 mg Sitagliptin Phosphate (Januvia) 25 mg PO DAILY [facility] Last Admin: 09/04/16 08:54 Dose: 25 mg Valsartan (Diovan) 160 mg PO DAILY [facility] Last Admin: 09/04/16 08:56 Dose: 160 mg - Labs Labs: 09/03/16 06:00 09/03/16 06:00 PT 15.2 Seconds (9.8-13.1) H 08/28/16 06:05 INR 1.3 (0.9-1.2) H 08/28/16 06:05 APTT 30.8 Seconds (25.6-37.1) 08/28/16 06:05 - Constitutional Appears: No Acute Distress, Chronically Ill - Head Exam Head Exam: NORMAL INSPECTION - Eye Exam Eye Exam: PERRL - ENT Exam ENT Exam: Normal Oropharynx - Neck Exam Neck Exam: Normal Inspection - Respiratory Exam Respiratory Exam: NORMAL BREATHING PATTERN - Cardiovascular Exam Cardiovascular Exam: Irregular Rhythm - GI/Abdominal Exam GI & Abdominal Exam: Soft, Normal Bowel Sounds - Extremities Exam Extremities Exam: Tenderness (L foot TMA, dressing in place) Additional comments: Swelling, edema RUE, AV shunt R arm, PICC line in place , open wound with necrotic base L foot stump - Back Exam Back Exam: NORMAL INSPECTION - Neurological Exam Neurological Exam: Alert, Oriented x3 Additional comments: Decreased sensation R-L foot, no focal motor deficit. 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 Thyroid nodule , f/u US U/E
[2016-09-04] MEDS: Insulin Detemir 100 Units/ml Inj SC SCH (22:59)
[2016-09-05] MEDS: Pantoprazole 40 mg EC Tab PO SCH (06:48)
[2016-09-05] MEDS: Levothyroxine 75 MCG TAB PO SCH (06:48)
--- NOTE | 2016-09-05 07:59 | CP.PCM.PN ---
Subjective - Date & Time of Evaluation Date of Evaluation: 09/05/16 Time of Evaluation: 09:43 - Subjective Subjective: 76 y/o female seen at bedside s/p 12 weeks of L foot TMA. Pt appears in NAD and is AAOx3. Pt denies of any acute overnight events. Pt admits to having mild pain at the surgical site. Pt denies of any F/N/V/C/SOB today. Pt's dressing is clean, dry and intact. Objective - Vital Signs/Intake and Output Vital Signs (last 24 hours): Temp Pulse Resp BP Pulse Ox 98.4 F 71 19 140/70 100 09/05/16 00:14 09/05/16 00:14 09/05/16 00:14 09/05/16 00:14 09/05/16 00:14 - Medications Medications: Current Medications Amlodipine Besylate (Norvasc) 10 mg PO DAILY [facility] Last Admin: 09/04/16 08:55 Dose: 10 mg Aspirin (Ecotrin) 81 mg PO DAILY [facility] Last Admin: 09/04/16 08:56 Dose: 81 mg Atorvastatin Calcium (Lipitor) 80 mg PO DAILY [facility] Last Admin: 09/04/16 08:58 Dose: 80 mg Collagenase (Santyl) 1 applic TOP DAILY [facility] Last Admin: 09/04/16 08:58 Dose: 1 applic Epoetin Sudheer (Procrit) 8,000 unit IV TTS [facility] Last Admin: 09/03/16 16:28 Dose: 8,000 unit Heparin Sodium (Porcine) (Heparin) 5,000 units SC Q12 [facility] PRN Reason: Protocol Last Admin: 09/04/16 21:51 Dose: 5,000 units Meropenem 1 gm/ Sodium (Chloride) 100 mls @ 100 mls/hr IVPB DAILY@0900 [facility] Last Admin: 09/04/16 09:02 Dose: 100 mls/hr Insulin Detemir (Levemir) 20 units SC HS [facility] Last Admin: 09/04/16 22:59 Dose: 20 u Levothyroxine Sodium (Synthroid) 75 mcg PO DAILY@0630 [facility] Last Admin: 09/05/16 06:48 Dose: 75 mcg Metoprolol Tartrate (Lopressor) 100 mg PO Q12 [facility] Last Admin: 09/04/16 21:49 Dose: 100 mg Oxycodone/Acetaminophen (Percocet 5/325 Mg Tab) 2 tab PO Q4 PRN PRN Reason: Pain, severe (8-10) Stop: 09/06/16 21:53 Last Admin: 09/04/16 06:28 Dose: 2 tab Pantoprazole Sodium (Protonix Ec Tab) 40 mg PO DAILY@0600 [facility] Last Admin: 09/05/16 06:48 Dose: 40 mg Sevelamer HCl (Renagel) 800 mg PO TID [facility] Last Admin: 09/04/16 16:38 Dose: 800 mg Sitagliptin Phosphate (Januvia) 25 mg PO DAILY [facility] Last Admin: 09/04/16 08:54 Dose: 25 mg Valsartan (Diovan) 160 mg PO DAILY [facility] Last Admin: 09/04/16 08:56 Dose: 160 mg - Labs Labs: 09/03/16 06:00 09/03/16 06:00 PT 15.2 Seconds (9.8-13.1) H 08/28/16 06:05 INR 1.3 (0.9-1.2) H 08/28/16 06:05 APTT 30.8 Seconds (25.6-37.1) 08/28/16 06:05 - Constitutional Appears: Well, Non-toxic, No Acute Distress - Exam Additional comments: Vasc: DP pulse are 2/4. PT pulse are nonpalpable, Temperature gradient: warm to cool, No edema noted. Derm: Open wound noted to distal aspect of left stump measuring approximately 5 x 2 x 0.2 cm. Wound base is necrotic with mild fibrosis noted. No active drainage, no purulence, no malodor noted. no tunneling or undermining noted. No probe to bone noted Neuro: Gross sensation diminished. Ortho: Pain to palpation to TMA surgical site and plantar aspect of foot. - Neurological Exam Neurological Exam: Alert, Awake, Oriented x3 Assessment and Plan - Assessment and Plan (Free Text) Assessment: 76 y/o female with 12 weeks s/p L foot TMA (DOS 06/10/16) Plan: Patient was seen and evaluated at bedside Discussed plan in detail with Dr. Herrera Chart and vitals reviewed Wound was dressed with Santyl, DSD, and kerlix. C/w IV abx as per ID Left foot wound culture positive for E.coli and positive for MRSA No surgical interventions indicated at this time Continue with offloading prevalon boots to both feet to be worn at all times while in bed Stable per podiatry Podiatry will continue to follow
--- NOTE | 2016-09-05 08:10 | CP.PCM.PN ---
Subjective - Date & Time of Evaluation Date of Evaluation: 09/05/16 Time of Evaluation: 08:08 - Subjective Subjective: General Surgery - Dr. Ayon Pt S&E. MADELIN. Pt denies any complaints. Chest wound dressing changed, area is clean and dry. Objective - Vital Signs/Intake and Output Vital Signs (last 24 hours): Temp Pulse Resp BP Pulse Ox 98.4 F 71 19 140/70 100 09/05/16 00:14 09/05/16 00:14 09/05/16 00:14 09/05/16 00:14 09/05/16 00:14 - Medications Medications: Current Medications Amlodipine Besylate (Norvasc) 10 mg PO DAILY [facility] Last Admin: 09/04/16 08:55 Dose: 10 mg Aspirin (Ecotrin) 81 mg PO DAILY [facility] Last Admin: 09/04/16 08:56 Dose: 81 mg Atorvastatin Calcium (Lipitor) 80 mg PO DAILY [facility] Last Admin: 09/04/16 08:58 Dose: 80 mg Collagenase (Santyl) 1 applic TOP DAILY [facility] Last Admin: 09/04/16 08:58 Dose: 1 applic Epoetin Sudheer (Procrit) 8,000 unit IV TTS [facility] Last Admin: 09/03/16 16:28 Dose: 8,000 unit Heparin Sodium (Porcine) (Heparin) 5,000 units SC Q12 [facility] PRN Reason: Protocol Last Admin: 09/04/16 21:51 Dose: 5,000 units Meropenem 1 gm/ Sodium (Chloride) 100 mls @ 100 mls/hr IVPB DAILY@0900 [facility] Last Admin: 09/04/16 09:02 Dose: 100 mls/hr Insulin Detemir (Levemir) 20 units SC HS [facility] Last Admin: 09/04/16 22:59 Dose: 20 u Levothyroxine Sodium (Synthroid) 75 mcg PO DAILY@0630 [facility] Last Admin: 09/05/16 06:48 Dose: 75 mcg Metoprolol Tartrate (Lopressor) 100 mg PO Q12 [facility] Last Admin: 09/04/16 21:49 Dose: 100 mg Oxycodone/Acetaminophen (Percocet 5/325 Mg Tab) 2 tab PO Q4 PRN PRN Reason: Pain, severe (8-10) Stop: 09/06/16 21:53 Last Admin: 09/04/16 06:28 Dose: 2 tab Pantoprazole Sodium (Protonix Ec Tab) 40 mg PO DAILY@0600 [facility] Last Admin: 09/05/16 06:48 Dose: 40 mg Sevelamer HCl (Renagel) 800 mg PO TID [facility] Last Admin: 09/04/16 16:38 Dose: 800 mg Sitagliptin Phosphate (Januvia) 25 mg PO DAILY [facility] Last Admin: 09/04/16 08:54 Dose: 25 mg Valsartan (Diovan) 160 mg PO DAILY [facility] Last Admin: 09/04/16 08:56 Dose: 160 mg - Labs Labs: 09/03/16 06:00 09/03/16 06:00 PT 15.2 Seconds (9.8-13.1) H 08/28/16 06:05 INR 1.3 (0.9-1.2) H 08/28/16 06:05 APTT 30.8 Seconds (25.6-37.1) 08/28/16 06:05 - Constitutional Appears: No Acute Distress - Head Exam Head Exam: ATRAUMATIC, NORMAL INSPECTION, NORMOCEPHALIC - Eye Exam Eye Exam: Normal appearance - Respiratory Exam Respiratory Exam: NORMAL BREATHING PATTERN. absent: Respiratory Distress - Cardiovascular Exam Cardiovascular Exam: REGULAR RHYTHM Additional comments: midline chest wound w/ clean 4x4 dressing in place s/p skin bx - Neurological Exam Neurological Exam: Alert, Awake - Skin Skin Exam: Dry, Intact Assessment and Plan - Assessment and Plan (Free Text) Assessment: 76 yo F w/ non-healing chest wound s/p punch bx w/ path confirmed basal cell ca -Recc. Excision w/ skin graft -Plastic surgery consulted for management -Will defer to plastics team -No further general surgery intervention, we will sign off, reconsult PRN DW Dr Gabo Amaral PGy2
[2016-09-05 08:59] VITALS: RESP 20
--- NOTE | 2016-09-05 09:07 | US ---
HISTORY: MD order TECHNIQUE: Sonographic evaluation of the thyroid gland. COMPARISON: Not available FINDINGS: RIGHT LOBE: Measures 5.3 x 1.8 x 1.8 cm. Normal echotexture and flow. Nodules: None LEFT LOBE: Measures 4.4 x 1.4 x 1.4 cm. Normal echotexture and flow. Nodules: None ISTHMUS: Measures 0.4 cm. Normal echotexture and flow. Nodules: None OTHER FINDINGS: None . IMPRESSION: Unremarkable thyroid sonographic examination. No thyroid mass identified.
[2016-09-05] MEDS: Santyl Collagenase OINTMENT TOP SCH (09:42)
[2016-09-05] MEDS: Meropenem 1 GM in Sodium Chloride 0.9% 100 ML IVPB SCH (09:43)
--- NOTE | 2016-09-05 10:59 | CP.PCM.PN ---
Subjective - Date & Time of Evaluation Date of Evaluation: 09/05/16 Time of Evaluation: 10:58 - Subjective Subjective: Patient and bed appears to be comfortable Vital sign noted to be stable Physical exam Chest wall so where she has a biopsy and open wound Abdomen soft Extremity no edema Patient and plan End stage renal disease on dialysis TTS Continue diagnosis basal cell carcinoma on the chest wall waiting for the plastic surgery evaluation. Objective - Vital Signs/Intake and Output Vital Signs (last 24 hours): Temp Pulse Resp BP Pulse Ox 98.8 F 62 20 134/53 L 94 L 09/05/16 08:58 09/05/16 09:38 09/05/16 08:58 09/05/16 09:38 09/05/16 08:58 - Medications Medications: Current Medications Amlodipine Besylate (Norvasc) 10 mg PO DAILY [facility] Last Admin: 09/05/16 09:36 Dose: 10 mg Aspirin (Ecotrin) 81 mg PO DAILY [facility] Last Admin: 09/05/16 09:39 Dose: 81 mg Atorvastatin Calcium (Lipitor) 80 mg PO DAILY [facility] Last Admin: 09/05/16 09:36 Dose: 80 mg Collagenase (Santyl) 1 applic TOP DAILY [facility] Last Admin: 09/05/16 09:42 Dose: 1 applic Epoetin Sudheer (Procrit) 8,000 unit IV TTS [facility] Last Admin: 09/03/16 16:28 Dose: 8,000 unit Heparin Sodium (Porcine) (Heparin) 5,000 units SC Q12 [facility] PRN Reason: Protocol Last Admin: 09/05/16 09:41 Dose: 5,000 units Meropenem 1 gm/ Sodium (Chloride) 100 mls @ 100 mls/hr IVPB DAILY@0900 [facility] Last Admin: 09/05/16 09:43 Dose: 100 mls/hr Insulin Detemir (Levemir) 20 units SC HS [facility] Last Admin: 09/04/16 22:59 Dose: 20 u Levothyroxine Sodium (Synthroid) 75 mcg PO DAILY@0630 [facility] Last Admin: 09/05/16 06:48 Dose: 75 mcg Metoprolol Tartrate (Lopressor) 100 mg PO Q12 [facility] Last Admin: 09/05/16 09:38 Dose: 100 mg Oxycodone/Acetaminophen (Percocet 5/325 Mg Tab) 2 tab PO Q4 PRN PRN Reason: Pain, severe (8-10) Stop: 09/06/16 21:53 Last Admin: 09/04/16 06:28 Dose: 2 tab Pantoprazole Sodium (Protonix Ec Tab) 40 mg PO DAILY@0600 [facility] Last Admin: 09/05/16 06:48 Dose: 40 mg Sevelamer HCl (Renagel) 800 mg PO TID [facility] Last Admin: 09/05/16 09:38 Dose: 800 mg Sitagliptin Phosphate (Januvia) 25 mg PO DAILY [facility] Last Admin: 09/05/16 09:40 Dose: 25 mg Valsartan (Diovan) 160 mg PO DAILY [facility] Last Admin: 09/05/16 09:40 Dose: 160 mg - Labs Labs: 09/03/16 06:00 09/03/16 06:00 PT 15.2 Seconds (9.8-13.1) H 08/28/16 06:05 INR 1.3 (0.9-1.2) H 08/28/16 06:05 APTT 30.8 Seconds (25.6-37.1) 08/28/16 06:05 Assessment and Plan (1) ESRD on hemodialysis Status: Acute
[2016-09-05 11:08] LABS: POTASSIUM 4.6 MMOL/L (3.6-5.0)
[2016-09-05 11:09] LABS: MEAN CELL VOLUME 90.2 fl (81.0-99.0); MEAN CORPUSCULAR HEMOGLOBIN 27.9 pg (27.0-31.0); MEAN CORPUSCULAR HGB CONC 30.9 g/dL (33.0-37.0); RED CELL DISTRIBUTION WIDTH 18.8 % (11.5-14.5); WHITE BLOOD COUNT 14.2 K/uL (4.8-10.8)
[2016-09-05 11:11] LABS: CALCIUM 9.2 mg/dL (8.4-10.2)
--- NOTE | 2016-09-05 13:52 | CP.PCM.PN ---
Subjective - Date & Time of Evaluation Date of Evaluation: 09/05/16 Time of Evaluation: 13:49 - Subjective Subjective: ID Note- Pt. seen and examined today. denies any fever or chills. Objective - Vital Signs/Intake and Output Vital Signs (last 24 hours): Temp Pulse Resp BP Pulse Ox 98.8 F 62 20 134/53 L 94 L 09/05/16 08:58 09/05/16 09:38 09/05/16 08:58 09/05/16 09:38 09/05/16 08:58 - Medications Medications: Current Medications Amlodipine Besylate (Norvasc) 10 mg PO DAILY [facility] Last Admin: 09/05/16 09:36 Dose: 10 mg Aspirin (Ecotrin) 81 mg PO DAILY [facility] Last Admin: 09/05/16 09:39 Dose: 81 mg Atorvastatin Calcium (Lipitor) 80 mg PO DAILY [facility] Last Admin: 09/05/16 09:36 Dose: 80 mg Collagenase (Santyl) 1 applic TOP DAILY [facility] Last Admin: 09/05/16 09:42 Dose: 1 applic Epoetin Sudheer (Procrit) 8,000 unit IV TTS [facility] Last Admin: 09/03/16 16:28 Dose: 8,000 unit Heparin Sodium (Porcine) (Heparin) 5,000 units SC Q12 [facility] PRN Reason: Protocol Last Admin: 09/05/16 09:41 Dose: 5,000 units Meropenem 1 gm/ Sodium (Chloride) 100 mls @ 100 mls/hr IVPB DAILY@0900 [facility] Last Admin: 09/05/16 09:43 Dose: 100 mls/hr Insulin Detemir (Levemir) 20 units SC HS [facility] Last Admin: 09/04/16 22:59 Dose: 20 u Levothyroxine Sodium (Synthroid) 75 mcg PO DAILY@0630 [facility] Last Admin: 09/05/16 06:48 Dose: 75 mcg Metoprolol Tartrate (Lopressor) 100 mg PO Q12 [facility] Last Admin: 09/05/16 09:38 Dose: 100 mg Oxycodone/Acetaminophen (Percocet 5/325 Mg Tab) 2 tab PO Q4 PRN PRN Reason: Pain, severe (8-10) Stop: 09/06/16 21:53 Last Admin: 09/04/16 06:28 Dose: 2 tab Pantoprazole Sodium (Protonix Ec Tab) 40 mg PO DAILY@0600 [facility] Last Admin: 09/05/16 06:48 Dose: 40 mg Sevelamer HCl (Renagel) 800 mg PO TID [facility] Last Admin: 09/05/16 12:36 Dose: 800 mg Sitagliptin Phosphate (Januvia) 25 mg PO DAILY [facility] Last Admin: 09/05/16 09:40 Dose: 25 mg Valsartan (Diovan) 160 mg PO DAILY [facility] Last Admin: 09/05/16 09:40 Dose: 160 mg - Labs Labs: - Additional Findings Additional findings: - Constitutional Appears: Non-toxic, No Acute Distress - Head Exam Head Exam: ATRAUMATIC - Eye Exam Eye Exam: EOMI Pupil Exam: PERRL - ENT Exam ENT Exam: Normal Oropharynx - Neck Exam Neck exam: Positive for: Full Rom - Respiratory Exam Respiratory Exam: Clear to Auscultation Bilateral, NORMAL BREATHING PATTERN - Cardiovascular Exam Cardiovascular Exam: RRR, +S1, +S2 Additional comments: midchest superficial area of denuded skin 2 x 4 cm with superficial skin lesion a, no pus today no malodor Laboratory Results - last 72 hr 09/02/16 09/02/16 09/02/16 11:30 15:46 21:44 WBC RBC Hgb Hct MCV MCH MCHC RDW Plt Count MPV Neut % (Auto) Lymph % (Auto) Rankin % (Auto) Eos % (Auto) Baso % (Auto) Neut # Lymph # Rankin # Eos # Baso # Sodium Potassium Chloride Carbon Dioxide Anion Gap BUN Creatinine Est GFR ( Amer) Est GFR (Non-Af Amer) POC Glucose (mg/dL) 151 H 140 H Random Glucose Calcium Total Bilirubin AST ALT Alkaline Phosphatase Total Protein Albumin Globulin Albumin/Globulin Ratio Vancomycin Trough 24.6 H 09/03/16 09/03/16 09/03/16 06:00 06:00 06:28 WBC 11.8 H RBC 3.56 L Hgb 9.9 L Hct 32.7 L MCV 91.9 D MCH 27.9 MCHC 30.4 L RDW 18.4 H Plt Count 375 MPV 8.3 Neut % (Auto) 69.0 Lymph % (Auto) 13.7 L Rankin % (Auto) 14.5 H Eos % (Auto) 2.0 Baso % (Auto) 0.8 Neut # 8.2 H Lymph # 1.6 Rankin # 1.7 H Eos # 0.2 Baso # 0.1 Sodium 138 Potassium 5.0 Chloride 98 Carbon Dioxide 27 Anion Gap 18 BUN 27 H Creatinine 4.5 H Est GFR ( Amer) 11 Est GFR (Non-Af Amer) 9 POC Glucose (mg/dL) 60 L Random Glucose 47 L Calcium 9.3 Total Bilirubin 0.2 AST 19 ALT 27 Alkaline Phosphatase 71 Total Protein 7.6 Albumin 3.6 Globulin 4.1 H Albumin/Globulin Ratio 0.9 L Vancomycin Trough 09/03/16 09/03/16 09/03/16 08:29 10:57 16:03 WBC RBC Hgb Hct MCV MCH MCHC RDW Plt Count MPV Neut % (Auto) Lymph % (Auto) Rankin % (Auto) Eos % (Auto) Baso % (Auto) Neut # Lymph # Rankin # Eos # Baso # Sodium Potassium Chloride Carbon Dioxide Anion Gap BUN Creatinine Est GFR ( Amer) Est GFR (Non-Af Amer) POC Glucose (mg/dL) 72 92 125 H Random Glucose Calcium Total Bilirubin AST ALT Alkaline Phosphatase Total Protein Albumin Globulin Albumin/Globulin Ratio Vancomycin Trough 09/03/16 09/04/16 09/04/16 21:09 02:23 05:17 WBC RBC Hgb Hct MCV MCH MCHC RDW Plt Count MPV Neut % (Auto) Lymph % (Auto) Rankin % (Auto) Eos % (Auto) Baso % (Auto) Neut # Lymph # Rankin # Eos # Baso # Sodium Potassium Chloride Carbon Dioxide Anion Gap BUN Creatinine Est GFR ( Amer) Est GFR (Non-Af Amer) POC Glucose (mg/dL) 110 95 67 Random Glucose Calcium Total Bilirubin AST ALT Alkaline Phosphatase Total Protein Albumin Globulin Albumin/Globulin Ratio Vancomycin Trough 09/04/16 09/04/16 09/04/16 06:36 10:47 12:22 WBC RBC Hgb Hct MCV MCH MCHC RDW Plt Count MPV Neut % (Auto) Lymph % (Auto) Rankin % (Auto) Eos % (Auto) Baso % (Auto) Neut # Lymph # Rankin # Eos # Baso # Sodium Potassium Chloride Carbon Dioxide Anion Gap BUN Creatinine Est GFR ( Amer) Est GFR (Non-Af Amer) POC Glucose (mg/dL) 64 L 70 65 Random Glucose Calcium Total Bilirubin AST ALT Alkaline Phosphatase Total Protein Albumin Globulin Albumin/Globulin Ratio Vancomycin Trough 09/04/16 09/04/16 09/04/16 15:57 21:04 22:54 WBC RBC Hgb Hct MCV MCH MCHC RDW Plt Count MPV Neut % (Auto) Lymph % (Auto) Rankin % (Auto) Eos % (Auto) Baso % (Auto) Neut # Lymph # Rankin # Eos # Baso # Sodium Potassium Chloride Carbon Dioxide Anion Gap BUN Creatinine Est GFR ( Amer) Est GFR (Non-Af Amer) POC Glucose (mg/dL) 96 80 93 Random Glucose Calcium Total Bilirubin AST ALT Alkaline Phosphatase Total Protein Albumin Globulin Albumin/Globulin Ratio Vancomycin Trough 09/05/16 09/05/16 09/05/16 03:05 05:25 06:59 WBC RBC Hgb Hct MCV MCH MCHC RDW Plt Count MPV Neut % (Auto) Lymph % (Auto) Rankin % (Auto) Eos % (Auto) Baso % (Auto) Neut # Lymph # Rankin # Eos # Baso # Sodium Potassium Chloride Carbon Dioxide Anion Gap BUN Creatinine Est GFR ( Amer) Est GFR (Non-Af Amer) POC Glucose (mg/dL) 100 145 H Random Glucose Calcium Total Bilirubin AST ALT Alkaline Phosphatase Total Protein Albumin Globulin Albumin/Globulin Ratio Vancomycin Trough 17.6 H 09/05/16 09/05/16 09/05/16 10:53 10:53 11:49 WBC 14.2 H RBC 3.32 L Hgb 9.3 L Hct 30.0 L MCV 90.2 MCH 27.9 MCHC 30.9 L RDW 18.8 H Plt Count 282 MPV Neut % (Auto) Lymph % (Auto) Rankin % (Auto) Eos % (Auto) Baso % (Auto) Neut # Lymph # Rankin # Eos # Baso # Sodium 130 L Potassium 4.6 Chloride 94 L Carbon Dioxide 28 Anion Gap 13 BUN 26 H Creatinine 3.7 H Est GFR ( Amer) 14 Est GFR (Non-Af Amer) 12 POC Glucose (mg/dL) 122 H Random Glucose 75 Calcium 9.2 Total Bilirubin AST ALT Alkaline Phosphatase Total Protein Albumin Globulin Albumin/Globulin Ratio Vancomycin Trough Microbiology 08/29/16 18:06 Chest Gram Stain - Final 08/29/16 18:06 Chest Wound Culture - Final Coagulase Neg Staphylococcus 08/27/16 18:00 Blood Blood Culture - Final NO GROWTH AFTER 5 DAYS 08/27/16 18:00 Blood Gram Stain - Final TEST NOT PERFORMED 08/27/16 18:00 Blood Blood Culture - Final NO GROWTH AFTER 5 DAYS 08/27/16 18:00 Blood Gram Stain - Final TEST NOT PERFORMED 08/27/16 17:40 Foot - Left Gram Stain - Final 08/27/16 17:40 Foot - Left Wound Culture - Final Escherichia Coli Methicillin Resistant S Aureus Accession No. : [id number] Patient Name / ID : JAJA Alvarez / [id number] Exam Date : 09/02/2016 14:33:41 ( Approved ) Study Comment : Sex / Age : F / 76Y Creator : Maria E Kenyon MD Dictator : Maria E Kenyon MD Church Administrator : Supervisor Conditioning Yard : Maria E Kenyon MD Approver2 : Report Date : 09/02/2016 15:36:09 My Comment : CT chest without IV contrast Indication: Leukocytosis Technique: Contiguous axial images were obtained through the chest without intravenous contrast enhancement. Sagittal and coronal reconstructions were generated and reviewed. This CT exam was performed using 1 or more of the falling dose reduction techniques: Automated exposure control, adjustment of the MAA and/or kV according to patient size, and/or use of iterative reconstruction technique. Radiation dose (DLP): 650.74 MGy-cm. Comparison: Chest x-ray performed 08/30/16, CT chest without contrast performed Findings: The inferior thyroid gland is not well visualized due to streak artifact from left-sided pacer. Question calcified nodule within the right lobe. Consider thyroid ultrasound follow-up if indicated. Endovascular stent within the right subclavian vein extending to the SVC. Dual lead left-sided pacemaker. Cardiomegaly. Dense coronary artery and valvular calcifications. Dense atherosclerotic calcifications of the aorta. Moderate size left lower lobe and lingular consolidation. Small left pleural effusion. Right basilar atelectasis. No pneumothorax. Small hiatal hernia/distal esophageal wall thickening. Limited visualization of the noncontrast upper abdomen: Cholecystectomy. Dense calcifications in the right hepatic lobe of unclear significance. Dense vascular calcifications. Degenerative changes. Chronic T11 and L1 vertebral body compression fracture deformities. Minor fish mouth end-plate deformities involving several upper thoracic vertebral bodies. Impression: Moderate size left lower lobe and lingular consolidation. Small left pleural effusion. Right basilar atelectasis. Additional findings as above. Assessment and Plan (1) Infection of amputation stump Status: Acute (2) ESRD on hemodialysis Status: Acute (3) Basal cell carcinoma of chest Status: Acute (4) Osteomyelitis of left foot Status: Acute - Assessment and Plan (Free Text) Assessment: A/P- 76 year old female with DM II, ESRD on HD, s/p left foot TMA admitted with left foot TMA infected stump. s/p excisional debridement of hyperkeratotic borders of the TMA ulcer last week by podiatry s/p punch bx of the chest lesion last week - Path report basal cell carcinoma afebrile rise in leukocytosis today blood cx- neg x 2 foot wound cx- MRSA, ESBL e.coli chest wound ccx- coag neg staph foot xray- OM as per report. chest wound cx- negative chest CT report- ? infiltarte in left lower lung region and pleural effusion as per report. plan- as per podiatry no further surgical intervention needed at this time. since OM on plain xray advise to treat with IV abx for at least 4-6 weeks as outpatient based on the Id and sensitivity of the foot cx result advise to continue meropenem (renal dose ) and to continue with vancomycin . advise to get vancomycin 1 gram post HD days for total of 6 weeks and Meropenem 1 gram IV daily for total of 6 weeks. today is day #9 of meropenem, keep vanco trough <15. check wbc in am. advise incenstive spirometry tp help avoid more consolidation and atelectasis. current abx should treat the left sided pneumonias as well. await oncology rec regarding new finding of basal cell carcinoma of the chest wall lesion. All above d/w patient and the [employer] freddy at length. .
--- NOTE | 2016-09-05 17:28 | CP.PCM.PN ---
Subjective - Date & Time of Evaluation Date of Evaluation: 09/05/16 Time of Evaluation: 10:40 - Subjective Subjective: F/U Osteomyelitis L foot. S/P skin bx today, Pt with less pain in L foot. Objective - Vital Signs/Intake and Output Vital Signs (last 24 hours): Temp Pulse Resp BP Pulse Ox 98.2 F 70 20 152/69 H 93 L 09/05/16 16:06 09/05/16 16:06 09/05/16 16:06 09/05/16 16:06 09/05/16 16:06 - Medications Medications: Current Medications Amlodipine Besylate (Norvasc) 10 mg PO DAILY [facility] Last Admin: 09/05/16 09:36 Dose: 10 mg Aspirin (Ecotrin) 81 mg PO DAILY [facility] Last Admin: 09/05/16 09:39 Dose: 81 mg Atorvastatin Calcium (Lipitor) 80 mg PO DAILY [facility] Last Admin: 09/05/16 09:36 Dose: 80 mg Collagenase (Santyl) 1 applic TOP DAILY [facility] Last Admin: 09/05/16 09:42 Dose: 1 applic Epoetin Sudheer (Procrit) 8,000 unit IV TTS [facility] Last Admin: 09/03/16 16:28 Dose: 8,000 unit Heparin Sodium (Porcine) (Heparin) 5,000 units SC Q12 [facility] PRN Reason: Protocol Last Admin: 09/05/16 09:41 Dose: 5,000 units Meropenem 1 gm/ Sodium (Chloride) 100 mls @ 100 mls/hr IVPB DAILY@0900 [facility] Last Admin: 09/05/16 09:43 Dose: 100 mls/hr Insulin Detemir (Levemir) 20 units SC HS [facility] Last Admin: 09/04/16 22:59 Dose: 20 u Levothyroxine Sodium (Synthroid) 75 mcg PO DAILY@0630 [facility] Last Admin: 09/05/16 06:48 Dose: 75 mcg Metoprolol Tartrate (Lopressor) 100 mg PO Q12 [facility] Last Admin: 09/05/16 09:38 Dose: 100 mg Oxycodone/Acetaminophen (Percocet 5/325 Mg Tab) 2 tab PO Q4 PRN PRN Reason: Pain, severe (8-10) Stop: 09/06/16 21:53 Last Admin: 09/04/16 06:28 Dose: 2 tab Pantoprazole Sodium (Protonix Ec Tab) 40 mg PO DAILY@0600 [facility] Last Admin: 09/05/16 06:48 Dose: 40 mg Sevelamer HCl (Renagel) 800 mg PO TID [facility] Last Admin: 09/05/16 17:25 Dose: 800 mg Sitagliptin Phosphate (Januvia) 25 mg PO DAILY [facility] Last Admin: 09/05/16 09:40 Dose: 25 mg Valsartan (Diovan) 160 mg PO DAILY [facility] Last Admin: 09/05/16 09:40 Dose: 160 mg - Labs Labs: 09/05/16 10:53 09/05/16 10:53 PT 15.2 Seconds (9.8-13.1) H 08/28/16 06:05 INR 1.3 (0.9-1.2) H 08/28/16 06:05 APTT 30.8 Seconds (25.6-37.1) 08/28/16 06:05 - Constitutional Appears: No Acute Distress, Chronically Ill - Head Exam Head Exam: NORMAL INSPECTION - Eye Exam Eye Exam: PERRL - ENT Exam ENT Exam: Normal Oropharynx - Neck Exam Neck Exam: Normal Inspection - Respiratory Exam Respiratory Exam: NORMAL BREATHING PATTERN - Cardiovascular Exam Cardiovascular Exam: Irregular Rhythm Additional comments: Midline chest wound dressing in place, s/p skin bx. - GI/Abdominal Exam GI & Abdominal Exam: Soft, Normal Bowel Sounds - Extremities Exam Extremities Exam: Tenderness (L foot TMA, dressing in place.) Additional comments: Swelling, edema RUE, AV shunt R arm, PICC line L arm in place, open wound with necrotic base L foot stump. - Back Exam Back Exam: NORMAL INSPECTION - Neurological Exam Neurological Exam: Alert, Oriented x3 Additional comments: Decreased sensation R-L foot, no focal motor deficit. 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
[2016-09-05] MEDS: Insulin Detemir 100 Units/ml Inj SC SCH (21:24)
[2016-09-06] MEDS: Oxycodone/Acetaminophen 5/325 mg Tab PO PRN ×2 (03:46→09:10)
[2016-09-06 06:09] LABS: BASO # 0.1 K/uL (0.0-0.2); BASO % 1.1 % (0.0-2.0); EOS # 0.2 K/uL (0.0-0.7); EOS % 1.5 % (0.0-4.0); HEMATOCRIT 29.1 % (34.0-47.0); LYMPH # 0.8 K/uL (1.0-4.3); LYMPH % 7.5 % (20.0-40.0); MEAN CELL VOLUME 90.6 fl (81.0-99.0); MEAN CORPUSCULAR HEMOGLOBIN 28.3 pg (27.0-31.0); MEAN CORPUSCULAR HGB CONC 31.2 g/dL (33.0-37.0); MEAN PLATELET VOLUME 8.9 fl (7.2-11.7); MONO # 1.2 K/uL (0.0-0.8); MONO % 11.2 % (0.0-10.0); NEUT # 8.6 K/uL (1.8-7.0); NEUT % 78.7 % (50.0-75.0); PLATELET COUNT 279 K/uL (130-400); RED CELL DISTRIBUTION WIDTH 17.8 % (11.5-14.5); WHITE BLOOD COUNT 10.9 K/uL (4.8-10.8)
[2016-09-06 06:24] LABS: POTASSIUM 4.8 MMOL/L (3.6-5.0)
--- NOTE | 2016-09-06 06:24 | CP.PCM.PN ---
Subjective - Date & Time of Evaluation Date of Evaluation: 09/06/16 Time of Evaluation: 06:22 - Subjective Subjective: 76 y/o female seen at bedside 12 weeks s/p L foot TMA. Pt appears to be resting comfortably and is in NAD. Pt is AAOx3. Pt states that she has pain in her foot every now and then. Pt denies of any acute overnight events. Pt denies of any F/ N/V/C/SOB. Pt's dressing is intact, clean and dry. Objective - Vital Signs/Intake and Output Vital Signs (last 24 hours): Temp Pulse Resp BP Pulse Ox 98.2 F 66 20 143/70 95 09/06/16 00:05 09/06/16 00:05 09/06/16 00:05 09/06/16 00:05 09/06/16 00:05 - Medications Medications: Current Medications Amlodipine Besylate (Norvasc) 10 mg PO DAILY [facility] Last Admin: 09/05/16 09:36 Dose: 10 mg Aspirin (Ecotrin) 81 mg PO DAILY [facility] Last Admin: 09/05/16 09:39 Dose: 81 mg Atorvastatin Calcium (Lipitor) 80 mg PO DAILY [facility] Last Admin: 09/05/16 09:36 Dose: 80 mg Collagenase (Santyl) 1 applic TOP DAILY [facility] Last Admin: 09/05/16 09:42 Dose: 1 applic Epoetin Sudheer (Procrit) 8,000 unit IV TTS [facility] Last Admin: 09/03/16 16:28 Dose: 8,000 unit Heparin Sodium (Porcine) (Heparin) 5,000 units SC Q12 [facility] PRN Reason: Protocol Last Admin: 09/05/16 21:24 Dose: 5,000 units Meropenem 1 gm/ Sodium (Chloride) 100 mls @ 100 mls/hr IVPB DAILY@0900 [facility] Last Admin: 09/05/16 09:43 Dose: 100 mls/hr Insulin Detemir (Levemir) 20 units SC HS [facility] Last Admin: 09/05/16 21:24 Dose: 113 u Levothyroxine Sodium (Synthroid) 75 mcg PO DAILY@0630 [facility] Last Admin: 09/05/16 06:48 Dose: 75 mcg Metoprolol Tartrate (Lopressor) 100 mg PO Q12 [facility] Last Admin: 09/05/16 21:23 Dose: 100 mg Oxycodone/Acetaminophen (Percocet 5/325 Mg Tab) 2 tab PO Q4 PRN PRN Reason: Pain, severe (8-10) Stop: 09/06/16 21:53 Last Admin: 09/06/16 03:46 Dose: 2 tab Pantoprazole Sodium (Protonix Ec Tab) 40 mg PO DAILY@0600 [facility] Last Admin: 09/05/16 06:48 Dose: 40 mg Sevelamer HCl (Renagel) 800 mg PO TID [facility] Last Admin: 09/05/16 17:25 Dose: 800 mg Sitagliptin Phosphate (Januvia) 25 mg PO DAILY [facility] Last Admin: 09/05/16 09:40 Dose: 25 mg Valsartan (Diovan) 160 mg PO DAILY [facility] Last Admin: 09/05/16 09:40 Dose: 160 mg - Labs Labs: 09/06/16 06:04 09/05/16 10:53 PT 15.2 Seconds (9.8-13.1) H 08/28/16 06:05 INR 1.3 (0.9-1.2) H 08/28/16 06:05 APTT 30.8 Seconds (25.6-37.1) 08/28/16 06:05 - Constitutional Appears: Well, Non-toxic, No Acute Distress - Extremities Exam Additional comments: Left foot focused: Vasc: DP pulse are 2/4. PT pulse are nonpalpable, Temperature gradient: warm to cool, No edema noted. Derm: Open wound noted to distal aspect of left stump measuring approximately 5 x 2 x 0.2 cm. Wound base is necrotic with 70% fibrosis noted. No active drainage , no purulence, no malodor noted. no tunneling or undermining noted. No probe to bone noted Neuro: Gross sensation diminished. Ortho: Pain to palpation to TMA surgical site and plantar aspect of foot. - Neurological Exam Neurological Exam: Alert, Awake, Oriented x3 Assessment and Plan - Assessment and Plan (Free Text) Assessment: 76 y/o female 12 weeks s/p L foot TMA (DOS: 06/10/2016) Plan: Patient was seen and evaluated at bedside Discussed plan in detail with Dr. Herrera Charts, labs and vitals reviewed (WBC: 10.9) Wound was dressed with Santyl, DSD, and kerlix. C/w IV abx as per ID Left foot wound culture positive for E.coli and positive for MRSA No surgical interventions indicated at this time Continue with offloading prevalon boots to both feet to be worn at all times while in bed Stable per podiatry Podiatry will continue to follow
[2016-09-06] MEDS: Levothyroxine 75 MCG TAB PO SCH (06:30)
[2016-09-06] MEDS: Pantoprazole 40 mg EC Tab PO SCH (06:30)
[2016-09-06 07:19] LABS: BASOPHIL 1 % (0-2); EOSINOPHIL 1 % (0-7); NEUTROPHIL 84 % (42-75); TOTAL CELLS COUNTED 100
[2016-09-06 08:25] VITALS: TEMP 97.5; O2SAT 98
[2016-09-06] MEDS: Santyl Collagenase OINTMENT TOP SCH (09:12)
[2016-09-06] MEDS: Meropenem 1 GM in Sodium Chloride 0.9% 100 ML IVPB SCH (09:17)
--- NOTE | 2016-09-06 10:38 | PQF GENQUE ---
This form is a permanent part of the medical record 09/06/16 , Please clarify if the Pneumonia was Present on Admission or not and the possible type of pneumonia if known Admitted on 08/27 with left foot stump pain, Abdominal x-ray with LLL atelectasis and or infiltrate done on 08/28/16. CT Chest performed on 09/02/16 with an impression of left lower lobe and lingular consolidation, small left pleural effusion, right basilar atelectasis. Documentation of Pneumonia. Treated with Merrem Clarification of your documentation is requested to better reflect the severity of illness and intensity of treatment of your patient. Indicators present [] Specify: [] [] Specify: [] [] Specify: [] [] Specify: [] Location in the medical record that reflects the above clinical findings: [] Treatment Provided: [] PHYSICIAN'S RESPONSE 1) Possible type of Pneumonia: 2) []Yes, the condition is present on admission at the time of the order to admit patient to inpatient status [] No, the condition is not present on admission and developed during the inpatient stay [] Clinically, unable to determine if the condition was present on admission [] Other (please specify) [] Unable to determine []Unknown Based on your medical judgment of the clinical indicators outlined above please clarify the following: [] Practitioner response [] If unable to determine, please check the box, sign and date. Present On Admission (POA) Indicator: [] Present at the time of admission [] Not present at the time of admission [] Clinically Undetermined In responding to this query, please exercise your independent professional judgment. The fact that a question is asked does not imply that any particular answer is desired or expected. Thank you for your clarification on this documentation. If you have any questions please call:ext [phone] * Thank you, Nicky Regan RN [facility]
--- NOTE | 2016-09-06 11:24 | US ---
PROCEDURE: Right upper extremity venous duplex exam. . PRIORS: No prior study available comparison. TECHNIQUE: Duplex interrogation of the deep veins right upper extremity performed. Findings: The current study reveals in situ right-sided PICC line. The right internal jugular vein, subclavian, axillary and brachial, cephalic at and basilic veins are patent with no definite evidence of DVT. Veins are compressible and exhibit normal augmentation. Incidental note made of a av dialysis shunt. Impression: No evidence of DVT. In situ PICC line as above.
[2016-09-06] MEDS: Epoetin Alfa 20000 UNIT/ML (RENAL DOSE) IV SCH (12:19)
[2016-09-06 12:46] VITALS: BP 144/57; PULSE 62
--- NOTE | 2016-09-06 13:12 | CP.PCM.PN ---
Subjective - Date & Time of Evaluation Date of Evaluation: 09/06/16 Time of Evaluation: 13:09 - Subjective Subjective: No new events reported Patient to receive dialysis now Vital sign noted to be okay Dialysis ordered given Sodium bath 138 Potassium bath 2 mEq Bicarbonate 34 Impression and plan Left transmetatarsal amputation was apparently infected 1 to receiving IV antibiotics Continue only diagnosed basal cell carcinoma on the chest wall We have to discuss with the seaport planning manager whether we can give EPO or not in this case Objective - Vital Signs/Intake and Output Vital Signs (last 24 hours): Temp Pulse Resp BP Pulse Ox 97.5 F L 62 20 144/57 L 98 09/06/16 09:00 09/06/16 12:45 09/06/16 08:24 09/06/16 12:45 09/06/16 08:24 - Medications Medications: Current Medications Amlodipine Besylate (Norvasc) 10 mg PO DAILY [facility] Last Admin: 09/06/16 12:45 Dose: 10 mg Aspirin (Ecotrin) 81 mg PO DAILY [facility] Last Admin: 09/06/16 09:11 Dose: 81 mg Atorvastatin Calcium (Lipitor) 80 mg PO DAILY [facility] Last Admin: 09/06/16 09:11 Dose: 80 mg Collagenase (Santyl) 1 applic TOP DAILY [facility] Last Admin: 09/06/16 09:12 Dose: 1 applic Epoetin Sudheer (Procrit) 8,000 unit IV TTS [facility] Last Admin: 09/06/16 12:19 Dose: 8,000 unit Heparin Sodium (Porcine) (Heparin) 5,000 units SC Q12 [facility] PRN Reason: Protocol Last Admin: 09/06/16 09:11 Dose: 5,000 units Meropenem 1 gm/ Sodium (Chloride) 100 mls @ 100 mls/hr IVPB DAILY@0900 [facility] Last Admin: 09/06/16 09:17 Dose: 100 mls/hr Insulin Detemir (Levemir) 20 units SC HS [facility] Last Admin: 09/05/16 21:24 Dose: 113 u Levothyroxine Sodium (Synthroid) 75 mcg PO DAILY@0630 [facility] Last Admin: 09/06/16 06:30 Dose: 75 mcg Metoprolol Tartrate (Lopressor) 100 mg PO Q12 [facility] Last Admin: 09/06/16 09:00 Dose: Not Given Oxycodone/Acetaminophen (Percocet 5/325 Mg Tab) 2 tab PO Q4 PRN PRN Reason: Pain, severe (8-10) Stop: 09/06/16 21:53 Last Admin: 09/06/16 09:10 Dose: 2 tab Pantoprazole Sodium (Protonix Ec Tab) 40 mg PO DAILY@0600 [facility] Last Admin: 09/06/16 06:30 Dose: 40 mg Sevelamer HCl (Renagel) 800 mg PO TID [facility] Last Admin: 09/06/16 12:46 Dose: 800 mg Sitagliptin Phosphate (Januvia) 25 mg PO DAILY [facility] Last Admin: 09/06/16 09:11 Dose: 25 mg Valsartan (Diovan) 160 mg PO DAILY [facility] Last Admin: 09/06/16 12:46 Dose: 160 mg - Labs Labs: 09/06/16 06:04 09/06/16 06:04 PT 15.2 Seconds (9.8-13.1) H 08/28/16 06:05 INR 1.3 (0.9-1.2) H 08/28/16 06:05 APTT 30.8 Seconds (25.6-37.1) 08/28/16 06:05 Assessment and Plan (1) ESRD on hemodialysis Status: Acute
--- NOTE | 2016-09-06 15:08 | CP.PCM.PN ---
Subjective - Date & Time of Evaluation Date of Evaluation: 09/06/16 Time of Evaluation: 08:00 - Subjective Subjective: F/U Osteomyelitis L foot. Objective - Vital Signs/Intake and Output Vital Signs (last 24 hours): Temp Pulse Resp BP Pulse Ox 97.5 F L 62 20 144/57 L 98 09/06/16 09:00 09/06/16 12:45 09/06/16 08:24 09/06/16 12:45 09/06/16 08:24 - Labs Labs: 09/06/16 06:04 09/06/16 06:04 PT 15.2 Seconds (9.8-13.1) H 08/28/16 06:05 INR 1.3 (0.9-1.2) H 08/28/16 06:05 APTT 30.8 Seconds (25.6-37.1) 08/28/16 06:05 - Constitutional Appears: No Acute Distress, Chronically Ill - Head Exam Head Exam: NORMAL INSPECTION - Eye Exam Eye Exam: PERRL - ENT Exam ENT Exam: Normal Oropharynx - Neck Exam Neck Exam: Normal Inspection - Respiratory Exam Respiratory Exam: NORMAL BREATHING PATTERN - Cardiovascular Exam Cardiovascular Exam: Irregular Rhythm Additional comments: Midline chest wound dressing in place, s/p skin Bx. - GI/Abdominal Exam GI & Abdominal Exam: Soft, Normal Bowel Sounds - Extremities Exam Extremities Exam: Tenderness (L foot TMA, dressing in place.) Additional comments: Swelling,edema RUE, AV shunt R arm, PICC line L arm in place, open wound with necrotic base L foot stump. - Back Exam Back Exam: NORMAL INSPECTION - Neurological Exam Neurological Exam: Alert, Oriented x3 Additional comments: Decreased sensation R-L foot, no focal motor deficit. 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
--- NOTE | 2016-09-28 13:26 | CP.PCM.DIS ---
Provider - Provider Date of Admission: 08/27/16 18:14 Attending physician: Howie Green MD Consults: Gastroenterology, General Surgery, Hematology, ID, Nephrology and Plastic Surgery. 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 Status: Acute (5) Skin lesion of chest wall Status: Acute (6) PNA (pneumonia) Status: Acute (7) Abdominal pain Status: Acute Priority: High (8) Edema of extremity of unknown cause Status: Acute (9) Edema of extremity of unknown cause Status: Acute (10) Basal cell carcinoma of chest Status: Acute Hospital Course - Lab Results Lab Results: Micro Results 08/29/16 18:06 Chest Gram Stain - Final 08/29/16 18:06 Chest Wound Culture - Final Coagulase Neg Staphylococcus Most Recent Lab Values WBC 10.9 K/uL (4.8-10.8) H 09/06/16 06:04 RBC 3.21 Mil/uL (3.80-5.20) L 09/06/16 06:04 Hgb 9.1 g/dL (12.0-16.0) L 09/06/16 06:04 Hct 29.1 % (34.0-47.0) L 09/06/16 06:04 MCV 90.6 fl (81.0-99.0) 09/06/16 06:04 MCH 28.3 pg (27.0-31.0) 09/06/16 06:04 MCHC 31.2 g/dL (33.0-37.0) L 09/06/16 06:04 RDW 17.8 % (11.5-14.5) H 09/06/16 06:04 Plt Count 279 K/uL (130-400) 09/06/16 06:04 MPV 8.9 fl (7.2-11.7) 09/06/16 06:04 Neut % (Auto) 78.7 % (50.0-75.0) H 09/06/16 06:04 Lymph % (Auto) 7.5 % (20.0-40.0) L 09/06/16 06:04 [place] % (Auto) 11.2 % (0.0-10.0) H 09/06/16 06:04 Eos % (Auto) 1.5 % (0.0-4.0) 09/06/16 06:04 Baso % (Auto) 1.1 % (0.0-2.0) 09/06/16 06:04 Neut # 8.6 K/uL (1.8-7.0) H 09/06/16 06:04 Lymph # 0.8 K/uL (1.0-4.3) L 09/06/16 06:04 [place] # 1.2 K/uL (0.0-0.8) H 09/06/16 06:04 Eos # 0.2 K/uL (0.0-0.7) 09/06/16 06:04 Baso # 0.1 K/uL (0.0-0.2) 09/06/16 06:04 Neutrophils % (Manual) 84 % (42-75) H 09/06/16 06:04 Band Neutrophils % 1 % (0-2) 09/06/16 06:04 Lymphocytes % (Manual) 8 % (20-50) L 09/06/16 06:04 Monocytes % (Manual) 5 % (0-10) 09/06/16 06:04 Eosinophils % (Manual) 1 % (0-7) 09/06/16 06:04 Basophils % (Manual) 1 % (0-2) 09/06/16 06:04 Myelocytes % 1 % (0-0) H 08/27/16 18:00 Platelet Estimate Normal (NORMAL) 09/06/16 06:04 Large Platelets Present 08/27/16 18:00 Hypochromasia (manual) Slight 09/06/16 06:04 Anisocytosis (manual) Slight 09/06/16 06:04 ESR 105 mm/hr (0-30) H 08/29/16 18:06 PT 15.2 Seconds (9.8-13.1) H 08/28/16 06:05 INR 1.3 (0.9-1.2) H 08/28/16 06:05 APTT 30.8 Seconds (25.6-37.1) 08/28/16 06:05 pO2 21 mm/Hg (30-55) L 08/27/16 17:18 VBG pH 7.41 (7.32-7.43) 08/27/16 17:18 VBG pCO2 51 mmHg (40-60) 08/27/16 17:18 VBG HCO3 28.8 mmol/L 08/27/16 17:18 VBG Total CO2 33.9 mmol/L (22-28) H 08/27/16 17:18 VBG O2 Sat (Calc) 45.1 % (40-65) 08/27/16 17:18 VBG Base Excess 6.5 mmol/L (0.0-2.0) H 08/27/16 17:18 VBG Potassium 3.9 mmol/L (3.6-5.2) 08/27/16 17:18 Sodium 130.0 mmol/L (132-148) L 08/27/16 17:18 Chloride 95.0 mmol/L (98-107) L 08/27/16 17:18 Glucose 140 mg/dL (65-105) H 08/27/16 17:18 Lactate 1.6 mmol/L (0.7-2.1) 08/27/16 17:18 FiO2 21.0 % 08/27/16 17:18 Sodium 132 mmol/l (132-148) 09/06/16 06:04 Potassium 4.8 MMOL/L (3.6-5.0) 09/06/16 06:04 Chloride 96 mmol/L (98-107) L 09/06/16 06:04 Carbon Dioxide 28 mmol/L (22-30) 09/06/16 06:04 Anion Gap 13 (10-20) 09/06/16 06:04 BUN 31 mg/dl (7-17) H 09/06/16 06:04 Creatinine 4.0 mg/dL (0.7-1.2) H 09/06/16 06:04 Est GFR ( Amer) 13 09/06/16 06:04 Est GFR (Non-Af Amer) 11 09/06/16 06:04 POC Glucose (mg/dL) 128 mg/dL (65-110) H 09/06/16 10:26 Random Glucose 66 mg/dL (65-105) 09/06/16 06:04 Hemoglobin A1c 6.2 % (4.2-6.5) 08/28/16 06:05 Calcium 9.0 mg/dL (8.4-10.2) 09/06/16 06:04 Total Bilirubin 0.2 mg/dl (0.2-1.3) 09/03/16 06:00 AST 19 U/L (14-36) 09/03/16 06:00 ALT 27 U/L (9-52) 09/03/16 06:00 Alkaline Phosphatase 71 U/L (38-126) 09/03/16 06:00 Total Protein 7.6 G/DL (6.3-8.2) 09/03/16 06:00 Albumin 3.6 g/dL (3.5-5.0) 09/03/16 06:00 Globulin 4.1 gm/dL (2.2-3.9) H 09/03/16 06:00 Albumin/Globulin Ratio 0.9 (1.0-2.1) L 09/03/16 06:00 Triglycerides 121 mg/DL (0-149) 08/28/16 06:05 Cholesterol 89 mg/dL (0-199) 08/28/16 06:05 LDL Cholesterol Direct < 30 mg/dL (0-129) 08/28/16 06:05 HDL Cholesterol 30 MG/DL (30-70) 08/28/16 06:05 Thyroxine (T4) 6.29 ug/dl (5.5-11.0) 08/28/16 06:05 TSH 3rd Generation 3.72 mIU/ML (0.46-4.68) 08/28/16 06:05 Venous Blood Potassium 3.9 mmol/L (3.6-5.2) 08/27/16 17:18 Vancomycin Trough 15.9 ug/mL (5.0-10.0) H 09/06/16 06:04 Hepatitis A IgM Ab Negative (NEGATIVE) 08/30/16 10:59 Hep Bs Antigen Negative (NEGATIVE) 08/30/16 10:59 Hep B Core IgM Ab Negative (NEGATIVE) 08/30/16 10:59 Hepatitis C Antibody Reactive (NEGATIVE) H 08/30/16 10:59 - Date & Time of H&P Date of H&P: 08/28/16 Time of H&P: 14:00 Discharge Exam - Head Exam Head Exam: NORMAL INSPECTION Discharge Plan - Discharge Medications Prescriptions: Meropenem [Merrem IV] 1 gm IVPB DAILY #42 vial Vancomycin 1 GM [Vancomycin 1GM in Normal Saline Addvantage] 1 gm IVPB TTS #18 bag - Follow Up Plan Condition: FAIR Disposition: TRANSF TO SNF Instructions: Osteomyelitis (DC), End Stage Kidney Disease (DC) Referrals: Therese Ayon MD [Staff Provider] - Alexys Manzano MD [Staff Provider] -
== END 2016-09-06 14:34 | DRG 558 ==
LOC: H.ER 16:54 → H.ERHOLD 18:14 → H.MEDSURG1 22:19
PROVIDERS: ADMIT Internal Medicine Pulmonary Disease; ATTEND Internal Medicine Pulmonary Disease
PROC: 05H533Z Insertion of Infusion Device into Right Subclavian Vein, Percutaneous Approach (ICD-10-PCS; 2016-08-28)
PROC: 0JBR0ZZ Excision of Left Foot Subcutaneous Tissue and Fascia, Open Approach (ICD-10-PCS; principal; 2016-08-29)
PROC: 02HV33Z Insertion of Infusion Device into Superior Vena Cava, Percutaneous Approach (ICD-10-PCS; 2016-08-30)
PROC: B518ZZA Fluoroscopy of Superior Vena Cava, Guidance (ICD-10-PCS; 2016-08-30)
PROC: 3E04329 Introduction of Other Anti-infective into Central Vein, Percutaneous Approach (ICD-10-PCS; 2016-08-30)
PROC: 5A1D60Z (ICD-10-PCS; 2016-08-30)
PROC: 0HB5XZX Excision of Chest Skin, External Approach, Diagnostic (ICD-10-PCS; 2016-08-31)
DX: T87.44 Infection of amputation stump, left lower extremity (principal); J18.9 Pneumonia, unspecified organism; I13.2 Hypertensive heart and chronic kidney disease with heart failure and with stage 5 chronic kidney disease, or end stage renal disease; N18.6 End stage renal disease; E11.22 Type 2 diabetes mellitus with diabetic chronic kidney disease; M86.172 Other acute osteomyelitis, left ankle and foot; E11.40 Type 2 diabetes mellitus with diabetic neuropathy, unspecified; L03.116 Cellulitis of left lower limb; E11.69 Type 2 diabetes mellitus with other specified complication; J98.11 Atelectasis; L97.529 Non-pressure chronic ulcer of other part of left foot with unspecified severity; I50.9 Heart failure, unspecified; T87.81 Dehiscence of amputation stump; C44.519 Basal cell carcinoma of skin of other part of trunk; I48.0 Paroxysmal atrial fibrillation; B95.62 Methicillin resistant Staphylococcus aureus infection as the cause of diseases classified elsewhere; B96.20 Unspecified Escherichia coli [E. coli] as the cause of diseases classified elsewhere; Z90.49 Acquired absence of other specified parts of digestive tract; Z89.432 Acquired absence of left foot; E03.9 Hypothyroidism, unspecified; E78.5 Hyperlipidemia, unspecified; E78.00 Pure hypercholesterolemia, unspecified; G89.29 Other chronic pain; I48.2 Chronic atrial fibrillation; D63.8 Anemia in other chronic diseases classified elsewhere; Y83.5 Amputation of limb(s) as the cause of abnormal reaction of the patient, or of later complication, without mention of misadventure at the time of the procedure; I25.10 Atherosclerotic heart disease of native coronary artery without angina pectoris; I73.9 Peripheral vascular disease, unspecified; R10.9 Unspecified abdominal pain; Z99.2 Dependence on renal dialysis; Z95.0 Presence of cardiac pacemaker; Z95.1 Presence of aortocoronary bypass graft; Z95.5 Presence of coronary angioplasty implant and graft; Z87.442 Personal history of urinary calculi; Z87.01 Personal history of pneumonia (recurrent); Z79.82 Long term (current) use of aspirin; Z79.02 Long term (current) use of antithrombotics/antiplatelets

== ENCOUNTER 2016-12-10 16:04 | Inpatient (IN) | payer MEDICARE, OTHER ==
[2016-12-10 16:51] LABS: BASO # 0.1 K/uL (0.0-0.2); BASO % 0.9 % (0.0-2.0); EOS % 0.2 % (0.0-4.0); LYMPH # 0.5 K/uL (1.0-4.3); LYMPH % 3.9 % (20.0-40.0); MEAN CELL VOLUME 86.5 fl (81.0-99.0); MEAN CORPUSCULAR HEMOGLOBIN 25.8 pg (27.0-31.0); MEAN CORPUSCULAR HGB CONC 29.8 g/dL (33.0-37.0); MEAN PLATELET VOLUME 8.6 fl (7.2-11.7); MONO # 0.9 K/uL (0.0-0.8); MONO % 7.4 % (0.0-10.0); NEUT # 10.1 K/uL (1.8-7.0); NEUT % 87.6 % (50.0-75.0); NRBC % 0.3 % (0.0-0.0); PLATELET COUNT 305 K/uL (130-400); RED CELL DISTRIBUTION WIDTH 21.2 % (11.5-14.5); WHITE BLOOD COUNT 11.6 K/uL (4.8-10.8)
--- NOTE | 2016-12-10 16:54 | ED PDOC ---
HPI: General Adult Time Seen by Provider: 12/10/16 16:16 Chief Complaint (Nursing): GI Problem Chief Complaint (Provider): Vomiting History Per: Patient History/Exam Limitations: no limitations Onset/Duration Of Symptoms: Days Current Symptoms Are (Timing): Still Present Additional Complaint(s): 76 y/o female presents to the emergency department via ambulance, as per EMS report patient was vomiting during hemodialysis today and sent to the emergency department for further evaluation. Patient unable to give exact time of onset, but she proceeded to have full dialysis at the center, despite the vomiting. Denies abdominal pain or headache. Denies weakness or numbness. PMD Dr Mendoza NIHSS Stroke Scale - Date/Time Evaluation Performed Date Performed: 12/10/16 Time Performed: 16:20 When Was NIHSS Performed: Baseline - How Severe is the Stroke Level of Consciousness: 0=Alert LOC to Questions: 1=One correct LOC to commands: 0=Obeys both correctly Best Gaze: 0=Normal Visual: 0=No visual loss Facial: 1=Minor asymmetry Motor Arm - Left: 0=No drift Motor Arm - Right: 0=No drift Motor Leg - Left: 2=Falls before 5 sec Motor Leg - Right: 2=Falls before 5 sec Limb Ataxia: 0=Absent Sensory: 0=Normal Best Language: 1=Mild to moderate aphasia Dysarthia: 1=Mild to moderate slurring Extinction & Inattention (Neglect): 0=Normal, no object Score: 8 rTPA Inclusion/Exclusion - Refusal of Treatment Patient Refused Treatment: No - Inclusion Criteria for Altepase Patient is 18 years or Older: Yes The Clinical Diagnosis of Ischemic Stroke That is Causing a Potentially Disabling Neurological Deficit: Yes Time of Onset is Well Established to be Less Than 270 Minute Before Treatment Would Begin: No Risk/Benefit Discussed With Patient/Family Member Present: Yes - Exclusion Criteria for Altepase Uncontrolled Hypertension at Time of Treatment (Systolic BP above 185 or Diastolic BP above 110 mmHg): Yes - Warning to TPA With Conditions Following Conditions Weighed Against Anticipated Benefit: Yes Condition: Age Greater Than 75 years Past Medical History Reviewed: Historical Data, Nursing Documentation, Vital Signs Vital Signs: Last Vital Signs Temp 98 F 12/10/16 20:00 Pulse 80 12/10/16 20:00 Resp 18 12/10/16 20:00 BP 179/74 H 12/10/16 20:00 Pulse Ox 98 12/10/16 20:00 - Medical History PMH: Anemia, Arthritis, Atrial Fibrillation, CAD, CHF, Diabetes, Gall Bladder Disease, HTN, Hypercholesterolemia, Hyperthyroidism, Hypothyroidism, Kidney Stones, Pneumonia, End Stage Renal Disease (TTF), Chronic Kidney Disease Denies: HIV - Surgical History Surgical History: CABG, Cholecystectomy, Coronary Stent, Pacemaker - Family History Family History: States: Unknown Family Hx - Immunization History Hx Tetanus Toxoid Vaccination: Yes Hx Influenza Vaccination: Yes Hx Pneumococcal Vaccination: Yes - Home Medications Home Medications: Ambulatory Orders Medication Instructions Recorded Aspirin [Aspirin EC] 81 mg PO DAILY #30 ect 08/26/14 Rosuvastatin Calcium [Crestor] 40 mg PO HS 09/18/14 Pregabalin [Lyrica] 50 mg PO QPM 09/11/15 amLODIPine [Norvasc] 10 mg PO MWF 03/23/16 Sevelamer Carbonate [Renvela] 800 mg PO TID 08/27/16 Clopidogrel [Plavix] 75 mg PO DAILY 12/10/16 Furosemide [Lasix] 20 mg PO DAILY 12/10/16 Heparin [Heparin (RENAL)] 5,000 unit SC Q12 12/10/16 Insulin Detemir [Levemir] 10 unit SC HS 12/10/16 Isosorbide Mononitrate [Isosorbide 30 mg PO DAILY 12/10/16 Mononitrate ER] Levothyroxine [Synthroid] 75 mcg PO DAILY 12/10/16 Metoprolol Tartrate [Lopressor] 50 mg PO DAILY 12/10/16 Pantoprazole Sodium [Protonix] 40 mg pe PO DAILY 12/10/16 Pregabalin [Lyrica] 50 mg PO HS 12/10/16 Sevelamer [Renagel] 800 mg PO MWF 12/10/16 Vitamin B Complex/Vit C/Folic 1 mg PO DAILY 12/10/16 [Nephro-James] cloNIDine [clonidine HCl] 0.2 mg PO DAILY 12/10/16 - Allergies Allergies/Adverse Reactions: Allergies Allergy/AdvReac Type Severity Reaction Status Date / Time No Known Allergies Allergy Verified 04/15/15 18:53 Review of Systems ROS Statement: Except As Marked, All Systems Reviewed And Found Negative (As per HPI otherwise negative) Gastrointestinal: Positive for: Vomiting. Negative for: Abdominal Pain Neurological: Negative for: Headache Physical Exam - Reviewed Nursing Documentation Reviewed: Yes Vital Signs Reviewed: Yes - Physical Exam Appears: Positive for: Non-toxic, In Acute Distress (gastrointestinal distress) Head Exam: Positive for: ATRAUMATIC, NORMOCEPHALIC Skin: Positive for: Warm, Dry (ulcerated lesion to midline upper anterior chest wall with well demarcated borders,) Eye Exam: Positive for: EOMI, PERRL, Other (hazi bilateral conjunctivae) ENT: Positive for: Other (tacky muc membranes) Neck: Positive for: Painless ROM, Supple Cardiovascular/Chest: Positive for: Regular Rate, Rhythm. Negative for: Murmur Respiratory: Positive for: Normal Breath Sounds. Negative for: Accessory Muscle Use, Respiratory Distress Gastrointestinal/Abdominal: Positive for: Soft. Negative for: Tenderness, Mass , Distended, Guarding, Rebound Back: Positive for: Normal Inspection Extremity: Positive for: Other (LEFT foot toe amputation) Neurologic/Psych: Positive for: Alert, Oriented (x2), Mood/Affect (flat), Cerebellar Tests (normal nose touch), Aphasia (slightly slurred speech), Facial Droop (subtle LEFT droop involving brow). Negative for: Motor/Sensory Deficits - Laboratory Results Result Diagrams: 12/10/16 16:44 12/10/16 16:44 - ECG ECG: Positive for: Interpreted By Me ECG Rhythm: Positive for: Sinus Rhythm, Nonspecific Changes O2 Sat by Pulse Oximetry: 98 (RA) Pulse Ox Interpretation: Normal - Progress Condition: Improving,but remains with symptoms (no longer vomiting) - Critical Care Total Time (In Min): 45 Documented Critical Care: Time excludes all time spent performint seperately billable procedures Medical Decision Making Medical Decision Making: Time: 16:29 Initial Impression: Bilious vomiting and hypertension diff include but not limited to obstruction, gastroenteritis, hypertensive encephalopathy, intracranial hemorrhage, gastritis, dehydration, sepsis Initial Plan: --ABG --Abd & Pelvis w/o PO & IV Contrast CT --Head CT --EKG --Labs --Famotidine 20 mg IV --Zofran 8 mg IV --Reevaluation Troponin: 0.7490 H PTT: 13.7 H INR: 1.3 H Time: 17:40 --Head CT FINDINGS: HEMORRHAGE: No intracranial hemorrhage. BRAIN: Chronic microangiopathy and diffuse cerebral large atrophy are reiterated this examination slightly increased in the interval. Cytotoxic edema is appreciate the right cerebellum superiorly suspicious for an acute or subacute brain infarction. No definite intracranial hemorrhage. Local mass effect is encouraged on the posterior superior sam as well as the right lateral side of the 4th ventricle. No suspicious extra-axial fluid collection. No midline shift. Basilar cisterns remain widely patent. Midline brain anatomy appears unremarkable. VENTRICLES: Unremarkable. No hydrocephalus. CALVARIUM: Unremarkable. PARANASAL SINUSES: Unremarkable as visualized. No significant inflammatory changes. MASTOID AIR CELLS: Unremarkable as visualized. No inflammatory changes. OTHER FINDINGS: None. IMPRESSION: 1. Acute separate brain infarction right cerebellum with limited local mass- effect occurring. No intra hemorrhage. Follow-up CT or MRI is advised. 2. Reiterated neuro degenerate changes are appreciated slightly increased appear tube unenhanced head CT 05/09/2013. Time: 17:55 --Abdomen & Pelvis CT FINDINGS: LOWER THORAX: Cardiomegaly is noted with pacemaker leads in the right heart. Trace pericardial thickening or fluid is present. Cardiomegaly is increased in the interval. No right pleural effusion is identified. Trace of pleural effusion is evident. LIVER: Unremarkable. No gross lesion or ductal dilatation. GALLBLADDER AND BILE DUCTS: Prior cholecystectomy. PANCREAS: Unremarkable. No gross lesion or ductal dilatation. SPLEEN: Unremarkable. ADRENALS: Unremarkable. No mass. KIDNEYS AND URETERS: Unremarkable. No hydronephrosis. No solid mass. VASCULATURE: Extensive arterial calcifications seen throughout the abdomen and pelvis. BOWEL: Unremarkable. No obstruction. No gross mural thickening. Mild rectal fecal impaction noted APPENDIX: Not identified. PERITONEUM: Unremarkable. No free fluid. No free air. LYMPH NODES: Unremarkable. No enlarged lymph nodes. BLADDER: Unremarkable. REPRODUCTIVE: Peripheral uterine calcifications are seen related to the uterus which is otherwise unremarkable. BONES: Moderate compression fractures of L2 and L3 are identified of indeterminate age. OTHER FINDINGS: None. IMPRESSION: 1. Prior cholecystectomy. 2. No definite acute abdominal or pelvic findings. 3. Gross arterial atherosclerosis throughout the abdomen pelvis. Time: 18:11 Chest x-ray FINDINGS: LUNGS: History CTs disease is identified the left base and minimally at the right base in the interval. PLEURA: Small pleural effusions not excluded. None is seen the right. No pneumothorax bilaterally CARDIOVASCULAR: Cardiomegaly appears stable. No definite pulmonary vascular derangement. OSSEOUS STRUCTURES: No significant abnormalities. VISUALIZED UPPER ABDOMEN: Normal. OTHER FINDINGS: None. IMPRESSION: Left basilar airspace disease is suggested may have increased with trace of pleural effusion not excluded. The right basilar atelectasis or infiltrate is questioned. Cardiomegaly appears stable. DW Dr Mendoza PMD, Dr Centeno Neuro, Dr Pandya Neurosurg, Dr Barajas Cardiology and Dr Fisher Grinder Set Up Operator Surface. Per Dr Centeno, 3% saline at 30ml/h, continue ASA 81mg daily, repeat 12h CT, repeat stat CT if signs of herniation. MRI routine. Per Dr Pandya conservative management as advised by neuro, pt is a poor surgical candidate. Per Dr Barajas serial troponins and echo DW pt findings. DW Shereen Mac pt's daughter. Does not want CPR performed on pt and reports that this paperwork was provided to retirement. --Admit to hospital routine: Inpatient in intensive care for cerebellar infarct , ON hemodialysis, and NO contact isolation under the care of Dr. Gerardo Mendoza MD Scribe Attestation: Documented by Manasa Jensen, acting as a scribe for Pushpa Guadarrama MD. Provider Scribe Attestation: All medical record entries made by the Scribe were at my direction and personally dictated by me. I have reviewed the chart and agree that the record accurately reflects my personal performance of the history, physical exam, medical decision making, and the department course for this patient. I have also personally directed, reviewed, and agree with the discharge instructions and disposition. Disposition - Clinical Impression Clinical Impression: Cerebellar infarct, Elevated troponin - Patient ED Disposition Is Patient to be Admitted: Yes (18:11 as inpatient at intensive care unit under Dr. Mendoza) Counseled Patient/Family Regarding: Studies Performed, Diagnosis - Disposition Disposition Time: 17:00 Condition: CRITICAL - Pt Status Changed To: Hospital Disposition Of: Inpatient - Admit Certification Admit to Inpatient:: After my assessment, the patient will require hospitalization for at least two midnights. This is because of the severity of symptoms shown, intensity of services needed, and/or the medical risk in this patient being treated as an outpatient. - POA Present On Arrival: Poor Glycemic Control
[2016-12-10 17:00] LABS: ALB/GLOB RATIO 0.9 (1.0-2.1); BILIRUBIN,TOTAL 0.7 mg/dl (0.2-1.3); CALCIUM 9.6 mg/dL (8.4-10.2); MAGNESIUM 2.1 MG/DL (1.6-2.3); PHOSPHOROUS 2.4 mg/dl (2.5-4.5); POTASSIUM 3.7 MMOL/L (3.6-5.0)
[2016-12-10 17:09] LABS: PARTIAL THROMBOPLASTIN TIME 27.9 Seconds (25.6-37.1)
[2016-12-10 17:18] LABS: TROPONIN I 0.749 ng/mL (0.00-0.120)
[2016-12-10 17:24] LABS: NEUTROPHIL 90 % (42-75); TOTAL CELLS COUNTED 100
--- NOTE | 2016-12-10 17:42 | CT ---
PROCEDURE: CT HEAD WITHOUT CONTRAST. HISTORY: vomiting hypertension COMPARISON: Unenhanced head CT 05/09/2013. TECHNIQUE: Axial computed tomography images were obtained through the head/brain without intravenous contrast. Radiation dose: Total exam DLP = 1243.1 mGy-cm. This CT exam was performed using one or more of the following dose reduction techniques: Automated exposure control, adjustment of the mA and/or kV according to patient size, and/or use of iterative reconstruction technique. FINDINGS: HEMORRHAGE: No intracranial hemorrhage. BRAIN: Chronic microangiopathy and diffuse cerebral large atrophy are reiterated this examination slightly increased in the interval. Cytotoxic edema is appreciate the right cerebellum superiorly suspicious for an acute or subacute brain infarction. No definite intracranial hemorrhage. Local mass effect is encouraged on the posterior superior sam as well as the right lateral side of the 4th ventricle. No suspicious extra-axial fluid collection. No midline shift. Basilar cisterns remain widely patent. Midline brain anatomy appears unremarkable. VENTRICLES: Unremarkable. No hydrocephalus. CALVARIUM: Unremarkable. PARANASAL SINUSES: Unremarkable as visualized. No significant inflammatory changes. MASTOID AIR CELLS: Unremarkable as visualized. No inflammatory changes. OTHER FINDINGS: None. IMPRESSION: 1. Acute separate brain infarction right cerebellum with limited local mass-effect occurring. No intra hemorrhage. Follow-up CT or MRI is advised. 2. Reiterated neuro degenerate changes are appreciated slightly increased appear tube unenhanced head CT 05/09/2013.
--- NOTE | 2016-12-10 17:57 | CT ---
PROCEDURE: CT Abdomen and Pelvis without intravenous contrast HISTORY: bilious vomiting COMPARISON: Abdomen pelvis CT without contrast 09/19/2014. TECHNIQUE: Helical CT of the abdomen and pelvis was performed without oral or intravenous contrast as per referring physician request . Contrast Dose: None Radiation dose: Total exam DLP = 729.37 mGy-cm. This CT exam was performed using one or more of the following dose reduction techniques: Automated exposure control, adjustment of the mA and/or kV according to patient size, and/or use of iterative reconstruction technique. FINDINGS: LOWER THORAX: Cardiomegaly is noted with pacemaker leads in the right heart. Trace pericardial thickening or fluid is present. Cardiomegaly is increased in the interval. No right pleural effusion is identified. Trace of pleural effusion is evident. LIVER: Unremarkable. No gross lesion or ductal dilatation. GALLBLADDER AND BILE DUCTS: Prior cholecystectomy. PANCREAS: Unremarkable. No gross lesion or ductal dilatation. SPLEEN: Unremarkable. ADRENALS: Unremarkable. No mass. KIDNEYS AND URETERS: Unremarkable. No hydronephrosis. No solid mass. VASCULATURE: Extensive arterial calcifications seen throughout the abdomen and pelvis. BOWEL: Unremarkable. No obstruction. No gross mural thickening. Mild rectal fecal impaction noted APPENDIX: Not identified. PERITONEUM: Unremarkable. No free fluid. No free air. LYMPH NODES: Unremarkable. No enlarged lymph nodes. BLADDER: Unremarkable. REPRODUCTIVE: Peripheral uterine calcifications are seen related to the uterus which is otherwise unremarkable. BONES: Moderate compression fractures of L2 and L3 are identified of indeterminate age. OTHER FINDINGS: None. IMPRESSION: 1. Prior cholecystectomy. 2. No definite acute abdominal or pelvic findings. 3. Gross arterial atherosclerosis throughout the abdomen pelvis.
[2016-12-10] MEDS ORDERED: Sodium Chloride 3% 500 ML IV SCH (18:15)
--- NOTE | 2016-12-10 18:16 | RAD ---
HISTORY: vomiting COMPARISON: Portable chest 08/30/2016. FINDINGS: LUNGS: History CTs disease is identified the left base and minimally at the right base in the interval. PLEURA: Small pleural effusions not excluded. None is seen the right. No pneumothorax bilaterally CARDIOVASCULAR: Cardiomegaly appears stable. No definite pulmonary vascular derangement. OSSEOUS STRUCTURES: No significant abnormalities. VISUALIZED UPPER ABDOMEN: Normal. OTHER FINDINGS: None. IMPRESSION: Left basilar airspace disease is suggested may have increased with trace of pleural effusion not excluded. The right basilar atelectasis or infiltrate is questioned. Cardiomegaly appears stable.
--- NOTE | 2016-12-10 19:08 | CP.CCUPN ---
CCU Subjective - Physician Review Subjective (Free Text): ICU admission and consultation: [id number] presents with multiple episodes of nausea and bilious fluid emesis during routine usual HD today. HD course was completed and sent to ER. Initial eval notable for acute / subacute R cerebellar infarct with mass effect, CTAP unremarkable for any other pathology attributable to emesis. She is awake and alert, no CP, SOB, fevers, chills diaphoresis, palpitations, and denies focal weakness. ER contacted Neurology / NeuroSurg and deemed not a candidate for any invasive mgmt. at this time. Given multiple doses of Zofran for nausea and started on 3% Saline infusion as per Neurology. Allergies: NKDA Other vitals and I/O's reviewed. No fever spikes noted since admission. Allergies: Penicillin Home Meds: Norvasc, ASA, Plavix, Lasix, Imdur, Lopressor, Catapres, Lyrica, Protonix, Crestor, Renagel, Renvela, Vits B, C, Folate complex. ROS: No other pertinent negs or positives on 10+ system review. PMSFH: Anemia, Arthritis, Atrial Fibrillation, CAD, CHF, DM II, Gall Bladder Disease with Cher, HTN, Hypercholesterolemia, Kidney Stones, Pneumonia, End Stage Renal Disease (TTF) All Nursing and physician documentation reviewed to date; no new pertinent info noted relevant to current medical problems. MAJOR PROBLEMS: 1. Right Cerebellar Acute / SubAcute Infarct with localized edema and shift to the Left 2. Accelerated HTN 3. ESRD 4. Mild Coagulopathy 5. Mild Troponin Elevation PLAN: 1. Emergent Hypertonic saline therapy ordered and started in ED. 2. Serial Serum Osm. 3. Repeat CT Brain imaging in 12-24 H. 4. Close Neurochecks, Seizure precautions, keep HOB elevation. 5. Watch BP response during this interim observational post-op period. Would only treat if MAP is sustained above 120. 6. Watch for s/sx obstructive hydrocephalus. 7. Deemed not a Neurosurgical candidate due to multiple severe co-morbidities. 8. Does not need any hemodynamic support nor any assisted breathing support at this time. 9. Check if any Advance Directives. CCU Objective - Vital Signs / Intake & Output Vital Signs (Last 4 hours): Vital Signs Temp Pulse Resp BP Pulse Ox 12/10/16 19:02 98 12/10/16 18:50 97.6 F 85 19 158/66 H 12/10/16 18:05 85 19 158/66 H 12/10/16 17:57 86 19 170/70 H 98 12/10/16 16:06 98.8 F 94 H 20 199/89 H 98 Intake and Output (Last 8hrs): Intake & Output 12/10/16 12/10/16 12/10/16 06:59 14:59 22:59 Weight 170 lb - Physical Exam Physical Exam Limitations: Positive for: Altered Mental Status Pupils: Positive for: Other Extroacular Muscles: Positive for: EOMI (L pupil opacified, R pupil 3 mm and reactive.) Conjunctiva: Positive for: Normal Mouth: Positive for: Moist Mucous Membranes Neck: Positive for: Normal Range of Motion. Negative for: JVD, Lymphadenopathy Respiratory/Chest: Positive for: Decreased Breath Sounds. Negative for: Accessory Muscle Use, Rales, Rhonchi Cardiovascular: Positive for: Regular Rate and Rhythm. Negative for: Murmurs, Rub Abdomen: Positive for: Normal Bowel Sounds. Negative for: Tenderness, Distention Upper Extremity: Positive for: Other (RUE AV Shunt with good bruit and thrill) Lower Extremity: Positive for: Edema (trace), Deformity (Left foot TMA). Negative for: CALF TENDERNESS Neurological: Positive for: GCS=15, Motor Func Grossly Intact, Normal Sensory Function Skin: Positive for: Warm, Normal Color. Negative for: Rashes, Abscess Psychiatric: Positive for: Alert, Oriented x 3 - Medications Active Medications: Active Medications Generic Name Dose Route Start Last Admin Trade Name Freq PRN Reason Stop Dose Admin Sodium Chloride 500 mls @ 30 mls/hr 12/10/16 18:15 12/10/16 18:31 Hypertonic Saline 3% IV 12/11/16 18:12 30 mls/hr .[id number] CATHIE Administration Insulin Human Regular 0 units 12/10/16 23:00 Humulin R SC ACCU-CHECK CATHIE Protocol Pantoprazole Sodium 40 mg 12/11/16 09:00 Protonix Inj IVP DAILY CATHIE - Patient Studies Lab Studies: Lab Studies 12/10/16 12/10/16 12/10/16 Range/Units 16:44 16:44 16:44 WBC 11.6 H (4.8-10.8) K/uL RBC 4.97 (3.80-5.20) Mil/uL Hgb 12.8 D (12.0-16.0) g/dL Hct 43.0 (34.0-47.0) % MCV 86.5 D (81.0-99.0) fl MCH 25.8 L (27.0-31.0) pg MCHC 29.8 L (33.0-37.0) g/dL RDW 21.2 H (11.5-14.5) % Plt Count 305 (130-400) K/uL MPV 8.6 (7.2-11.7) fl Neut % (Auto) 87.6 H (50.0-75.0) % Lymph % (Auto) 3.9 L (20.0-40.0) % [place] % (Auto) 7.4 (0.0-10.0) % Eos % (Auto) 0.2 (0.0-4.0) % Baso % (Auto) 0.9 (0.0-2.0) % Neut # 10.1 H (1.8-7.0) K/uL Lymph # 0.5 L (1.0-4.3) K/uL [place] # 0.9 H (0.0-0.8) K/uL Eos # 0.0 (0.0-0.7) K/uL Baso # 0.1 (0.0-0.2) K/uL Neutrophils % (Manual) 90 H (42-75) % Lymphocytes % (Manual) 6 L (20-50) % Monocytes % (Manual) 4 (0-10) % Platelet Estimate Normal (NORMAL) Polychromasia Slight Hypochromasia (manual) Slight Anisocytosis (manual) Slight Target Cells Slight PT 13.7 H (9.8-13.1) Seconds INR 1.3 H (0.9-1.2) APTT 27.9 (25.6-37.1) Seconds Sodium 140 (132-148) mmol/l Potassium 3.7 (3.6-5.0) MMOL/L Chloride 93 L (98-107) mmol/L Carbon Dioxide 28 (22-30) mmol/L Anion Gap 23 H (10-20) BUN 16 (7-17) mg/dl Creatinine 2.0 H (0.7-1.2) mg/dL Est GFR ( Amer) 29 Est GFR (Non-Af Amer) 24 Random Glucose 198 H (65-105) mg/dL Calcium 9.6 (8.4-10.2) mg/dL Phosphorus 2.4 L (2.5-4.5) mg/dl Magnesium 2.1 (1.6-2.3) MG/DL Total Bilirubin 0.7 (0.2-1.3) mg/dl AST 41 H (14-36) U/L ALT 29 (9-52) U/L Alkaline Phosphatase 107 (38-126) U/L Troponin I 0.7490 H* (0.00-0.120) ng/mL Total Protein 8.0 (6.3-8.2) G/DL Albumin 3.8 (3.5-5.0) g/dL Globulin 4.2 H (2.2-3.9) gm/dL Albumin/Globulin Ratio 0.9 L (1.0-2.1) Lipase 61 (23-300) U/L Laboratory Results - last 24 hr 12/10/16 12/10/16 12/10/16 16:44 16:44 16:44 WBC 11.6 H RBC 4.97 Hgb 12.8 D Hct 43.0 MCV 86.5 D MCH 25.8 L MCHC 29.8 L RDW 21.2 H Plt Count 305 MPV 8.6 Neut % (Auto) 87.6 H Lymph % (Auto) 3.9 L [place] % (Auto) 7.4 Eos % (Auto) 0.2 Baso % (Auto) 0.9 Neut # 10.1 H Lymph # 0.5 L [place] # 0.9 H Eos # 0.0 Baso # 0.1 Neutrophils % (Manual) 90 H Lymphocytes % (Manual) 6 L Monocytes % (Manual) 4 Platelet Estimate Normal Polychromasia Slight Hypochromasia (manual) Slight Anisocytosis (manual) Slight Target Cells Slight PT 13.7 H INR 1.3 H APTT 27.9 Sodium 140 Potassium 3.7 Chloride 93 L Carbon Dioxide 28 Anion Gap 23 H BUN 16 Creatinine 2.0 H Est GFR ( Amer) 29 Est GFR (Non-Af Amer) 24 Random Glucose 198 H Calcium 9.6 Phosphorus 2.4 L Magnesium 2.1 Total Bilirubin 0.7 AST 41 H ALT 29 Alkaline Phosphatase 107 Troponin I 0.7490 H* Total Protein 8.0 Albumin 3.8 Globulin 4.2 H Albumin/Globulin Ratio 0.9 L Lipase 61 Fingerstick Blood Sugar Results: 177 Review of Systems - Review of Systems All systems: reviewed and no additional remarkable complaints except (as above) Critical Care Progress Note - Extremities/Vascular Does the Patient have a Central Venous Catheter?: No Does the Patient need a Central Venous Catheter?: No Does the Patient have a Herrera Catheter?: No Does the Patient need a Herrera Catheter?: No - Prophylaxis GI Prophylaxis GI: PPI - Prophylaxis DVT Prophylaxis DVT: SCDs
[2016-12-10] MEDS ORDERED: Acetaminophen 650mg/20.3ml solution UD PO STA (21:45)
[2016-12-10] MEDS: Insulin Regular 100 units/ml SC SCH (22:30)
--- NOTE | 2016-12-10 23:47 | CP.PCM.CON ---
History of Present Illness - History of Present Illness History of Present Illness: +ve TnI in the setting of acute cerebellar infarct HPI: Past Patient History - Infectious Disease Hx of Infectious Diseases: None - Past Medical History & Family History Past Medical History?: Yes - Past Social History Smoking Status: Never Smoked - CARDIAC Hx Atrial Fibrillation: Yes Hx Congestive Heart Failure: Yes Hx Hypercholesterolemia: Yes Hx Hypertension: Yes Hx Pacemaker: Yes - PULMONARY Hx Pneumonia: Yes - NEUROLOGICAL Hx Neurological Disorder: Yes - HEENT Hx Cataracts: Yes - RENAL Hx Chronic Kidney Disease: Yes Hx Kidney Stones: Yes - ENDOCRINE/METABOLIC Hx Hyperthyroidism: Yes Hx Hypothyroidism: Yes - HEMATOLOGICAL/ONCOLOGICAL Hx Anemia: Yes Hx Human Immunodeficiency Virus (HIV): No - INTEGUMENTARY Hx Dermatological Problems: No - MUSCULOSKELETAL/RHEUMATOLOGICAL Hx Arthritis: Yes - GASTROINTESTINAL Hx Gall Bladder Disease: Yes - GENITOURINARY/GYNECOLOGICAL Hx Genitourinary Disorders: No - PSYCHIATRIC Hx Substance Use: No - SURGICAL HISTORY Hx Cholecystectomy: Yes Hx Coronary Artery Bypass Graft: Yes Hx Coronary Stent: Yes - ANESTHESIA Hx Anesthesia: Yes Hx Anesthesia Reactions: No Hx Malignant Hyperthermia: No Meds Allergies/Adverse Reactions: Allergies Allergy/AdvReac Type Severity Reaction Status Date / Time No Known Allergies Allergy Verified 04/15/15 18:53 - Medications Medications: Current Medications Acetaminophen (Tylenol 650mg/20.3ml Solution Ud) 650 mg PO Q6 PRN PRN Reason: Headache Aspirin (Ecotrin) 81 mg PO DAILY [facility] Home Med (Rosuvastatin Calcium [Crestor]) 40 mg PO HS CATHIE Sodium Chloride (Hypertonic Saline 3%) 500 mls @ 30 mls/hr IV .[id number] [facility] Stop: 12/11/16 18:12 Last Admin: 12/10/16 18:31 Dose: 30 mls/hr Influenza Virus Vaccine (Afluria (Pf)(18yr & Older)) 0.5 ml IM .ONCE ONE Stop: 12/11/16 09:01 Insulin Human Regular (Humulin R) 0 units SC ACCU-CHECK [facility] PRN Reason: Protocol Pantoprazole Sodium (Protonix Inj) 40 mg IVP DAILY [facility] Vitamin B Complex/Vit C/Folic Acid (Nephro-James) 1 tab PO DAILY [facility] Results - Vital Signs Recent Vital Signs: Last Vital Signs Temp 98 F 12/10/16 20:00 Pulse 77 12/10/16 22:00 Resp 16 12/10/16 22:00 BP 166/65 H 12/10/16 22:00 Pulse Ox 100 12/10/16 22:00 - Labs Result Diagrams: 12/10/16 16:44 12/10/16 16:44 Labs: Laboratory Results - last 24 hr 12/10/16 12/10/16 12/10/16 16:44 16:44 16:44 WBC 11.6 H RBC 4.97 Hgb 12.8 D Hct 43.0 MCV 86.5 D MCH 25.8 L MCHC 29.8 L RDW 21.2 H Plt Count 305 MPV 8.6 Neut % (Auto) 87.6 H Lymph % (Auto) 3.9 L [place] % (Auto) 7.4 Eos % (Auto) 0.2 Baso % (Auto) 0.9 Neut # 10.1 H Lymph # 0.5 L [place] # 0.9 H Eos # 0.0 Baso # 0.1 Neutrophils % (Manual) 90 H Lymphocytes % (Manual) 6 L Monocytes % (Manual) 4 Platelet Estimate Normal Polychromasia Slight Hypochromasia (manual) Slight Anisocytosis (manual) Slight Target Cells Slight PT 13.7 H INR 1.3 H APTT 27.9 Sodium 140 Potassium 3.7 Chloride 93 L Carbon Dioxide 28 Anion Gap 23 H BUN 16 Creatinine 2.0 H Est GFR ( Amer) 29 Est GFR (Non-Af Amer) 24 POC Glucose (mg/dL) Random Glucose 198 H Calcium 9.6 Phosphorus 2.4 L Magnesium 2.1 Total Bilirubin 0.7 AST 41 H ALT 29 Alkaline Phosphatase 107 Troponin I 0.7490 H* Total Protein 8.0 Albumin 3.8 Globulin 4.2 H Albumin/Globulin Ratio 0.9 L Lipase 61 12/10/16 22:38 WBC RBC Hgb Hct MCV MCH MCHC RDW Plt Count MPV Neut % (Auto) Lymph % (Auto) [place] % (Auto) Eos % (Auto) Baso % (Auto) Neut # Lymph # [place] # Eos # Baso # Neutrophils % (Manual) Lymphocytes % (Manual) Monocytes % (Manual) Platelet Estimate Polychromasia Hypochromasia (manual) Anisocytosis (manual) Target Cells PT INR APTT Sodium Potassium Chloride Carbon Dioxide Anion Gap BUN Creatinine Est GFR ( Amer) Est GFR (Non-Af Amer) POC Glucose (mg/dL) 190 H Random Glucose Calcium Phosphorus Magnesium Total Bilirubin AST ALT Alkaline Phosphatase Troponin I Total Protein Albumin Globulin Albumin/Globulin Ratio Lipase
[2016-12-11 00:14] VITALS: BMI 22.6
[2016-12-11] MEDS: Insulin Regular 100 units/ml SC SCH ×4 (06:44→22:38)
[2016-12-11 06:51] LABS: BASO # 0.1 K/uL (0.0-0.2); BASO % 0.8 % (0.0-2.0); EOS % 0.3 % (0.0-4.0); LYMPH # 0.7 K/uL (1.0-4.3); LYMPH % 9.2 % (20.0-40.0); MEAN CELL VOLUME 87.9 fl (81.0-99.0); MEAN CORPUSCULAR HGB CONC 29.6 g/dL (33.0-37.0); MEAN PLATELET VOLUME 8.6 fl (7.2-11.7); MONO # 0.9 K/uL (0.0-0.8); MONO % 12.2 % (0.0-10.0); NEUT # 5.8 K/uL (1.8-7.0); NEUT % 77.5 % (50.0-75.0); NRBC % 0.2 % (0.0-0.0); WHITE BLOOD COUNT 7.5 K/uL (4.8-10.8)
[2016-12-11 07:10] LABS: ALB/GLOB RATIO 0.9 (1.0-2.1); BILIRUBIN,TOTAL 0.5 mg/dl (0.2-1.3); CALCIUM 9.5 mg/dL (8.4-10.2); POTASSIUM 3.7 MMOL/L (3.6-5.0); TOTAL PROTEIN 7.6 G/DL (6.3-8.2)
[2016-12-11 07:20] LABS: TROPONIN I 0.722 ng/mL (0.00-0.120)
[2016-12-11 07:31] LABS: CHOLESTEROL 106 mg/dL (0-199)
--- NOTE | 2016-12-11 07:46 | CP.CCUPN ---
CCU Subjective - Physician Review Events Since Last Encounter (Free Text): 12/11/16 07:44 Patient awake, lethargic, no fever, no vomiting, no pressors, events reviewed CCU Objective - Vital Signs / Intake & Output Vital Signs (Last 4 hours): Vital Signs Temp Pulse Resp BP Pulse Ox 12/11/16 06:00 98.5 F 76 17 169/67 H 100 12/11/16 04:00 68 13 135/54 L 97 Intake and Output (Last 8hrs): Intake & Output 12/10/16 12/11/16 12/11/16 22:59 06:59 14:59 Intake Total 150 240 Balance 150 240 Weight 170 lb 136 lb Intake: IV 90 240 Oral 60 Other: # Bowel Movements 1 1 - Physical Exam Head: Positive for: Atraumatic Extroacular Muscles: Positive for: EOMI (L pupil opacified, R pupil 3 mm and reactive.) Conjunctiva: Positive for: Normal Mouth: Positive for: Moist Mucous Membranes Nose (External): Positive for: Atraumatic Neck: Positive for: Normal Range of Motion. Negative for: JVD, Lymphadenopathy Respiratory/Chest: Positive for: Decreased Breath Sounds. Negative for: Accessory Muscle Use, Rales, Rhonchi Cardiovascular: Positive for: Regular Rate and Rhythm. Negative for: Murmurs, Rub Abdomen: Positive for: Normal Bowel Sounds. Negative for: Tenderness, Distention Upper Extremity: Positive for: Other (RUE AV Shunt with good bruit and thrill) Lower Extremity: Positive for: Edema (trace), Deformity (Left foot TMA). Negative for: CALF TENDERNESS Neurological: Positive for: Motor Func Grossly Intact Skin: Positive for: Warm, Normal Color. Negative for: Rashes, Abscess Psychiatric: Positive for: Alert - Medications Active Medications: Active Medications Generic Name Dose Route Start Last Admin Trade Name Freq PRN Reason Stop Dose Admin Acetaminophen 650 mg 12/10/16 21:44 Tylenol 650mg/20.3ml Solution Ud PO Q6 PRN Headache Aspirin 81 mg 12/11/16 09:00 Ecotrin PO DAILY CATHIE Home Med 40 mg 12/11/16 22:00 Rosuvastatin Calcium [Crestor] PO HS CATHIE Sodium Chloride 500 mls @ 30 mls/hr 12/10/16 18:15 12/10/16 18:31 Hypertonic Saline 3% IV 12/11/16 18:12 30 mls/hr .[id number] CATHIE Administration Influenza Virus Vaccine 0.5 ml 12/11/16 09:00 Afluria (Pf)(18yr & Older) IM 12/11/16 09:01 .ONCE ONE Insulin Human Regular 0 units 12/10/16 23:00 12/11/16 06:44 Humulin R SC Not Given ACCU-CHECK [facility] Protocol Pantoprazole Sodium 40 mg 12/11/16 09:00 Protonix Inj IVP DAILY [facility] Vitamin B Complex/Vit C/Folic Acid 1 tab 12/11/16 09:00 Nephro-James PO DAILY [facility] - Patient Studies Lab Studies: Lab Studies 12/11/16 12/11/16 12/11/16 Range/Units 05:53 05:30 05:30 WBC (4.8-10.8) K/uL RBC (3.80-5.20) Mil/uL Hgb (12.0-16.0) g/dL Hct (34.0-47.0) % MCV (81.0-99.0) fl MCH (27.0-31.0) pg MCHC (33.0-37.0) g/dL RDW (11.5-14.5) % Plt Count (130-400) K/uL MPV (7.2-11.7) fl Neut % (Auto) (50.0-75.0) % Lymph % (Auto) (20.0-40.0) % [place] % (Auto) (0.0-10.0) % Eos % (Auto) (0.0-4.0) % Baso % (Auto) (0.0-2.0) % Neut # (1.8-7.0) K/uL Lymph # (1.0-4.3) K/uL [place] # (0.0-0.8) K/uL Eos # (0.0-0.7) K/uL Baso # (0.0-0.2) K/uL Neutrophils % (Manual) (42-75) % Lymphocytes % (Manual) (20-50) % Monocytes % (Manual) (0-10) % Platelet Estimate (NORMAL) Polychromasia Hypochromasia (manual) Anisocytosis (manual) Target Cells PT (9.8-13.1) Seconds INR (0.9-1.2) APTT (25.6-37.1) Seconds Sodium 145 (132-148) mmol/l Potassium 3.7 (3.6-5.0) MMOL/L Chloride 97 L (98-107) mmol/L Carbon Dioxide 33 H (22-30) mmol/L Anion Gap 19 (10-20) BUN 21 H (7-17) mg/dl Creatinine 2.8 H (0.7-1.2) mg/dL Est GFR ( Amer) 20 Est GFR (Non-Af Amer) 16 POC Glucose (mg/dL) 121 H (65-110) mg/dL Random Glucose 135 H (65-105) mg/dL Serum Osmolality 308 H (272-300) mosm/kg Calcium 9.5 (8.4-10.2) mg/dL Phosphorus (2.5-4.5) mg/dl Magnesium (1.6-2.3) MG/DL Total Bilirubin 0.5 (0.2-1.3) mg/dl AST 36 (14-36) U/L ALT 27 (9-52) U/L Alkaline Phosphatase 94 (38-126) U/L Troponin I 0.7220 H* (0.00-0.120) ng/mL Total Protein 7.6 (6.3-8.2) G/DL Albumin 3.7 (3.5-5.0) g/dL Globulin 4.0 H (2.2-3.9) gm/dL Albumin/Globulin Ratio 0.9 L (1.0-2.1) Lipase (23-300) U/L 12/10/16 12/10/16 12/10/16 Range/Units 22:38 16:44 16:44 WBC (4.8-10.8) K/uL RBC (3.80-5.20) Mil/uL Hgb (12.0-16.0) g/dL Hct (34.0-47.0) % MCV (81.0-99.0) fl MCH (27.0-31.0) pg MCHC (33.0-37.0) g/dL RDW (11.5-14.5) % Plt Count (130-400) K/uL MPV (7.2-11.7) fl Neut % (Auto) (50.0-75.0) % Lymph % (Auto) (20.0-40.0) % [place] % (Auto) (0.0-10.0) % Eos % (Auto) (0.0-4.0) % Baso % (Auto) (0.0-2.0) % Neut # (1.8-7.0) K/uL Lymph # (1.0-4.3) K/uL [place] # (0.0-0.8) K/uL Eos # (0.0-0.7) K/uL Baso # (0.0-0.2) K/uL Neutrophils % (Manual) (42-75) % Lymphocytes % (Manual) (20-50) % Monocytes % (Manual) (0-10) % Platelet Estimate (NORMAL) Polychromasia Hypochromasia (manual) Anisocytosis (manual) Target Cells PT 13.7 H (9.8-13.1) Seconds INR 1.3 H (0.9-1.2) APTT 27.9 (25.6-37.1) Seconds Sodium 140 (132-148) mmol/l Potassium 3.7 (3.6-5.0) MMOL/L Chloride 93 L (98-107) mmol/L Carbon Dioxide 28 (22-30) mmol/L Anion Gap 23 H (10-20) BUN 16 (7-17) mg/dl Creatinine 2.0 H (0.7-1.2) mg/dL Est GFR ( Amer) 29 Est GFR (Non-Af Amer) 24 POC Glucose (mg/dL) 190 H (65-110) mg/dL Random Glucose 198 H (65-105) mg/dL Serum Osmolality (272-300) mosm/kg Calcium 9.6 (8.4-10.2) mg/dL Phosphorus 2.4 L (2.5-4.5) mg/dl Magnesium 2.1 (1.6-2.3) MG/DL Total Bilirubin 0.7 (0.2-1.3) mg/dl AST 41 H (14-36) U/L ALT 29 (9-52) U/L Alkaline Phosphatase 107 (38-126) U/L Troponin I 0.7490 H* (0.00-0.120) ng/mL Total Protein 8.0 (6.3-8.2) G/DL Albumin 3.8 (3.5-5.0) g/dL Globulin 4.2 H (2.2-3.9) gm/dL Albumin/Globulin Ratio 0.9 L (1.0-2.1) Lipase 61 (23-300) U/L 12/10/16 12/10/16 Range/Units 16:44 16:36 WBC 11.6 H (4.8-10.8) K/uL RBC 4.97 (3.80-5.20) Mil/uL Hgb 12.8 D (12.0-16.0) g/dL Hct 43.0 (34.0-47.0) % MCV 86.5 D (81.0-99.0) fl MCH 25.8 L (27.0-31.0) pg MCHC 29.8 L (33.0-37.0) g/dL RDW 21.2 H (11.5-14.5) % Plt Count 305 (130-400) K/uL MPV 8.6 (7.2-11.7) fl Neut % (Auto) 87.6 H (50.0-75.0) % Lymph % (Auto) 3.9 L (20.0-40.0) % [place] % (Auto) 7.4 (0.0-10.0) % Eos % (Auto) 0.2 (0.0-4.0) % Baso % (Auto) 0.9 (0.0-2.0) % Neut # 10.1 H (1.8-7.0) K/uL Lymph # 0.5 L (1.0-4.3) K/uL [place] # 0.9 H (0.0-0.8) K/uL Eos # 0.0 (0.0-0.7) K/uL Baso # 0.1 (0.0-0.2) K/uL Neutrophils % (Manual) 90 H (42-75) % Lymphocytes % (Manual) 6 L (20-50) % Monocytes % (Manual) 4 (0-10) % Platelet Estimate Normal (NORMAL) Polychromasia Slight Hypochromasia (manual) Slight Anisocytosis (manual) Slight Target Cells Slight PT (9.8-13.1) Seconds INR (0.9-1.2) APTT (25.6-37.1) Seconds Sodium (132-148) mmol/l Potassium (3.6-5.0) MMOL/L Chloride (98-107) mmol/L Carbon Dioxide (22-30) mmol/L Anion Gap (10-20) BUN (7-17) mg/dl Creatinine (0.7-1.2) mg/dL Est GFR ( Amer) Est GFR (Non-Af Amer) POC Glucose (mg/dL) 177 H (65-110) mg/dL Random Glucose (65-105) mg/dL Serum Osmolality (272-300) mosm/kg Calcium (8.4-10.2) mg/dL Phosphorus (2.5-4.5) mg/dl Magnesium (1.6-2.3) MG/DL Total Bilirubin (0.2-1.3) mg/dl AST (14-36) U/L ALT (9-52) U/L Alkaline Phosphatase (38-126) U/L Troponin I (0.00-0.120) ng/mL Total Protein (6.3-8.2) G/DL Albumin (3.5-5.0) g/dL Globulin (2.2-3.9) gm/dL Albumin/Globulin Ratio (1.0-2.1) Lipase (23-300) U/L Laboratory Results - last 24 hr 12/10/16 12/10/16 12/10/16 16:36 16:44 16:44 WBC 11.6 H RBC 4.97 Hgb 12.8 D Hct 43.0 MCV 86.5 D MCH 25.8 L MCHC 29.8 L RDW 21.2 H Plt Count 305 MPV 8.6 Neut % (Auto) 87.6 H Lymph % (Auto) 3.9 L [place] % (Auto) 7.4 Eos % (Auto) 0.2 Baso % (Auto) 0.9 Neut # 10.1 H Lymph # 0.5 L [place] # 0.9 H Eos # 0.0 Baso # 0.1 Neutrophils % (Manual) 90 H Lymphocytes % (Manual) 6 L Monocytes % (Manual) 4 Platelet Estimate Normal Polychromasia Slight Hypochromasia (manual) Slight Anisocytosis (manual) Slight Target Cells Slight PT INR APTT Sodium 140 Potassium 3.7 Chloride 93 L Carbon Dioxide 28 Anion Gap 23 H BUN 16 Creatinine 2.0 H Est GFR ( Amer) 29 Est GFR (Non-Af Amer) 24 POC Glucose (mg/dL) 177 H Random Glucose 198 H Serum Osmolality Calcium 9.6 Phosphorus 2.4 L Magnesium 2.1 Total Bilirubin 0.7 AST 41 H ALT 29 Alkaline Phosphatase 107 Troponin I 0.7490 H* Total Protein 8.0 Albumin 3.8 Globulin 4.2 H Albumin/Globulin Ratio 0.9 L Lipase 61 12/10/16 12/10/16 12/11/16 16:44 22:38 05:30 WBC RBC Hgb Hct MCV MCH MCHC RDW Plt Count MPV Neut % (Auto) Lymph % (Auto) [place] % (Auto) Eos % (Auto) Baso % (Auto) Neut # Lymph # [place] # Eos # Baso # Neutrophils % (Manual) Lymphocytes % (Manual) Monocytes % (Manual) Platelet Estimate Polychromasia Hypochromasia (manual) Anisocytosis (manual) Target Cells PT 13.7 H INR 1.3 H APTT 27.9 Sodium 145 Potassium 3.7 Chloride 97 L Carbon Dioxide 33 H Anion Gap 19 BUN 21 H Creatinine 2.8 H Est GFR ( Amer) 20 Est GFR (Non-Af Amer) 16 POC Glucose (mg/dL) 190 H Random Glucose 135 H Serum Osmolality Calcium 9.5 Phosphorus Magnesium Total Bilirubin 0.5 AST 36 ALT 27 Alkaline Phosphatase 94 Troponin I 0.7220 H* Total Protein 7.6 Albumin 3.7 Globulin 4.0 H Albumin/Globulin Ratio 0.9 L Lipase 12/11/16 12/11/16 05:30 05:53 WBC RBC Hgb Hct MCV MCH MCHC RDW Plt Count MPV Neut % (Auto) Lymph % (Auto) [place] % (Auto) Eos % (Auto) Baso % (Auto) Neut # Lymph # [place] # Eos # Baso # Neutrophils % (Manual) Lymphocytes % (Manual) Monocytes % (Manual) Platelet Estimate Polychromasia Hypochromasia (manual) Anisocytosis (manual) Target Cells PT INR APTT Sodium Potassium Chloride Carbon Dioxide Anion Gap BUN Creatinine Est GFR ( Amer) Est GFR (Non-Af Amer) POC Glucose (mg/dL) 121 H Random Glucose Serum Osmolality 308 H Calcium Phosphorus Magnesium Total Bilirubin AST ALT Alkaline Phosphatase Troponin I Total Protein Albumin Globulin Albumin/Globulin Ratio Lipase EKG/Cardiology Studies: Cardiology / EKG Studies 12/10/16 16:29 ELECTROCARDIOGRAM Stat Comment: Mode Of Transportation: Reason For Exam: vomiting Isolation: Contact Fingerstick Blood Sugar Results: 121 Critical Care Progress Note - Nutrition Nutrition: Nutrition Category Date Time Status Heart Healthy Diet [DIET] Diets 12/11/16 Breakfast Active Assessment/Plan - Assessment and Plan (Free Text) Assessment: A/P CVA, Rt cerebellar infarct, DM, HTN, ESRD, hypothyroid, R/O [place] - Neurology follow up - Neuro check - Continue meds - Pulmonary toilets
[2016-12-11] MEDS ORDERED: Influenza Vaccine 18yr & older 0.5 ML/45 MCG SYR IM ONE (09:00)
[2016-12-11] MEDS ORDERED: Multivitamin Vitamin B Complex (Nephro-Vite) Tab PO SCH (09:00)
--- NOTE | 2016-12-11 11:24 | CP.PCM.CON ---
History of Present Illness - History of Present Illness History of Present Illness: Mrs. Mac is a 76-year-old woman with a past medical history of Anemia, Arthritis, Atrial Fibrillation, CAD, CHF, Diabetes, Gall Bladder Disease, HTN, Hypercholesterolemia, Hyperthyroidism, Hypothyroidism, Kidney Stones, Pneumonia , End Stage Renal Disease (TTF), Chronic Kidney Disease, who developed nausea/ vomiting at dialysis yesterday. She was brought to the ED and was confused. A CT scan of the head showed a large right cerebellar acute to subacute ischemic stroke. She was transferred to the ICU for close observation. Neurosurgery was consulted for decompression, but she was not deemed a good surgical candidate. She was started on 3% hypertonic saline after it was noted she had increasing edema and possible impending herniation. She was stable overnight. Review of Systems - Review of Systems All systems: reviewed and no additional remarkable complaints except Past Patient History - Infectious Disease Hx of Infectious Diseases: None - Past Medical History & Family History Past Medical History?: Yes - Past Social History Smoking Status: Never Smoked - CARDIAC Hx Atrial Fibrillation: Yes Hx Congestive Heart Failure: Yes Hx Hypercholesterolemia: Yes Hx Hypertension: Yes Hx Pacemaker: Yes - PULMONARY Hx Pneumonia: Yes - NEUROLOGICAL Hx Neurological Disorder: Yes - HEENT Hx Cataracts: Yes - RENAL Hx Chronic Kidney Disease: Yes Hx Kidney Stones: Yes - ENDOCRINE/METABOLIC Hx Hyperthyroidism: Yes Hx Hypothyroidism: Yes - HEMATOLOGICAL/ONCOLOGICAL Hx Anemia: Yes Hx Human Immunodeficiency Virus (HIV): No - INTEGUMENTARY Hx Dermatological Problems: No - MUSCULOSKELETAL/RHEUMATOLOGICAL Hx Arthritis: Yes - GASTROINTESTINAL Hx Gall Bladder Disease: Yes - GENITOURINARY/GYNECOLOGICAL Hx Genitourinary Disorders: No - PSYCHIATRIC Hx Substance Use: No - SURGICAL HISTORY Hx Cholecystectomy: Yes Hx Coronary Artery Bypass Graft: Yes Hx Coronary Stent: Yes - ANESTHESIA Hx Anesthesia: Yes Hx Anesthesia Reactions: No Hx Malignant Hyperthermia: No Meds Allergies/Adverse Reactions: Allergies Allergy/AdvReac Type Severity Reaction Status Date / Time No Known Allergies Allergy Verified 04/15/15 18:53 - Medications Medications: Current Medications Acetaminophen (Tylenol 650mg/20.3ml Solution Ud) 650 mg PO Q6 PRN PRN Reason: Headache Aspirin (Ecotrin) 81 mg PO DAILY [facility] Last Admin: 12/11/16 08:34 Dose: 81 mg Home Med (Rosuvastatin Calcium [Crestor]) 40 mg PO HS [facility] Sodium Chloride (Hypertonic Saline 3%) 500 mls @ 30 mls/hr IV .[id number] ON LICENSE OF [facility] Stop: 12/11/16 18:12 Last Admin: 12/10/16 18:31 Dose: 30 mls/hr Insulin Human Regular (Humulin R) 0 units SC ACCU-CHECK ON [facility] OF [facility] PRN Reason: Protocol Last Admin: 12/11/16 06:44 Dose: Not Given Levothyroxine Sodium (Synthroid) 75 mcg PO DAILY@0630 ON [facility] Metoprolol Succinate (Toprol Xl) 50 mg PO DAILY [facility] Pantoprazole Sodium (Protonix Inj) 40 mg IVP DAILY [facility] Last Admin: 12/11/16 08:34 Dose: 40 mg Vitamin B Complex/Vit C/Folic Acid (Nephro-James) 1 tab PO DAILY [facility] Physical Exam - Constitutional Appears: Chronically Ill - Head Exam Head Exam: ATRAUMATIC, NORMAL INSPECTION - Eye Exam Eye Exam: EOMI Pupil Exam: PERRL - ENT Exam Additional comments: Dry mucous membranes - Neck Exam Neck exam: Positive for: Normal Inspection - Respiratory Exam Respiratory Exam: NORMAL BREATHING PATTERN - Cardiovascular Exam Cardiovascular Exam: REGULAR RHYTHM, +S1, +S2 - GI/Abdominal Exam GI & Abdominal Exam: Normal Bowel Sounds, Soft. absent: Tenderness - Rectal Exam Rectal Exam: Deferred - Extremities Exam Additional comments: Left foot amputation - Back Exam Back exam: NORMAL INSPECTION - Neurological Exam Neurological exam: Altered, CN II-XII Intact Additional comments: Somnolent, moves all extremities with bilateral lower extremity weakness and ataxia on the right side. Reflexes are brisk on the right. Cannot ambulate. Cannot sit up without assistance. Sensation is intact. NIHSS=8 - Psychiatric Exam Psychiatric exam: Depressed - Skin Skin Exam: Dry, Intact, Normal Color Results - Vital Signs Recent Vital Signs: Last Vital Signs Temp 98.0 F 12/11/16 08:00 Pulse 83 12/11/16 10:00 Resp 14 12/11/16 10:00 BP 186/93 H 12/11/16 10:00 Pulse Ox 93 L 12/11/16 10:00 - Labs Result Diagrams: 12/11/16 05:30 12/11/16 05:30 Labs: Laboratory Results - last 24 hr 12/10/16 12/10/16 12/10/16 16:36 16:44 16:44 WBC 11.6 H RBC 4.97 Hgb 12.8 D Hct 43.0 MCV 86.5 D MCH 25.8 L MCHC 29.8 L RDW 21.2 H Plt Count 305 MPV 8.6 Neut % (Auto) 87.6 H Lymph % (Auto) 3.9 L Fountain % (Auto) 7.4 Eos % (Auto) 0.2 Baso % (Auto) 0.9 Neut # 10.1 H Lymph # 0.5 L Fountain # 0.9 H Eos # 0.0 Baso # 0.1 Neutrophils % (Manual) 90 H Lymphocytes % (Manual) 6 L Monocytes % (Manual) 4 Platelet Estimate Normal Polychromasia Slight Hypochromasia (manual) Slight Anisocytosis (manual) Slight Target Cells Slight PT INR APTT Sodium 140 Potassium 3.7 Chloride 93 L Carbon Dioxide 28 Anion Gap 23 H BUN 16 Creatinine 2.0 H Est GFR ( Amer) 29 Est GFR (Non-Af Amer) 24 POC Glucose (mg/dL) 177 H Random Glucose 198 H Serum Osmolality Calcium 9.6 Phosphorus 2.4 L Magnesium 2.1 Total Bilirubin 0.7 AST 41 H ALT 29 Alkaline Phosphatase 107 Troponin I 0.7490 H* Total Protein 8.0 Albumin 3.8 Globulin 4.2 H Albumin/Globulin Ratio 0.9 L Triglycerides Cholesterol LDL Cholesterol Direct HDL Cholesterol Lipase 61 12/10/16 12/10/16 12/11/16 16:44 22:38 05:30 WBC 7.5 RBC 5.01 Hgb 13.0 Hct 44.0 MCV 87.9 MCH 26.0 L MCHC 29.6 L RDW 21.0 H Plt Count 288 MPV 8.6 Neut % (Auto) 77.5 H Lymph % (Auto) 9.2 L Fountain % (Auto) 12.2 H Eos % (Auto) 0.3 Baso % (Auto) 0.8 Neut # 5.8 Lymph # 0.7 L Fountain # 0.9 H Eos # 0.0 Baso # 0.1 Neutrophils % (Manual) Lymphocytes % (Manual) Monocytes % (Manual) Platelet Estimate Polychromasia Hypochromasia (manual) Anisocytosis (manual) Target Cells PT 13.7 H INR 1.3 H APTT 27.9 Sodium Potassium Chloride Carbon Dioxide Anion Gap BUN Creatinine Est GFR ( Amer) Est GFR (Non-Af Amer) POC Glucose (mg/dL) 190 H Random Glucose Serum Osmolality Calcium Phosphorus Magnesium Total Bilirubin AST ALT Alkaline Phosphatase Troponin I Total Protein Albumin Globulin Albumin/Globulin Ratio Triglycerides Cholesterol LDL Cholesterol Direct HDL Cholesterol Lipase 12/11/16 12/11/16 12/11/16 05:30 05:30 05:53 WBC RBC Hgb Hct MCV MCH MCHC RDW Plt Count MPV Neut % (Auto) Lymph % (Auto) Fountain % (Auto) Eos % (Auto) Baso % (Auto) Neut # Lymph # Fountain # Eos # Baso # Neutrophils % (Manual) Lymphocytes % (Manual) Monocytes % (Manual) Platelet Estimate Polychromasia Hypochromasia (manual) Anisocytosis (manual) Target Cells PT INR APTT Sodium 145 Potassium 3.7 Chloride 97 L Carbon Dioxide 33 H Anion Gap 19 BUN 21 H Creatinine 2.8 H Est GFR ( Amer) 20 Est GFR (Non-Af Amer) 16 POC Glucose (mg/dL) 121 H Random Glucose 135 H Serum Osmolality 308 H Calcium 9.5 Phosphorus Magnesium Total Bilirubin 0.5 AST 36 ALT 27 Alkaline Phosphatase 94 Troponin I 0.7220 H* Total Protein 7.6 Albumin 3.7 Globulin 4.0 H Albumin/Globulin Ratio 0.9 L Triglycerides Cholesterol LDL Cholesterol Direct HDL Cholesterol Lipase 12/11/16 07:22 WBC RBC Hgb Hct MCV MCH MCHC RDW Plt Count MPV Neut % (Auto) Lymph % (Auto) Fountain % (Auto) Eos % (Auto) Baso % (Auto) Neut # Lymph # F[place] # Eos # Baso # Neutrophils % (Manual) Lymphocytes % (Manual) Monocytes % (Manual) Platelet Estimate Polychromasia Hypochromasia (manual) Anisocytosis (manual) Target Cells PT INR APTT Sodium Potassium Chloride Carbon Dioxide Anion Gap BUN Creatinine Est GFR ( Amer) Est GFR (Non-Af Amer) POC Glucose (mg/dL) Random Glucose Serum Osmolality Calcium Phosphorus Magnesium Total Bilirubin AST ALT Alkaline Phosphatase Troponin I Total Protein Albumin Globulin Albumin/Globulin Ratio Triglycerides 113 Cholesterol 106 LDL Cholesterol Direct < 30 HDL Cholesterol 43 Lipase Assessment & Plan (1) Cerebellar infarct Assessment and Plan: The patient is bedbound at baseline and was at rehab for previous amputations and deconditioning. She is DNR/DNI and is not a good surgical candidate. Her renal failure makes it difficult to use hypertonic fluids continuously. I recommend the followin. Repeat CT scan of the head today 2. Stop 3% and check serum sodium/osmolarity Q 12 3. MRI of the brain without contrast when logistically possible 4. Echocardiogram 5. Telemetry 6. Continue aspirin 81 mg daily 7. DVT Px 8. PT/OT eval and treat 9. Case management consult 10. Check lipids, HbA1c, B12, folate 11. Statin to maintain LDL below 70 Thank you. Status: Acute Priority: High
[2016-12-11] MEDS: Metoprolol Succinate 50 mg XL Tab PO SCH (11:30)
--- NOTE | 2016-12-11 13:44 | CP.PCM.CON ---
History of Present Illness - History of Present Illness History of Present Illness: dictated not surgical candidate - med mgmt Past Patient History - Infectious Disease Hx of Infectious Diseases: None - Past Medical History & Family History Past Medical History?: Yes - Past Social History Smoking Status: Never Smoked - CARDIAC Hx Atrial Fibrillation: Yes Hx Congestive Heart Failure: Yes Hx Hypercholesterolemia: Yes Hx Hypertension: Yes Hx Pacemaker: Yes - PULMONARY Hx Pneumonia: Yes - NEUROLOGICAL Hx Neurological Disorder: Yes - HEENT Hx Cataracts: Yes - RENAL Hx Chronic Kidney Disease: Yes Hx Kidney Stones: Yes - ENDOCRINE/METABOLIC Hx Hyperthyroidism: Yes Hx Hypothyroidism: Yes - HEMATOLOGICAL/ONCOLOGICAL Hx Anemia: Yes Hx Human Immunodeficiency Virus (HIV): No - INTEGUMENTARY Hx Dermatological Problems: No - MUSCULOSKELETAL/RHEUMATOLOGICAL Hx Arthritis: Yes - GASTROINTESTINAL Hx Gall Bladder Disease: Yes - GENITOURINARY/GYNECOLOGICAL Hx Genitourinary Disorders: No - PSYCHIATRIC Hx Substance Use: No - SURGICAL HISTORY Hx Cholecystectomy: Yes Hx Coronary Artery Bypass Graft: Yes Hx Coronary Stent: Yes - ANESTHESIA Hx Anesthesia: Yes Hx Anesthesia Reactions: No Hx Malignant Hyperthermia: No Meds Allergies/Adverse Reactions: Allergies Allergy/AdvReac Type Severity Reaction Status Date / Time No Known Allergies Allergy Verified 04/15/15 18:53 - Medications Medications: Current Medications Acetaminophen (Tylenol 650mg/20.3ml Solution Ud) 650 mg PO Q6 PRN PRN Reason: Headache Artificial Tears (Artificial Tears) 2 drop OU Q4 PRN PRN Reason: Dry eyes Aspirin (Ecotrin) 81 mg PO DAILY [facility] Last Admin: 12/11/16 08:34 Dose: 81 mg Home Med (Rosuvastatin Calcium [Crestor]) 40 mg PO [facility] Insulin Human Regular (Humulin R) [address] ACCU-CHECK [facility] PRN Reason: Protocol Last Admin: 12/11/16 11:29 Dose: 2 units Levothyroxine Sodium (Synthroid) 75 mcg PO DAILY@0630 [facility] Metoprolol Succinate (Toprol Xl) 50 mg PO DAILY [facility] Last Admin: 12/11/16 11:30 Dose: 50 mg Pantoprazole Sodium (Protonix Inj) 40 mg IVP DAILY [facility] Last Admin: 12/11/16 08:34 Dose: 40 mg Vitamin B Complex/Vit C/Folic Acid (Nephro-James) 1 tab PO DAILY [facility] Results - Vital Signs Recent Vital Signs: Last Vital Signs Temp 99.9 F H 12/11/16 12:00 Pulse 86 12/11/16 12:00 Resp 13 12/11/16 12:00 BP 188/78 H 12/11/16 12:00 Pulse Ox 100 12/11/16 12:00 - Labs Result Diagrams: 12/11/16 05:30 12/11/16 05:30 Labs: Laboratory Results - last 24 hr 12/10/16 12/10/16 12/10/16 16:36 16:44 16:44 WBC 11.6 H RBC 4.97 Hgb 12.8 D Hct 43.0 MCV 86.5 D MCH 25.8 L MCHC 29.8 L RDW 21.2 H Plt Count 305 MPV 8.6 Neut % (Auto) 87.6 H Lymph % (Auto) 3.9 L Story % (Auto) 7.4 Eos % (Auto) 0.2 Baso % (Auto) 0.9 Neut # 10.1 H Lymph # 0.5 L Story # 0.9 H Eos # 0.0 Baso # 0.1 Neutrophils % (Manual) 90 H Lymphocytes % (Manual) 6 L Monocytes % (Manual) 4 Platelet Estimate Normal Polychromasia Slight Hypochromasia (manual) Slight Anisocytosis (manual) Slight Target Cells Slight PT INR APTT Sodium 140 Potassium 3.7 Chloride 93 L Carbon Dioxide 28 Anion Gap 23 H BUN 16 Creatinine 2.0 H Est GFR ( Amer) 29 Est GFR (Non-Af Amer) 24 POC Glucose (mg/dL) 177 H Random Glucose 198 H Serum Osmolality Calcium 9.6 Phosphorus 2.4 L Magnesium 2.1 Total Bilirubin 0.7 AST 41 H ALT 29 Alkaline Phosphatase 107 Troponin I 0.7490 H* Total Protein 8.0 Albumin 3.8 Globulin 4.2 H Albumin/Globulin Ratio 0.9 L Triglycerides Cholesterol LDL Cholesterol Direct HDL Cholesterol Lipase 61 12/10/16 12/10/16 12/11/16 16:44 22:38 05:30 WBC 7.5 RBC 5.01 Hgb 13.0 Hct 44.0 MCV 87.9 MCH 26.0 L MCHC 29.6 L RDW 21.0 H Plt Count 288 MPV 8.6 Neut % (Auto) 77.5 H Lymph % (Auto) 9.2 L Story % (Auto) 12.2 H Eos % (Auto) 0.3 Baso % (Auto) 0.8 Neut # 5.8 Lymph # 0.7 L Story # 0.9 H Eos # 0.0 Baso # 0.1 Neutrophils % (Manual) Lymphocytes % (Manual) Monocytes % (Manual) Platelet Estimate Polychromasia Hypochromasia (manual) Anisocytosis (manual) Target Cells PT 13.7 H INR 1.3 H APTT 27.9 Sodium Potassium Chloride Carbon Dioxide Anion Gap BUN Creatinine Est GFR ( Amer) Est GFR (Non-Af Amer) POC Glucose (mg/dL) 190 H Random Glucose Serum Osmolality Calcium Phosphorus Magnesium Total Bilirubin AST ALT Alkaline Phosphatase Troponin I Total Protein Albumin Globulin Albumin/Globulin Ratio Triglycerides Cholesterol LDL Cholesterol Direct HDL Cholesterol Lipase 12/11/16 12/11/16 12/11/16 05:30 05:30 05:53 WBC RBC Hgb Hct MCV MCH MCHC RDW Plt Count MPV Neut % (Auto) Lymph % (Auto) Story % (Auto) Eos % (Auto) Baso % (Auto) Neut # Lymph # Story # Eos # Baso # Neutrophils % (Manual) Lymphocytes % (Manual) Monocytes % (Manual) Platelet Estimate Polychromasia Hypochromasia (manual) Anisocytosis (manual) Target Cells PT INR APTT Sodium 145 Potassium 3.7 Chloride 97 L Carbon Dioxide 33 H Anion Gap 19 BUN 21 H Creatinine 2.8 H Est GFR ( Amer) 20 Est GFR (Non-Af Amer) 16 POC Glucose (mg/dL) 121 H Random Glucose 135 H Serum Osmolality 308 H Calcium 9.5 Phosphorus Magnesium Total Bilirubin 0.5 AST 36 ALT 27 Alkaline Phosphatase 94 Troponin I 0.7220 H* Total Protein 7.6 Albumin 3.7 Globulin 4.0 H Albumin/Globulin Ratio 0.9 L Triglycerides Cholesterol LDL Cholesterol Direct HDL Cholesterol Lipase 12/11/16 12/11/16 07:22 11:16 WBC RBC Hgb Hct MCV MCH MCHC RDW Plt Count MPV Neut % (Auto) Lymph % (Auto) Story % (Auto) Eos % (Auto) Baso % (Auto) Neut # Lymph # Story # Eos # Baso # Neutrophils % (Manual) Lymphocytes % (Manual) Monocytes % (Manual) Platelet Estimate Polychromasia Hypochromasia (manual) Anisocytosis (manual) Target Cells PT INR APTT Sodium Potassium Chloride Carbon Dioxide Anion Gap BUN Creatinine Est GFR ( Amer) Est GFR (Non-Af Amer) POC Glucose (mg/dL) 206 H Random Glucose Serum Osmolality Calcium Phosphorus Magnesium Total Bilirubin AST ALT Alkaline Phosphatase Troponin I Total Protein Albumin Globulin Albumin/Globulin Ratio Triglycerides 113 Cholesterol 106 LDL Cholesterol Direct < 30 HDL Cholesterol 43 Lipase
--- NOTE | 2016-12-11 15:36 | CP.PCM.CON ---
History of Present Illness - History of Present Illness History of Present Illness: Initial Nephrology Consultation: Assessment: critical acute cerebellar stroke Diabetic chronic Kidney Disease (E11.22) Hypertensive Chronic Kidney Disease (I12.0) End stage renal disease (N18.6) dependence on hemodialysis (Z99.2) (TTS) via AVF Hyperphosphatemia (E83.39), Secondary Hyperparathyroidism (E21.1), HTN (I12.0) Plan: No acute need for dialysis today. Will plan for dialysis monday. Continue with Nephrovite 1 tab/day. not on ALAINA as Hb >10 Continue with phos binders home dose BP control with meds as ordered. Patient not on RAAS penny, consider to add losartan 50 mg/day. BP goal as per neurology Glycemic control, Dialysis consistent diet Further work up/management as per primary team Dose meds/antibiotics (if needed) for ESRD status. Avoid fleets enema/magnesium based laxatives. Thanks for allowing me to participate in care of your patient. Will follow patient with you. Please call if any Qs. d/w team Dr Mario Kidd Office: [phone] Chief Complaint; nausea/vomitting HPI: Pt is a 76 y/o F with hx of ESRD on hemodialysis (TTS) via Rt AVF, last dialysis monday, hyperphosphatemia, secondary hyperparathyroidism, Diabetes Mellitus, hypertension, CHF presented with complaints of nausea/vomitting after dialysis. she was found to have Rt cerebellar stroke. Denies chest pain, palpitation, shortness of breath, leg swelling daughter bedside and helped in getting ROS. but has RUE Weakness ROS: pt unable to provide much ROS due to her acute CVA, ? slurred speech rest as per HPI Physical Examination: General Appearance: Comfortable, in no acute respiratory distress, co-operative . Vitals reviewed and noted as below Head; Atraumatic, normocephalic ENT: no ulcers no thrush. Tongue is midline. Oropharynx: no rash or ulcers. EYES: Pupils are equal, Eye muscles and extraocular movement intact. Sclera is anicteric. has conjunctival erythema. hx of cataract Neck; supple no lymphadenopathy, no thyromegaly or bruit Lungs: Normal respiratory rate/effort. Breath sounds bilateral equal and clear Heart: Normal rate. s1s2 normal. No rub or gallop. Extremities: no edema. No varicose veins Neurological: Patient is alert, awake and oriented to person, place and time. RUE weakness Skin: Warm and dry. Normal turgor. No rash. Palpitation: Normal elasticity for age Abdomen: Abdomen is soft. Bowel sounds +. There is no abdominal tenderness, no guarding/rigidity or organomegaly Psych: normal insight and normal affect/mood MSK: no joint tenderness or swelling. Digits and nails normal, no deformity : kidney or bladder not palpable Access: AVF Labs/imaging reviewed. Past medical history, past surgical history, family history, social history, allergy reviewed and noted as below Family Hx: no hx of CKD. Non contributory Past Patient History - Infectious Disease Hx of Infectious Diseases: None - Past Medical History & Family History Past Medical History?: Yes - Past Social History Smoking Status: Never Smoked - CARDIAC Hx Atrial Fibrillation: Yes Hx Congestive Heart Failure: Yes Hx Hypercholesterolemia: Yes Hx Hypertension: Yes Hx Pacemaker: Yes - PULMONARY Hx Pneumonia: Yes - NEUROLOGICAL Hx Neurological Disorder: Yes - HEENT Hx Cataracts: Yes - RENAL Hx Chronic Kidney Disease: Yes Hx Kidney Stones: Yes - ENDOCRINE/METABOLIC Hx Hyperthyroidism: Yes Hx Hypothyroidism: Yes - HEMATOLOGICAL/ONCOLOGICAL Hx Anemia: Yes Hx Human Immunodeficiency Virus (HIV): No - INTEGUMENTARY Hx Dermatological Problems: No - MUSCULOSKELETAL/RHEUMATOLOGICAL Hx Arthritis: Yes - GASTROINTESTINAL Hx Gall Bladder Disease: Yes - GENITOURINARY/GYNECOLOGICAL Hx Genitourinary Disorders: No - PSYCHIATRIC Hx Substance Use: No - SURGICAL HISTORY Hx Cholecystectomy: Yes Hx Coronary Artery Bypass Graft: Yes Hx Coronary Stent: Yes - ANESTHESIA Hx Anesthesia: Yes Hx Anesthesia Reactions: No Hx Malignant Hyperthermia: No Meds Allergies/Adverse Reactions: Allergies Allergy/AdvReac Type Severity Reaction Status Date / Time No Known Allergies Allergy Verified 04/15/15 18:53 - Medications Medications: Current Medications Acetaminophen (Tylenol 650mg/20.3ml Solution Ud) 650 mg PO Q6 PRN PRN Reason: Headache Artificial Tears (Artificial Tears) 2 drop OU Q4 PRN PRN Reason: Dry eyes Aspirin (Ecotrin) 81 mg PO DAILY [facility] Last Admin: 12/11/16 08:34 Dose: 81 mg Home Med (Rosuvastatin Calcium [Crestor]) 40 mg PO HS [facility] Insulin Human Regular (Humulin R) 0 units SC ACCU-CHECK [facility] PRN Reason: Protocol Last Admin: 12/11/16 11:29 Dose: 2 units Levothyroxine Sodium (Synthroid) 75 mcg PO DAILY@0630 [facility] Metoprolol Succinate (Toprol Xl) 50 mg PO DAILY [facility] Last Admin: 12/11/16 11:30 Dose: 50 mg Pantoprazole Sodium (Protonix Inj) 40 mg IVP DAILY [facility] Last Admin: 12/11/16 08:34 Dose: 40 mg Vitamin B Complex/Vit C/Folic Acid (Nephro-James) 1 tab PO DAILY [facility] Results - Vital Signs Recent Vital Signs: Last Vital Signs Temp 99.9 F H 12/11/16 12:00 Pulse 82 12/11/16 14:00 Resp 15 12/11/16 14:00 BP 182/70 H 12/11/16 14:00 Pulse Ox 100 12/11/16 14:00 - Labs Result Diagrams: 12/11/16 05:30 12/11/16 05:30 Labs: Laboratory Results - last 24 hr 12/10/16 12/10/16 12/10/16 16:36 16:44 16:44 WBC 11.6 H RBC 4.97 Hgb 12.8 D Hct 43.0 MCV 86.5 D MCH 25.8 L MCHC 29.8 L RDW 21.2 H Plt Count 305 MPV 8.6 Neut % (Auto) 87.6 H Lymph % (Auto) 3.9 L [place] % (Auto) 7.4 Eos % (Auto) 0.2 Baso % (Auto) 0.9 Neut # 10.1 H Lymph # 0.5 L Dewey # 0.9 H Eos # 0.0 Baso # 0.1 Neutrophils % (Manual) 90 H Lymphocytes % (Manual) 6 L Monocytes % (Manual) 4 Platelet Estimate Normal Polychromasia Slight Hypochromasia (manual) Slight Anisocytosis (manual) Slight Target Cells Slight PT INR APTT Sodium 140 Potassium 3.7 Chloride 93 L Carbon Dioxide 28 Anion Gap 23 H BUN 16 Creatinine 2.0 H Est GFR ( Amer) 29 Est GFR (Non-Af Amer) 24 POC Glucose (mg/dL) 177 H Random Glucose 198 H Serum Osmolality Calcium 9.6 Phosphorus 2.4 L Magnesium 2.1 Total Bilirubin 0.7 AST 41 H ALT 29 Alkaline Phosphatase 107 Troponin I 0.7490 H* Total Protein 8.0 Albumin 3.8 Globulin 4.2 H Albumin/Globulin Ratio 0.9 L Triglycerides Cholesterol LDL Cholesterol Direct HDL Cholesterol Lipase 61 12/10/16 12/10/16 12/11/16 16:44 22:38 05:30 WBC 7.5 RBC 5.01 Hgb 13.0 Hct 44.0 MCV 87.9 MCH 26.0 L MCHC 29.6 L RDW 21.0 H Plt Count 288 MPV 8.6 Neut % (Auto) 77.5 H Lymph % (Auto) 9.2 L [place] % (Auto) 12.2 H Eos % (Auto) 0.3 Baso % (Auto) 0.8 Neut # 5.8 Lymph # 0.7 L Dewey # 0.9 H Eos # 0.0 Baso # 0.1 Neutrophils % (Manual) Lymphocytes % (Manual) Monocytes % (Manual) Platelet Estimate Polychromasia Hypochromasia (manual) Anisocytosis (manual) Target Cells PT 13.7 H INR 1.3 H APTT 27.9 Sodium Potassium Chloride Carbon Dioxide Anion Gap BUN Creatinine Est GFR ( Amer) Est GFR (Non-Af Amer) POC Glucose (mg/dL) 190 H Random Glucose Serum Osmolality Calcium Phosphorus Magnesium Total Bilirubin AST ALT Alkaline Phosphatase Troponin I Total Protein Albumin Globulin Albumin/Globulin Ratio Triglycerides Cholesterol LDL Cholesterol Direct HDL Cholesterol Lipase 12/11/16 12/11/16 12/11/16 05:30 05:30 05:53 WBC RBC Hgb Hct MCV MCH MCHC RDW Plt Count MPV Neut % (Auto) Lymph % (Auto) [place]wey % (Auto) Eos % (Auto) Baso % (Auto) Neut # Lymph # [place]wey # Eos # Baso # Neutrophils % (Manual) Lymphocytes % (Manual) Monocytes % (Manual) Platelet Estimate Polychromasia Hypochromasia (manual) Anisocytosis (manual) Target Cells PT INR APTT Sodium 145 Potassium 3.7 Chloride 97 L Carbon Dioxide 33 H Anion Gap 19 BUN 21 H Creatinine 2.8 H Est GFR ( Amer) 20 Est GFR (Non-Af Amer) 16 POC Glucose (mg/dL) 121 H Random Glucose 135 H Serum Osmolality 308 H Calcium 9.5 Phosphorus Magnesium Total Bilirubin 0.5 AST 36 ALT 27 Alkaline Phosphatase 94 Troponin I 0.7220 H* Total Protein 7.6 Albumin 3.7 Globulin 4.0 H Albumin/Globulin Ratio 0.9 L Triglycerides Cholesterol LDL Cholesterol Direct HDL Cholesterol Lipase 12/11/16 12/11/16 07:22 11:16 WBC RBC Hgb Hct MCV MCH MCHC RDW Plt Count MPV Neut % (Auto) Lymph % (Auto) [place]wey % (Auto) Eos % (Auto) Baso % (Auto) Neut # Lymph # [place]wey # Eos # Baso # Neutrophils % (Manual) Lymphocytes % (Manual) Monocytes % (Manual) Platelet Estimate Polychromasia Hypochromasia (manual) Anisocytosis (manual) Target Cells PT INR APTT Sodium Potassium Chloride Carbon Dioxide Anion Gap BUN Creatinine Est GFR ( Amer) Est GFR (Non-Af Amer) POC Glucose (mg/dL) 206 H Random Glucose Serum Osmolality Calcium Phosphorus Magnesium Total Bilirubin AST ALT Alkaline Phosphatase Troponin I Total Protein Albumin Globulin Albumin/Globulin Ratio Triglycerides 113 Cholesterol 106 LDL Cholesterol Direct < 30 HDL Cholesterol 43 Lipase
[2016-12-11 15:39] LABS: CALCIUM 9.2 mg/dL (8.4-10.2)
[2016-12-11 15:42] LABS: POTASSIUM 4.9 MMOL/L (3.6-5.0)
[2016-12-11 15:53] LABS: TROPONIN I 0.608 ng/mL (0.00-0.120)
[2016-12-11] MEDS: Artificial Tears Opht Soln OU PRN ×2 (17:00→22:38)
[2016-12-11] MEDS: Acetaminophen 650mg/20.3ml solution UD PO PRN (17:02)
[2016-12-11] MEDS: Sodium Chloride 3% 500 ML IV SCH (21:54)
[2016-12-11] MEDS ORDERED: Patient's Own Med (Rosuvastatin Calcium [Crestor] 40 MG) PO SCH (22:00)
[2016-12-11] MEDS: Patient's Own Med (Rosuvastatin Calcium [Crestor] 40 MG) PO SCH (22:38)
--- NOTE | 2016-12-11 23:18 | CP.PCM.PCO ---
Physician Communication Note - Physician Communication Note Physician Communication Note: Blood Culture done 12/10/16 results +ve for Gm+ve cocci in clusters.
--- NOTE | 2016-12-12 01:08 | HP ---
CHIEF COMPLAINT: Vomiting at dialysis center. HISTORY OF PRESENT ILLNESS: This is a 76-year-old female, known case of diabetes, hypertension, end-stage renal disease, on dialysis, coronary artery disease, congestive heart failure, atrial fibrillation, arthritis, dementia and anemia, who was having intractable vomiting in dialysis. The patient was sent to the hospital and was admitted for further management after finding acute cerebellar stroke. REVIEW OF SYSTEMS: The patient is not able to provide informative history on review of systems. PAST MEDICAL HISTORY: Significant for diabetes, hypertension, coronary artery disease, congestive heart failure, atrial fibrillation, arthritis, anemia, hypercholesterolemia and end-stage renal disease. PAST SURGICAL HISTORY: Remarkable for dialysis-related procedures. PERSONAL HISTORY: The patient is currently nonsmoker, nondrinker. No substance abuse. MEDICATIONS: The patient is on multiple medications, which is as per reconciliation sheet, which was reviewed and ordered. ALLERGIES: The patient is not allergic to any medications. FAMILY HISTORY: Noncontributory. PHYSICAL EXAMINATION: GENERAL: Well-built, well-nourished, overweight 76-year-old female, in no acute distress. VITAL SIGNS: Temperature 98.5, pulse 76, respirations 17, blood pressure 170/67. HEENT: Pupils are reacting to light. Normocephalic and atraumatic skull. NECK: No JVD. No thyromegaly. No lymphadenopathy. No nystagmus. HEART: S1 and S2, normal, regular. No significant murmur, gallop or rub is heard. LUNGS: Shows good bilateral air exchange. No rales or rhonchi. ABDOMEN: Soft, nontender. No organomegaly. No fluid. Bowel sounds are plus. EXTREMITIES: No edema. No calf swelling. No tenderness. No acute ischemia. CENTRAL NERVOUS SYSTEM: The patient is alert, awake, and oriented x2, communicative, but not conversant. Thorough FORM SETTER exam is not feasible due to the patient's general condition. There does not seem to be any acute gross focal motor or sensory neurological deficit. DIAGNOSTIC DATA: Available diagnostic data reviewed. CAT scan of the abdomen is unremarkable. Chest x-ray is clear. CAT scan of head is unremarkable except the patient has cerebellar stroke. Telemetry monitoring does not reveal significant arrhythmias. WBC 11.6, hemoglobin 12.8, hematocrit 43, platelets 305. PT 13.7, PTT 27.9. Sodium 140, potassium 3.7, chloride 93, bicarb 28, BUN 16, creatinine 2.0. Accu-Chek shows glucose 198, 190 and 121. Troponin level is 0.7490. SMA-12 is unremarkable. Cardiology and manager bilingual intervention and consult noted and appreciated. ADMITTING IMPRESSION: Acute cerebrovascular accident, hypertension, type 2 diabetes with hyperglycemia, congestive heart failure, coronary artery disease, atrial fibrillation and dementia. PLAN: As ordered. Case and plan discussed with the patient's family at bedside. Gerardo Mendoza MD
--- NOTE | 2016-12-12 01:22 | CON ---
DATE: 12/11/2016 HISTORY OF PRESENT ILLNESS: This is a 76-year-old markedly sick patient with severe diabetes and end-stage renal disease. Apparently today in dialysis, she was noted to be nauseous. She had a CT of the brain, which documented a right cerebellar infarct. . I initially discussed the case with the ER physician last night. We both agree the patient is not a candidate for surgery. She is extremely debilitated and ill and on top of that, was basically neurologically stable. The plan was for her to be admitted to the ICU for medical management which is underway. Interviewing her today, she really only complains of a mild headache, she is not currently having any nausea or vomiting, otherwise is basically asymptomatic. Past medical history, medications, allergies, social history, all reviewed in the chart, obviously quite extensive. PHYSICAL EXAMINATION GENERAL: She is bright, awake, and alert. She follows all commands in Slovak. She is properly oriented. HEENT: She has significant cataract, but her extraocular movements seemed to be intact. Her face is symmetric. NEUROLOGIC: There is no evidence of any cranial nerve dysfunction. She is moving all extremities with at least antigravity. The CT of the brain does show rather impressive right cerebellar infarct. There is some compression of the posterior sam. There is no hydrocephalus. IMPRESSION AND PLAN: We all agree including the other physicians involved in her case as well as the patient's daughter who is quite adamant about not having any surgery. I would fully agree, certainly would advocate medical management in this particular lady. Azael Pandya MD
[2016-12-12 05:13] LABS: HEMATOCRIT 43.7 % (34.0-47.0); MEAN CELL VOLUME 88.1 fl (81.0-99.0); MEAN CORPUSCULAR HEMOGLOBIN 25.8 pg (27.0-31.0); MEAN CORPUSCULAR HGB CONC 29.2 g/dL (33.0-37.0); RED CELL DISTRIBUTION WIDTH 21.1 % (11.5-14.5); WHITE BLOOD COUNT 9.9 K/uL (4.8-10.8)
[2016-12-12 05:21] LABS: ALB/GLOB RATIO 0.9 (1.0-2.1); BILIRUBIN,TOTAL 0.5 mg/dl (0.2-1.3); CALCIUM 9.3 mg/dL (8.4-10.2); POTASSIUM 4.6 MMOL/L (3.6-5.0); TOTAL PROTEIN 7.4 G/DL (6.3-8.2)
[2016-12-12] MEDS: Insulin Regular 100 units/ml SC SCH ×4 (06:27→23:47)
[2016-12-12] MEDS: Levothyroxine 75 MCG TAB PO SCH (06:27)
--- NOTE | 2016-12-12 08:17 | CARD ---
APPROVED REPORT EKG Measurement Heart [id number] <Conclusion> Normal sinus rhythm with sinus arrhythmia Inferior infarct, age undetermined Abnormal ECG
[2016-12-12] MEDS: Metoprolol Succinate 50 mg XL Tab PO SCH (08:38)
--- NOTE | 2016-12-12 08:41 | CP.PCM.PN ---
Subjective - Date & Time of Evaluation Date of Evaluation: 12/12/16 Time of Evaluation: 08:39 - Subjective Subjective: Patient awake and verbalizing but it was very difficult to see whether she is comprehensive in have told because of the language barrier Objective - Vital Signs/Intake and Output Vital Signs (last 24 hours): Temp Pulse Resp BP Pulse Ox 97.8 F 97 H 19 201/91 H 95 12/12/16 08:00 12/12/16 08:38 12/12/16 08:00 12/12/16 08:38 12/12/16 08:00 Intake and Output: 12/12/16 12/12/16 06:59 18:59 Intake Total 850 Balance 850 - Medications Medications: Current Medications Acetaminophen (Tylenol 650mg/20.3ml Solution Ud) 650 mg PO Q6 PRN PRN Reason: Headache Last Admin: 12/11/16 17:02 Dose: 650 mg Amlodipine Besylate (Norvasc) 5 mg PO DAILY [facility] Last Admin: 12/12/16 08:36 Dose: 5 mg Artificial Tears (Artificial Tears) 2 drop OU Q4 PRN PRN Reason: Dry eyes Last Admin: 12/11/16 22:38 Dose: 2 drop Aspirin (Ecotrin) 81 mg PO DAILY [facility] Last Admin: 12/12/16 08:36 Dose: 81 mg Home Med (Rosuvastatin Calcium [Crestor]) 40 mg PO HS [facility] Last Admin: 12/11/16 22:38 Dose: 40 mg Sodium Chloride (Hypertonic Saline 3%) 500 mls @ 30 mls/hr IV .[id number] [facility] Stop: 12/12/16 20:21 Last Admin: 12/11/16 21:54 Dose: 30 mls/hr Vancomycin HCl 1 gm/ Sodium (Chloride) 250 mls @ 166.667 mls/hr IVPB Q12H [facility] Last Admin: 12/11/16 23:48 Dose: 166.667 mls/hr Insulin Human Regular (Humulin R) 0 units SC ACCU-CHECK [facility] PRN Reason: Protocol Last Admin: 12/12/16 06:27 Dose: 1 units Levothyroxine Sodium (Synthroid) 75 mcg PO DAILY@0630 [facility] Last Admin: 12/12/16 06:27 Dose: 75 mcg Metoprolol Succinate (Toprol Xl) 50 mg PO DAILY [facility] Last Admin: 12/12/16 08:38 Dose: 50 mg Pantoprazole Sodium (Protonix Inj) 40 mg IVP DAILY [facility] Last Admin: 12/11/16 08:34 Dose: 40 mg Vitamin B Complex/Vit C/Folic Acid (Nephro-James) 1 tab PO DAILY [facility] - Labs Labs: 12/12/16 04:25 12/12/16 04:25 PT 13.7 Seconds (9.8-13.1) H 12/10/16 16:44 INR 1.3 (0.9-1.2) H 12/10/16 16:44 APTT 27.9 Seconds (25.6-37.1) 12/10/16 16:44 - Constitutional Appears: No Acute Distress - ENT Exam ENT Exam: absent: Mucous Membranes Moist - Respiratory Exam Respiratory Exam: NORMAL BREATHING PATTERN. absent: Chest Wall Tenderness - GI/Abdominal Exam GI & Abdominal Exam: Soft, Normal Bowel Sounds - Extremities Exam Extremities Exam: absent: Calf Tenderness - Back Exam Back Exam: absent: CVA tenderness (L), CVA tenderness (R) - Neurological Exam Neurological Exam: Altered Assessment and Plan (1) Cerebellar infarct Assessment & Plan: acute cerebellar stroke Diabetic chronic Kidney Disease (E11.22) Hypertensive Chronic Kidney Disease (I12.0) End stage renal disease (N18.6) dependence on hemodialysis (Z99.2) (TTS) via AVF Hyperphosphatemia (E83.39), Secondary Hyperparathyroidism (E21.1), HTN (I12.0) Scheduled for hemodialysis for tomorrow. continue monitoring Status: Acute
--- NOTE | 2016-12-12 10:49 | CP.PCM.PN ---
Subjective - Date & Time of Evaluation Date of Evaluation: 12/12/16 Time of Evaluation: 10:47 - Subjective Subjective: Ms. Mac was seen and examined at the bedside. She is responsive to all stimuli and able to follow simple commands. She even request for a cup of coffee today. There was no untoward events overnight. Objective - Vital Signs/Intake and Output Vital Signs (last 24 hours): Temp Pulse Resp BP Pulse Ox 97.8 F 97 H 19 201/91 H 95 12/12/16 08:00 12/12/16 08:38 12/12/16 08:00 12/12/16 08:38 12/12/16 08:00 Intake and Output: 12/12/16 12/12/16 06:59 18:59 Intake Total 850 Balance 850 - Medications Medications: Current Medications Acetaminophen (Tylenol 650mg/20.3ml Solution Ud) 650 mg PO Q6 PRN PRN Reason: Headache Last Admin: 12/11/16 17:02 Dose: 650 mg Amlodipine Besylate (Norvasc) 5 mg PO DAILY [facility] Last Admin: 12/12/16 08:36 Dose: 5 mg Artificial Tears (Artificial Tears) 2 drop OU Q4 PRN PRN Reason: Dry eyes Last Admin: 12/11/16 22:38 Dose: 2 drop Aspirin (Ecotrin) 81 mg PO DAILY [facility] Last Admin: 12/12/16 08:36 Dose: 81 mg Home Med (Rosuvastatin Calcium [Crestor]) 40 mg PO HS [facility] Last Admin: 12/11/16 22:38 Dose: 40 mg Sodium Chloride (Hypertonic Saline 3%) 500 mls @ 30 mls/hr IV .[id number] [facility] Stop: 12/12/16 20:21 Last Admin: 12/11/16 21:54 Dose: 30 mls/hr Vancomycin HCl 1 gm/ Sodium (Chloride) 250 mls @ 166.667 mls/hr IVPB Q12H [facility] Last Admin: 12/11/16 23:48 Dose: 166.667 mls/hr Insulin Human Regular (Humulin R) 0 units SC ACCU-CHECK [facility] PRN Reason: Protocol Last Admin: 12/12/16 06:27 Dose: 1 units Levothyroxine Sodium (Synthroid) 75 mcg PO DAILY@0630 [facility] Last Admin: 12/12/16 06:27 Dose: 75 mcg Metoprolol Succinate (Toprol Xl) 50 mg PO DAILY [facility] Last Admin: 12/12/16 08:38 Dose: 50 mg Pantoprazole Sodium (Protonix Inj) 40 mg IVP DAILY [facility] Last Admin: 12/11/16 08:34 Dose: 40 mg Vitamin B Complex/Vit C/Folic Acid (Nephro-James) 1 tab PO DAILY [facility] - Labs Labs: 12/12/16 04:25 12/12/16 04:25 PT 13.7 Seconds (9.8-13.1) H 12/10/16 16:44 INR 1.3 (0.9-1.2) H 12/10/16 16:44 APTT 27.9 Seconds (25.6-37.1) 12/10/16 16:44 - Constitutional Appears: No Acute Distress - Head Exam Head Exam: ATRAUMATIC, NORMAL INSPECTION, NORMOCEPHALIC - Neurological Exam Neurological Exam: Alert, Awake Neuro motor strength exam: Left Upper Extremity: 3, Right Upper Extremity: 2/1, Left Lower Extremity: 3, Right Lower Extremity: 2/1 Additional comments: Neurological assessments shows movement of all extremities with bilateral lower extremity weakness and ataxia on the right side. Reflexes are brisk on the right. Cannot ambulate. Cannot sit up without assistance. Sensation is intact. Assessment and Plan (1) Cerebellar infarct Assessment & Plan: Case discussed with Dr. Centeno, continue hypertonic solution of NaCL 3% at 30 ml/ hr and continue to close monitor sodium and serum osmolality levels. Continue current medical, physical, and occupational therapies. Awaiting echocardiogram results. Status: Acute
--- NOTE | 2016-12-12 12:14 | CP.CCUPN ---
CCU Subjective - Physician Review Events Since Last Encounter (Free Text): 12/12/16 14:30 The patient was Seen/interviewed and examined by me at the bedside during ICU round, Medical records reviewed and Management issues were discussed and formulated with the house staff. Events reviewed Patient awake, oriented, follow commands, no new neuro deficits. Comfortable, no distress. BP still leif home medications being resumed CCU Objective - Vital Signs / Intake & Output Vital Signs (Last 4 hours): Vital Signs Pulse Resp BP Pulse Ox 12/12/16 10:00 81 18 198/79 H 93 L 12/12/16 08:38 97 H 201/91 H 12/12/16 08:36 97 H 201/91 H Intake and Output (Last 8hrs): Intake & Output 12/11/16 12/12/16 12/12/16 22:59 06:59 14:59 Intake Total 250 600 100 Balance 250 600 100 Weight 141 lb 8 oz Intake: IV 10 240 Intake, Piggyback 250 Oral 240 110 100 Other: # Voids Urine, Voided 1 # Bowel Movements 1 - Physical Exam Head: Positive for: Atraumatic Pupils: Positive for: Other Extroacular Muscles: Positive for: EOMI (L pupil opacified, R pupil 3 mm and reactive.) Conjunctiva: Positive for: Normal Mouth: Positive for: Moist Mucous Membranes Nose (External): Positive for: Atraumatic Neck: Positive for: Normal Range of Motion. Negative for: JVD, Lymphadenopathy Respiratory/Chest: Positive for: Decreased Breath Sounds. Negative for: Accessory Muscle Use, Rales, Rhonchi Cardiovascular: Positive for: Regular Rate and Rhythm. Negative for: Murmurs, Rub Abdomen: Positive for: Normal Bowel Sounds. Negative for: Tenderness, Distention Upper Extremity: Positive for: Other (RUE AV Shunt with good bruit and thrill) Lower Extremity: Positive for: Edema (trace), Deformity (Left foot TMA). Negative for: CALF TENDERNESS Neurological: Positive for: Motor Func Grossly Intact Skin: Positive for: Warm, Normal Color. Negative for: Rashes, Abscess Psychiatric: Positive for: Alert - Medications Active Medications: Active Medications Generic Name Dose Route Start Last Admin Trade Name Freq PRN Reason Stop Dose Admin Acetaminophen 650 mg 12/10/16 21:44 12/11/16 17:02 Tylenol 650mg/20.3ml Solution Ud PO 650 mg Q6 PRN Administration Headache Amlodipine Besylate 5 mg 12/12/16 09:00 12/12/16 08:36 Norvasc PO 5 mg DAILY [facility] Administration Artificial Tears 2 drop 12/11/16 12:52 12/11/16 22:38 Artificial Tears OU 2 drop Q4 PRN Administration Dry eyes Aspirin 81 mg 12/11/16 09:00 12/12/16 08:36 Ecotrin PO 81 mg DAILY [facility] Administration Home Med 40 mg 12/11/16 22:00 12/11/16 22:38 Rosuvastatin Calcium [Crestor] PO 40 mg HS [facility] Administration Sodium Chloride 500 mls @ 30 mls/hr 12/11/16 20:30 12/11/16 21:54 Hypertonic Saline 3% IV 12/12/16 20:21 30 mls/hr .[id number] [facility] Administration Vancomycin HCl 1 gm/ Sodium 250 mls @ 166.667 mls/hr 12/11/16 23:15 12/11/16 23:48 Chloride IVPB 166.667 mls/hr Q12H [facility] Administration Insulin Human Regular 0 units 12/10/16 23:00 12/12/16 06:27 Humulin R SC 1 units ACCU-CHECK [facility] Administration Protocol Levothyroxine Sodium 75 mcg 12/12/16 06:30 12/12/16 06:27 Synthroid PO 75 mcg DAILY@0630 [facility] Administration Metoprolol Succinate 50 mg 12/11/16 09:00 12/12/16 08:38 Toprol Xl PO 50 mg DAILY [facility] Administration Pantoprazole Sodium 40 mg 12/11/16 09:00 12/11/16 08:34 Protonix Inj IVP 40 mg DAILY [facility] Administration Vitamin B Complex/Vit C/Folic Acid 1 tab 12/11/16 09:00 Nephro-James PO DAILY [facility] - Patient Studies Lab Studies: Microbiology Studies 12/10/16 16:00 S.aureus & Coag-Neg Staph PNA FISH - Final Blood-Venous Blood Culture - Preliminary Coagulase Neg Staphylococcus Gram Stain - Final 12/10/16 18:00 Blood Culture - Preliminary Blood-Venous NO GROWTH AFTER 24 HOURS Lab Studies 12/12/16 12/12/16 12/12/16 Range/Units 11:05 07:30 05:41 WBC (4.8-10.8) K/uL RBC (3.80-5.20) Mil/uL Hgb (12.0-16.0) g/dL Hct (34.0-47.0) % MCV (81.0-99.0) fl MCH (27.0-31.0) pg MCHC (33.0-37.0) g/dL RDW (11.5-14.5) % Plt Count (130-400) K/uL Sodium (132-148) mmol/l Potassium (3.6-5.0) MMOL/L Chloride (98-107) mmol/L Carbon Dioxide (22-30) mmol/L Anion Gap (10-20) BUN (7-17) mg/dl Creatinine (0.7-1.2) mg/dL Est GFR ( Amer) Est GFR (Non-Af Amer) POC Glucose (mg/dL) 241 H 170 H (65-110) mg/dL Random Glucose (65-105) mg/dL Serum Osmolality 313 H (272-300) mosm/kg Calcium (8.4-10.2) mg/dL Total Bilirubin (0.2-1.3) mg/dl AST (14-36) U/L ALT (9-52) U/L Alkaline Phosphatase (38-126) U/L Troponin I (0.00-0.120) ng/mL Total Protein (6.3-8.2) G/DL Albumin (3.5-5.0) g/dL Globulin (2.2-3.9) gm/dL Albumin/Globulin Ratio (1.0-2.1) 12/12/16 12/12/16 12/11/16 Range/Units 04:25 04:25 21:55 WBC 9.9 (4.8-10.8) K/uL RBC 4.96 (3.80-5.20) Mil/uL Hgb 12.8 (12.0-16.0) g/dL Hct 43.7 (34.0-47.0) % MCV 88.1 (81.0-99.0) fl MCH 25.8 L (27.0-31.0) pg MCHC 29.2 L (33.0-37.0) g/dL RDW 21.1 H (11.5-14.5) % Plt Count 262 (130-400) K/uL Sodium 146 (132-148) mmol/l Potassium 4.6 (3.6-5.0) MMOL/L Chloride 100 (98-107) mmol/L Carbon Dioxide 29 (22-30) mmol/L Anion Gap 21 H (10-20) BUN 29 H (7-17) mg/dl Creatinine 3.4 H (0.7-1.2) mg/dL Est GFR ( Amer) 16 Est GFR (Non-Af Amer) 13 POC Glucose (mg/dL) 171 H (65-110) mg/dL Random Glucose 154 H (65-105) mg/dL Serum Osmolality (272-300) mosm/kg Calcium 9.3 (8.4-10.2) mg/dL Total Bilirubin 0.5 (0.2-1.3) mg/dl AST 43 H (14-36) U/L ALT 29 (9-52) U/L Alkaline Phosphatase 87 (38-126) U/L Troponin I (0.00-0.120) ng/mL Total Protein 7.4 (6.3-8.2) G/DL Albumin 3.5 (3.5-5.0) g/dL Globulin 3.9 (2.2-3.9) gm/dL Albumin/Globulin Ratio 0.9 L (1.0-2.1) 12/11/16 12/11/16 Range/Units 16:55 15:00 WBC (4.8-10.8) K/uL RBC (3.80-5.20) Mil/uL Hgb (12.0-16.0) g/dL Hct (34.0-47.0) % MCV (81.0-99.0) fl MCH (27.0-31.0) pg MCHC (33.0-37.0) g/dL RDW (11.5-14.5) % Plt Count (130-400) K/uL Sodium 143 (132-148) mmol/l Potassium 4.9 (3.6-5.0) MMOL/L Chloride 99 (98-107) mmol/L Carbon Dioxide 31 H (22-30) mmol/L Anion Gap 18 (10-20) BUN 25 H (7-17) mg/dl Creatinine 3.0 H (0.7-1.2) mg/dL Est GFR ( Amer) 18 Est GFR (Non-Af Amer) 15 POC Glucose (mg/dL) 187 H (65-110) mg/dL Random Glucose 226 H (65-105) mg/dL Serum Osmolality (272-300) mosm/kg Calcium 9.2 (8.4-10.2) mg/dL Total Bilirubin (0.2-1.3) mg/dl AST (14-36) U/L ALT (9-52) U/L Alkaline Phosphatase (38-126) U/L Troponin I 0.6080 H* (0.00-0.120) ng/mL Total Protein (6.3-8.2) G/DL Albumin (3.5-5.0) g/dL Globulin (2.2-3.9) gm/dL Albumin/Globulin Ratio (1.0-2.1) Laboratory Results - last 24 hr 12/11/16 12/11/16 12/11/16 15:00 16:55 21:55 WBC RBC Hgb Hct MCV MCH MCHC RDW Plt Count Sodium 143 Potassium 4.9 Chloride 99 Carbon Dioxide 31 H Anion Gap 18 BUN 25 H Creatinine 3.0 H Est GFR ( Amer) 18 Est GFR (Non-Af Amer) 15 POC Glucose (mg/dL) 187 H 171 H Random Glucose 226 H Serum Osmolality Calcium 9.2 Total Bilirubin AST ALT Alkaline Phosphatase Troponin I 0.6080 H* Total Protein Albumin Globulin Albumin/Globulin Ratio 12/12/16 12/12/16 12/12/16 04:25 04:25 05:41 WBC 9.9 RBC 4.96 Hgb 12.8 Hct 43.7 MCV 88.1 MCH 25.8 L MCHC 29.2 L RDW 21.1 H Plt Count 262 Sodium 146 Potassium 4.6 Chloride 100 Carbon Dioxide 29 Anion Gap 21 H BUN 29 H Creatinine 3.4 H Est GFR ( Amer) 16 Est GFR (Non-Af Amer) 13 POC Glucose (mg/dL) 170 H Random Glucose 154 H Serum Osmolality Calcium 9.3 Total Bilirubin 0.5 AST 43 H ALT 29 Alkaline Phosphatase 87 Troponin I Total Protein 7.4 Albumin 3.5 Globulin 3.9 Albumin/Globulin Ratio 0.9 L 12/12/16 12/12/16 07:30 11:05 WBC RBC Hgb Hct MCV MCH MCHC RDW Plt Count Sodium Potassium Chloride Carbon Dioxide Anion Gap BUN Creatinine Est GFR ( Amer) Est GFR (Non-Af Amer) POC Glucose (mg/dL) 241 H Random Glucose Serum Osmolality 313 H Calcium Total Bilirubin AST ALT Alkaline Phosphatase Troponin I Total Protein Albumin Globulin Albumin/Globulin Ratio Fingerstick Blood Sugar Results: 170 Critical Care Progress Note - Nutrition Nutrition: Nutrition Category Date Time Status Dysphagia/Modified Consistency Diet [DIET] Diets 12/11/16 Dinner Active Assessment/Plan (1) Hypertensive emergency Current Visit: Yes Status: Acute (2) Cerebellar infarct Current Visit: Yes Status: Acute Priority: High (3) Elevated troponin Current Visit: Yes Status: Acute (4) ESRD on hemodialysis Current Visit: No Status: Acute Priority: High (5) Fluid overload Current Visit: No Status: Acute (6) Prophylactic measure Current Visit: No Status: Acute Comment: SCDs/ plavix will dose coumadin pending INR Pepcid 20mg po daily - Assessment and Plan (Free Text) Assessment: Continue current meds, reviewed Continue Neuro check 3% hypertonic solution @30 ml/H IV Vanco, follow up final Blood C/S results Monitor serum osmolality and sodium level BP and tight sugar control BD Nebs Neurology and Renal evaluation appreciated HOB Elevation ECHO Supplemental Oxygen Pulmonary toilets GI/DVT PPX Code status: DNR/DNI
[2016-12-12] MEDS ORDERED: Lidocaine 1% Inj (20ml) ONE (12:31)
--- NOTE | 2016-12-12 13:00 | PCM.SURG1 ---
Surgeon's Initial Post Op Note - Surgeon's Notes Surgeon: Clemente Grove MD Land Agent: NONE Pre-Operative Diagnosis: Poor venous access Operative Findings: CXR showed right subclavian vein stent. Patent left basilic vein. Left pacemaker. Post-Operative Diagnosis: Poor venous access Operation Performed: DUal lumen picc placement via the left basilic vein, 37 cm. Tip is in the innominate vein. Specimen/Specimens Removed: NONE Estimated Blood Loss: EBL {In ML}: 2 Blood Products Given: N/A Drains Used: No Drains Post-Op Condition: Fair Date of Surgery/Procedure: 12/12/16 Time of Surgery/Procedure: 12:50
--- NOTE | 2016-12-12 13:08 | PN ---
DATE: 12/12/2016 SUBJECTIVE: The patient is seen and examined. Interim events noted. Consults noted and appreciated. Neurology, Neurosurgery, Nephrology, microelectronics technician interventions noted and appreciated. The patient remains in the intensive care unit. The patient denies any specific complaint except urinary discomfort. No chest pain. No shortness of breath. PHYSICAL EXAMINATION GENERAL: The patient is in no acute distress. VITAL SIGNS: Stable. HEART: S1 and S2, normal and regular. LUNGS: Good bilateral air exchange. ABDOMEN: Soft, nontender. EXTREMITIES: No edema. No calf swelling. No tenderness. No acute ischemia. CENTRAL NERVOUS SYSTEM: Essentially unchanged. SKIN: The patient has multiple skin ulcers including the chest and the sacrum. DIAGNOSTIC DATA: Available diagnostic data reviewed. Telemetry monitoring does not reveal significant arrhythmias. ASSESSMENT AND PLAN: Overall, the patient's general medical condition seems to be improving. The patient is on home 3% saline. Sodium is 146. Osmolarity is pending. The patient is hemodynamically stable. Plan as ordered. Gerardo Mendoza MD
[2016-12-12 15:55] LABS: CALCIUM 9.2 mg/dL (8.4-10.2); POTASSIUM 4.5 MMOL/L (3.6-5.0)
--- NOTE | 2016-12-12 17:53 | CP.PCM.CON ---
History of Present Illness - History of Present Illness History of Present Illness: Podiatry Consult Note - Dr. Herrera 76 year old female patient with extensive PMHx seen at bedside in ICU at the request for podiatry consultation. HPI obtained with the assistance of educational sign language interpreter #[id number]. Patient in NAD. Patient seen wearing offloading boots at time of visit. Patient is a poor historian. Per nursing, podiatry was consulted for a wound on left foot TMA stump. Patient complains of generalized pain throughout her body. No other pedal complaints at this time. PMHx: Anemia, arthritis, atrial fibrillation, CAD, CHF, DM II, gall bladder disease with amrik, HTN, hypercholesterolemia, kidney stones, pneumonia, ESRD on HD PSH: CABG, cholecystectomy, coronary stent, pacemaker FH: unable to obtain SH: unable to obtain Meds: see meds list All: NKDA Review of Systems - Review of Systems All systems: reviewed and no additional remarkable complaints except (as per HPI ) Past Patient History - Infectious Disease Hx of Infectious Diseases: None - Past Medical History & Family History Past Medical History?: Yes - Past Social History Smoking Status: Never Smoked - CARDIAC Hx Atrial Fibrillation: Yes Hx Congestive Heart Failure: Yes Hx Hypercholesterolemia: Yes Hx Hypertension: Yes Hx Pacemaker: Yes - PULMONARY Hx Pneumonia: Yes - NEUROLOGICAL Hx Neurological Disorder: Yes - HEENT Hx Cataracts: Yes - RENAL Hx Chronic Kidney Disease: Yes Hx Kidney Stones: Yes - ENDOCRINE/METABOLIC Hx Hyperthyroidism: Yes Hx Hypothyroidism: Yes - HEMATOLOGICAL/ONCOLOGICAL Hx Anemia: Yes Hx Human Immunodeficiency Virus (HIV): No - INTEGUMENTARY Hx Dermatological Problems: No - MUSCULOSKELETAL/RHEUMATOLOGICAL Hx Arthritis: Yes - GASTROINTESTINAL Hx Gall Bladder Disease: Yes - GENITOURINARY/GYNECOLOGICAL Hx Genitourinary Disorders: No - PSYCHIATRIC Hx Substance Use: No - SURGICAL HISTORY Hx Cholecystectomy: Yes Hx Coronary Artery Bypass Graft: Yes Hx Coronary Stent: Yes - ANESTHESIA Hx Anesthesia: Yes Hx Anesthesia Reactions: No Hx Malignant Hyperthermia: No Meds Allergies/Adverse Reactions: Allergies Allergy/AdvReac Type Severity Reaction Status Date / Time No Known Allergies Allergy Verified 04/15/15 18:53 - Medications Medications: Current Medications Acetaminophen (Tylenol 650mg/20.3ml Solution Ud) 650 mg PO Q6 PRN PRN Reason: Headache Last Admin: 12/11/16 17:02 Dose: 650 mg Amlodipine Besylate (Norvasc) 5 mg PO DAILY [facility] Last Admin: 12/12/16 08:36 Dose: 5 mg Artificial Tears (Artificial Tears) 2 drop OU Q4 PRN PRN Reason: Dry eyes Last Admin: 12/11/16 22:38 Dose: 2 drop Aspirin (Ecotrin) 81 mg PO DAILY [facility] Last Admin: 12/12/16 08:36 Dose: 81 mg Home Med (Rosuvastatin Calcium [Crestor]) 40 mg PO HS [facility] Last Admin: 12/11/16 22:38 Dose: 40 mg Sodium Chloride (Hypertonic Saline 3%) 500 mls @ 30 mls/hr IV .[id number] [facility] Stop: 12/12/16 20:21 Last Admin: 12/11/16 21:54 Dose: 30 mls/hr Vancomycin HCl 1 gm/ Sodium (Chloride) 250 mls @ 166.667 mls/hr IVPB Q12H [facility] Last Admin: 12/12/16 13:18 Dose: 166.667 mls/hr Insulin Human Regular (Humulin R) 0 units SC ACCU-CHECK [facility] PRN Reason: Protocol Last Admin: 12/12/16 13:16 Dose: 2 units Levothyroxine Sodium (Synthroid) 75 mcg PO DAILY@0630 [facility] Last Admin: 12/12/16 06:27 Dose: 75 mcg Metoprolol Succinate (Toprol Xl) 50 mg PO DAILY [facility] Last Admin: 12/12/16 08:38 Dose: 50 mg Pantoprazole Sodium (Protonix Inj) 40 mg IVP DAILY [facility] Last Admin: 12/12/16 13:17 Dose: 40 mg Vitamin B Complex/Vit C/Folic Acid (Nephro-James) 1 tab PO DAILY [facility] Physical Exam - Constitutional Appears: Well, Non-toxic, No Acute Distress - Extremities Exam Additional comments: Patient wearing offloading boots at time of visit. Dressing to LLE appears clean /dry/intact with no strikethrough noted. VASC: DP pulses palpable 2/4 b/l. Right PT pulse palpable 2/4, left PT pulse non -palpable. TG cool to cool. No edema noted NEURO: Gross sensation diminished bilaterally. DERM: Ulceration noted to distolateral aspect of left TMA stump measuring approximately 5 x 2 x 0.2 cm with overlying eschar. Mild erythema noted to proximal aspect of wound. No active drainage, purulence, malodor, fluctuance, or ascending cellulitis noted. (-)probe to bone ORTHO: Generalized tenderness to palpation bilateral lower extremity. - Neurological Exam Neurological exam: Alert - Psychiatric Exam Psychiatric exam: Normal Mood Results - Vital Signs Recent Vital Signs: Last Vital Signs Temp 98 F 12/12/16 16:00 Pulse 88 12/12/16 16:00 Resp 16 12/12/16 16:00 BP 156/70 H 12/12/16 16:00 Pulse Ox 99 12/12/16 16:00 - Labs Result Diagrams: 12/12/16 04:25 12/12/16 15:26 Labs: Laboratory Results - last 24 hr 12/11/16 12/12/16 12/12/16 21:55 04:25 04:25 WBC 9.9 RBC 4.96 Hgb 12.8 Hct 43.7 MCV 88.1 MCH 25.8 L MCHC 29.2 L RDW 21.1 H Plt Count 262 Sodium 146 Potassium 4.6 Chloride 100 Carbon Dioxide 29 Anion Gap 21 H BUN 29 H Creatinine 3.4 H Est GFR ( Amer) 16 Est GFR (Non-Af Amer) 13 POC Glucose (mg/dL) 171 H Random Glucose 154 H Serum Osmolality Calcium 9.3 Total Bilirubin 0.5 AST 43 H ALT 29 Alkaline Phosphatase 87 Total Protein 7.4 Albumin 3.5 Globulin 3.9 Albumin/Globulin Ratio 0.9 L 12/12/16 12/12/16 12/12/16 05:41 07:30 11:05 WBC RBC Hgb Hct MCV MCH MCHC RDW Plt Count Sodium Potassium Chloride Carbon Dioxide Anion Gap BUN Creatinine Est GFR ( Amer) Est GFR (Non-Af Amer) POC Glucose (mg/dL) 170 H 241 H Random Glucose Serum Osmolality 313 H Calcium Total Bilirubin AST ALT Alkaline Phosphatase Total Protein Albumin Globulin Albumin/Globulin Ratio 12/12/16 12/12/16 12/12/16 15:26 15:26 16:27 WBC RBC Hgb Hct MCV MCH MCHC RDW Plt Count Sodium 148 Potassium 4.5 Chloride 104 Carbon Dioxide 28 Anion Gap 20 BUN 32 H Creatinine 3.7 H Est GFR ( Amer) 14 Est GFR (Non-Af Amer) 12 POC Glucose (mg/dL) 192 H Random Glucose 203 H Serum Osmolality 312 H Calcium 9.2 Total Bilirubin AST ALT Alkaline Phosphatase Total Protein Albumin Globulin Albumin/Globulin Ratio Assessment & Plan - Assessment and Plan (Free Text) Assessment: 76 year old female with extensive PMHx with 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 Herrera Chart, vitals, labs reviewed = afebrile, WBC 9.9 Wound was dressed with DSD C/w pain mgmt per medicine Continue with offloading prevalon boots to both feet; to be worn at all times while in bed Stable per podiatry Podiatry will continue to follow patient while in house
[2016-12-12] MEDS: Sodium Chloride 3% 500 ML IV SCH (18:16)
--- NOTE | 2016-12-12 18:48 | CP.PCM.CON ---
History of Present Illness - History of Present Illness History of Present Illness: Infectious Disease Consult Note- ID consult request for positive blood cx. HPI- History obtained mostly from the medical chart and the nurse. Pt. is a 76 year old female with pmh of A.fib, ESRD on HD, CAD, CHF, DM II, s/p TMA who was sent from the HD center to ED for evaluation of nausea and was found to have acute/subacute R cerebellar Infarct with mass effect and was seen by neurosurgery adn was deemed not a surgical candidate . I'm asked to see the patient for coag neg staph bacteremia. pt. known to me from one of her previous admission s in August 2016 and at that time she had left TMA site infection and OM and she was treated with IV vanco and meropenem for 6 weeks fort he OM and also she has had chest wall skin lesion with bleeding which as per her family was chronic and Bx of this was done on the admission from 08/2016 which showed basal cell carcinoma as per path report. currently pt. is awake and in NAD in ICU but does not answer questions. Allergies: NKDA PMSFH: Anemia, Arthritis, Atrial Fibrillation, CAD, CHF, DM II, Gall Bladder Disease with Cher, HTN, Hypercholesterolemia, Kidney Stones, Pneumonia, End Stage Renal Disease (TTF) All Nursing and physician documentation reviewed to date; no new pertinent info noted relevant to current medical problems. Review of Systems - Review of Systems Review of Systems: ROS- pt. does not really answer any questions, she is awake end occasionally moans but unable to obtain ROS as she does not answer the questions. Past Patient History - Infectious Disease Hx of Infectious Diseases: None - Past Medical History & Family History Past Medical History?: Yes - Past Social History Smoking Status: Never Smoked - CARDIAC Hx Atrial Fibrillation: Yes Hx Congestive Heart Failure: Yes Hx Hypercholesterolemia: Yes Hx Hypertension: Yes Hx Pacemaker: Yes - PULMONARY Hx Pneumonia: Yes - NEUROLOGICAL Hx Neurological Disorder: Yes - HEENT Hx Cataracts: Yes - RENAL Hx Chronic Kidney Disease: Yes Hx Kidney Stones: Yes - ENDOCRINE/METABOLIC Hx Hyperthyroidism: Yes Hx Hypothyroidism: Yes - INTEGUMENTARY Hx Dermatological Problems: No - MUSCULOSKELETAL/RHEUMATOLOGICAL Hx Arthritis: Yes - GASTROINTESTINAL Hx Gall Bladder Disease: Yes - GENITOURINARY/GYNECOLOGICAL Hx Genitourinary Disorders: No - PSYCHIATRIC Hx Substance Use: No - SURGICAL HISTORY Hx Cholecystectomy: Yes Hx Coronary Artery Bypass Graft: Yes Hx Coronary Stent: Yes - ANESTHESIA Hx Anesthesia: Yes Hx Anesthesia Reactions: No Hx Malignant Hyperthermia: No Meds Allergies/Adverse Reactions: Allergies Allergy/AdvReac Type Severity Reaction Status Date / Time No Known Allergies Allergy Verified 04/15/15 18:53 - Medications Medications: Current Medications Acetaminophen (Tylenol 650mg/20.3ml Solution Ud) 650 mg PO Q6 PRN PRN Reason: Headache Last Admin: 12/11/16 17:02 Dose: 650 mg Amlodipine Besylate (Norvasc) 5 mg PO DAILY [facility] Last Admin: 12/12/16 08:36 Dose: 5 mg Artificial Tears (Artificial Tears) 2 drop OU Q4 PRN PRN Reason: Dry eyes Last Admin: 12/11/16 22:38 Dose: 2 drop Aspirin (Ecotrin) 81 mg PO DAILY [facility] Last Admin: 12/12/16 08:36 Dose: 81 mg Home Med (Rosuvastatin Calcium [Crestor]) 40 mg PO HS [facility] Last Admin: 12/11/16 22:38 Dose: 40 mg Sodium Chloride (Hypertonic Saline 3%) 500 mls @ 30 mls/hr IV .[id number] [facility] Stop: 12/12/16 20:21 Last Admin: 12/12/16 18:16 Dose: 30 mls/hr Vancomycin HCl 1 gm/ Sodium (Chloride) 250 mls @ 166.667 mls/hr IVPB Q12H [facility] Last Admin: 12/12/16 13:18 Dose: 166.667 mls/hr Insulin Human Regular (Humulin R) 0 units SC ACCU-CHECK [facility] PRN Reason: Protocol Last Admin: 12/12/16 18:15 Dose: 2 units Levothyroxine Sodium (Synthroid) 75 mcg PO DAILY@0630 [facility] Last Admin: 12/12/16 06:27 Dose: 75 mcg Metoprolol Succinate (Toprol Xl) 50 mg PO DAILY [facility] Last Admin: 12/12/16 08:38 Dose: 50 mg Pantoprazole Sodium (Protonix Inj) 40 mg IVP DAILY [facility] Last Admin: 12/12/16 13:17 Dose: 40 mg Vitamin B Complex/Vit C/Folic Acid (Nephro-James) 1 tab PO DAILY [facility] Physical Exam - Constitutional Appears: No Acute Distress, Chronically Ill - Eye Exam Eye Exam: EOMI - ENT Exam ENT Exam: Normal Oropharynx - Neck Exam Neck exam: Positive for: Full Rom - Respiratory Exam Respiratory Exam: NORMAL BREATHING PATTERN Additional comments: slightly decreased breaths ounds bibasilar no wheezing - Cardiovascular Exam Cardiovascular Exam: RRR, +S1, +S2 Additional comments: mid-sternal round lesion with scant sanguinous discharge and raised borders no pus - GI/Abdominal Exam GI & Abdominal Exam: Normal Bowel Sounds, Soft Additional comments: NT, ND - Extremities Exam Additional comments: left TMA site with round dry ulcer at the lateral site, no discharge, dry, no malodor, no erythema - Neurological Exam Additional comments: awake - Skin Additional comments: sacral decub stage 2, no pus, no malodor Results - Vital Signs Recent Vital Signs: Last Vital Signs Temp 98 F 12/12/16 16:00 Pulse 98 H 12/12/16 18:00 Resp 18 12/12/16 18:00 BP 181/55 H 12/12/16 18:00 Pulse Ox 99 12/12/16 18:00 - Labs Result Diagrams: 12/12/16 04:25 12/12/16 15:26 Labs: Laboratory Results - last 24 hr 12/11/16 12/12/16 12/12/16 21:55 04:25 04:25 WBC 9.9 RBC 4.96 Hgb 12.8 Hct 43.7 MCV 88.1 MCH 25.8 L MCHC 29.2 L RDW 21.1 H Plt Count 262 Sodium 146 Potassium 4.6 Chloride 100 Carbon Dioxide 29 Anion Gap 21 H BUN 29 H Creatinine 3.4 H Est GFR ( Amer) 16 Est GFR (Non-Af Amer) 13 POC Glucose (mg/dL) 171 H Random Glucose 154 H Serum Osmolality Calcium 9.3 Total Bilirubin 0.5 AST 43 H ALT 29 Alkaline Phosphatase 87 Total Protein 7.4 Albumin 3.5 Globulin 3.9 Albumin/Globulin Ratio 0.9 L 12/12/16 12/12/16 12/12/16 05:41 07:30 11:05 WBC RBC Hgb Hct MCV MCH MCHC RDW Plt Count Sodium Potassium Chloride Carbon Dioxide Anion Gap BUN Creatinine Est GFR ( Amer) Est GFR (Non-Af Amer) POC Glucose (mg/dL) 170 H 241 H Random Glucose Serum Osmolality 313 H Calcium Total Bilirubin AST ALT Alkaline Phosphatase Total Protein Albumin Globulin Albumin/Globulin Ratio 12/12/16 12/12/16 12/12/16 15:26 15:26 16:27 WBC RBC Hgb Hct MCV MCH MCHC RDW Plt Count Sodium 148 Potassium 4.5 Chloride 104 Carbon Dioxide 28 Anion Gap 20 BUN 32 H Creatinine 3.7 H Est GFR ( Amer) 14 Est GFR (Non-Af Amer) 12 POC Glucose (mg/dL) 192 H Random Glucose 203 H Serum Osmolality 312 H Calcium 9.2 Total Bilirubin AST ALT Alkaline Phosphatase Total Protein Albumin Globulin Albumin/Globulin Ratio Laboratory Results - last 72 hr 12/10/16 12/10/16 12/10/16 16:36 16:44 16:44 WBC 11.6 H RBC 4.97 Hgb 12.8 D Hct 43.0 MCV 86.5 D MCH 25.8 L MCHC 29.8 L RDW 21.2 H Plt Count 305 MPV 8.6 Neut % (Auto) 87.6 H Lymph % (Auto) 3.9 L [place] % (Auto) 7.4 Eos % (Auto) 0.2 Baso % (Auto) 0.9 Neut # 10.1 H Lymph # 0.5 L [place] # 0.9 H Eos # 0.0 Baso # 0.1 Neutrophils % (Manual) 90 H Lymphocytes % (Manual) 6 L Monocytes % (Manual) 4 Platelet Estimate Normal Polychromasia Slight Hypochromasia (manual) Slight Anisocytosis (manual) Slight Target Cells Slight PT INR APTT Sodium 140 Potassium 3.7 Chloride 93 L Carbon Dioxide 28 Anion Gap 23 H BUN 16 Creatinine 2.0 H Est GFR ( Amer) 29 Est GFR (Non-Af Amer) 24 POC Glucose (mg/dL) 177 H Random Glucose 198 H Serum Osmolality Calcium 9.6 Phosphorus 2.4 L Magnesium 2.1 Total Bilirubin 0.7 AST 41 H ALT 29 Alkaline Phosphatase 107 Troponin I 0.7490 H* Total Protein 8.0 Albumin 3.8 Globulin 4.2 H Albumin/Globulin Ratio 0.9 L Triglycerides Cholesterol LDL Cholesterol Direct HDL Cholesterol Lipase 61 12/10/16 12/10/16 12/11/16 16:44 22:38 05:30 WBC 7.5 RBC 5.01 Hgb 13.0 Hct 44.0 MCV 87.9 MCH 26.0 L MCHC 29.6 L RDW 21.0 H Plt Count 288 MPV 8.6 Neut % (Auto) 77.5 H Lymph % (Auto) 9.2 L [place] % (Auto) 12.2 H Eos % (Auto) 0.3 Baso % (Auto) 0.8 Neut # 5.8 Lymph # 0.7 L [place] # 0.9 H Eos # 0.0 Baso # 0.1 Neutrophils % (Manual) Lymphocytes % (Manual) Monocytes % (Manual) Platelet Estimate Polychromasia Hypochromasia (manual) Anisocytosis (manual) Target Cells PT 13.7 H INR 1.3 H APTT 27.9 Sodium Potassium Chloride Carbon Dioxide Anion Gap BUN Creatinine Est GFR ( Amer) Est GFR (Non-Af Amer) POC Glucose (mg/dL) 190 H Random Glucose Serum Osmolality Calcium Phosphorus Magnesium Total Bilirubin AST ALT Alkaline Phosphatase Troponin I Total Protein Albumin Globulin Albumin/Globulin Ratio Triglycerides Cholesterol LDL Cholesterol Direct HDL Cholesterol Lipase 12/11/16 12/11/16 12/11/16 05:30 05:30 05:53 WBC RBC Hgb Hct MCV MCH MCHC RDW Plt Count MPV Neut % (Auto) Lymph % (Auto) [place] % (Auto) Eos % (Auto) Baso % (Auto) Neut # Lymph # [place] # Eos # Baso # Neutrophils % (Manual) Lymphocytes % (Manual) Monocytes % (Manual) Platelet Estimate Polychromasia Hypochromasia (manual) Anisocytosis (manual) Target Cells PT INR APTT Sodium 145 Potassium 3.7 Chloride 97 L Carbon Dioxide 33 H Anion Gap 19 BUN 21 H Creatinine 2.8 H Est GFR ( Amer) 20 Est GFR (Non-Af Amer) 16 POC Glucose (mg/dL) 121 H Random Glucose 135 H Serum Osmolality 308 H Calcium 9.5 Phosphorus Magnesium Total Bilirubin 0.5 AST 36 ALT 27 Alkaline Phosphatase 94 Troponin I 0.7220 H* Total Protein 7.6 Albumin 3.7 Globulin 4.0 H Albumin/Globulin Ratio 0.9 L Triglycerides Cholesterol LDL Cholesterol Direct HDL Cholesterol Lipase 12/11/16 12/11/16 12/11/16 07:22 11:16 15:00 WBC RBC Hgb Hct MCV MCH MCHC RDW Plt Count MPV Neut % (Auto) Lymph % (Auto) [place] % (Auto) Eos % (Auto) Baso % (Auto) Neut # Lymph # [place] # Eos # Baso # Neutrophils % (Manual) Lymphocytes % (Manual) Monocytes % (Manual) Platelet Estimate Polychromasia Hypochromasia (manual) Anisocytosis (manual) Target Cells PT INR APTT Sodium 143 Potassium 4.9 Chloride 99 Carbon Dioxide 31 H Anion Gap 18 BUN 25 H Creatinine 3.0 H Est GFR ( Amer) 18 Est GFR (Non-Af Amer) 15 POC Glucose (mg/dL) 206 H Random Glucose 226 H Serum Osmolality Calcium 9.2 Phosphorus Magnesium Total Bilirubin AST ALT Alkaline Phosphatase Troponin I 0.6080 H* Total Protein Albumin Globulin Albumin/Globulin Ratio Triglycerides 113 Cholesterol 106 LDL Cholesterol Direct < 30 HDL Cholesterol 43 Lipase 12/11/16 12/11/16 12/12/16 16:55 21:55 04:25 WBC 9.9 RBC 4.96 Hgb 12.8 Hct 43.7 MCV 88.1 MCH 25.8 L MCHC 29.2 L RDW 21.1 H Plt Count 262 MPV Neut % (Auto) Lymph % (Auto) [place] % (Auto) Eos % (Auto) Baso % (Auto) Neut # Lymph # [place] # Eos # Baso # Neutrophils % (Manual) Lymphocytes % (Manual) Monocytes % (Manual) Platelet Estimate Polychromasia Hypochromasia (manual) Anisocytosis (manual) Target Cells PT INR APTT Sodium Potassium Chloride Carbon Dioxide Anion Gap BUN Creatinine Est GFR ( Amer) Est GFR (Non-Af Amer) POC Glucose (mg/dL) 187 H 171 H Random Glucose Serum Osmolality Calcium Phosphorus Magnesium Total Bilirubin AST ALT Alkaline Phosphatase Troponin I Total Protein Albumin Globulin Albumin/Globulin Ratio Triglycerides Cholesterol LDL Cholesterol Direct HDL Cholesterol Lipase 12/12/16 12/12/16 12/12/16 04:25 05:41 07:30 WBC RBC Hgb Hct MCV MCH MCHC RDW Plt Count MPV Neut % (Auto) Lymph % (Auto) [place] % (Auto) Eos % (Auto) Baso % (Auto) Neut # Lymph # [place] # Eos # Baso # Neutrophils % (Manual) Lymphocytes % (Manual) Monocytes % (Manual) Platelet Estimate Polychromasia Hypochromasia (manual) Anisocytosis (manual) Target Cells PT INR APTT Sodium 146 Potassium 4.6 Chloride 100 Carbon Dioxide 29 Anion Gap 21 H BUN 29 H Creatinine 3.4 H Est GFR ( Amer) 16 Est GFR (Non-Af Amer) 13 POC Glucose (mg/dL) 170 H Random Glucose 154 H Serum Osmolality 313 H Calcium 9.3 Phosphorus Magnesium Total Bilirubin 0.5 AST 43 H ALT 29 Alkaline Phosphatase 87 Troponin I Total Protein 7.4 Albumin 3.5 Globulin 3.9 Albumin/Globulin Ratio 0.9 L Triglycerides Cholesterol LDL Cholesterol Direct HDL Cholesterol Lipase 12/12/16 12/12/16 12/12/16 11:05 15:26 15:26 WBC RBC Hgb Hct MCV MCH MCHC RDW Plt Count MPV Neut % (Auto) Lymph % (Auto) [place] % (Auto) Eos % (Auto) Baso % (Auto) Neut # Lymph # [place] # Eos # Baso # Neutrophils % (Manual) Lymphocytes % (Manual) Monocytes % (Manual) Platelet Estimate Polychromasia Hypochromasia (manual) Anisocytosis (manual) Target Cells PT INR APTT Sodium 148 Potassium 4.5 Chloride 104 Carbon Dioxide 28 Anion Gap 20 BUN 32 H Creatinine 3.7 H Est GFR ( Amer) 14 Est GFR (Non-Af Amer) 12 POC Glucose (mg/dL) 241 H Random Glucose 203 H Serum Osmolality 312 H Calcium 9.2 Phosphorus Magnesium Total Bilirubin AST ALT Alkaline Phosphatase Troponin I Total Protein Albumin Globulin Albumin/Globulin Ratio Triglycerides Cholesterol LDL Cholesterol Direct HDL Cholesterol Lipase 12/12/16 16:27 WBC RBC Hgb Hct MCV MCH MCHC RDW Plt Count MPV Neut % (Auto) Lymph % (Auto) [place] % (Auto) Eos % (Auto) Baso % (Auto) Neut # Lymph # [place] # Eos # Baso # Neutrophils % (Manual) Lymphocytes % (Manual) Monocytes % (Manual) Platelet Estimate Polychromasia Hypochromasia (manual) Anisocytosis (manual) Target Cells PT INR APTT Sodium Potassium Chloride Carbon Dioxide Anion Gap BUN Creatinine Est GFR ( Amer) Est GFR (Non-Af Amer) POC Glucose (mg/dL) 192 H Random Glucose Serum Osmolality Calcium Phosphorus Magnesium Total Bilirubin AST ALT Alkaline Phosphatase Troponin I Total Protein Albumin Globulin Albumin/Globulin Ratio Triglycerides Cholesterol LDL Cholesterol Direct HDL Cholesterol Lipase Microbiology 12/10/16 18:00 Blood-Venous Blood Culture - Preliminary NO GROWTH AFTER 48 HOURS 12/10/16 20:00 Naris MRSA Culture (Admit) - Final MRSA DETECTED 12/10/16 16:00 Blood-Venous S.aureus & Coag-Neg Staph PNA FISH - Final 12/10/16 16:00 Blood-Venous Blood Culture - Preliminary Coagulase Neg Staphylococcus 12/10/16 16:00 Blood-Venous Gram Stain - Final Microbiology 08/29/16 18:06 Chest Gram Stain - Final 08/29/16 18:06 Chest Wound Culture - Final Coagulase Neg Staphylococcus 08/27/16 18:00 Blood Blood Culture - Final 08/27/16 18:00 Blood Gram Stain - Final NO GROWTH AFTER 5 DAYS TEST NOT PERFORMED 08/27/16 18:00 Blood Blood Culture - Final 08/27/16 18:00 Blood Gram Stain - Final NO GROWTH AFTER 5 DAYS TEST NOT PERFORMED 08/27/16 17:40 Foot - Left Gram Stain - Final 08/27/16 17:40 Foot - Left Wound Culture - Final Escherichia Coli Methicillin Resistant S Aureus Accession No. : [id number] Patient Name / ID : JAJA LAW / [id number] Exam Date : 12/10/2016 17:02:19 ( Approved ) Study Comment : Sex / Age : F / 76Y Creator : Avtar Haider MD Dictator : Avtar Haider MD Tearoom Hostess : Seam Feller : Avtar Haider MD Approver2 : Report Date : 12/10/2016 17:40:25 My Comment : PROCEDURE: CT HEAD WITHOUT CONTRAST. HISTORY: vomiting hypertension COMPARISON: Unenhanced head CT 05/09/2013. TECHNIQUE: Axial computed tomography images were obtained through the head/brain without intravenous contrast. Radiation dose: Total exam DLP = 1243.1 mGy-cm. This CT exam was performed using one or more of the following dose reduction techniques: Automated exposure control, adjustment of the mA and/or kV according to patient size, and/or use of iterative reconstruction technique. FINDINGS: HEMORRHAGE: No intracranial hemorrhage. BRAIN: Chronic microangiopathy and diffuse cerebral large atrophy are reiterated this examination slightly increased in the interval. Cytotoxic edema is appreciate the right cerebellum superiorly suspicious for an acute or subacute brain infarction. No definite intracranial hemorrhage. Local mass effect is encouraged on the posterior superior sam as well as the right lateral side of the 4th ventricle. No suspicious extra-axial fluid collection. No midline shift. Basilar cisterns remain widely patent. Midline brain anatomy appears unremarkable. VENTRICLES: Unremarkable. No hydrocephalus. CALVARIUM: Unremarkable. PARANASAL SINUSES: Unremarkable as visualized. No significant inflammatory changes. MASTOID AIR CELLS: Unremarkable as visualized. No inflammatory changes. OTHER FINDINGS: None. IMPRESSION: 1. Acute separate brain infarction right cerebellum with limited local mass- effect occurring. No intra hemorrhage. Follow-up CT or MRI is advised. 2. Reiterated neuro degenerate changes are appreciated slightly increased appear tube unenhanced head CT 05/09/2013. Accession No. : [id number] Patient Name / ID : JAJA LAW / [id number] Exam Date : 12/10/2016 16:35:06 ( Approved ) Study Comment : Sex / Age : F / 76Y Creator : Avtar Haider MD Dictator : Avtar Haider MD Tearoom Hostess : Seam Feller : Avtar Haider MD Approver2 : Report Date : 12/10/2016 18:15:27 My Comment : HISTORY: vomiting COMPARISON: Portable chest 08/30/2016. FINDINGS: LUNGS: History CTs disease is identified the left base and minimally at the right base in the interval. PLEURA: Small pleural effusions not excluded. None is seen the right. No pneumothorax bilaterally CARDIOVASCULAR: Cardiomegaly appears stable. No definite pulmonary vascular derangement. OSSEOUS STRUCTURES: No significant abnormalities. VISUALIZED UPPER ABDOMEN: Normal. OTHER FINDINGS: None. IMPRESSION: Left basilar airspace disease is suggested may have increased with trace of pleural effusion not excluded. The right basilar atelectasis or infiltrate is questioned. Cardiomegaly appears stable. Assessment & Plan (1) Cerebellar infarct Status: Acute Priority: High (2) Basal cell carcinoma of chest Status: Acute (3) ESRD on hemodialysis Status: Acute Priority: High (4) Bacteremia due to Staphylococcus epidermidis Status: Acute (5) DM2 (diabetes mellitus, type 2) Status: Chronic Priority: Medium - Assessment and Plan (Free Text) Assessment: A/P- Patient is a 76 year old female with multiple medical conditions including DM II , CAD, ESRD on HD, left foot TMA , A.fib admitted with nausea found to have cerebellar infarct as per Neurosurgery not a surgical candiidate. found to have coag neg staoh in one blood cx on this admission. pt. is afebrile. she had OM of her left TMA site and was treated with 6 weeks of IV abx in 2016. the source of the coag neg staph bacteremia could be the open chest wall wound vs contamination. pt. is afebrile and has normal wbc count. her previous admission did show coag neg staph from chest wall wound cx and she also found to have basal cell carcinoma of the chest wall wound( not sure if she was ever treated for the basal cell ). Plan- check 2 more blood cx. check TTE r/o any vegetations. continue with IV vancomyicn post HD days pending further results. keep trough <20. podiatry to evaluate the nonhealing left TMA site ulcer. check left foot xray . close monitoring of BP as per ICU team. cerebellar infarct management as per neuro. primary doc to determine if the basal cell CA of the chest was treated and if not advise to get oncology evaluation. all labs and imaging and medical notes reviewed in detail.. Thank you for allowing me to take part in the care of this patient. ICU time spent 70 minutes.
[2016-12-12] MEDS: Acetaminophen 650mg/20.3ml solution UD PO PRN (20:06)
[2016-12-12] MEDS: Patient's Own Med (Rosuvastatin Calcium [Crestor] 40 MG) PO SCH (21:02)
[2016-12-12 23:25] LABS: CALCIUM 9.4 mg/dL (8.4-10.2); POTASSIUM 4.5 MMOL/L (3.6-5.0)
[2016-12-13] MEDS: Artificial Tears Opht Soln OU PRN ×2 (01:24→09:37)
[2016-12-13 04:15] LABS: URINE COLOR LIGHT BROWN (YELLOW)
[2016-12-13 04:16] LABS: URINE GLUCOSE (UA) 100 mg/dL (Normal)
[2016-12-13 04:17] LABS: URINE BILIRUBIN SMALL (NEGATIVE); URINE KETONE TRACE mg/dL (NEGATIVE)
[2016-12-13 04:18] LABS: PH,URINE 5.5 (5.0-8.0); URINE BLOOD LARGE (NEGATIVE)
[2016-12-13 04:19] LABS: URINE LEUKOCYTE ESTERASE LARGE Leu/uL (Negative); URINE PROTEIN > 300 mg/dL (NEGATIVE); URINE UROBILINOGEN 0.2 mg/dL (0.2-1.0)
[2016-12-13 04:26] LABS: RBC URINE 1095 /hpf (0-3); WBC URINE 800 /hpf (0-5)
[2016-12-13 04:27] LABS: URINE BACTERIA MOD (<OCC)
[2016-12-13 04:28] LABS: WBC CLUMPS MOD /hpf
[2016-12-13 05:18] LABS: HEMATOCRIT 44.3 % (34.0-47.0); MEAN CELL VOLUME 88.1 fl (81.0-99.0); MEAN CORPUSCULAR HEMOGLOBIN 25.7 pg (27.0-31.0); MEAN CORPUSCULAR HGB CONC 29.2 g/dL (33.0-37.0); RED CELL DISTRIBUTION WIDTH 21.4 % (11.5-14.5); WHITE BLOOD COUNT 14.5 K/uL (4.8-10.8)
[2016-12-13 05:25] LABS: BILIRUBIN,TOTAL 0.5 mg/dl (0.2-1.3); CALCIUM 9.5 mg/dL (8.4-10.2); POTASSIUM 4.7 MMOL/L (3.6-5.0); TOTAL PROTEIN 7.3 G/DL (6.3-8.2)
[2016-12-13] MEDS: Levothyroxine 75 MCG TAB PO SCH (05:34)
--- NOTE | 2016-12-13 05:54 | CP.PCM.PN ---
Subjective - Date & Time of Evaluation Date of Evaluation: 12/13/16 Time of Evaluation: 05:52 - Subjective Subjective: Podiatry Progress Note - Dr. Herrera 76 year old female patient with extensive PMHx seen at bedside in ICU for non- healing ulceration to L TMA stump. Patient seen sleeping, NAD. Patient reports continued pain throughout her body, however unable to obtain HPI and ROS as patient does not answer questions. Patient not wearing multipodus boots at time of visit. Objective - Vital Signs/Intake and Output Vital Signs (last 24 hours): Temp Pulse Resp BP Pulse Ox 98.1 F 101 H 23 148/64 95 12/13/16 00:00 12/13/16 04:00 12/13/16 04:00 12/13/16 04:00 12/13/16 04:00 Intake and Output: 12/12/16 12/13/16 18:59 06:59 Intake Total 710 665 Balance 710 665 - Medications Medications: Current Medications Acetaminophen (Tylenol 650mg/20.3ml Solution Ud) 650 mg PO Q6 PRN PRN Reason: Headache Last Admin: 12/12/16 20:06 Dose: 650 mg Amlodipine Besylate (Norvasc) 5 mg PO DAILY [facility] Last Admin: 12/12/16 08:36 Dose: 5 mg Artificial Tears (Artificial Tears) 2 drop OU Q4 PRN PRN Reason: Dry eyes Last Admin: 12/13/16 01:24 Dose: 2 drop Aspirin (Ecotrin) 81 mg PO DAILY [facility] Last Admin: 12/12/16 08:36 Dose: 81 mg Home Med (Rosuvastatin Calcium [Crestor]) 40 mg PO HS [facility] Last Admin: 12/12/16 21:02 Dose: 40 mg Vancomycin HCl 1 gm/ Sodium (Chloride) 250 mls @ 166.667 mls/hr IVPB MWF [facility] Last Admin: 12/12/16 22:30 Dose: 166.667 mls/hr Insulin Human Regular (Humulin R) 0 units SC ACCU-CHECK [facility] PRN Reason: Protocol Last Admin: 12/12/16 23:47 Dose: Not Given Levothyroxine Sodium (Synthroid) 75 mcg PO DAILY@0630 [facility] Last Admin: 12/13/16 05:34 Dose: 75 mcg Metoprolol Succinate (Toprol Xl) 50 mg PO DAILY [facility] Last Admin: 12/12/16 08:38 Dose: 50 mg Pantoprazole Sodium (Protonix Inj) 40 mg IVP DAILY [facility] Last Admin: 12/12/16 13:17 Dose: 40 mg Vitamin B Complex/Vit C/Folic Acid (Nephro-James) 1 tab PO DAILY [facility] - Labs Labs: 12/13/16 04:15 12/13/16 04:15 PT 13.7 Seconds (9.8-13.1) H 12/10/16 16:44 INR 1.3 (0.9-1.2) H 12/10/16 16:44 APTT 27.9 Seconds (25.6-37.1) 12/10/16 16:44 - Constitutional Appears: Well, Non-toxic, No Acute Distress - Extremities Exam Additional comments: Patient not wearing offloading boots at time of visit. Dressing to LLE appears clean/dry/intact with no strikethrough noted. VASC: DP pulses palpable 2/4 b/l. Right PT pulse palpable 2/4, left PT pulse non -palpable. TG cool to cool. No edema noted. NEURO: Gross sensation diminished bilaterally. DERM: Ulceration noted to distolateral aspect of left TMA stump measuring approximately 5 x 2 x 0.2 cm with overlying eschar. Mild erythema noted to proximal aspect of wound, decreasing since last visit. No active drainage, purulence, malodor, fluctuance, or ascending cellulitis noted. (-)probe to bone ORTHO: Generalized tenderness to palpation bilateral lower extremity. - Neurological Exam Neurological Exam: Awake Assessment and Plan - Assessment and Plan (Free Text) Assessment: 76 year old female with extensive PMHx with 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 Herrera Chart, vitals, labs reviewed = afebrile, WBC increased @ 14.5 (trending upwards , yesterday 12/12 @ 9.9) Wound was dressed with DSD C/w pain mgmt per medicine Patient to wear offloading boots to both feet at all times while in bed; nursing made aware Stable per podiatry Podiatry will continue to follow patient while in house
[2016-12-13] MEDS: Insulin Regular 100 units/ml SC SCH ×4 (06:07→22:00)
--- NOTE | 2016-12-13 07:27 | PQF GENQUE ---
Dr. Mendoza, Please document cause or type of skin ulcer: Pressure Ulcer versus: Non-pressure ulcer associated with: Atherosclerosis of lower extremities Chronic venous hypertension Diabetes Postphlebitic syndrome Postthrombotic syndrome Varicose veins Other (please specify) Unknown Other (please specify) Clinically unable to determine Unknown 2. Please document severity of non-pressure ulcer: Limited to breakdown of skin With fat layer exposure With necrosis of muscle With necrosis of bone Unspecified Clinically unable to determine Unknown 3. Please document specific site of skin ulcer, including laterality 4. Please document any associated infectious process associated with ulcer including infectious organism if known Nursing Admission Assessment: Right Sacrum: moisture associated reddened opened skin with surrounding excoriation Medial Chest wound:opened skin covered with black eschar 12/11: Nurses Pressure Ulcer Assessment: lt foot: full thickness tissue loss in which the base of the ulcer is covered Right Sacrum: Partial thickness loss of dermis presenting as a shallow ulcer 12/12: Wound RN: Sacrum and buttocks have chronic IAD and peeling skin. There is a partial thickness pressure injury on the right buttock measuring 4.5 cm x 3 cm , no odor or drainage. 12/10: ER: Skin: Positive for: Warm, Dry (ulcerated lesion to midline upper anterior chest wall with well demarcated borders,) 12/12: Attending; Skin: The patient has multiple skin ulcers including the chest and the sacrum. 12/12: Podiatry note: with non-healing ulceration to L TMA This form is a permanent part of the medical record Clarification of your documentation is requested to better reflect the severity of illness and intensity of treatment of your patient. Indicators present [] Specify: [] [] Specify: [] [] Specify: [] [] Specify: [] Location in the medical record that reflects the above clinical findings: [] Treatment Provided: [] PHYSICIAN'S RESPONSE Based on your medical judgment of the clinical indicators outlined above please clarify the following: [] Practitioner response [] If unable to determine, please check the box, sign and date. Present On Admission (POA) Indicator: [] Present at the time of admission [] Not present at the time of admission [] Clinically Undetermined In responding to this query, please exercise your independent professional judgment. The fact that a question is asked does not imply that any particular answer is desired or expected. Thank you for your clarification on this documentation. If you have any questions please call. * Thank you, Sara Jansen RN ext. #[phone]: Nicky Regan RN MTDD
--- NOTE | 2016-12-13 08:13 | PQF GENQUE ---
Dr. Mendoza, Etiology of mild trop elevation? : if known OR: Unable to determine 12/10: Cardiology note in draft: +ve TnI in the setting of acute cerebellar infarct 12/10: Aviation Safety Equipment Technician note; Major Problems: 1. Right Cerebellar Acute / SubAcute Infarct with localized edema and shift to the Left 2. Accelerated HTN 3. ESRD 4. Mild Coagulopathy 5. Mild Troponin Elevation trops:0.7490-> 0.7220->0.6080 This form is a permanent part of the medical record Clarification of your documentation is requested to better reflect the severity of illness and intensity of treatment of your patient. Indicators present [] Specify: [] [] Specify: [] [] Specify: [] [] Specify: [] Location in the medical record that reflects the above clinical findings: [] Treatment Provided: [] PHYSICIAN'S RESPONSE Based on your medical judgment of the clinical indicators outlined above please clarify the following: [] Practitioner response [] If unable to determine, please check the box, sign and date. Present On Admission (POA) Indicator: [] Present at the time of admission [] Not present at the time of admission [] Clinically Undetermined In responding to this query, please exercise your independent professional judgment. The fact that a question is asked does not imply that any particular answer is desired or expected. Thank you for your clarification on this documentation. If you have any questions please call. * Thank you, Sara Jansen RN ext. #[phone]: Nicky JEROME
--- NOTE | 2016-12-13 08:30 | PQF GENQUE ---
Dr. Mendoza, 2 (two) queries as follows: 1. History of CHF listed in multiple notes: is this a current chronic condition or hx. only: 2. Iif chronic CHF: Type if known?: i.e. Systolic or Diastolic or both OR: Unable to determine 12/13: Lasix IV once ; Metoprolol OD Echo report pending This form is a permanent part of the medical record Clarification of your documentation is requested to better reflect the severity of illness and intensity of treatment of your patient. Indicators present [] Specify: [] [] Specify: [] [] Specify: [] [] Specify: [] Location in the medical record that reflects the above clinical findings: [] Treatment Provided: [] PHYSICIAN'S RESPONSE Based on your medical judgment of the clinical indicators outlined above please clarify the following: [] Practitioner response [] If unable to determine, please check the box, sign and date. Present On Admission (POA) Indicator: [] Present at the time of admission [] Not present at the time of admission [] Clinically Undetermined In responding to this query, please exercise your independent professional judgment. The fact that a question is asked does not imply that any particular answer is desired or expected. Thank you for your clarification on this documentation. If you have any questions please call. * Thank you, Sara Jansen RN ext. #[phone]: Nicky JEROME
--- NOTE | 2016-12-13 09:32 | CP.PCM.PN ---
Subjective - Date & Time of Evaluation Date of Evaluation: 12/13/16 Time of Evaluation: 09:30 - Subjective Subjective: Patient and bed Responding Weakness of the right side Lab reviewed Vital signs stable Objective - Vital Signs/Intake and Output Vital Signs (last 24 hours): Temp Pulse Resp BP Pulse Ox 98.7 F 107 H 32 H 111/75 88 L 12/13/16 08:00 12/13/16 08:00 12/13/16 08:00 12/13/16 08:00 12/13/16 08:00 Intake and Output: 12/13/16 12/13/16 06:59 18:59 Intake Total 750 Output Total 100 Balance 650 - Medications Medications: Current Medications Acetaminophen (Tylenol 650mg/20.3ml Solution Ud) 650 mg PO Q6 PRN PRN Reason: Headache Last Admin: 12/12/16 20:06 Dose: 650 mg Amlodipine Besylate (Norvasc) 5 mg PO DAILY [facility] Last Admin: 12/12/16 08:36 Dose: 5 mg Artificial Tears (Artificial Tears) 2 drop OU Q4 PRN PRN Reason: Dry eyes Last Admin: 12/13/16 01:24 Dose: 2 drop Aspirin (Ecotrin) 81 mg PO DAILY [facility] Last Admin: 12/12/16 08:36 Dose: 81 mg Home Med (Rosuvastatin Calcium [Crestor]) 40 mg PO HS [facility] Last Admin: 12/12/16 21:02 Dose: 40 mg Vancomycin HCl 1 gm/ Sodium (Chloride) 250 mls @ 166.667 mls/hr IVPB MWF [facility] Last Admin: 12/12/16 22:30 Dose: 166.667 mls/hr Insulin Human Regular (Humulin R) 0 units SC ACCU-CHECK [facility] PRN Reason: Protocol Last Admin: 12/13/16 06:07 Dose: 3 units Levothyroxine Sodium (Synthroid) 75 mcg PO DAILY@0630 [facility] Last Admin: 12/13/16 05:34 Dose: 75 mcg Metoprolol Succinate (Toprol Xl) 50 mg PO DAILY [facility] Last Admin: 12/12/16 08:38 Dose: 50 mg Pantoprazole Sodium (Protonix Inj) 40 mg IVP DAILY [facility] Last Admin: 12/12/16 13:17 Dose: 40 mg Vitamin B Complex/Vit C/Folic Acid (Nephro-James) 1 tab PO DAILY [facility] - Labs Labs: 12/13/16 04:15 12/13/16 04:15 PT 13.7 Seconds (9.8-13.1) H 12/10/16 16:44 INR 1.3 (0.9-1.2) H 12/10/16 16:44 APTT 27.9 Seconds (25.6-37.1) 12/10/16 16:44 - Constitutional Appears: No Acute Distress - ENT Exam ENT Exam: Mucous Membranes Moist - Respiratory Exam Respiratory Exam: NORMAL BREATHING PATTERN. absent: Chest Wall Tenderness - GI/Abdominal Exam GI & Abdominal Exam: Normal Bowel Sounds. absent: Guarding - Extremities Exam Extremities Exam: absent: Calf Tenderness - Back Exam Back Exam: absent: CVA tenderness (L), CVA tenderness (R) - Neurological Exam Neurological Exam: Alert Assessment and Plan (1) Cerebellar infarct Assessment & Plan: End stage renal disease with CVA and infarction Patient scheduled to have dialysis now Sodium 140 Infiltration about 2000 mL Potassium 2 mEq Continue management as per neurology Status: Acute
[2016-12-13] MEDS: Metoprolol Succinate 50 mg XL Tab PO SCH (09:41)
--- NOTE | 2016-12-13 09:42 | CARD ---
APPROVED REPORT EXAM: Two-dimensional and M-mode echocardiogram with Doppler and color Doppler. Other Information Quality : FairRhythm : NSR INDICATION Congestive Heart Failure 2D DIMENSIONS Left Atrium (2D)4.70 (1.6-4.0cm)IVSd1.87 (0.7-1.1cm) LVDd4.88 (3.9-5.9cm)LVOT Diameter1.71 (1.8-2.4cm) PWd0.84 (0.7-1.1cm)IVSs1.83 (0.8-1.2cm) LVDs3.68 (2.5-4.0cm)FS (%) 24.7 % PWs1.32 (0.8-1.2cm)LVEF (%)50.0 (>50%) M-Mode DIMENSIONS Left Atrium (MM)4.38 (2.5-4.0cm)IVSd0.82 (0.7-1.1cm) Aortic Root3.50 (2.2-3.7cm)LVDd5.09 (4.0-5.6cm) Aortic Cusp Exc.1.71 (1.5-2.0cm)PWd1.06 (0.7-1.1cm) IVSs0.85 cmFS (%) 21 % LVDs4.00 (2.0-3.8cm)PWs1.32 cm Mitral Valve MV E Yxwdwgaw468.6cm/sMV E Peak Gr.102mmHgMV DECEL [id number] MV A Hlptimph511.7cm/sMV FQI11hyN/A ratio1.3 MVA (PHT)4.82cm2 TDI Lateral E' Peak V6.60cm/sMedial E' Peak V6.11cm/sE/Lateral E'19.2 E/Medial E'20.7 Pulmonary Valve PV Peak Uwcyietp191.2cm/s Tricuspid Valve TR Peak Gfhwjrzs290yv/sRAP [id number] Peak Gr.40mmHg [id number] LEFT VENTRICLE The left ventricle is normal size. There is moderate concentric left ventricular hypertrophy. Left ventricle systolic function is borderline. There is normal LV segmental wall motion. Transmitral Doppler flow pattern is Grade II-pseudonormal filling dynamics. RIGHT VENTRICLE The right ventricle is normal size. There is normal right ventricular wall thickness. The right ventricular systolic function is normal. ATRIA The left atrium is mildly dilated. The right atrium is mildly dilated. AORTIC VALVE The aortic valve is mildly thickened. No aortic regurgitation is present. There is no aortic valvular stenosis. MITRAL VALVE The mitral valve is mildly thickened. There is no mitral valve stenosis. Mitral regurgitation is mild to moderate. TRICUSPID VALVE The tricuspid valve is normal in structure There is mild to moderate pulmonary hypertension. PULMONIC VALVE The pulmonary valve is normal in structure There is trace pulmonic valvular regurgitation. GREAT VESSELS The aortic root is normal in size. The IVC was not visualized. PERICARDIAL EFFUSION The pericardium appears normal. <Conclusion> The left ventricle is normal size. There is moderate concentric left ventricular hypertrophy. Left ventricle systolic function is borderline. There is normal LV segmental wall motion. Transmitral Doppler flow pattern is Grade II-pseudonormal filling dynamics. Mitral regurgitation is mild to moderate. There is mild to moderate pulmonary hypertension.
--- NOTE | 2016-12-13 14:16 | CP.PCM.PN ---
Subjective - Date & Time of Evaluation Date of Evaluation: 12/13/16 Time of Evaluation: 14:14 - Subjective Subjective: Mrs. Mac was seen and examined today at bedside in the ICU. She was found in NAD. There were no acute events overnight. She is scheduled for dialysis today and was made DNR/DNI. Objective - Vital Signs/Intake and Output Vital Signs (last 24 hours): Temp Pulse Resp BP Pulse Ox 97.7 F 103 H 16 186/151 H 98 12/13/16 12:00 12/13/16 12:00 12/13/16 12:00 12/13/16 12:00 12/13/16 12:00 Intake and Output: 12/13/16 12/13/16 06:59 18:59 Intake Total 750 Output Total 100 Balance 650 - Medications Medications: Current Medications Acetaminophen (Tylenol 650mg/20.3ml Solution Ud) 650 mg PO Q6 PRN PRN Reason: Headache Last Admin: 12/12/16 20:06 Dose: 650 mg Amlodipine Besylate (Norvasc) 5 mg PO DAILY [facility] Last Admin: 12/13/16 09:38 Dose: 5 mg Artificial Tears (Artificial Tears) 2 drop OU Q4 PRN PRN Reason: Dry eyes Last Admin: 12/13/16 09:37 Dose: 2 drop Aspirin (Ecotrin) 81 mg PO DAILY [facility] Last Admin: 12/13/16 09:38 Dose: 81 mg Home Med (Rosuvastatin Calcium [Crestor]) 40 mg PO HS [facility] Last Admin: 12/12/16 21:02 Dose: 40 mg Vancomycin HCl 1 gm/ Sodium (Chloride) 250 mls @ 166.667 mls/hr IVPB MWF [facility] Last Admin: 12/12/16 22:30 Dose: 166.667 mls/hr Insulin Human Regular (Humulin R) 0 units SC ACCU-CHECK [facility] PRN Reason: Protocol Last Admin: 12/13/16 06:07 Dose: 3 units Levothyroxine Sodium (Synthroid) 75 mcg PO DAILY@0630 [facility] Last Admin: 12/13/16 05:34 Dose: 75 mcg Metoprolol Succinate (Toprol Xl) 50 mg PO DAILY [facility] Last Admin: 12/13/16 09:41 Dose: 50 mg Pantoprazole Sodium (Protonix Inj) 40 mg IVP DAILY [facility] Last Admin: 12/13/16 09:46 Dose: 40 mg Vitamin B Complex/Vit C/Folic Acid (Nephro-James) 1 tab PO DAILY [facility] - Labs Labs: 12/13/16 04:15 12/13/16 04:15 PT 13.7 Seconds (9.8-13.1) H 12/10/16 16:44 INR 1.3 (0.9-1.2) H 12/10/16 16:44 APTT 27.9 Seconds (25.6-37.1) 12/10/16 16:44 - Neurological Exam Additional comments: Neurologically unchanged compared with previous examination . Assessment and Plan (1) Cerebellar infarct Assessment & Plan: Continue conservative management. Manage electrolyte disturbances, maintain HOB elevated to 30 degrees, avoid fever. DVT Px, PT/OT eval and treat. Status: Acute
--- NOTE | 2016-12-13 16:50 | CP.PCM.PN ---
<Mahesh Kraus - Last Filed: 12/13/16 17:15> Subjective - Date & Time of Evaluation Date of Evaluation: 12/13/16 Time of Evaluation: 08:00 - Subjective Subjective: Patient was seen and examined at bedside with Dr. Mendoza. Patient seen at bedside. No acute overnight changes or events. Patient is able to verbalize. Patient is DNR/DNI Objective - Vital Signs/Intake and Output Vital Signs (last 24 hours): Temp Pulse Resp BP Pulse Ox 97.7 F 103 H 16 186/151 H 98 12/13/16 12:00 12/13/16 12:00 12/13/16 12:00 12/13/16 12:00 12/13/16 12:00 Intake and Output: 12/13/16 12/13/16 06:59 18:59 Intake Total 750 Output Total 100 Balance 650 - Medications Medications: Current Medications Acetaminophen (Tylenol 650mg/20.3ml Solution Ud) 650 mg PO Q6 PRN PRN Reason: Headache Last Admin: 12/12/16 20:06 Dose: 650 mg Amlodipine Besylate (Norvasc) 5 mg PO DAILY [facility] Last Admin: 12/13/16 09:38 Dose: 5 mg Artificial Tears (Artificial Tears) 2 drop OU Q4 PRN PRN Reason: Dry eyes Last Admin: 12/13/16 09:37 Dose: 2 drop Aspirin (Ecotrin) 81 mg PO DAILY [facility] Last Admin: 12/13/16 09:38 Dose: 81 mg Home Med (Rosuvastatin Calcium [Crestor]) 40 mg PO HS [facility] Last Admin: 12/12/16 21:02 Dose: 40 mg Vancomycin HCl 1 gm/ Sodium (Chloride) 250 mls @ 166.667 mls/hr IVPB MWF [facility] Last Admin: 12/12/16 22:30 Dose: 166.667 mls/hr Insulin Human Regular (Humulin R) 0 units SC ACCU-CHECK [facility] PRN Reason: Protocol Last Admin: 12/13/16 06:07 Dose: 3 units Levothyroxine Sodium (Synthroid) 75 mcg PO DAILY@0630 [facility] Last Admin: 12/13/16 05:34 Dose: 75 mcg Metoprolol Succinate (Toprol Xl) 50 mg PO DAILY [facility] Last Admin: 12/13/16 09:41 Dose: 50 mg Pantoprazole Sodium (Protonix Inj) 40 mg IVP DAILY [facility] Last Admin: 12/13/16 09:46 Dose: 40 mg Vitamin B Complex/Vit C/Folic Acid (Nephro-James) 1 tab PO DAILY [facility] - Labs Labs: 12/13/16 04:15 12/13/16 04:15 PT 13.7 Seconds (9.8-13.1) H 12/10/16 16:44 INR 1.3 (0.9-1.2) H 12/10/16 16:44 APTT 27.9 Seconds (25.6-37.1) 12/10/16 16:44 - Constitutional Appears: No Acute Distress - Eye Exam Eye Exam: EOMI Additional comments: Left pupil opacified - Respiratory Exam Respiratory Exam: Clear to Ausculation Bilateral, NORMAL BREATHING PATTERN - Cardiovascular Exam Cardiovascular Exam: REGULAR RHYTHM, +S1, +S2 - GI/Abdominal Exam GI & Abdominal Exam: Soft, Normal Bowel Sounds - Extremities Exam Additional comments: LEft foot TMA - Neurological Exam Neurological Exam: Alert, Awake Additional comments: movement of all extremities with b/l lower extremity weakness, more weakness on right side. - sensation intact Assessment and Plan - Assessment and Plan (Free Text) Assessment: 1) Right cerebellar Acute/ Sub acute infarct - Head elevation of bed - monitor osmolarity - Continue with ICU and neuro recommendation 2) Systolic heart failure 3) End stage renal disease - Nephro on board - Dialysis M W F 4) Non healing left TMA site ulcer -IV vanco - ID on board 4) Code status DNR/DNI <Mendoza,Gerardo K - Last Filed: 12/15/16 16:38> Objective - Vital Signs/Intake and Output Vital Signs (last 24 hours): Temp Pulse Resp BP Pulse Ox 98.6 F 80 23 157/76 H 100 12/15/16 12:00 12/15/16 12:00 12/15/16 12:00 12/15/16 12:00 12/15/16 12:00 Intake and Output: 12/15/16 12/15/16 06:59 18:59 Intake Total 50 Output Total 100 Balance -50 - Medications Medications: Current Medications Acetaminophen (Tylenol 650mg/20.3ml Solution Ud) 650 mg PO Q6 PRN PRN Reason: Headache Last Admin: 12/14/16 19:17 Dose: 650 mg Amlodipine Besylate (Norvasc) 5 mg PO DAILY [facility] Last Admin: 12/15/16 10:12 Dose: 5 mg Artificial Tears (Artificial Tears) 2 drop OU Q4 PRN PRN Reason: Dry eyes Last Admin: 12/15/16 10:11 Dose: 2 drop Aspirin (Ecotrin) 81 mg PO DAILY [facility] Last Admin: 12/15/16 10:12 Dose: 81 mg Home Med (Rosuvastatin Calcium [Crestor]) 40 mg PO HS [facility] Last Admin: 12/14/16 21:14 Dose: 40 mg Vancomycin HCl 1 gm/ Sodium (Chloride) 250 mls @ 166.667 mls/hr IVPB MWF [facility] Last Admin: 12/14/16 09:55 Dose: 166.667 mls/hr Insulin Human Regular (Humulin R) 0 units SC ACCU-CHECK [facility] PRN Reason: Protocol Last Admin: 12/15/16 06:24 Dose: Not Given Levothyroxine Sodium (Synthroid) 75 mcg PO DAILY@0630 [facility] Last Admin: 12/15/16 06:21 Dose: 75 mcg Metoprolol Succinate (Toprol Xl) 50 mg PO DAILY [facility] Last Admin: 12/15/16 10:13 Dose: 50 mg Pantoprazole Sodium (Protonix Ec Tab) 40 mg PO DAILY [facility] Last Admin: 12/15/16 10:12 Dose: 40 mg Tobramycin/Dexamethasone (Tobradex 0.3%-0.1% Opht Oint) 1 appl OU TID [facility] Vitamin B Complex/Vit C/Folic Acid (Nephro-James) 1 tab PO DAILY [facility] - Labs Labs: 12/15/16 04:15 12/15/16 04:15 PT 13.7 Seconds (9.8-13.1) H 12/10/16 16:44 INR 1.3 (0.9-1.2) H 12/10/16 16:44 APTT 27.9 Seconds (25.6-37.1) 12/10/16 16:44 Assessment and Plan - Assessment and Plan (Free Text) Assessment: Patient was personally seen and examined by me in rounds with residents. Available labs and diagnostic data reviewed. Case, Patient's condition and management plan Discussed with residents in rounds. Agree with resident's progress note. Plan: As ordered.
--- NOTE | 2016-12-13 21:04 | PN ---
DATE OF SERVICE: 12/13/2016 LOCATION: The patient in ICU, bed #423. TIME SPENT: 35 minutes. SUBJECTIVE: The patient is seen and examined at the bedside. Events since admission reviewed. Past medical, surgical, and social history noted. Case was discussed in detail in morning rounds. The management guidelines were formulated. A 76-year-old female with complex medical history including diabetes mellitus type 2, coronary artery disease, congestive heart failure, atrial fibrillation, anemia of chronic disease, end-stage renal disease, on hemodialysis, admitted with an acute/subacute right cerebellar infarct with mass effect, seen by Neurosurgery consult, not a candidate for surgical intervention, seen by Neurology, has been on 3% saline to reduce some cerebral edema. The patient is currently DNR and DNI. Overnight telemetry, sinus rhythm, blood pressure in the range of 140 to 175, alert, awake, slow to respond, but follows commands, no distress noted. Denies headache, chest pain, or palpitation. No abdominal pain. PHYSICAL EXAMINATION: VITAL SIGNS: Temperature 98.7, heart rate 100 to 107 and regular, blood pressure 111/75 to 152/72, respiratory rate 23 to 27, thoracoabdominal, saturating over 94% on oxygen 2 L nasal cannula, intake 1460, output 100, positive balance 1360, hemodialysis due today, weight 141 pounds. HEENT: Pupils reactive. Extraocular muscles intact. Left pupil opacified, right pupil 3 to 4 mm, reactive. Conjunctivae pink. NECK: Supple. CHEST: Bilateral breath sounds, fine crepitations at the base. HEART: Rhythm regular, S1, S2 normal in intensity. No audible murmur. ABDOMEN: Bowel sounds present, soft. Liver and spleen are palpable. EXTREMITIES: Right upper extremity AV shunt with good bruit and thrill. Lower extremity, trace edema. Left foot TMA. No calf tenderness. No palpable cord. Dorsalis pedis present, but reduced in intensity. NEUROLOGIC: Krishna coma scale 15. Motor function grossly intact. Normal sensory function. MEDICATIONS: Current medications include vitam B complex with C and folic acid, Nephro-James 1 tablet daily, vancomycin 1 g IV 3 times a week, Protonix 40 IV daily, metoprolol XL 50 mg p.o. daily, levothyroxine 75 mcg p.o. daily, Accu-Chek with regular insulin coverage, aspirin 81 mg p.o. daily, artificial tears 2 drops both eyes q.4, amlodipine 5 mg p.o. daily, Tylenol 650 q. 6 p.r.n. IMPRESSION AND PLAN: 1. Neurology: Status post right acute/subacute cerebellar infarct with localized edema and shift to the left, status post hypertonic saline being weaned off. 2. Cardiac: Accelerated hypertension, now remains in the acceptable range. History of coronary artery disease, stable. 3. Pulmonary: Saturating over 94% on oxygen 2 L nasal cannula. Mild pulmonary vascular congestion on chest x-ray. 4. Renal: End-stage renal disease, on hemodialysis, due today, seen by Renal consult. Continue medications as per recommendation. 5. Endocrine: Diabetes mellitus type 2. Maintain blood sugar less than 180 mg. History of hypothyroidism, on levothyroxine. Maintain supplement. 6. Gastrointestinal: Continue feeding as tolerated. Renal diet ordered. 7. History of arthritis, remains stable. 8. Infectious disease: Bacteremia due to Staphylococcus epidermidis, acute. Currently on vancomycin post hemodialysis 3 times a week. Keep trough level less than 20. Nonhealing ulcer, left transmetatarsal amputation site, followed by Infectious Disease consult. Prognosis remains guarded. Maintain do not resuscitate and do not intubate. Rico Langley MD
[2016-12-13 21:15] LABS: CALCIUM 9.1 mg/dL (8.4-10.2)
[2016-12-13 21:19] LABS: POTASSIUM 3.3 MMOL/L (3.6-5.0)
[2016-12-13] MEDS: Patient's Own Med (Rosuvastatin Calcium [Crestor] 40 MG) PO SCH (21:30)
[2016-12-14 05:51] LABS: HEMATOCRIT 39.5 % (34.0-47.0); MEAN CELL VOLUME 86.5 fl (81.0-99.0); MEAN CORPUSCULAR HGB CONC 30.1 g/dL (33.0-37.0); RED CELL DISTRIBUTION WIDTH 21.3 % (11.5-14.5)
[2016-12-14] MEDS: Levothyroxine 75 MCG TAB PO SCH (05:51)
[2016-12-14 06:44] LABS: CALCIUM 9.2 mg/dL (8.4-10.2)
--- NOTE | 2016-12-14 09:04 | CP.PCM.PN ---
Subjective - Date & Time of Evaluation Date of Evaluation: 12/14/16 Time of Evaluation: 09:01 - Subjective Subjective: Ms. Mac was seen and examined at the bedside. She is responsive to all stimuli and able to follow commands. She is not in any kind of distress. There is no untoward events overnight. Objective - Vital Signs/Intake and Output Vital Signs (last 24 hours): Temp Pulse Resp BP Pulse Ox 98.5 F 94 H 16 165/87 H 92 L 12/14/16 08:00 12/14/16 08:00 12/14/16 08:00 12/14/16 08:00 12/14/16 08:00 Intake and Output: 12/14/16 12/14/16 06:59 18:59 Intake Total 52 Output Total 2059 -2007 - Medications Medications: Current Medications Acetaminophen (Tylenol 650mg/20.3ml Solution Ud) 650 mg PO Q6 PRN PRN Reason: Headache Last Admin: 12/12/16 20:06 Dose: 650 mg Amlodipine Besylate (Norvasc) 5 mg PO DAILY [facility] Last Admin: 12/13/16 09:38 Dose: 5 mg Artificial Tears (Artificial Tears) 2 drop OU Q4 PRN PRN Reason: Dry eyes Last Admin: 12/13/16 09:37 Dose: 2 drop Aspirin (Ecotrin) 81 mg PO DAILY [facility] Last Admin: 12/13/16 09:38 Dose: 81 mg Home Med (Rosuvastatin Calcium [Crestor]) 40 mg PO HS [facility] Last Admin: 12/13/16 21:30 Dose: 40 mg Vancomycin HCl 1 gm/ Sodium (Chloride) 250 mls @ 166.667 mls/hr IVPB MWF [facility] Last Admin: 12/12/16 22:30 Dose: 166.667 mls/hr Insulin Human Regular (Humulin R) 0 units SC ACCU-CHECK [facility] PRN Reason: Protocol Last Admin: 12/13/16 22:00 Dose: Not Given Levothyroxine Sodium (Synthroid) 75 mcg PO DAILY@0630 [facility] Last Admin: 12/14/16 05:51 Dose: 75 mcg Metoprolol Succinate (Toprol Xl) 50 mg PO DAILY [facility] Last Admin: 12/13/16 09:41 Dose: 50 mg Pantoprazole Sodium (Protonix Inj) 40 mg IVP DAILY [facility] Last Admin: 12/13/16 09:46 Dose: 40 mg Vitamin B Complex/Vit C/Folic Acid (Nephro-James) 1 tab PO DAILY [facility] - Labs Labs: 12/14/16 05:00 12/14/16 05:00 PT 13.7 Seconds (9.8-13.1) H 12/10/16 16:44 INR 1.3 (0.9-1.2) H 12/10/16 16:44 APTT 27.9 Seconds (25.6-37.1) 12/10/16 16:44 - Constitutional Appears: Well - Head Exam Head Exam: ATRAUMATIC, NORMAL INSPECTION, NORMOCEPHALIC - Neurological Exam Neurological Exam: Alert, Awake, CN II-XII Intact, Oriented x3 Neuro motor strength exam: Left Upper Extremity: 3, Right Upper Extremity: 3, Left Lower Extremity: 3, Right Lower Extremity: 3 Additional comments: Neurological unchanged from previous examination. She is able to follow commands such as finger to nose, accommodation, sensation remains intact. Assessment and Plan (1) Cerebellar infarct Assessment & Plan: Case discussed with Dr. Centeno, continue conservative management with DVT prophylaxis. Continue physical and occupational therapies. Status: Acute
[2016-12-14] MEDS: Artificial Tears Opht Soln OU PRN ×2 (09:09→21:15)
[2016-12-14] MEDS: Metoprolol Succinate 50 mg XL Tab PO SCH (09:12)
[2016-12-14] MEDS: Insulin Regular 100 units/ml SC SCH ×4 (11:25→23:33)
--- NOTE | 2016-12-14 11:46 | CP.PCM.PN ---
Subjective - Date & Time of Evaluation Date of Evaluation: 12/14/16 Time of Evaluation: 12:30 - Subjective Subjective: ID Note- Pt. seen and examined today in ICU. pt. is awake and is being fed her lunch by her daughter. No acute events overnight. afebrile. Objective - Vital Signs/Intake and Output Vital Signs (last 24 hours): Temp Pulse Resp BP Pulse Ox 98.5 F 112 H 21 144/71 96 12/14/16 08:00 12/14/16 10:00 12/14/16 10:00 12/14/16 10:00 12/14/16 10:00 Intake and Output: 12/14/16 12/14/16 06:59 18:59 Intake Total 52 370 Output Total 0 -2007 370 - Medications Medications: Current Medications Acetaminophen (Tylenol 650mg/20.3ml Solution Ud) 650 mg PO Q6 PRN PRN Reason: Headache Last Admin: 12/12/16 20:06 Dose: 650 mg Amlodipine Besylate (Norvasc) 5 mg PO DAILY [facility] Last Admin: 12/14/16 09:11 Dose: 5 mg Artificial Tears (Artificial Tears) 2 drop OU Q4 PRN PRN Reason: Dry eyes Last Admin: 12/14/16 09:09 Dose: 2 drop Aspirin (Ecotrin) 81 mg PO DAILY [facility] Last Admin: 12/14/16 09:10 Dose: 81 mg Home Med (Rosuvastatin Calcium [Crestor]) 40 mg PO HS [facility] Last Admin: 12/13/16 21:30 Dose: 40 mg Vancomycin HCl 1 gm/ Sodium (Chloride) 250 mls @ 166.667 mls/hr IVPB MWF [facility] Last Admin: 12/14/16 09:55 Dose: 166.667 mls/hr Insulin Human Regular (Humulin R) 0 units SC ACCU-CHECK [facility] PRN Reason: Protocol Last Admin: 12/14/16 11:25 Dose: 2 units Levothyroxine Sodium (Synthroid) 75 mcg PO DAILY@0630 [facility] Last Admin: 12/14/16 05:51 Dose: 75 mcg Metoprolol Succinate (Toprol Xl) 50 mg PO DAILY [facility] Last Admin: 12/14/16 09:12 Dose: 50 mg Pantoprazole Sodium (Protonix Inj) 40 mg IVP DAILY [facility] Last Admin: 12/14/16 09:10 Dose: 40 mg Vitamin B Complex/Vit C/Folic Acid (Nephro-James) 1 tab PO DAILY [facility] - Labs Labs: - Additional Findings Additional findings: - Constitutional Appears: No Acute Distress, Chronically Ill - Eye Exam Eye Exam: EOMI - ENT Exam ENT Exam: Normal Oropharynx - Neck Exam Neck exam: Positive for: Full Rom - Respiratory Exam Respiratory Exam: NORMAL BREATHING PATTERN Additional comments: slightly decreased breaths ounds bibasilar no wheezing - Cardiovascular Exam Cardiovascular Exam: RRR, +S1, +S2 Additional comments: mid-sternal round lesion with scant sanguinous discharge and raised borders ( chronic) no pus - GI/Abdominal Exam GI & Abdominal Exam: Normal Bowel Sounds, Soft Additional comments: NT, ND - Extremities Exam Additional comments: left TMA site with round dry ulcer at the lateral site, no discharge, dry, no malodor, no erythema - Neurological Exam Additional comments: awake Laboratory Results - last 72 hr 12/11/16 12/11/16 12/11/16 15:00 16:55 21:55 WBC RBC Hgb Hct MCV MCH MCHC RDW Plt Count Sodium 143 Potassium 4.9 Chloride 99 Carbon Dioxide 31 H Anion Gap 18 BUN 25 H Creatinine 3.0 H Est GFR ( Amer) 18 Est GFR (Non-Af Amer) 15 POC Glucose (mg/dL) 187 H 171 H Random Glucose 226 H Serum Osmolality Calcium 9.2 Total Bilirubin AST ALT Alkaline Phosphatase Troponin I 0.6080 H* Total Protein Albumin Globulin Albumin/Globulin Ratio Urine Color Urine Clarity Urine pH Ur Specific Silex Urine Protein Urine Glucose (UA) Urine Ketones Urine Blood Urine Nitrate Urine Bilirubin Urine Urobilinogen Ur Leukocyte Esterase Urine RBC (Auto) Urine WBC Clumps (Auto) Urine Microscopic WBC Ur Squamous Epith Cells Amorphous Sediment Urine Bacteria Urine Yeast (Budding) Vancomycin Trough 12/12/16 12/12/16 12/12/16 04:25 04:25 05:41 WBC 9.9 RBC 4.96 Hgb 12.8 Hct 43.7 MCV 88.1 MCH 25.8 L MCHC 29.2 L RDW 21.1 H Plt Count 262 Sodium 146 Potassium 4.6 Chloride 100 Carbon Dioxide 29 Anion Gap 21 H BUN 29 H Creatinine 3.4 H Est GFR ( Amer) 16 Est GFR (Non-Af Amer) 13 POC Glucose (mg/dL) 170 H Random Glucose 154 H Serum Osmolality Calcium 9.3 Total Bilirubin 0.5 AST 43 H ALT 29 Alkaline Phosphatase 87 Troponin I Total Protein 7.4 Albumin 3.5 Globulin 3.9 Albumin/Globulin Ratio 0.9 L Urine Color Urine Clarity Urine pH Ur Specific Silex Urine Protein Urine Glucose (UA) Urine Ketones Urine Blood Urine Nitrate Urine Bilirubin Urine Urobilinogen Ur Leukocyte Esterase Urine RBC (Auto) Urine WBC Clumps (Auto) Urine Microscopic WBC Ur Squamous Epith Cells Amorphous Sediment Urine Bacteria Urine Yeast (Budding) Vancomycin Trough 12/12/16 12/12/16 12/12/16 07:30 11:05 15:26 WBC RBC Hgb Hct MCV MCH MCHC RDW Plt Count Sodium 148 Potassium 4.5 Chloride 104 Carbon Dioxide 28 Anion Gap 20 BUN 32 H Creatinine 3.7 H Est GFR ( Amer) 14 Est GFR (Non-Af Amer) 12 POC Glucose (mg/dL) 241 H Random Glucose 203 H Serum Osmolality 313 H Calcium 9.2 Total Bilirubin AST ALT Alkaline Phosphatase Troponin I Total Protein Albumin Globulin Albumin/Globulin Ratio Urine Color Urine Clarity Urine pH Ur Specific Silex Urine Protein Urine Glucose (UA) Urine Ketones Urine Blood Urine Nitrate Urine Bilirubin Urine Urobilinogen Ur Leukocyte Esterase Urine RBC (Auto) Urine WBC Clumps (Auto) Urine Microscopic WBC Ur Squamous Epith Cells Amorphous Sediment Urine Bacteria Urine Yeast (Budding) Vancomycin Trough 12/12/16 12/12/16 12/12/16 15:26 16:27 20:09 WBC RBC Hgb Hct MCV MCH MCHC RDW Plt Count Sodium Potassium Chloride Carbon Dioxide Anion Gap BUN Creatinine Est GFR ( Amer) Est GFR (Non-Af Amer) POC Glucose (mg/dL) 192 H 195 H Random Glucose Serum Osmolality 312 H Calcium Total Bilirubin AST ALT Alkaline Phosphatase Troponin I Total Protein Albumin Globulin Albumin/Globulin Ratio Urine Color Urine Clarity Urine pH Ur Specific Silex Urine Protein Urine Glucose (UA) Urine Ketones Urine Blood Urine Nitrate Urine Bilirubin Urine Urobilinogen Ur Leukocyte Esterase Urine RBC (Auto) Urine WBC Clumps (Auto) Urine Microscopic WBC Ur Squamous Epith Cells Amorphous Sediment Urine Bacteria Urine Yeast (Budding) Vancomycin Trough 12/12/16 12/12/16 12/13/16 23:07 23:07 03:29 WBC RBC Hgb Hct MCV MCH MCHC RDW Plt Count Sodium 148 Potassium 4.5 Chloride 106 Carbon Dioxide 27 Anion Gap 19 BUN 34 H Creatinine 3.9 H Est GFR ( Amer) 13 Est GFR (Non-Af Amer) 11 POC Glucose (mg/dL) Random Glucose 183 H Serum Osmolality 320 H Calcium 9.4 Total Bilirubin AST ALT Alkaline Phosphatase Troponin I Total Protein Albumin Globulin Albumin/Globulin Ratio Urine Color Light brown Urine Clarity Turbid Urine pH 5.5 Ur Specific Silex 1.025 Urine Protein > 300 Urine Glucose (UA) 100 Urine Ketones Trace Urine Blood Large Urine Nitrate Positive H Urine Bilirubin Small Urine Urobilinogen 0.2 Ur Leukocyte Esterase Large Urine RBC (Auto) 1095 H Urine WBC Clumps (Auto) Mod H Urine Microscopic WBC 800 H Ur Squamous Epith Cells 3 Amorphous Sediment Small Urine Bacteria Mod H Urine Yeast (Budding) Mod H Vancomycin Trough 12/13/16 12/13/16 12/13/16 04:15 04:15 04:15 WBC 14.5 H RBC 5.03 Hgb 12.9 Hct 44.3 MCV 88.1 MCH 25.7 L MCHC 29.2 L RDW 21.4 H Plt Count 297 Sodium 151 H Potassium 4.7 Chloride 108 H Carbon Dioxide 26 Anion Gap 22 H BUN 34 H Creatinine 4.0 H Est GFR ( Amer) 13 Est GFR (Non-Af Amer) 11 POC Glucose (mg/dL) Random Glucose 213 H Serum Osmolality Calcium 9.5 Total Bilirubin 0.5 AST 36 ALT 31 Alkaline Phosphatase 99 Troponin I Total Protein 7.3 Albumin 3.6 Globulin 3.8 Albumin/Globulin Ratio 1.0 Urine Color Urine Clarity Urine pH Ur Specific Silex Urine Protein Urine Glucose (UA) Urine Ketones Urine Blood Urine Nitrate Urine Bilirubin Urine Urobilinogen Ur Leukocyte Esterase Urine RBC (Auto) Urine WBC Clumps (Auto) Urine Microscopic WBC Ur Squamous Epith Cells Amorphous Sediment Urine Bacteria Urine Yeast (Budding) Vancomycin Trough 42.4 H 12/13/16 12/13/16 12/13/16 04:35 11:33 15:52 WBC RBC Hgb Hct MCV MCH MCHC RDW Plt Count Sodium Potassium Chloride Carbon Dioxide Anion Gap BUN Creatinine Est GFR ( Amer) Est GFR (Non-Af Amer) POC Glucose (mg/dL) 254 H 291 H 221 H Random Glucose Serum Osmolality Calcium Total Bilirubin AST ALT Alkaline Phosphatase Troponin I Total Protein Albumin Globulin Albumin/Globulin Ratio Urine Color Urine Clarity Urine pH Ur Specific Silex Urine Protein Urine Glucose (UA) Urine Ketones Urine Blood Urine Nitrate Urine Bilirubin Urine Urobilinogen Ur Leukocyte Esterase Urine RBC (Auto) Urine WBC Clumps (Auto) Urine Microscopic WBC Ur Squamous Epith Cells Amorphous Sediment Urine Bacteria Urine Yeast (Budding) Vancomycin Trough 12/13/16 12/13/16 12/14/16 20:30 20:56 04:54 WBC RBC Hgb Hct MCV MCH MCHC RDW Plt Count Sodium 141 Potassium 3.3 L Chloride 98 Carbon Dioxide 29 Anion Gap 17 BUN 13 Creatinine 2.0 H Est GFR ( Amer) 29 Est GFR (Non-Af Amer) 24 POC Glucose (mg/dL) 165 H 200 H Random Glucose 172 H Serum Osmolality Calcium 9.1 Total Bilirubin AST ALT Alkaline Phosphatase Troponin I Total Protein Albumin Globulin Albumin/Globulin Ratio Urine Color Urine Clarity Urine pH Ur Specific Silex Urine Protein Urine Glucose (UA) Urine Ketones Urine Blood Urine Nitrate Urine Bilirubin Urine Urobilinogen Ur Leukocyte Esterase Urine RBC (Auto) Urine WBC Clumps (Auto) Urine Microscopic WBC Ur Squamous Epith Cells Amorphous Sediment Urine Bacteria Urine Yeast (Budding) Vancomycin Trough 12/14/16 12/14/16 12/14/16 05:00 05:00 11:17 WBC 11.0 H RBC 4.57 Hgb 11.9 L Hct 39.5 MCV 86.5 MCH 26.0 L MCHC 30.1 L RDW 21.3 H Plt Count 214 Sodium 141 Potassium 4.0 Chloride 100 Carbon Dioxide 25 Anion Gap 20 BUN 18 H Creatinine 2.4 H Est GFR ( Amer) 24 Est GFR (Non-Af Amer) 20 POC Glucose (mg/dL) 216 H Random Glucose 196 H Serum Osmolality Calcium 9.2 Total Bilirubin AST ALT Alkaline Phosphatase Troponin I Total Protein Albumin Globulin Albumin/Globulin Ratio Urine Color Urine Clarity Urine pH Ur Specific Silex Urine Protein Urine Glucose (UA) Urine Ketones Urine Blood Urine Nitrate Urine Bilirubin Urine Urobilinogen Ur Leukocyte Esterase Urine RBC (Auto) Urine WBC Clumps (Auto) Urine Microscopic WBC Ur Squamous Epith Cells Amorphous Sediment Urine Bacteria Urine Yeast (Budding) Vancomycin Trough Microbiology 12/12/16 05:00 Blood-Venous Blood Culture - Preliminary NO GROWTH AFTER 48 HOURS 12/10/16 18:00 Blood-Venous Blood Culture - Preliminary NO GROWTH AFTER 3 DAYS 12/10/16 16:00 Blood-Venous S.aureus & Coag-Neg Staph PNA FISH - Final 12/10/16 16:00 Blood-Venous Blood Culture - Final Coagulase Neg Staphylococcus 12/10/16 16:00 Blood-Venous Gram Stain - Final 12/10/16 20:00 Naris MRSA Culture (Admit) - Final MRSA DETECTED Assessment and Plan (1) Cerebellar infarct Status: Acute (2) Basal cell carcinoma of chest Status: Acute (3) ESRD on hemodialysis Status: Acute (4) Bacteremia due to Staphylococcus epidermidis Status: Acute (5) DM2 (diabetes mellitus, type 2) Status: Chronic - Assessment and Plan (Free Text) Assessment: A/P- Patient is a 76 year old female with multiple medical conditions including DM II , CAD, ESRD on HD, left foot TMA , A.fib admitted with nausea found to have cerebellar infarct as per Neurosurgery not a surgical candiidate. found to have coag neg staph in one blood cx on this admission. she had OM of her left TMA site and was treated with 6 weeks of IV abx in 2016. the source of the coag neg staph bacteremia could be the open chest wall wound vs contamination. pt. is afebrile and has normal wbc count. her previous admission did show coag neg staph from chest wall wound cx and she also found to have basal cell carcinoma of the chest wall wound( not sure if she was ever treated for the basal cell ). afebrile one blood cx- coag neg staph repeat blood cx- neg x 2 leukocytosis- almost resolved TTE- no mention of any vegetations on report as read by inspector bicycle. Plan- check 2 more blood cx. continue with IV vancomyicn post HD days pending further results. keep trough <20. podiatry to evaluate the nonhealing left TMA site ulcer. check left foot xray . cerebellar infarct management as per neuro. primary doc to determine if the basal cell CA of the chest was treated and if not advise to get oncology evaluation. all above d/w ICu team ICu time 45 min.
--- NOTE | 2016-12-14 14:17 | CP.CCUPN ---
CCU Subjective - Physician Review Subjective (Free Text): Awake and alert, had usual HD yesterday, follow commands, no new deficits observed. Denies any headaches, dizziness, palpitations, nausea, vomiting, SOB, CP. ROS: No other pertinent negs or positives on 10+ system review. PMSFH: Anemia, Arthritis, Atrial Fibrillation, CAD, CHF, DM II, Gall Bladder Disease with Cher, HTN, Hypercholesterolemia, Kidney Stones, Pneumonia, End Stage Renal Disease (TTS) All Nursing and physician documentation reviewed to date; no new pertinent info noted relevant to current medical problems. MAJOR PROBLEMS: 1. Right Cerebellar Acute / SubAcute Infarct with localized edema and shift to the Left 2. Accelerated HTN 3. ESRD 4. Mild Coagulopathy 5. Mild Troponin Elevation PLAN: 1. Has been under neuro-observation in ICU over the past 5 days including today. No new neurologic deterioration anticipated, will discuss with Neuro regarding stability for transfer to StepDown bed, and whether or not there is any need for further CT Brain imaging. last CT Brain done on admission 5 days ago. 2. Conservative Neuro mgmt noted. CCU Objective - Vital Signs / Intake & Output Vital Signs (Last 4 hours): Vital Signs Temp Pulse Resp BP Pulse Ox 12/14/16 12:00 97.7 F 103 H 16 155/81 H 98 12/14/16 10:00 112 H 21 144/71 96 Intake and Output (Last 8hrs): Intake & Output 12/13/16 12/14/16 12/14/16 22:59 06:59 14:59 Intake Total 30 22 370 Output Total 2059 50 370 Weight 150 lb Intake: IV 30 22 Intake, Piggyback 250 Oral 120 Output: Urine 60 50 Urine, Voided 60 50 Emesis 1999 - Physical Exam Head: Positive for: Atraumatic Pupils: Positive for: Other Extroacular Muscles: Positive for: EOMI (L pupil opacified, R pupil 3 mm and reactive.) Conjunctiva: Positive for: Normal Mouth: Positive for: Moist Mucous Membranes Nose (External): Positive for: Atraumatic Neck: Positive for: Normal Range of Motion. Negative for: JVD, Lymphadenopathy Respiratory/Chest: Positive for: Decreased Breath Sounds. Negative for: Accessory Muscle Use, Rales, Rhonchi Cardiovascular: Positive for: Regular Rate and Rhythm. Negative for: Murmurs, Rub Abdomen: Positive for: Normal Bowel Sounds. Negative for: Tenderness, Distention Upper Extremity: Positive for: Other (RUE AV Shunt with good bruit and thrill) Lower Extremity: Positive for: Edema (trace), Deformity (Left foot TMA). Negative for: CALF TENDERNESS Neurological: Positive for: Motor Func Grossly Intact Skin: Positive for: Warm, Normal Color. Negative for: Rashes, Abscess Psychiatric: Positive for: Alert - Medications Active Medications: Active Medications Generic Name Dose Route Start Last Admin Trade Name Freq PRN Reason Stop Dose Admin Acetaminophen 650 mg 12/10/16 21:44 12/12/16 20:06 Tylenol 650mg/20.3ml Solution Ud PO 650 mg Q6 PRN Administration Headache Amlodipine Besylate 5 mg 12/12/16 09:00 12/14/16 09:11 Norvasc PO 5 mg DAILY [facility] Administration Artificial Tears 2 drop 12/11/16 12:52 12/14/16 09:09 Artificial Tears OU 2 drop Q4 PRN Administration Dry eyes Aspirin 81 mg 12/11/16 09:00 12/14/16 09:10 Ecotrin PO 81 mg DAILY [facility] Administration Home Med 40 mg 12/11/16 22:00 12/13/16 21:30 Rosuvastatin Calcium [Crestor] PO 40 mg HS [facility] Administration Vancomycin HCl 1 gm/ Sodium 250 mls @ 166.667 mls/hr 12/12/16 20:29 12/14/16 09:55 Chloride IVPB 166.667 mls/hr MWF [facility] Administration Insulin Human Regular 0 units 12/10/16 23:00 12/14/16 11:25 Humulin R SC 2 units ACCU-CHECK [facility] Administration Protocol Levothyroxine Sodium 75 mcg 12/12/16 06:30 12/14/16 05:51 Synthroid PO 75 mcg DAILY@0630 [facility] Administration Metoprolol Succinate 50 mg 12/11/16 09:00 12/14/16 09:12 Toprol Xl PO 50 mg DAILY [facility] Administration Pantoprazole Sodium 40 mg 12/15/16 09:00 Protonix Ec Tab PO DAILY [facility] Vitamin B Complex/Vit C/Folic Acid 1 tab 12/11/16 09:00 Nephro-James PO DAILY [facility] - Patient Studies Lab Studies: Microbiology Studies 12/12/16 05:00 Blood Culture - Preliminary Blood-Venous NO GROWTH AFTER 48 HOURS 12/10/16 18:00 Blood Culture - Preliminary Blood-Venous NO GROWTH AFTER 3 DAYS Lab Studies 12/14/16 12/14/16 12/14/16 Range/Units 11:17 05:00 05:00 WBC 11.0 H (4.8-10.8) K/uL RBC 4.57 (3.80-5.20) Mil/uL Hgb 11.9 L (12.0-16.0) g/dL Hct 39.5 (34.0-47.0) % MCV 86.5 (81.0-99.0) fl MCH 26.0 L (27.0-31.0) pg MCHC 30.1 L (33.0-37.0) g/dL RDW 21.3 H (11.5-14.5) % Plt Count 214 (130-400) K/uL Sodium 141 (132-148) mmol/l Potassium 4.0 (3.6-5.0) MMOL/L Chloride 100 (98-107) mmol/L Carbon Dioxide 25 (22-30) mmol/L Anion Gap 20 (10-20) BUN 18 H (7-17) mg/dl Creatinine 2.4 H (0.7-1.2) mg/dL Est GFR ( Amer) 24 Est GFR (Non-Af Amer) 20 POC Glucose (mg/dL) 216 H (65-110) mg/dL Random Glucose 196 H (65-105) mg/dL Calcium 9.2 (8.4-10.2) mg/dL 12/14/16 12/13/16 12/13/16 Range/Units 04:54 20:56 20:30 WBC (4.8-10.8) K/uL RBC (3.80-5.20) Mil/uL Hgb (12.0-16.0) g/dL Hct (34.0-47.0) % MCV (81.0-99.0) fl MCH (27.0-31.0) pg MCHC (33.0-37.0) g/dL RDW (11.5-14.5) % Plt Count (130-400) K/uL Sodium 141 (132-148) mmol/l Potassium 3.3 L (3.6-5.0) MMOL/L Chloride 98 (98-107) mmol/L Carbon Dioxide 29 (22-30) mmol/L Anion Gap 17 (10-20) BUN 13 (7-17) mg/dl Creatinine 2.0 H (0.7-1.2) mg/dL Est GFR ( Amer) 29 Est GFR (Non-Af Amer) 24 POC Glucose (mg/dL) 200 H 165 H (65-110) mg/dL Random Glucose 172 H (65-105) mg/dL Calcium 9.1 (8.4-10.2) mg/dL 12/13/16 Range/Units 15:52 WBC (4.8-10.8) K/uL RBC (3.80-5.20) Mil/uL Hgb (12.0-16.0) g/dL Hct (34.0-47.0) % MCV (81.0-99.0) fl MCH (27.0-31.0) pg MCHC (33.0-37.0) g/dL RDW (11.5-14.5) % Plt Count (130-400) K/uL Sodium (132-148) mmol/l Potassium (3.6-5.0) MMOL/L Chloride (98-107) mmol/L Carbon Dioxide (22-30) mmol/L Anion Gap (10-20) BUN (7-17) mg/dl Creatinine (0.7-1.2) mg/dL Est GFR ( Amer) Est GFR (Non-Af Amer) POC Glucose (mg/dL) 221 H (65-110) mg/dL Random Glucose (65-105) mg/dL Calcium (8.4-10.2) mg/dL Laboratory Results - last 24 hr 12/13/16 12/13/16 12/13/16 15:52 20:30 20:56 WBC RBC Hgb Hct MCV MCH MCHC RDW Plt Count Sodium 141 Potassium 3.3 L Chloride 98 Carbon Dioxide 29 Anion Gap 17 BUN 13 Creatinine 2.0 H Est GFR ( Amer) 29 Est GFR (Non-Af Amer) 24 POC Glucose (mg/dL) 221 H 165 H Random Glucose 172 H Calcium 9.1 12/14/16 12/14/16 12/14/16 04:54 05:00 05:00 WBC 11.0 H RBC 4.57 Hgb 11.9 L Hct 39.5 MCV 86.5 MCH 26.0 L MCHC 30.1 L RDW 21.3 H Plt Count 214 Sodium 141 Potassium 4.0 Chloride 100 Carbon Dioxide 25 Anion Gap 20 BUN 18 H Creatinine 2.4 H Est GFR ( Amer) 24 Est GFR (Non-Af Amer) 20 POC Glucose (mg/dL) 200 H Random Glucose 196 H Calcium 9.2 12/14/16 11:17 WBC RBC Hgb Hct MCV MCH MCHC RDW Plt Count Sodium Potassium Chloride Carbon Dioxide Anion Gap BUN Creatinine Est GFR ( Amer) Est GFR (Non-Af Amer) POC Glucose (mg/dL) 216 H Random Glucose Calcium Fingerstick Blood Sugar Results: 216 Review of Systems - Review of Systems All systems: reviewed and no additional remarkable complaints except (as above) Critical Care Progress Note - Extremities/Vascular Does the Patient have a Central Venous Catheter?: Yes Insertion Site: PICC Does the Patient have a Herrera Catheter?: No Does the Patient need a Herrera Catheter?: No - Nutrition Nutrition: Nutrition Category Date Time Status Dysphagia/Modified Consistency Diet [DIET] Diets 12/11/16 Dinner Active
--- NOTE | 2016-12-14 14:42 | CP.PCM.PN ---
Subjective - Date & Time of Evaluation Date of Evaluation: 12/14/16 Time of Evaluation: 14:41 - Subjective Subjective: Patient and bed more awake Grandson at the bedside Patient appeared to be talking but confused according to the grandson Objective - Vital Signs/Intake and Output Vital Signs (last 24 hours): Temp Pulse Resp BP Pulse Ox 97.7 F 88 19 186/91 H 97 12/14/16 12:00 12/14/16 14:00 12/14/16 14:00 12/14/16 14:00 12/14/16 14:00 Intake and Output: 12/14/16 12/14/16 06:59 18:59 Intake Total 52 610 Output Total 2060 -2007 610 - Medications Medications: Current Medications Acetaminophen (Tylenol 650mg/20.3ml Solution Ud) 650 mg PO Q6 PRN PRN Reason: Headache Last Admin: 12/12/16 20:06 Dose: 650 mg Amlodipine Besylate (Norvasc) 5 mg PO DAILY [facility] Last Admin: 12/14/16 09:11 Dose: 5 mg Artificial Tears (Artificial Tears) 2 drop OU Q4 PRN PRN Reason: Dry eyes Last Admin: 12/14/16 09:09 Dose: 2 drop Aspirin (Ecotrin) 81 mg PO DAILY [facility] Last Admin: 12/14/16 09:10 Dose: 81 mg Home Med (Rosuvastatin Calcium [Crestor]) 40 mg PO HS [facility] Last Admin: 12/13/16 21:30 Dose: 40 mg Vancomycin HCl 1 gm/ Sodium (Chloride) 250 mls @ 166.667 mls/hr IVPB MWF [facility] Last Admin: 12/14/16 09:55 Dose: 166.667 mls/hr Insulin Human Regular (Humulin R) 0 units SC ACCU-CHECK [facility] PRN Reason: Protocol Last Admin: 12/14/16 11:25 Dose: 2 units Levothyroxine Sodium (Synthroid) 75 mcg PO DAILY@0630 [facility] Last Admin: 12/14/16 05:51 Dose: 75 mcg Metoprolol Succinate (Toprol Xl) 50 mg PO DAILY [facility] Last Admin: 12/14/16 09:12 Dose: 50 mg Pantoprazole Sodium (Protonix Ec Tab) 40 mg PO DAILY [facility] Vitamin B Complex/Vit C/Folic Acid (Nephro-James) 1 tab PO DAILY [facility] - Labs Labs: 12/14/16 05:00 12/14/16 05:00 PT 13.7 Seconds (9.8-13.1) H 12/10/16 16:44 INR 1.3 (0.9-1.2) H 12/10/16 16:44 APTT 27.9 Seconds (25.6-37.1) 12/10/16 16:44 - Constitutional Appears: No Acute Distress - ENT Exam ENT Exam: Mucous Membranes Moist - Respiratory Exam Respiratory Exam: absent: Chest Wall Tenderness - Cardiovascular Exam Cardiovascular Exam: absent: JVD, Rubs - GI/Abdominal Exam GI & Abdominal Exam: absent: Guarding - Extremities Exam Extremities Exam: absent: Calf Tenderness - Back Exam Back Exam: absent: CVA tenderness (L), CVA tenderness (R) - Neurological Exam Neurological Exam: Altered Assessment and Plan (1) Cerebellar infarct Status: Acute (2) CKD (chronic kidney disease) stage V requiring chronic dialysis Assessment & Plan: Patient with end stage renal disease who was admitted with cerebral infarction Continue to improve somewhat better Dialysis to be continued as is scheduled TTS Vital sign noted the latest blood pressure somewhat elevated to be rechecked again Status: Acute
--- NOTE | 2016-12-14 16:28 | CP.PCM.PN ---
<Mahesh Kraus - Last Filed: 12/14/16 16:35> Subjective - Date & Time of Evaluation Date of Evaluation: 12/14/16 Time of Evaluation: 07:30 - Subjective Subjective: - Patient seen and examined at bedside with Dr. Mendoza. - Patient appears to be in no acute distress. - Able to follow commands. No deterioration noted compared to yesterday Objective - Vital Signs/Intake and Output Vital Signs (last 24 hours): Temp Pulse Resp BP Pulse Ox 98.2 F 92 H 23 165/65 H 95 12/14/16 16:00 12/14/16 16:00 12/14/16 16:00 12/14/16 16:00 12/14/16 16:00 Intake and Output: 12/14/16 12/14/16 06:59 18:59 Intake Total 52 660 Output Total 2059 -2007 660 - Medications Medications: Current Medications Acetaminophen (Tylenol 650mg/20.3ml Solution Ud) 650 mg PO Q6 PRN PRN Reason: Headache Last Admin: 12/12/16 20:06 Dose: 650 mg Amlodipine Besylate (Norvasc) 5 mg PO DAILY [facility] Last Admin: 12/14/16 09:11 Dose: 5 mg Artificial Tears (Artificial Tears) 2 drop OU Q4 PRN PRN Reason: Dry eyes Last Admin: 12/14/16 09:09 Dose: 2 drop Aspirin (Ecotrin) 81 mg PO DAILY [facility] Last Admin: 12/14/16 09:10 Dose: 81 mg Home Med (Rosuvastatin Calcium [Crestor]) 40 mg PO HS [facility] Last Admin: 12/13/16 21:30 Dose: 40 mg Vancomycin HCl 1 gm/ Sodium (Chloride) 250 mls @ 166.667 mls/hr IVPB MWF [facility] Last Admin: 12/14/16 09:55 Dose: 166.667 mls/hr Insulin Human Regular (Humulin R) 0 units SC ACCU-CHECK [facility] PRN Reason: Protocol Last Admin: 12/14/16 11:25 Dose: 2 units Levothyroxine Sodium (Synthroid) 75 mcg PO DAILY@0630 [facility] Last Admin: 12/14/16 05:51 Dose: 75 mcg Metoprolol Succinate (Toprol Xl) 50 mg PO DAILY [facility] Last Admin: 12/14/16 09:12 Dose: 50 mg Pantoprazole Sodium (Protonix Ec Tab) 40 mg PO DAILY [facility] Vitamin B Complex/Vit C/Folic Acid (Nephro-James) 1 tab PO DAILY [facility] - Labs Labs: 12/14/16 05:00 12/14/16 05:00 PT 13.7 Seconds (9.8-13.1) H 12/10/16 16:44 INR 1.3 (0.9-1.2) H 12/10/16 16:44 APTT 27.9 Seconds (25.6-37.1) 12/10/16 16:44 - Constitutional Appears: No Acute Distress - Head Exam Head Exam: NORMAL INSPECTION - Eye Exam Eye Exam: EOMI Additional comments: left eye opacified - Respiratory Exam Respiratory Exam: Decreased Breath Sounds - Cardiovascular Exam Cardiovascular Exam: REGULAR RHYTHM, +S1, +S2 - GI/Abdominal Exam GI & Abdominal Exam: Soft, Normal Bowel Sounds - Extremities Exam Additional comments: LEft foot TMA - Neurological Exam Neurological Exam: Awake, CN II-XII Intact - Skin Skin Exam: Normal Color, Warm Assessment and Plan - Assessment and Plan (Free Text) Assessment: 1) Right cerebellar Acute/ Sub acute infarct - Head elevation of bed - monitor osmolarity - Continue with ICU and neuro recommendation 2) Systolic heart failure 3) End stage renal disease - Nephro on board - Dialysis M W F 4) Non healing left TMA site ulcer -IV vanco - ID on board 4) Code status DNR/DNI <Gerardo Mendoza K - Last Filed: 12/15/16 16:42> Objective - Vital Signs/Intake and Output Vital Signs (last 24 hours): Temp Pulse Resp BP Pulse Ox 98.6 F 80 23 157/76 H 100 12/15/16 12:00 12/15/16 12:00 12/15/16 12:00 12/15/16 12:00 12/15/16 12:00 Intake and Output: 12/15/16 12/15/16 06:59 18:59 Intake Total 50 Output Total 100 Balance -50 - Medications Medications: Current Medications Acetaminophen (Tylenol 650mg/20.3ml Solution Ud) 650 mg PO Q6 PRN PRN Reason: Headache Last Admin: 12/14/16 19:17 Dose: 650 mg Amlodipine Besylate (Norvasc) 5 mg PO DAILY [facility] Last Admin: 12/15/16 10:12 Dose: 5 mg Artificial Tears (Artificial Tears) 2 drop OU Q4 PRN PRN Reason: Dry eyes Last Admin: 12/15/16 10:11 Dose: 2 drop Aspirin (Ecotrin) 81 mg PO DAILY [facility] Last Admin: 12/15/16 10:12 Dose: 81 mg Home Med (Rosuvastatin Calcium [Crestor]) 40 mg PO HS [facility] Last Admin: 12/14/16 21:14 Dose: 40 mg Vancomycin HCl 1 gm/ Sodium (Chloride) 250 mls @ 166.667 mls/hr IVPB MWF [facility] Last Admin: 12/14/16 09:55 Dose: 166.667 mls/hr Insulin Human Regular (Humulin R) 0 units SC ACCU-CHECK [facility] PRN Reason: Protocol Last Admin: 12/15/16 06:24 Dose: Not Given Levothyroxine Sodium (Synthroid) 75 mcg PO DAILY@0630 [facility] Last Admin: 12/15/16 06:21 Dose: 75 mcg Metoprolol Succinate (Toprol Xl) 50 mg PO DAILY [facility] Last Admin: 12/15/16 10:13 Dose: 50 mg Pantoprazole Sodium (Protonix Ec Tab) 40 mg PO DAILY [facility] Last Admin: 12/15/16 10:12 Dose: 40 mg Tobramycin/Dexamethasone (Tobradex 0.3%-0.1% Opht Oint) 1 appl OU TID [facility] Vitamin B Complex/Vit C/Folic Acid (Nephro-James) 1 tab PO DAILY [facility] - Labs Labs: 12/15/16 04:15 12/15/16 04:15 PT 13.7 Seconds (9.8-13.1) H 12/10/16 16:44 INR 1.3 (0.9-1.2) H 12/10/16 16:44 APTT 27.9 Seconds (25.6-37.1) 12/10/16 16:44 Assessment and Plan - Assessment and Plan (Free Text) Assessment: Patient was personally seen and examined by me in rounds with residents. Available labs and diagnostic data reviewed. Case, Patient's condition and management plan Discussed with residents in rounds. Agree with resident's progress note. Plan: As ordered.
[2016-12-14 17:11] LABS: CALCIUM 9.1 mg/dL (8.4-10.2); POTASSIUM 3.7 MMOL/L (3.6-5.0)
[2016-12-14] MEDS: Acetaminophen 650mg/20.3ml solution UD PO PRN (19:17)
[2016-12-14] MEDS: Patient's Own Med (Rosuvastatin Calcium [Crestor] 40 MG) PO SCH (21:14)
[2016-12-15 05:27] LABS: HEMATOCRIT 39.3 % (34.0-47.0); MEAN CELL VOLUME 86.2 fl (81.0-99.0); MEAN CORPUSCULAR HEMOGLOBIN 25.7 pg (27.0-31.0); MEAN CORPUSCULAR HGB CONC 29.8 g/dL (33.0-37.0); RED CELL DISTRIBUTION WIDTH 21.3 % (11.5-14.5); WHITE BLOOD COUNT 8.7 K/uL (4.8-10.8)
[2016-12-15 05:29] LABS: CALCIUM 8.9 mg/dL (8.4-10.2); POTASSIUM 3.6 MMOL/L (3.6-5.0)
[2016-12-15] MEDS: Levothyroxine 75 MCG TAB PO SCH (06:21)
[2016-12-15] MEDS: Insulin Regular 100 units/ml SC SCH ×4 (06:24→22:00)
--- NOTE | 2016-12-15 07:34 | CP.PCM.PN ---
Subjective - Date & Time of Evaluation Date of Evaluation: 12/15/16 Time of Evaluation: 07:31 - Subjective Subjective: Podiatry Progress Note - Dr. Herrera 76 year old female patient with extensive PMHx seen at bedside in ICU for non- healing ulceration to L TMA stump. Patient seen receiving dialysis at time of visit. Patient more awake and alert today, responds to commands and answers questions. Patient denies any pain to her left foot today. Patient wearing multipodus boots b/l at time of visit. Objective - Vital Signs/Intake and Output Vital Signs (last 24 hours): Temp Pulse Resp BP Pulse Ox 97.1 F L 92 H 14 131/96 H 98 12/15/16 04:00 12/15/16 06:00 12/15/16 06:00 12/15/16 06:00 12/15/16 06:00 Intake and Output: 12/15/16 12/15/16 06:59 18:59 Intake Total 50 Output Total 100 Balance -50 - Medications Medications: Current Medications Acetaminophen (Tylenol 650mg/20.3ml Solution Ud) 650 mg PO Q6 PRN PRN Reason: Headache Last Admin: 12/14/16 19:17 Dose: 650 mg Amlodipine Besylate (Norvasc) 5 mg PO DAILY [facility] Last Admin: 12/14/16 09:11 Dose: 5 mg Artificial Tears (Artificial Tears) 2 drop OU Q4 PRN PRN Reason: Dry eyes Last Admin: 12/14/16 21:15 Dose: 2 drop Aspirin (Ecotrin) 81 mg PO DAILY [facility] Last Admin: 12/14/16 09:10 Dose: 81 mg Home Med (Rosuvastatin Calcium [Crestor]) 40 mg PO HS [facility] Last Admin: 12/14/16 21:14 Dose: 40 mg Vancomycin HCl 1 gm/ Sodium (Chloride) 250 mls @ 166.667 mls/hr IVPB MWF [facility] Last Admin: 12/14/16 09:55 Dose: 166.667 mls/hr Insulin Human Regular (Humulin R) 0 units SC ACCU-CHECK [facility] PRN Reason: Protocol Last Admin: 12/15/16 06:24 Dose: Not Given Levothyroxine Sodium (Synthroid) 75 mcg PO DAILY@0630 [facility] Last Admin: 12/15/16 06:21 Dose: 75 mcg Metoprolol Succinate (Toprol Xl) 50 mg PO DAILY [facility] Last Admin: 12/14/16 09:12 Dose: 50 mg Pantoprazole Sodium (Protonix Ec Tab) 40 mg PO DAILY [facility] Vitamin B Complex/Vit C/Folic Acid (Nephro-James) 1 tab PO DAILY [facility] - Labs Labs: 12/15/16 04:15 12/15/16 04:15 PT 13.7 Seconds (9.8-13.1) H 12/10/16 16:44 INR 1.3 (0.9-1.2) H 12/10/16 16:44 APTT 27.9 Seconds (25.6-37.1) 12/10/16 16:44 - Constitutional Appears: Well, Non-toxic, No Acute Distress - Extremities Exam Additional comments: Patient wearing offloading boots at time of visit. Dressing to LLE appears clean /dry/intact with no strikethrough noted. VASC: DP pulses palpable 2/4 b/l. Right PT pulse palpable 2/4, left PT pulse non -palpable. TG warm to warm. No edema noted. NEURO: Gross sensation diminished bilaterally. DERM: Ulceration noted to distolateral aspect of left TMA stump measuring approximately 5 x 2 x 0.2 cm with overlying eschar. Mild erythema noted to proximal aspect of wound, decreasing since last visit. No active drainage, purulence, malodor, fluctuance, or ascending cellulitis noted. (-)probe to bone ORTHO: No tenderness to palpation bilateral lower extremity. - Neurological Exam Neurological Exam: Alert, Awake Assessment and Plan - Assessment and Plan (Free Text) Assessment: 76 year old female with extensive PMHx with 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 Herrera Chart, vitals, labs reviewed = afebrile, WBC wnl 8.7 Wound was dressed with DSD C/w pain mgmt per medicine C/w multipodus boots at all times in bed Stable per podiatry Podiatry will continue to follow patient while in house
--- NOTE | 2016-12-15 08:01 | CP.PCM.PN ---
Subjective - Date & Time of Evaluation Date of Evaluation: 12/15/16 Time of Evaluation: 07:59 - Subjective Subjective: Patient in bed Patient is awake She is feeling much better. No nausea or vomiting reported Vital sign noted and reviewed to be stable Objective - Vital Signs/Intake and Output Vital Signs (last 24 hours): Temp Pulse Resp BP Pulse Ox 97.1 F L 92 H 14 131/96 H 98 12/15/16 04:00 12/15/16 06:00 12/15/16 06:00 12/15/16 06:00 12/15/16 06:00 Intake and Output: 12/15/16 12/15/16 06:59 18:59 Intake Total 50 Output Total 100 Balance -50 - Medications Medications: Current Medications Acetaminophen (Tylenol 650mg/20.3ml Solution Ud) 650 mg PO Q6 PRN PRN Reason: Headache Last Admin: 12/14/16 19:17 Dose: 650 mg Amlodipine Besylate (Norvasc) 5 mg PO DAILY [facility] Last Admin: 12/14/16 09:11 Dose: 5 mg Artificial Tears (Artificial Tears) 2 drop OU Q4 PRN PRN Reason: Dry eyes Last Admin: 12/14/16 21:15 Dose: 2 drop Aspirin (Ecotrin) 81 mg PO DAILY [facility] Last Admin: 12/14/16 09:10 Dose: 81 mg Home Med (Rosuvastatin Calcium [Crestor]) 40 mg PO HS [facility] Last Admin: 12/14/16 21:14 Dose: 40 mg Vancomycin HCl 1 gm/ Sodium (Chloride) 250 mls @ 166.667 mls/hr IVPB MWF [facility] Last Admin: 12/14/16 09:55 Dose: 166.667 mls/hr Insulin Human Regular (Humulin R) 0 units SC ACCU-CHECK [facility] PRN Reason: Protocol Last Admin: 12/15/16 06:24 Dose: Not Given Levothyroxine Sodium (Synthroid) 75 mcg PO DAILY@0630 [facility] Last Admin: 12/15/16 06:21 Dose: 75 mcg Metoprolol Succinate (Toprol Xl) 50 mg PO DAILY [facility] Last Admin: 12/14/16 09:12 Dose: 50 mg Pantoprazole Sodium (Protonix Ec Tab) 40 mg PO DAILY [facility] Vitamin B Complex/Vit C/Folic Acid (Nephro-James) 1 tab PO DAILY [facility] - Labs Labs: 12/15/16 04:15 12/15/16 04:15 PT 13.7 Seconds (9.8-13.1) H 12/10/16 16:44 INR 1.3 (0.9-1.2) H 12/10/16 16:44 APTT 27.9 Seconds (25.6-37.1) 12/10/16 16:44 - Constitutional Appears: No Acute Distress - Eye Exam Eye Exam: Conjunctival injection - ENT Exam ENT Exam: Mucous Membranes Moist - Neck Exam Neck Exam: absent: Lymphadenopathy - Respiratory Exam Respiratory Exam: Clear to Ausculation Bilateral, NORMAL BREATHING PATTERN. absent: Chest Wall Tenderness, Rales - Cardiovascular Exam Cardiovascular Exam: absent: Irregular Rhythm, JVD, Rubs - GI/Abdominal Exam GI & Abdominal Exam: Soft, Normal Bowel Sounds. absent: Rigid - Extremities Exam Extremities Exam: absent: Calf Tenderness - Back Exam Back Exam: absent: CVA tenderness (L), CVA tenderness (R) - Psychiatric Exam Psychiatric exam: Normal Affect Assessment and Plan (1) Cerebellar infarct Status: Acute (2) CKD (chronic kidney disease) stage V requiring chronic dialysis Assessment & Plan: In summary the patient has the following problem #1 end stage renal disease patient receiving dialysis now. Discussed with the dialysis nurse at the bedside. Ultrafiltration 2000 mL Sodium bath 138 Potassium bath 2 mEq Patient is tolerating dialysis #2 hypertension, controlled on medication #3 patient has history of chronic A. fib as per primary team. #4 status post CVA for this particular admission and patient making better recovery, As noted per neurology #5 diabetes mellitus management as per primary team #6 hypothyroidism patient is on medication. #7 hyperphosphatemia patient to be given phosphorus binder #8 secondary hyperparathyroidism to repeat serum PTH. 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
--- NOTE | 2016-12-15 08:39 | CP.PCM.PN ---
<Mahesh Kraus - Last Filed: 12/15/16 08:47> Subjective - Date & Time of Evaluation Date of Evaluation: 12/15/16 Time of Evaluation: 08:35 - Subjective Subjective: Patient seen and examined at bedside with Dr. Mendoza - Patient was seen getting dialysis this morning. She is feeling better. No nausea or vomiting reported. Objective - Vital Signs/Intake and Output Vital Signs (last 24 hours): Temp Pulse Resp BP Pulse Ox 97.1 F L 92 H 14 131/96 H 98 12/15/16 04:00 12/15/16 06:00 12/15/16 06:00 12/15/16 06:00 12/15/16 06:00 Intake and Output: 12/15/16 12/15/16 06:59 18:59 Intake Total 50 Output Total 100 Balance -50 - Medications Medications: Current Medications Acetaminophen (Tylenol 650mg/20.3ml Solution Ud) 650 mg PO Q6 PRN PRN Reason: Headache Last Admin: 12/14/16 19:17 Dose: 650 mg Amlodipine Besylate (Norvasc) 5 mg PO DAILY [facility] Last Admin: 12/14/16 09:11 Dose: 5 mg Artificial Tears (Artificial Tears) 2 drop OU Q4 PRN PRN Reason: Dry eyes Last Admin: 12/14/16 21:15 Dose: 2 drop Aspirin (Ecotrin) 81 mg PO DAILY [facility] Last Admin: 12/14/16 09:10 Dose: 81 mg Home Med (Rosuvastatin Calcium [Crestor]) 40 mg PO HS [facility] Last Admin: 12/14/16 21:14 Dose: 40 mg Vancomycin HCl 1 gm/ Sodium (Chloride) 250 mls @ 166.667 mls/hr IVPB MWF [facility] Last Admin: 12/14/16 09:55 Dose: 166.667 mls/hr Insulin Human Regular (Humulin R) 0 units SC ACCU-CHECK [facility] PRN Reason: Protocol Last Admin: 12/15/16 06:24 Dose: Not Given Levothyroxine Sodium (Synthroid) 75 mcg PO DAILY@0630 [facility] Last Admin: 12/15/16 06:21 Dose: 75 mcg Metoprolol Succinate (Toprol Xl) 50 mg PO DAILY [facility] Last Admin: 12/14/16 09:12 Dose: 50 mg Pantoprazole Sodium (Protonix Ec Tab) 40 mg PO DAILY [facility] Tobramycin/Dexamethasone (Tobradex 0.3%-0.1% Opht Oint) 1 appl OU TID [facility] Vitamin B Complex/Vit C/Folic Acid (Nephro-James) 1 tab PO DAILY [facility] - Labs Labs: 12/15/16 04:15 12/15/16 04:15 PT 13.7 Seconds (9.8-13.1) H 12/10/16 16:44 INR 1.3 (0.9-1.2) H 12/10/16 16:44 APTT 27.9 Seconds (25.6-37.1) 12/10/16 16:44 - Head Exam Head Exam: ATRAUMATIC - Eye Exam Additional comments: left eye opacification. - ENT Exam ENT Exam: Mucous Membranes Moist - Neck Exam Neck Exam: Normal Inspection - Respiratory Exam Respiratory Exam: Decreased Breath Sounds - Cardiovascular Exam Cardiovascular Exam: REGULAR RHYTHM, +S1, +S2 - GI/Abdominal Exam GI & Abdominal Exam: Soft - Extremities Exam Additional comments: RUE AV shunt Left foot TMA - Neurological Exam Neurological Exam: Awake Assessment and Plan - Assessment and Plan (Free Text) Assessment: 1) Right cerebellar Acute/ Sub acute infarct - Head elevation of bed - monitor osmolarity - Continue with ICU and neuro recommendation 2) Systolic heart failure 3) End stage renal disease - Nephro on board - Dialysis M W F 4) Non healing left TMA site ulcer -Antibiotics as per ID - ID on board 4) Code status DNR/DNI <Gerardo Mendoza K - Last Filed: 12/15/16 16:46> Objective - Vital Signs/Intake and Output Vital Signs (last 24 hours): Temp Pulse Resp BP Pulse Ox 98.6 F 80 23 157/76 H 100 12/15/16 12:00 12/15/16 12:00 12/15/16 12:00 12/15/16 12:00 12/15/16 12:00 Intake and Output: 12/15/16 12/15/16 06:59 18:59 Intake Total 50 Output Total 100 Balance -50 - Medications Medications: Current Medications Acetaminophen (Tylenol 650mg/20.3ml Solution Ud) 650 mg PO Q6 PRN PRN Reason: Headache Last Admin: 12/14/16 19:17 Dose: 650 mg Amlodipine Besylate (Norvasc) 5 mg PO DAILY [facility] Last Admin: 12/15/16 10:12 Dose: 5 mg Artificial Tears (Artificial Tears) 2 drop OU Q4 PRN PRN Reason: Dry eyes Last Admin: 12/15/16 10:11 Dose: 2 drop Aspirin (Ecotrin) 81 mg PO DAILY [facility] Last Admin: 12/15/16 10:12 Dose: 81 mg Home Med (Rosuvastatin Calcium [Crestor]) 40 mg PO HS [facility] Last Admin: 12/14/16 21:14 Dose: 40 mg Vancomycin HCl 1 gm/ Sodium (Chloride) 250 mls @ 166.667 mls/hr IVPB MWF [facility] Last Admin: 12/14/16 09:55 Dose: 166.667 mls/hr Insulin Human Regular (Humulin R) 0 units SC ACCU-CHECK [facility] PRN Reason: Protocol Last Admin: 12/15/16 06:24 Dose: Not Given Levothyroxine Sodium (Synthroid) 75 mcg PO DAILY@0630 [facility] Last Admin: 12/15/16 06:21 Dose: 75 mcg Metoprolol Succinate (Toprol Xl) 50 mg PO DAILY [facility] Last Admin: 12/15/16 10:13 Dose: 50 mg Pantoprazole Sodium (Protonix Ec Tab) 40 mg PO DAILY [facility] Last Admin: 12/15/16 10:12 Dose: 40 mg Tobramycin/Dexamethasone (Tobradex 0.3%-0.1% Opht Oint) 1 appl OU TID [facility] Vitamin B Complex/Vit C/Folic Acid (Nephro-James) 1 tab PO DAILY [facility] - Labs Labs: 12/15/16 04:15 12/15/16 04:15 PT 13.7 Seconds (9.8-13.1) H 12/10/16 16:44 INR 1.3 (0.9-1.2) H 12/10/16 16:44 APTT 27.9 Seconds (25.6-37.1) 12/10/16 16:44 Assessment and Plan - Assessment and Plan (Free Text) Assessment: Patient was personally seen and examined by me in rounds with residents. Available labs and diagnostic data reviewed. Case, Patient's condition and management plan Discussed with residents in rounds. Agree with resident's progress note. Plan: As ordered.
--- NOTE | 2016-12-15 09:40 | CP.PCM.PN ---
Subjective - Date & Time of Evaluation Date of Evaluation: 12/15/16 Time of Evaluation: 09:38 - Subjective Subjective: Ms. Mac was seen and examined at the bedside. She remains responsive to all stimuli. Currently hooked up with dialysis machine. She is not in any kind of distress. There was no untoward events overnight. Objective - Vital Signs/Intake and Output Vital Signs (last 24 hours): Temp Pulse Resp BP Pulse Ox 98.6 F 80 23 157/76 H 100 12/15/16 08:00 12/15/16 08:00 12/15/16 08:00 12/15/16 08:00 12/15/16 08:00 Intake and Output: 12/15/16 12/15/16 06:59 18:59 Intake Total 50 Output Total 100 Balance -50 - Medications Medications: Current Medications Acetaminophen (Tylenol 650mg/20.3ml Solution Ud) 650 mg PO Q6 PRN PRN Reason: Headache Last Admin: 12/14/16 19:17 Dose: 650 mg Amlodipine Besylate (Norvasc) 5 mg PO DAILY [facility] Last Admin: 12/14/16 09:11 Dose: 5 mg Artificial Tears (Artificial Tears) 2 drop OU Q4 PRN PRN Reason: Dry eyes Last Admin: 12/14/16 21:15 Dose: 2 drop Aspirin (Ecotrin) 81 mg PO DAILY [facility] Last Admin: 12/14/16 09:10 Dose: 81 mg Home Med (Rosuvastatin Calcium [Crestor]) 40 mg PO HS [facility] Last Admin: 12/14/16 21:14 Dose: 40 mg Vancomycin HCl 1 gm/ Sodium (Chloride) 250 mls @ 166.667 mls/hr IVPB MWF [facility] Last Admin: 12/14/16 09:55 Dose: 166.667 mls/hr Insulin Human Regular (Humulin R) 0 units SC ACCU-CHECK [facility] PRN Reason: Protocol Last Admin: 12/15/16 06:24 Dose: Not Given Levothyroxine Sodium (Synthroid) 75 mcg PO DAILY@0630 [facility] Last Admin: 12/15/16 06:21 Dose: 75 mcg Metoprolol Succinate (Toprol Xl) 50 mg PO DAILY [facility] Last Admin: 12/14/16 09:12 Dose: 50 mg Pantoprazole Sodium (Protonix Ec Tab) 40 mg PO DAILY [facility] Tobramycin/Dexamethasone (Tobradex 0.3%-0.1% Opht Oint) 1 appl OU TID [facility] Vitamin B Complex/Vit C/Folic Acid (Nephro-James) 1 tab PO DAILY [facility] - Labs Labs: 12/15/16 04:15 12/15/16 04:15 PT 13.7 Seconds (9.8-13.1) H 12/10/16 16:44 INR 1.3 (0.9-1.2) H 12/10/16 16:44 APTT 27.9 Seconds (25.6-37.1) 12/10/16 16:44 - Constitutional Appears: No Acute Distress - Head Exam Head Exam: ATRAUMATIC, NORMAL INSPECTION, NORMOCEPHALIC - Neurological Exam Neurological Exam: Alert, Awake Neuro motor strength exam: Left Upper Extremity: 3, Right Upper Extremity: 3, Left Lower Extremity: 3, Right Lower Extremity: 3 Additional comments: Neurological unchanged from previous examination. She is able to follow commands. Assessment and Plan (1) Cerebellar infarct Assessment & Plan: Case discussed with Dr. Centeno, continue current medical, physical, occupational , and speech therapies. DVT prophylaxis of SCD. There is no new recommendation from neurology. Status: Acute
[2016-12-15] MEDS: Tobramycin/Dexamethasone OPHT OINT OU SCH ×3 (10:00→17:55)
[2016-12-15] MEDS: Artificial Tears Opht Soln OU PRN (10:11)
[2016-12-15] MEDS: Pantoprazole 40 mg EC Tab PO SCH (10:12)
[2016-12-15] MEDS: Metoprolol Succinate 50 mg XL Tab PO SCH (10:13)
--- NOTE | 2016-12-15 15:51 | CP.PCM.PN ---
Subjective - Date & Time of Evaluation Date of Evaluation: 12/15/16 Time of Evaluation: 15:50 - Subjective Subjective: ID Note- Pt. seen and examined today in ICU. no new events overnight. awake and in nad. Objective - Vital Signs/Intake and Output Vital Signs (last 24 hours): Temp Pulse Resp BP Pulse Ox 98.6 F 80 23 157/76 H 100 12/15/16 12:00 12/15/16 12:00 12/15/16 12:00 12/15/16 12:00 12/15/16 12:00 Intake and Output: 12/15/16 12/15/16 06:59 18:59 Intake Total 50 Output Total 100 Balance -50 - Medications Medications: Current Medications Acetaminophen (Tylenol 650mg/20.3ml Solution Ud) 650 mg PO Q6 PRN PRN Reason: Headache Last Admin: 12/14/16 19:17 Dose: 650 mg Amlodipine Besylate (Norvasc) 5 mg PO DAILY [facility] Last Admin: 12/15/16 10:12 Dose: 5 mg Artificial Tears (Artificial Tears) 2 drop OU Q4 PRN PRN Reason: Dry eyes Last Admin: 12/15/16 10:11 Dose: 2 drop Aspirin (Ecotrin) 81 mg PO DAILY [facility] Last Admin: 12/15/16 10:12 Dose: 81 mg Home Med (Rosuvastatin Calcium [Crestor]) 40 mg PO HS [facility] Last Admin: 12/14/16 21:14 Dose: 40 mg Vancomycin HCl 1 gm/ Sodium (Chloride) 250 mls @ 166.667 mls/hr IVPB MWF [facility] Last Admin: 12/14/16 09:55 Dose: 166.667 mls/hr Insulin Human Regular (Humulin R) 0 units SC ACCU-CHECK [facility] PRN Reason: Protocol Last Admin: 12/15/16 06:24 Dose: Not Given Levothyroxine Sodium (Synthroid) 75 mcg PO DAILY@0630 [facility] Last Admin: 12/15/16 06:21 Dose: 75 mcg Metoprolol Succinate (Toprol Xl) 50 mg PO DAILY [facility] Last Admin: 12/15/16 10:13 Dose: 50 mg Pantoprazole Sodium (Protonix Ec Tab) 40 mg PO DAILY [facility] Last Admin: 12/15/16 10:12 Dose: 40 mg Tobramycin/Dexamethasone (Tobradex 0.3%-0.1% Opht Oint) 1 appl OU TID [facility]ATHIE Vitamin B Complex/Vit C/Folic Acid (Nephro-Jmaes) 1 tab PO DAILY CATHIE - Labs Labs: - Additional Findings Additional findings: - Constitutional Appears: No Acute Distress, Chronically Ill - Eye Exam Eye Exam: EOMI - ENT Exam ENT Exam: Normal Oropharynx - Neck Exam Neck exam: Positive for: Full Rom - Respiratory Exam Respiratory Exam: NORMAL BREATHING PATTERN Additional comments: slightly decreased breath sounds at bases - Cardiovascular Exam Cardiovascular Exam: RRR, +S1, +S2 Additional comments: mid-sternal round lesion with scant sanguinous discharge and raised borders ( chronic) no pus - GI/Abdominal Exam GI & Abdominal Exam: Normal Bowel Sounds, Soft Additional comments: NT, ND - Extremities Exam Additional comments: left TMA site with round dry ulcer at the lateral site, no discharge, dry, no malodor, no erythema - Neurological Exam Additional comments: awake Laboratory Results - last 72 hr 12/12/16 12/12/16 12/12/16 15:26 15:26 16:27 WBC RBC Hgb Hct MCV MCH MCHC RDW Plt Count Sodium 148 Potassium 4.5 Chloride 104 Carbon Dioxide 28 Anion Gap 20 BUN 32 H Creatinine 3.7 H Est GFR ( Amer) 14 Est GFR (Non-Af Amer) 12 POC Glucose (mg/dL) 192 H Random Glucose 203 H Serum Osmolality 312 H Calcium 9.2 Phosphorus Iron Ferritin Total Bilirubin AST ALT Alkaline Phosphatase Total Protein Albumin Globulin Albumin/Globulin Ratio Urine Color Urine Clarity Urine pH Ur Specific Camp Urine Protein Urine Glucose (UA) Urine Ketones Urine Blood Urine Nitrate Urine Bilirubin Urine Urobilinogen Ur Leukocyte Esterase Urine RBC (Auto) Urine WBC Clumps (Auto) Urine Microscopic WBC Ur Squamous Epith Cells Amorphous Sediment Urine Bacteria Urine Yeast (Budding) Vancomycin Trough 12/12/16 12/12/16 12/12/16 20:09 23:07 23:07 WBC RBC Hgb Hct MCV MCH MCHC RDW Plt Count Sodium 148 Potassium 4.5 Chloride 106 Carbon Dioxide 27 Anion Gap 19 BUN 34 H Creatinine 3.9 H Est GFR ( Amer) 13 Est GFR (Non-Af Amer) 11 POC Glucose (mg/dL) 195 H Random Glucose 183 H Serum Osmolality 320 H Calcium 9.4 Phosphorus Iron Ferritin Total Bilirubin AST ALT Alkaline Phosphatase Total Protein Albumin Globulin Albumin/Globulin Ratio Urine Color Urine Clarity Urine pH Ur Specific Camp Urine Protein Urine Glucose (UA) Urine Ketones Urine Blood Urine Nitrate Urine Bilirubin Urine Urobilinogen Ur Leukocyte Esterase Urine RBC (Auto) Urine WBC Clumps (Auto) Urine Microscopic WBC Ur Squamous Epith Cells Amorphous Sediment Urine Bacteria Urine Yeast (Budding) Vancomycin Trough 12/13/16 12/13/16 12/13/16 03:29 04:15 04:15 WBC 14.5 H RBC 5.03 Hgb 12.9 Hct 44.3 MCV 88.1 MCH 25.7 L MCHC 29.2 L RDW 21.4 H Plt Count 297 Sodium Potassium Chloride Carbon Dioxide Anion Gap BUN Creatinine Est GFR ( Amer) Est GFR (Non-Af Amer) POC Glucose (mg/dL) Random Glucose Serum Osmolality Calcium Phosphorus Iron Ferritin Total Bilirubin AST ALT Alkaline Phosphatase Total Protein Albumin Globulin Albumin/Globulin Ratio Urine Color Light brown Urine Clarity Turbid Urine pH 5.5 Ur Specific Camp 1.025 Urine Protein > 300 Urine Glucose (UA) 100 Urine Ketones Trace Urine Blood Large Urine Nitrate Positive H Urine Bilirubin Small Urine Urobilinogen 0.2 Ur Leukocyte Esterase Large Urine RBC (Auto) 1095 H Urine WBC Clumps (Auto) Mod H Urine Microscopic WBC 800 H Ur Squamous Epith Cells 3 Amorphous Sediment Small Urine Bacteria Mod H Urine Yeast (Budding) Mod H Vancomycin Trough 42.4 H 12/13/16 12/13/16 12/13/16 04:15 04:35 11:33 WBC RBC Hgb Hct MCV MCH MCHC RDW Plt Count Sodium 151 H Potassium 4.7 Chloride 108 H Carbon Dioxide 26 Anion Gap 22 H BUN 34 H Creatinine 4.0 H Est GFR ( Amer) 13 Est GFR (Non-Af Amer) 11 POC Glucose (mg/dL) 254 H 291 H Random Glucose 213 H Serum Osmolality Calcium 9.5 Phosphorus Iron Ferritin Total Bilirubin 0.5 AST 36 ALT 31 Alkaline Phosphatase 99 Total Protein 7.3 Albumin 3.6 Globulin 3.8 Albumin/Globulin Ratio 1.0 Urine Color Urine Clarity Urine pH Ur Specific Camp Urine Protein Urine Glucose (UA) Urine Ketones Urine Blood Urine Nitrate Urine Bilirubin Urine Urobilinogen Ur Leukocyte Esterase Urine RBC (Auto) Urine WBC Clumps (Auto) Urine Microscopic WBC Ur Squamous Epith Cells Amorphous Sediment Urine Bacteria Urine Yeast (Budding) Vancomycin Trough 12/13/16 12/13/16 12/13/16 15:52 20:30 20:56 WBC RBC Hgb Hct MCV MCH MCHC RDW Plt Count Sodium 141 Potassium 3.3 L Chloride 98 Carbon Dioxide 29 Anion Gap 17 BUN 13 Creatinine 2.0 H Est GFR ( Amer) 29 Est GFR (Non-Af Amer) 24 POC Glucose (mg/dL) 221 H 165 H Random Glucose 172 H Serum Osmolality Calcium 9.1 Phosphorus Iron Ferritin Total Bilirubin AST ALT Alkaline Phosphatase Total Protein Albumin Globulin Albumin/Globulin Ratio Urine Color Urine Clarity Urine pH Ur Specific Camp Urine Protein Urine Glucose (UA) Urine Ketones Urine Blood Urine Nitrate Urine Bilirubin Urine Urobilinogen Ur Leukocyte Esterase Urine RBC (Auto) Urine WBC Clumps (Auto) Urine Microscopic WBC Ur Squamous Epith Cells Amorphous Sediment Urine Bacteria Urine Yeast (Budding) Vancomycin Trough 12/14/16 12/14/16 12/14/16 04:54 05:00 05:00 WBC 11.0 H RBC 4.57 Hgb 11.9 L Hct 39.5 MCV 86.5 MCH 26.0 L MCHC 30.1 L RDW 21.3 H Plt Count 214 Sodium 141 Potassium 4.0 Chloride 100 Carbon Dioxide 25 Anion Gap 20 BUN 18 H Creatinine 2.4 H Est GFR ( Amer) 24 Est GFR (Non-Af Amer) 20 POC Glucose (mg/dL) 200 H Random Glucose 196 H Serum Osmolality Calcium 9.2 Phosphorus Iron Ferritin Total Bilirubin AST ALT Alkaline Phosphatase Total Protein Albumin Globulin Albumin/Globulin Ratio Urine Color Urine Clarity Urine pH Ur Specific Camp Urine Protein Urine Glucose (UA) Urine Ketones Urine Blood Urine Nitrate Urine Bilirubin Urine Urobilinogen Ur Leukocyte Esterase Urine RBC (Auto) Urine WBC Clumps (Auto) Urine Microscopic WBC Ur Squamous Epith Cells Amorphous Sediment Urine Bacteria Urine Yeast (Budding) Vancomycin Trough 12/14/16 12/14/16 12/14/16 11:17 15:52 16:20 WBC RBC Hgb Hct MCV MCH MCHC RDW Plt Count Sodium 142 Potassium 3.7 Chloride 99 Carbon Dioxide 27 Anion Gap 20 BUN 24 H Creatinine 2.9 H Est GFR ( Amer) 19 Est GFR (Non-Af Amer) 16 POC Glucose (mg/dL) 216 H 233 H Random Glucose 221 H Serum Osmolality Calcium 9.1 Phosphorus Iron Ferritin Total Bilirubin AST ALT Alkaline Phosphatase Total Protein Albumin Globulin Albumin/Globulin Ratio Urine Color Urine Clarity Urine pH Ur Specific Camp Urine Protein Urine Glucose (UA) Urine Ketones Urine Blood Urine Nitrate Urine Bilirubin Urine Urobilinogen Ur Leukocyte Esterase Urine RBC (Auto) Urine WBC Clumps (Auto) Urine Microscopic WBC Ur Squamous Epith Cells Amorphous Sediment Urine Bacteria Urine Yeast (Budding) Vancomycin Trough 12/14/16 12/15/16 12/15/16 19:52 04:15 04:15 WBC 8.7 RBC 4.56 Hgb 11.7 L Hct 39.3 MCV 86.2 MCH 25.7 L MCHC 29.8 L RDW 21.3 H Plt Count 200 Sodium 139 Potassium 3.6 Chloride 100 Carbon Dioxide 27 Anion Gap 15 BUN 28 H Creatinine 3.2 H Est GFR ( Amer) 17 Est GFR (Non-Af Amer) 14 POC Glucose (mg/dL) 220 H Random Glucose 178 H Serum Osmolality Calcium 8.9 Phosphorus Iron Ferritin Total Bilirubin AST ALT Alkaline Phosphatase Total Protein Albumin Globulin Albumin/Globulin Ratio Urine Color Urine Clarity Urine pH Ur Specific Camp Urine Protein Urine Glucose (UA) Urine Ketones Urine Blood Urine Nitrate Urine Bilirubin Urine Urobilinogen Ur Leukocyte Esterase Urine RBC (Auto) Urine WBC Clumps (Auto) Urine Microscopic WBC Ur Squamous Epith Cells Amorphous Sediment Urine Bacteria Urine Yeast (Budding) Vancomycin Trough 12/15/16 12/15/16 12/15/16 04:31 05:00 10:25 WBC RBC Hgb Hct MCV MCH MCHC RDW Plt Count Sodium Potassium Chloride Carbon Dioxide Anion Gap BUN Creatinine Est GFR ( Amer) Est GFR (Non-Af Amer) POC Glucose (mg/dL) 167 H Random Glucose Serum Osmolality Calcium Phosphorus 3.0 Iron Ferritin 751.0 H Total Bilirubin AST ALT Alkaline Phosphatase Total Protein Albumin Globulin Albumin/Globulin Ratio Urine Color Urine Clarity Urine pH Ur Specific Camp Urine Protein Urine Glucose (UA) Urine Ketones Urine Blood Urine Nitrate Urine Bilirubin Urine Urobilinogen Ur Leukocyte Esterase Urine RBC (Auto) Urine WBC Clumps (Auto) Urine Microscopic WBC Ur Squamous Epith Cells Amorphous Sediment Urine Bacteria Urine Yeast (Budding) Vancomycin Trough 40.0 H 12/15/16 12/15/16 10:25 11:30 WBC RBC Hgb Hct MCV MCH MCHC RDW Plt Count Sodium Potassium Chloride Carbon Dioxide Anion Gap BUN Creatinine Est GFR ( Amer) Est GFR (Non-Af Amer) POC Glucose (mg/dL) 153 H Random Glucose Serum Osmolality Calcium Phosphorus Iron 25 L Ferritin Total Bilirubin AST ALT Alkaline Phosphatase Total Protein Albumin Globulin Albumin/Globulin Ratio Urine Color Urine Clarity Urine pH Ur Specific Camp Urine Protein Urine Glucose (UA) Urine Ketones Urine Blood Urine Nitrate Urine Bilirubin Urine Urobilinogen Ur Leukocyte Esterase Urine RBC (Auto) Urine WBC Clumps (Auto) Urine Microscopic WBC Ur Squamous Epith Cells Amorphous Sediment Urine Bacteria Urine Yeast (Budding) Vancomycin Trough Microbiology 12/13/16 03:29 Urine,Herrera Urine Culture - Final Yeast Species 12/12/16 05:00 Blood-Venous Blood Culture - Preliminary NO GROWTH AFTER 3 DAYS 12/10/16 18:00 Blood-Venous Blood Culture - Preliminary NO GROWTH AFTER 4 DAYS 12/10/16 16:00 Blood-Venous S.aureus & Coag-Neg Staph PNA FISH - Final 12/10/16 16:00 Blood-Venous Blood Culture - Final Coagulase Neg Staphylococcus 12/10/16 16:00 Blood-Venous Gram Stain - Final 12/10/16 20:00 Naris MRSA Culture (Admit) - Final MRSA DETECTED Assessment and Plan (1) Cerebellar infarct Status: Acute (2) Basal cell carcinoma of chest Status: Acute (3) ESRD on hemodialysis Status: Acute (4) Bacteremia due to Staphylococcus epidermidis Status: Acute (5) DM2 (diabetes mellitus, type 2) Status: Chronic - Assessment and Plan (Free Text) Assessment: A/P- Patient is a 76 year old female with multiple medical conditions including DM II , CAD, ESRD on HD, left foot TMA , A.fib admitted with nausea found to have cerebellar infarct as per Neurosurgery not a surgical candidate. found to have coag neg staph in one blood cx on this admission. afebrile one blood cx- coag neg staph repeat blood cx- neg x 2 leukocytosis-resolved TTE- no mention of any vegetations on report as read by wrapping machine operator. Plan- check 2 more blood cx. vanco trough high despite being held, perhaps the trough is being drawn at incorrect time. continue to hold vanco till trough is <20 and then redose post HD days only. podiatry to evaluate the nonhealing left TMA site ulcer. check left foot xray . cerebellar infarct management as per neuro. primary doc to determine if the basal cell CA of the chest was treated and if not advise to get oncology evaluation. all above d/w ICu team ICu time 45 min.
--- NOTE | 2016-12-15 16:10 | CT ---
PROCEDURE: CT HEAD WITHOUT CONTRAST. HISTORY: post CVA COMPARISON: 12/10/2016 TECHNIQUE: Axial computed tomography images were obtained through the head/brain without intravenous contrast. Radiation dose: Total exam DLP = 767.06 mGy-cm. This CT exam was performed using one or more of the following dose reduction techniques: Automated exposure control, adjustment of the mA and/or kV according to patient size, and/or use of iterative reconstruction technique. FINDINGS: HEMORRHAGE: No intracranial hemorrhage. BRAIN: No intracranial mass. There is evidence of right cerebellar hemispheric infarct. The extent of infarct is less than seen on prior CT examination. There is probable luxury perfusion in the right cerebellar hemisphere, with gyriform pattern of increased attenuation particularly seen on series 4, image 16. . There is probable infarct of the right cerebellar vermis versus displacement of the vermis towards the left and infarct of the medial right cerebellar hemisphere. There is mass effect upon the right lateral aspect of the 4th ventricle supporting this observation. There is no acute infarct elsewhere. There is moderate chronic periventricular white matter ischemic change, unchanged in extent from prior examination. VENTRICLES: As noted above, mass-effect upon the right lateral aspect of the 4th ventricle. No hydrocephalus. No midline shift. Basilar cisterns are preserved. CALVARIUM: Unremarkable. PARANASAL SINUSES: Unremarkable as visualized. No significant inflammatory changes. MASTOID AIR CELLS: There is bilateral mastoid effusion, significance uncertain. OTHER FINDINGS: None. IMPRESSION: Probable subacute infarct right cerebellar hemisphere with some luxury perfusion. Infarct right sided vermis versus medial aspect right cerebellar hemisphere. The extent of infarct has decreased markedly when compared to the examination of 12/10/2016. Consistent with subacute infarct. Mass-effect upon right lateral aspect of 4th ventricle. No cerebral infarct evident. Chronic periventricular white matter ischemic change. Bilateral mastoid effusion, nonspecific.
--- NOTE | 2016-12-15 17:11 | CP.CCUPN ---
CCU Subjective - Physician Review Subjective (Free Text): Awake and alert, had usual HD today, follow commands, no new deficits observed. Denies any headaches, dizziness, palpitations, nausea, vomiting, SOB, CP. Repeat CT Brain as per Neuro: prelim report is negative for any hemorrhagic transformation and even slightly improved. ROS: No other pertinent negs or positives on 10+ system review. PMSFH: Anemia, Arthritis, Atrial Fibrillation, CAD, CHF, DM II, Gall Bladder Disease with Cher, HTN, Hypercholesterolemia, Kidney Stones, Pneumonia, End Stage Renal Disease (TTS) All Nursing and physician documentation reviewed to date; no new pertinent info noted relevant to current medical problems. MAJOR PROBLEMS: 1. Right Cerebellar Acute / SubAcute Infarct with localized edema and shift to the Left 2. Accelerated HTN 3. ESRD 4. Mild Coagulopathy 5. Mild Troponin Elevation PLAN: 1. Has been under neuro-observation in ICU over the past 6 days including today. No new neurologic deterioration anticipated, will discuss with Neuro regarding stability for transfer to StepDown bed 2. Apixaban. 3. Conservative Neuro mgmt noted. CCU Objective - Vital Signs / Intake & Output Intake and Output (Last 8hrs): Intake & Output 12/15/16 12/15/16 12/15/16 06:59 14:59 22:59 Intake Total 30 Output Total 80 Balance -50 Intake: IV 30 Output: Urine 80 Urine, Voided 80 - Physical Exam Head: Positive for: Atraumatic Pupils: Positive for: Other Extroacular Muscles: Positive for: EOMI (L pupil opacified, R pupil 3 mm and reactive.) Conjunctiva: Positive for: Normal Mouth: Positive for: Moist Mucous Membranes Nose (External): Positive for: Atraumatic Neck: Positive for: Normal Range of Motion. Negative for: JVD, Lymphadenopathy Respiratory/Chest: Positive for: Decreased Breath Sounds. Negative for: Accessory Muscle Use, Rales, Rhonchi Cardiovascular: Positive for: Regular Rate and Rhythm. Negative for: Murmurs, Rub Abdomen: Positive for: Normal Bowel Sounds. Negative for: Tenderness, Distention Upper Extremity: Positive for: Other (RUE AV Shunt with good bruit and thrill) Lower Extremity: Positive for: Edema (trace), Deformity (Left foot TMA). Negative for: CALF TENDERNESS Neurological: Positive for: Motor Func Grossly Intact Skin: Positive for: Warm, Normal Color. Negative for: Rashes, Abscess Psychiatric: Positive for: Alert - Medications Active Medications: Active Medications Generic Name Dose Route Start Last Admin Trade Name Freq PRN Reason Stop Dose Admin Acetaminophen 650 mg 12/10/16 21:44 12/14/16 19:17 Tylenol 650mg/20.3ml Solution Ud PO 650 mg Q6 PRN Administration Headache Amlodipine Besylate 5 mg 12/12/16 09:00 12/15/16 10:12 Norvasc PO 5 mg DAILY CATHIE Administration Artificial Tears 2 drop 12/11/16 12:52 12/15/16 10:11 Artificial Tears OU 2 drop Q4 PRN Administration Dry eyes Aspirin 81 mg 12/11/16 09:00 12/15/16 10:12 Ecotrin PO 81 mg DAILY CATHIE Administration Home Med 40 mg 12/11/16 22:00 12/14/16 21:14 Rosuvastatin Calcium [Crestor] PO 40 mg HS CATHIE Administration Vancomycin HCl 1 gm/ Sodium 250 mls @ 166.667 mls/hr 12/12/16 20:29 12/14/16 09:55 Chloride IVPB 166.667 mls/hr MWF C[facility]IE Administration Insulin Human Regular 0 units 12/10/16 23:00 12/15/16 06:24 Humulin R SC Not Given ACCU-CHECK [facility] Protocol Levothyroxine Sodium 75 mcg 12/12/16 06:30 12/15/16 06:21 Synthroid PO 75 mcg DAILY@0630 CATHIE Administration Metoprolol Succinate 50 mg 12/11/16 09:00 12/15/16 10:13 Toprol Xl PO 50 mg DAILY CATHIE Administration Pantoprazole Sodium 40 mg 12/15/16 09:00 12/15/16 10:12 Protonix Ec Tab PO 40 mg DAILY CATHIE Administration Tobramycin/Dexamethasone 1 appl 12/15/16 09:00 Tobradex 0.3%-0.1% Opht Oint OU TID [facility] Vitamin B Complex/Vit C/Folic Acid 1 tab 12/11/16 09:00 Nephro-James PO DAILY CATHIE - Patient Studies Lab Studies: Microbiology Studies 12/13/16 03:29 Urine Culture - Final Urine,Herrera Yeast Species 12/12/16 05:00 Blood Culture - Preliminary Blood-Venous NO GROWTH AFTER 3 DAYS 12/10/16 18:00 Blood Culture - Preliminary Blood-Venous NO GROWTH AFTER 4 DAYS Lab Studies 12/15/16 12/15/16 12/15/16 Range/Units 15:59 11:30 10:25 WBC (4.8-10.8) K/uL RBC (3.80-5.20) Mil/uL Hgb (12.0-16.0) g/dL Hct (34.0-47.0) % MCV (81.0-99.0) fl MCH (27.0-31.0) pg MCHC (33.0-37.0) g/dL RDW (11.5-14.5) % Plt Count (130-400) K/uL Sodium (132-148) mmol/l Potassium (3.6-5.0) MMOL/L Chloride (98-107) mmol/L Carbon Dioxide (22-30) mmol/L Anion Gap (10-20) BUN (7-17) mg/dl Creatinine (0.7-1.2) mg/dL Est GFR ( Amer) Est GFR (Non-Af Amer) POC Glucose (mg/dL) 219 H 153 H (65-110) mg/dL Random Glucose (65-105) mg/dL Calcium (8.4-10.2) mg/dL Phosphorus (2.5-4.5) mg/dl Iron 25 L (37-170) ug/dL Ferritin (11.1-264.0) ng/Ml Vancomycin Trough (5.0-10.0) ug/mL 12/15/16 12/15/16 12/15/16 Range/Units 10:25 05:00 04:31 WBC (4.8-10.8) K/uL RBC (3.80-5.20) Mil/uL Hgb (12.0-16.0) g/dL Hct (34.0-47.0) % MCV (81.0-99.0) fl MCH (27.0-31.0) pg MCHC (33.0-37.0) g/dL RDW (11.5-14.5) % Plt Count (130-400) K/uL Sodium (132-148) mmol/l Potassium (3.6-5.0) MMOL/L Chloride (98-107) mmol/L Carbon Dioxide (22-30) mmol/L Anion Gap (10-20) BUN (7-17) mg/dl Creatinine (0.7-1.2) mg/dL Est GFR ( Amer) Est GFR (Non-Af Amer) POC Glucose (mg/dL) 167 H (65-110) mg/dL Random Glucose (65-105) mg/dL Calcium (8.4-10.2) mg/dL Phosphorus 3.0 (2.5-4.5) mg/dl Iron (37-170) ug/dL Ferritin 751.0 H (11.1-264.0) ng/Ml Vancomycin Trough 40.0 H (5.0-10.0) ug/mL 12/15/16 12/15/16 12/14/16 Range/Units 04:15 04:15 19:52 WBC 8.7 (4.8-10.8) K/uL RBC 4.56 (3.80-5.20) Mil/uL Hgb 11.7 L (12.0-16.0) g/dL Hct 39.3 (34.0-47.0) % MCV 86.2 (81.0-99.0) fl MCH 25.7 L (27.0-31.0) pg MCHC 29.8 L (33.0-37.0) g/dL RDW 21.3 H (11.5-14.5) % Plt Count 200 (130-400) K/uL Sodium 139 (132-148) mmol/l Potassium 3.6 (3.6-5.0) MMOL/L Chloride 100 (98-107) mmol/L Carbon Dioxide 27 (22-30) mmol/L Anion Gap 15 (10-20) BUN 28 H (7-17) mg/dl Creatinine 3.2 H (0.7-1.2) mg/dL Est GFR ( Amer) 17 Est GFR (Non-Af Amer) 14 POC Glucose (mg/dL) 220 H (65-110) mg/dL Random Glucose 178 H (65-105) mg/dL Calcium 8.9 (8.4-10.2) mg/dL Phosphorus (2.5-4.5) mg/dl Iron (37-170) ug/dL Ferritin (11.1-264.0) ng/Ml Vancomycin Trough (5.0-10.0) ug/mL 10/04/17 Range/Units 16:20 WBC (4.8-10.8) K/uL RBC (3.80-5.20) Mil/uL Hgb (12.0-16.0) g/dL Hct (34.0-47.0) % MCV (81.0-99.0) fl MCH (27.0-31.0) pg MCHC (33.0-37.0) g/dL RDW (11.5-14.5) % Plt Count (130-400) K/uL Sodium 142 (132-148) mmol/l Potassium 3.7 (3.6-5.0) MMOL/L Chloride 99 (98-107) mmol/L Carbon Dioxide 27 (22-30) mmol/L Anion Gap 20 (10-20) BUN 24 H (7-17) mg/dl Creatinine 2.9 H (0.7-1.2) mg/dL Est GFR ( Amer) 19 Est GFR (Non-Af Amer) 16 POC Glucose (mg/dL) (65-110) mg/dL Random Glucose 221 H (65-105) mg/dL Calcium 9.1 (8.4-10.2) mg/dL Phosphorus (2.5-4.5) mg/dl Iron (37-170) ug/dL Ferritin (11.1-264.0) ng/Ml Vancomycin Trough (5.0-10.0) ug/mL Laboratory Results - last 24 hr 12/14/16 12/14/16 12/15/16 16:20 19:52 04:15 WBC 8.7 RBC 4.56 Hgb 11.7 L Hct 39.3 MCV 86.2 MCH 25.7 L MCHC 29.8 L RDW 21.3 H Plt Count 200 Sodium 142 Potassium 3.7 Chloride 99 Carbon Dioxide 27 Anion Gap 20 BUN 24 H Creatinine 2.9 H Est GFR ( Amer) 19 Est GFR (Non-Af Amer) 16 POC Glucose (mg/dL) 220 H Random Glucose 221 H Calcium 9.1 Phosphorus Iron Ferritin Vancomycin Trough 12/15/16 12/15/16 12/15/16 04:15 04:31 05:00 WBC RBC Hgb Hct MCV MCH MCHC RDW Plt Count Sodium 139 Potassium 3.6 Chloride 100 Carbon Dioxide 27 Anion Gap 15 BUN 28 H Creatinine 3.2 H Est GFR ( Amer) 17 Est GFR (Non-Af Amer) 14 POC Glucose (mg/dL) 167 H Random Glucose 178 H Calcium 8.9 Phosphorus Iron Ferritin Vancomycin Trough 40.0 H 12/15/16 12/15/16 12/15/16 10:25 10:25 11:30 WBC RBC Hgb Hct MCV MCH MCHC RDW Plt Count Sodium Potassium Chloride Carbon Dioxide Anion Gap BUN Creatinine Est GFR ( Amer) Est GFR (Non-Af Amer) POC Glucose (mg/dL) 153 H Random Glucose Calcium Phosphorus 3.0 Iron 25 L Ferritin 751.0 H Vancomycin Trough 12/15/16 15:59 WBC RBC Hgb Hct MCV MCH MCHC RDW Plt Count Sodium Potassium Chloride Carbon Dioxide Anion Gap BUN Creatinine Est GFR ( Amer) Est GFR (Non-Af Amer) POC Glucose (mg/dL) 219 H Random Glucose Calcium Phosphorus Iron Ferritin Vancomycin Trough Fingerstick Blood Sugar Results: 167 Review of Systems - Review of Systems All systems: reviewed and no additional remarkable complaints except (as above.) Critical Care Progress Note - Nutrition Nutrition: Nutrition Category Date Time Status Dysphagia/Modified Consistency Diet [DIET] Diets 12/11/16 Dinner Active
[2016-12-15] MEDS: Patient's Own Med (Rosuvastatin Calcium [Crestor] 40 MG) PO SCH (21:04)
[2016-12-16] MEDS: Levothyroxine 75 MCG TAB PO SCH (06:07)
[2016-12-16] MEDS: Insulin Regular 100 units/ml SC SCH ×4 (06:08→22:17)
[2016-12-16] MEDS: Artificial Tears Opht Soln OU PRN ×2 (08:22→15:00)
[2016-12-16] MEDS: Tobramycin/Dexamethasone OPHT OINT OU SCH ×3 (08:22→16:28)
[2016-12-16] MEDS: Pantoprazole 40 mg EC Tab PO SCH (08:23)
[2016-12-16] MEDS: Metoprolol Succinate 50 mg XL Tab PO SCH (08:23)
--- NOTE | 2016-12-16 09:35 | CP.PCM.PN ---
<Mahesh Kraus - Last Filed: 12/16/16 09:41> Subjective - Date & Time of Evaluation Date of Evaluation: 12/16/16 Time of Evaluation: 09:32 - Subjective Subjective: 76 YO F seen and evaluated at bedside with Dr. Mendoza. Patient appears be doing well is in no acute distress. Patient is now in Tele, has been transferred from ICU. Objective - Vital Signs/Intake and Output Vital Signs (last 24 hours): Temp Pulse Resp BP Pulse Ox 98.4 F 85 20 155/73 H 100 12/16/16 08:00 12/16/16 08:23 12/16/16 08:00 12/16/16 08:23 12/16/16 08:00 Intake and Output: 12/16/16 12/16/16 06:59 18:59 Output Total 50 Balance -50 - Medications Medications: Current Medications Acetaminophen (Tylenol 650mg/20.3ml Solution Ud) 650 mg PO Q6 PRN PRN Reason: Headache Last Admin: 12/14/16 19:17 Dose: 650 mg Amlodipine Besylate (Norvasc) 5 mg PO DAILY [facility] Last Admin: 12/16/16 08:23 Dose: 5 mg Apixaban (Eliquis) 2.5 mg PO BID [facility] PRN Reason: Protocol Last Admin: 12/16/16 08:22 Dose: 2.5 mg Artificial Tears (Artificial Tears) 2 drop OU Q4 PRN PRN Reason: Dry eyes Last Admin: 12/16/16 08:22 Dose: 2 drop Aspirin (Ecotrin) 81 mg PO DAILY [facility] Last Admin: 12/16/16 08:23 Dose: 81 mg Home Med (Rosuvastatin Calcium [Crestor]) 40 mg PO HS [facility] Last Admin: 12/15/16 21:04 Dose: 40 mg Vancomycin HCl 1 gm/ Sodium (Chloride) 250 mls @ 166.667 mls/hr IVPB MWF [facility] Last Admin: 12/14/16 09:55 Dose: 166.667 mls/hr Insulin Human Regular (Humulin R) 0 units SC ACCU-CHECK [facility] PRN Reason: Protocol Last Admin: 12/16/16 06:08 Dose: 1 units Levothyroxine Sodium (Synthroid) 75 mcg PO DAILY@0630 [facility] Last Admin: 12/16/16 06:07 Dose: 75 mcg Metoprolol Succinate (Toprol Xl) 50 mg PO DAILY [facility] Last Admin: 12/16/16 08:23 Dose: 50 mg Pantoprazole Sodium (Protonix Ec Tab) 40 mg PO DAILY [facility] Last Admin: 12/16/16 08:23 Dose: 40 mg Tobramycin/Dexamethasone (Tobradex 0.3%-0.1% Opht Oint) 1 appl OU TID [facility] Last Admin: 12/16/16 08:22 Dose: 1 oin Vitamin B Complex/Vit C/Folic Acid (Nephro-James) 1 tab PO DAILY [facility] - Labs Labs: 12/15/16 04:15 12/15/16 04:15 PT 13.7 Seconds (9.8-13.1) H 12/10/16 16:44 INR 1.3 (0.9-1.2) H 12/10/16 16:44 APTT 27.9 Seconds (25.6-37.1) 12/10/16 16:44 Assessment and Plan - Assessment and Plan (Free Text) Assessment: 1) Right cerebellar Acute/ Sub acute infarct - Head elevation of bed - monitor osmolarity - Continue with neuro recommendation - Apixaban started 2) Systolic heart failure 3) End stage renal disease - Nephro on board - Dialysis M W F 4) Non healing left TMA site ulcer -Currently holding vanco, untill trough comes down <20, redose post dialysis days - ID on board 4) Code status DNR/DNI <Gerardo Mendoza K - Last Filed: 12/22/16 15:39> Objective - Vital Signs/Intake and Output Vital Signs (last 24 hours): Temp Pulse Resp BP Pulse Ox 98.1 F 84 17 140/79 100 12/19/16 16:44 12/19/16 16:44 12/19/16 16:44 12/19/16 16:44 12/19/16 16:44 - Labs Labs: 12/19/16 04:30 12/19/16 06:41 PT 13.7 Seconds (9.8-13.1) H 12/10/16 16:44 INR 1.3 (0.9-1.2) H 12/10/16 16:44 APTT 27.9 Seconds (25.6-37.1) 12/10/16 16:44 Assessment and Plan - Assessment and Plan (Free Text) Assessment: Patient was personally seen and examined by me in rounds with residents. Available labs and diagnostic data reviewed. Case, Patients's condition and management plan discussed with residents in rounds. Agree with residents's progress note. Plan: As ordered.
--- NOTE | 2016-12-16 11:06 | CP.PCM.PN ---
Subjective - Date & Time of Evaluation Date of Evaluation: 12/16/16 Time of Evaluation: 10:56 - Subjective Subjective: Ms. Mac was seen and examined at the bedside. She remains responsive to all stimuli. She denies any headache, dizziness, lightheadedness, nausea, or vomiting. She has several episodes of foul- smelling diarrhea, no blood noted. There was no untoward events overnight. Objective - Vital Signs/Intake and Output Vital Signs (last 24 hours): Temp Pulse Resp BP Pulse Ox 98.4 F 85 20 155/73 H 100 12/16/16 08:00 12/16/16 08:23 12/16/16 08:00 12/16/16 08:23 12/16/16 08:00 Intake and Output: 12/16/16 12/16/16 06:59 18:59 Output Total 50 Balance -50 - Medications Medications: Current Medications Acetaminophen (Tylenol 650mg/20.3ml Solution Ud) 650 mg PO Q6 PRN PRN Reason: Headache Last Admin: 12/14/16 19:17 Dose: 650 mg Amlodipine Besylate (Norvasc) 5 mg PO DAILY [facility] Last Admin: 12/16/16 08:23 Dose: 5 mg Apixaban (Eliquis) 2.5 mg PO BID [facility] PRN Reason: Protocol Last Admin: 12/16/16 08:22 Dose: 2.5 mg Artificial Tears (Artificial Tears) 2 drop OU Q4 PRN PRN Reason: Dry eyes Last Admin: 12/16/16 08:22 Dose: 2 drop Aspirin (Ecotrin) 81 mg PO DAILY [facility] Last Admin: 12/16/16 08:23 Dose: 81 mg Home Med (Rosuvastatin Calcium [Crestor]) 40 mg PO HS [facility] Last Admin: 12/15/16 21:04 Dose: 40 mg Vancomycin HCl 1 gm/ Sodium (Chloride) 250 mls @ 166.667 mls/hr IVPB MWF [facility] Last Admin: 12/14/16 09:55 Dose: 166.667 mls/hr Insulin Human Regular (Humulin R) 0 units SC ACCU-CHECK [facility] PRN Reason: Protocol Last Admin: 12/16/16 06:08 Dose: 1 units Levothyroxine Sodium (Synthroid) 75 mcg PO DAILY@0630 [facility] Last Admin: 10/06/17 06:07 Dose: 75 mcg Metoprolol Succinate (Toprol Xl) 50 mg PO DAILY [facility] Last Admin: 12/16/16 08:23 Dose: 50 mg Pantoprazole Sodium (Protonix Ec Tab) 40 mg PO DAILY [facility] Last Admin: 12/16/16 08:23 Dose: 40 mg Tobramycin/Dexamethasone (Tobradex 0.3%-0.1% Opht Oint) 1 appl OU TID [facility] Last Admin: 12/16/16 08:22 Dose: 1 oin Vitamin B Complex/Vit C/Folic Acid (Nephro-James) 1 tab PO DAILY [facility] - Labs Labs: 12/15/16 04:15 12/15/16 04:15 PT 13.7 Seconds (9.8-13.1) H 12/10/16 16:44 INR 1.3 (0.9-1.2) H 12/10/16 16:44 APTT 27.9 Seconds (25.6-37.1) 12/10/16 16:44 - Constitutional Appears: No Acute Distress - Head Exam Head Exam: ATRAUMATIC, NORMAL INSPECTION, NORMOCEPHALIC - GI/Abdominal Exam Additional comments: had several episodes of foul smelling diarrhea, no blood noted. - Neurological Exam Neurological Exam: Alert, Awake Neuro motor strength exam: Left Upper Extremity: 4, Right Upper Extremity: 4, Left Lower Extremity: 3, Right Lower Extremity: 3 Additional comments: She is able to follow commands and responds appropriately. Assessment and Plan (1) Cerebellar infarct Assessment & Plan: Case discussed with Dr. Centeno, continue current medical, physical, and occupational therapies. Please refer primary regarding her foul smelling episodes of diarrhea. There is no new recommendation from neurology. Status: Acute
--- NOTE | 2016-12-16 12:59 | CP.PCM.PN ---
Subjective - Date & Time of Evaluation Date of Evaluation: 12/16/16 Time of Evaluation: 12:57 - Subjective Subjective: Patient in bed no new events reported No changes clinically Vital sign noted Objective - Vital Signs/Intake and Output Vital Signs (last 24 hours): Temp Pulse Resp BP Pulse Ox 98.4 F 85 20 155/73 H 100 12/16/16 08:00 12/16/16 08:23 12/16/16 08:00 12/16/16 08:23 12/16/16 08:00 Intake and Output: 12/16/16 12/16/16 06:59 18:59 Output Total 50 Balance -50 - Medications Medications: Current Medications Acetaminophen (Tylenol 650mg/20.3ml Solution Ud) 650 mg PO Q6 PRN PRN Reason: Headache Last Admin: 12/14/16 19:17 Dose: 650 mg Amlodipine Besylate (Norvasc) 5 mg PO DAILY [facility] Last Admin: 12/16/16 08:23 Dose: 5 mg Apixaban (Eliquis) 2.5 mg PO BID [facility] PRN Reason: Protocol Last Admin: 12/16/16 08:22 Dose: 2.5 mg Artificial Tears (Artificial Tears) 2 drop OU Q4 PRN PRN Reason: Dry eyes Last Admin: 12/16/16 08:22 Dose: 2 drop Aspirin (Ecotrin) 81 mg PO DAILY [facility] Last Admin: 12/16/16 08:23 Dose: 81 mg Home Med (Rosuvastatin Calcium [Crestor]) 40 mg PO HS [facility] Last Admin: 12/15/16 21:04 Dose: 40 mg Vancomycin HCl 1 gm/ Sodium (Chloride) 250 mls @ 166.667 mls/hr IVPB MWF [facility] Last Admin: 12/14/16 09:55 Dose: 166.667 mls/hr Insulin Human Regular (Humulin R) 0 units SC ACCU-CHECK [facility] PRN Reason: Protocol Last Admin: 12/16/16 06:08 Dose: 1 units Levothyroxine Sodium (Synthroid) 75 mcg PO DAILY@0630 [facility] Last Admin: 12/16/16 06:07 Dose: 75 mcg Metoprolol Succinate (Toprol Xl) 50 mg PO DAILY [facility] Last Admin: 12/16/16 08:23 Dose: 50 mg Pantoprazole Sodium (Protonix Ec Tab) 40 mg PO DAILY [facility] Last Admin: 12/16/16 08:23 Dose: 40 mg Tobramycin/Dexamethasone (Tobradex 0.3%-0.1% Opht Oint) 1 appl OU TID [facility] Last Admin: 12/16/16 08:22 Dose: 1 oin Vitamin B Complex/Vit C/Folic Acid (Nephro-James) 1 tab PO DAILY [facility] - Labs Labs: 12/15/16 04:15 12/15/16 04:15 PT 13.7 Seconds (9.8-13.1) H 12/10/16 16:44 INR 1.3 (0.9-1.2) H 12/10/16 16:44 APTT 27.9 Seconds (25.6-37.1) 12/10/16 16:44 - Constitutional Appears: No Acute Distress - ENT Exam ENT Exam: Mucous Membranes Moist - Respiratory Exam Respiratory Exam: NORMAL BREATHING PATTERN. absent: Chest Wall Tenderness - Cardiovascular Exam Cardiovascular Exam: absent: JVD, Rubs - GI/Abdominal Exam GI & Abdominal Exam: Soft, Normal Bowel Sounds - Extremities Exam Extremities Exam: absent: Calf Tenderness - Back Exam Back Exam: absent: CVA tenderness (L), CVA tenderness (R) - Neurological Exam Neurological Exam: Altered Assessment and Plan (1) Cerebellar infarct Status: Acute (2) CKD (chronic kidney disease) stage V requiring chronic dialysis Assessment & Plan: Patient with end stage renal disease on dialysis TTS Vital signs stable No significant changes reported The rest of the problem as noted #2 hypertension, controlled on medication #3 patient has history of chronic A. fib as per primary team. #4 status post CVA for this particular admission and patient making better recovery, As noted per neurology #5 diabetes mellitus management as per primary team #6 hypothyroidism patient is on medication. #7 hyperphosphatemia patient to be given phosphorus binder #8 secondary hyperparathyroidism to repeat serum PTH. 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
[2016-12-16] MEDS: Acetaminophen 650mg/20.3ml solution UD PO PRN (14:51)
[2016-12-16] MEDS: Patient's Own Med (Rosuvastatin Calcium [Crestor] 40 MG) PO SCH (22:17)
[2016-12-17] MEDS: Insulin Regular 100 units/ml SC SCH ×4 (07:02→22:07)
[2016-12-17] MEDS: Levothyroxine 75 MCG TAB PO SCH (07:09)
[2016-12-17] MEDS: Artificial Tears Opht Soln OU PRN (09:18)
[2016-12-17] MEDS: Pantoprazole 40 mg EC Tab PO SCH (09:20)
[2016-12-17] MEDS: Tobramycin/Dexamethasone OPHT OINT OU SCH ×3 (09:20→17:16)
[2016-12-17 10:48] LABS: CALCIUM 8.6 mg/dL (8.4-10.2); POTASSIUM 4.1 MMOL/L (3.6-5.0)
[2016-12-17] MEDS: Acetaminophen 650mg/20.3ml solution UD PO PRN ×2 (11:24→21:12)
[2016-12-17] MEDS: Metoprolol Succinate 50 mg XL Tab PO SCH (11:24)
--- NOTE | 2016-12-17 12:12 | CP.PCM.PN ---
Subjective - Date & Time of Evaluation Date of Evaluation: 12/17/16 Time of Evaluation: 09:15 - Subjective Subjective: seen and examined no complaints PE: vs: reviewed gen: nad sclera: anicteric op: poor dentition neck:supple cv: +s1+s2 lungs: reduced bs at b/l lower lobes ext: trace edema neuro: following some commands psych: flat affect skin: no appreciable rash Objective - Vital Signs/Intake and Output Vital Signs (last 24 hours): Temp Pulse Resp BP Pulse Ox 97.4 F L 79 18 145/59 L 100 12/17/16 08:11 12/17/16 08:11 12/17/16 08:11 12/17/16 08:11 12/17/16 08:11 - Medications Medications: Current Medications Acetaminophen (Tylenol 650mg/20.3ml Solution Ud) 650 mg PO Q6 PRN PRN Reason: Headache Last Admin: 12/17/16 11:24 Dose: 650 mg Amlodipine Besylate (Norvasc) 5 mg PO DAILY [facility] Last Admin: 12/17/16 09:21 Dose: Not Given Apixaban (Eliquis) 2.5 mg PO BID [facility] PRN Reason: Protocol Last Admin: 12/17/16 09:20 Dose: 2.5 mg Artificial Tears (Artificial Tears) 2 drop OU Q4 PRN PRN Reason: Dry eyes Last Admin: 12/17/16 09:18 Dose: 2 drop Aspirin (Ecotrin) 81 mg PO DAILY [facility] Last Admin: 12/17/16 09:20 Dose: 81 mg Home Med (Rosuvastatin Calcium [Crestor]) 40 mg PO HS [facility] Last Admin: 12/16/16 22:17 Dose: 40 mg Vancomycin HCl 1 gm/ Sodium (Chloride) 250 mls @ 166.667 mls/hr IVPB MWF [facility] Last Admin: 12/14/16 09:55 Dose: 166.667 mls/hr Vancomycin HCl 750 mg/ Sodium (Chloride) 250 mls @ 166.667 mls/hr IVPB [facility] PRN Reason: Protocol Stop: 12/17/16 16:59 Insulin Human Regular (Humulin R) 0 units SC ACCU-CHECK [facility] PRN Reason: Protocol Last Admin: 12/17/16 07:02 Dose: Not Given Levothyroxine Sodium (Synthroid) 75 mcg PO DAILY@0630 [facility] Last Admin: 12/17/16 07:09 Dose: 75 mcg Metoprolol Succinate (Toprol Xl) 50 mg PO DAILY [facility] Last Admin: 12/17/16 11:24 Dose: Not Given Pantoprazole Sodium (Protonix Ec Tab) 40 mg PO DAILY [facility] Last Admin: 12/17/16 09:20 Dose: 40 mg Tobramycin/Dexamethasone (Tobradex 0.3%-0.1% Opht Oint) 1 appl OU TID [facility] Last Admin: 12/17/16 09:20 Dose: 1 oin Vitamin B Complex/Vit C/Folic Acid (Nephro-James) 1 tab PO DAILY [facility] - Labs Labs: 12/15/16 04:15 12/17/16 10:20 PT 13.7 Seconds (9.8-13.1) H 12/10/16 16:44 INR 1.3 (0.9-1.2) H 12/10/16 16:44 APTT 27.9 Seconds (25.6-37.1) 12/10/16 16:44 Assessment and Plan - Assessment and Plan (Free Text) Assessment: ESRD/ Diabetic Kidney Disease/ CVA / HTN nephropathy / anemia of renal disease plan: HD today bp improving can inc norvasc if necessary epo currently on hold phos at goal off binders on nephrocap check vanc levels and dose per ID- last level was 40 on 12/13, recc recheck
--- NOTE | 2016-12-17 14:06 | PN ---
DATE: 12/17/2016 SUBJECTIVE: The patient is seen and examined. Interim events noted. Consults noted and appreciated. The patient remains in Progressive Care Unit on telemetry monitoring. The patient is awake, responsive, but non-conversant and not able to provide informative history or review of systems. According to daughter at bedside, no specific complaint. PHYSICAL EXAMINATION GENERAL: The patient is in no acute distress. VITAL SIGNS: Stable. HEART: S1 and S2 normal and regular. LUNGS: Good bilateral air exchange. ABDOMEN: Soft and nontender. EXTREMITIES: No edema, no calf swelling, no tenderness, no acute ischemia. CENTRAL NERVOUS SYSTEM: Essentially unchanged. DIAGNOSTIC DATA: Available diagnostic data reviewed. Telemetry monitoring does not show a significant arrhythmia. ASSESSMENT AND PLAN: Overall, the patient's general medical condition is hemodynamically stable. Long-term functional prognosis remains poor. Plan discussed with the patient's daughter at bedside and daughter does not want the patient to go to subacute rehab. Overall, the patient's general medical condition is stable. Plan as ordered. Gerardo Mendoza MD
--- NOTE | 2016-12-17 15:27 | CP.PCM.PN ---
Subjective - Date & Time of Evaluation Date of Evaluation: 12/17/16 Time of Evaluation: 15:25 - Subjective Subjective: Podiatry Progress Note - Dr. 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 Patient is alert and awake and is in no acute distress. Patient denies any pain to her left foot today. Patient wearing multipodus boots b/l at time of visit. Objective - Vital Signs/Intake and Output Vital Signs (last 24 hours): Temp Pulse Resp BP Pulse Ox 97.7 F 79 18 149/57 L 100 12/17/16 12:17 12/17/16 12:17 12/17/16 12:17 12/17/16 12:17 12/17/16 12:17 - Medications Medications: Current Medications Acetaminophen (Tylenol 650mg/20.3ml Solution Ud) 650 mg PO Q6 PRN PRN Reason: Headache Last Admin: 12/17/16 11:24 Dose: 650 mg Amlodipine Besylate (Norvasc) 5 mg PO DAILY [facility] Last Admin: 12/17/16 09:21 Dose: Not Given Apixaban (Eliquis) 2.5 mg PO BID [facility] PRN Reason: Protocol Last Admin: 12/17/16 09:20 Dose: 2.5 mg Artificial Tears (Artificial Tears) 2 drop OU Q4 PRN PRN Reason: Dry eyes Last Admin: 12/17/16 09:18 Dose: 2 drop Aspirin (Ecotrin) 81 mg PO DAILY [facility] Last Admin: 12/17/16 09:20 Dose: 81 mg Home Med (Rosuvastatin Calcium [Crestor]) 40 mg PO HS [facility] Last Admin: 12/16/16 22:17 Dose: 40 mg Vancomycin HCl 1 gm/ Sodium (Chloride) 250 mls @ 166.667 mls/hr IVPB MWF [facility] Last Admin: 12/14/16 09:55 Dose: 166.667 mls/hr Vancomycin HCl 750 mg/ Sodium (Chloride) 250 mls @ 166.667 mls/hr IVPB [facility] PRN Reason: Protocol Stop: 12/17/16 16:59 Insulin Human Regular (Humulin R) 0 units SC ACCU-CHECK [facility] PRN Reason: Protocol Last Admin: 12/17/16 13:06 Dose: 2 units Levothyroxine Sodium (Synthroid) 75 mcg PO DAILY@0630 [facility] Last Admin: 12/17/16 07:09 Dose: 75 mcg Metoprolol Succinate (Toprol Xl) 50 mg PO DAILY [facility] Last Admin: 12/17/16 11:24 Dose: Not Given Pantoprazole Sodium (Protonix Ec Tab) 40 mg PO DAILY [facility] Last Admin: 12/17/16 09:20 Dose: 40 mg Tobramycin/Dexamethasone (Tobradex 0.3%-0.1% Opht Oint) 1 appl OU TID [facility] Last Admin: 12/17/16 13:06 Dose: 1 oin Vitamin B Complex/Vit C/Folic Acid (Nephro-James) 1 tab PO DAILY [facility] - Labs Labs: 12/15/16 04:15 12/17/16 10:20 PT 13.7 Seconds (9.8-13.1) H 12/10/16 16:44 INR 1.3 (0.9-1.2) H 12/10/16 16:44 APTT 27.9 Seconds (25.6-37.1) 12/10/16 16:44 - Constitutional Appears: Well, Non-toxic, No Acute Distress - Extremities Exam Additional comments: Patient wearing offloading boots at time of visit. Dressing to LLE appears clean /dry/intact with no strikethrough noted. VASC: DP pulses palpable 2/4 b/l. Right PT pulse palpable 2/4, left PT pulse non -palpable. TG warm to warm. No edema noted. DERM: Ulceration noted to distolateral aspect of left TMA stump measuring approximately 5 x 2 x 0.2 cm with overlying eschar. Mild erythema noted to proximal aspect of wound, decreasing since last visit. No active drainage, purulence, malodor, fluctuance, or ascending cellulitis noted. (-)probe to bone NEURO: Gross sensation diminished bilaterally. ORTHO: No tenderness to palpation bilateral lower extremity. - Neurological Exam Neurological Exam: Alert, Awake, Oriented x3 - Psychiatric Exam Psychiatric exam: Normal Affect, Normal Mood Assessment and Plan - Assessment and Plan (Free Text) Assessment: 76 year old female with 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 Herrera Chart, vitals, labs reviewed = afebrile, WBC @ 8.7 (12/15) Wound was dressed with DSD C/w pain mgmt per medicine C/w multipodus boots at all times in bed Stable per podiatry Podiatry will continue to follow patient while in house
[2016-12-17] MEDS: Patient's Own Med (Rosuvastatin Calcium [Crestor] 40 MG) PO SCH (21:10)
[2016-12-18] MEDS: Levothyroxine 75 MCG TAB PO SCH (06:11)
[2016-12-18 06:31] LABS: BILIRUBIN,TOTAL 0.4 mg/dl (0.2-1.3); CALCIUM 8.9 mg/dL (8.4-10.2); POTASSIUM 4.2 MMOL/L (3.6-5.0); TOTAL PROTEIN 6.8 G/DL (6.3-8.2)
[2016-12-18 06:33] LABS: HEMATOCRIT 41.9 % (34.0-47.0); MEAN CELL VOLUME 84.9 fl (81.0-99.0); MEAN CORPUSCULAR HEMOGLOBIN 25.2 pg (27.0-31.0); MEAN CORPUSCULAR HGB CONC 29.7 g/dL (33.0-37.0); WHITE BLOOD COUNT 6.4 K/uL (4.8-10.8)
[2016-12-18 06:35] LABS: ALB/GLOB RATIO 0.9 (1.0-2.1)
[2016-12-18] MEDS: Insulin Regular 100 units/ml SC SCH ×4 (07:14→22:03)
[2016-12-18] MEDS: Metoprolol Succinate 50 mg XL Tab PO SCH (08:40)
[2016-12-18] MEDS: Pantoprazole 40 mg EC Tab PO SCH (08:40)
[2016-12-18] MEDS: Tobramycin/Dexamethasone OPHT OINT OU SCH ×3 (08:41→16:54)
--- NOTE | 2016-12-18 11:03 | CT ---
PROCEDURE: CT HEAD WITHOUT CONTRAST. HISTORY: follow up stroke COMPARISON: The noncontrast head CT performed 12/15/16 TECHNIQUE: Axial computed tomography images were obtained through the head/brain without intravenous contrast. Radiation dose: Total exam DLP = 782.79 mGy-cm. This CT exam was performed using one or more of the following dose reduction techniques: Automated exposure control, adjustment of the mA and/or kV according to patient size, and/or use of iterative reconstruction technique. FINDINGS: HEMORRHAGE: No intracranial hemorrhage. BRAIN: Diffuse atrophy with prominence of the ventricles and sulci noted. No mass effect or edema. Dense intracranial atherosclerosis. Moderate scattered periventricular and subcortical white matter hypodensities, which are nonspecific, but often seen with chronic microvascular ischemic disease. Hypodensity in the right cerebellum compatible with infarction. Mass effect on the 4th ventricle as on prior study. Please note that MRI with diffusion imaging is more sensitive in the detection of acute ischemic event. VENTRICLES: Mass-effect upon the right lateral aspect of the 4th ventricle re-identified. No hydrocephalus. CALVARIUM: Unremarkable. PARANASAL SINUSES: Unremarkable as visualized. No significant inflammatory changes. MASTOID AIR CELLS: Opacification/fluid bilateral mastoid air cells ; correlate clinically for mastoiditis. OTHER FINDINGS: None. IMPRESSION: Findings as above remain consistent with infarction involving the right cerebellar hemisphere. Re-identified mass-effect upon the right lateral aspect of the 4th ventricle. Chronic nonspecific white matter changes evident. Bilateral mastoid effusions; correlate clinically for mastoiditis.
--- NOTE | 2016-12-18 12:17 | CP.PCM.PN ---
Subjective - Date & Time of Evaluation Date of Evaluation: 12/18/16 Time of Evaluation: 10:25 - Subjective Subjective: seen and examined no complaints PE: vs: reviewed gen: nad sclera: anicteric op: poor dentition neck:supple cv: +s1+s2 lungs: reduced bs at b/l lower lobes ext: trace edema neuro: following some commands psych: flat affect skin: dressing LLE Objective - Vital Signs/Intake and Output Vital Signs (last 24 hours): Temp Pulse Resp BP Pulse Ox 98.2 F 81 20 133/58 L 99 12/18/16 08:00 12/18/16 08:42 12/18/16 08:00 12/18/16 08:42 12/18/16 08:00 - Medications Medications: Current Medications Acetaminophen (Tylenol 650mg/20.3ml Solution Ud) 650 mg PO Q6 PRN PRN Reason: Headache Last Admin: 12/17/16 21:12 Dose: 650 mg Amlodipine Besylate (Norvasc) 5 mg PO DAILY [facility] Last Admin: 12/18/16 08:42 Dose: 5 mg Apixaban (Eliquis) 2.5 mg PO BID [facility] PRN Reason: Protocol Last Admin: 12/18/16 08:43 Dose: 2.5 mg Artificial Tears (Artificial Tears) 2 drop OU Q4 PRN PRN Reason: Dry eyes Last Admin: 12/17/16 09:18 Dose: 2 drop Aspirin (Aspirin Chewable) 81 mg PO DAILY [facility] Last Admin: 12/18/16 08:51 Dose: 81 mg Home Med (Rosuvastatin Calcium [Crestor]) 40 mg PO HS [facility] Last Admin: 12/17/16 21:10 Dose: 40 mg Vancomycin HCl 1 gm/ Sodium (Chloride) 250 mls @ 166.667 mls/hr IVPB MWF [facility] Last Admin: 12/14/16 09:55 Dose: 166.667 mls/hr Insulin Human Regular (Humulin R) 0 units SC ACCU-CHECK [facility] PRN Reason: Protocol Last Admin: 12/18/16 07:14 Dose: 1 units Levothyroxine Sodium (Synthroid) 75 mcg PO DAILY@0630 [facility] Last Admin: 12/18/16 06:11 Dose: 75 mcg Metoprolol Succinate (Toprol Xl) 50 mg PO DAILY [facility] Last Admin: 12/18/16 08:40 Dose: 50 mg Pantoprazole Sodium (Protonix Ec Tab) 40 mg PO DAILY [facility] Last Admin: 12/18/16 08:40 Dose: 40 mg Tobramycin/Dexamethasone (Tobradex 0.3%-0.1% Opht Oint) 1 appl OU TID [facility] Last Admin: 12/18/16 08:41 Dose: 1 oin Vitamin B Complex/Vit C/Folic Acid (Nephro-James) 1 tab PO DAILY [facility] - Labs Labs: 12/18/16 05:30 12/18/16 05:30 PT 13.7 Seconds (9.8-13.1) H 12/10/16 16:44 INR 1.3 (0.9-1.2) H 12/10/16 16:44 APTT 27.9 Seconds (25.6-37.1) 12/10/16 16:44 Assessment and Plan - Assessment and Plan (Free Text) Assessment: ESRD/ Diabetic Kidney Disease/ CVA / HTN nephropathy / anemia of renal disease plan: HD next monday bp stable epo currently on hold phos at goal off binders on nephrocap f/u ID re: abx dose for ESRD
[2016-12-18] MEDS: Artificial Tears Opht Soln OU PRN (16:54)
[2016-12-18] MEDS: Patient's Own Med (Rosuvastatin Calcium [Crestor] 40 MG) PO SCH (21:36)
[2016-12-19 05:36] LABS: HEMATOCRIT 41.2 % (34.0-47.0); MEAN CELL VOLUME 84.3 fl (81.0-99.0); MEAN CORPUSCULAR HEMOGLOBIN 25.4 pg (27.0-31.0); MEAN CORPUSCULAR HGB CONC 30.2 g/dL (33.0-37.0); RED CELL DISTRIBUTION WIDTH 20.9 % (11.5-14.5); WHITE BLOOD COUNT 6.5 K/uL (4.8-10.8)
[2016-12-19 05:46] LABS: ALB/GLOB RATIO 0.9 (1.0-2.1); BILIRUBIN,TOTAL 0.6 mg/dl (0.2-1.3); CALCIUM 8.9 mg/dL (8.4-10.2)
[2016-12-19 05:56] LABS: POTASSIUM 6.4 MMOL/L (3.6-5.0)
[2016-12-19] MEDS: Insulin Regular 100 units/ml SC SCH ×3 (06:07→17:52)
[2016-12-19] MEDS: Levothyroxine 75 MCG TAB PO SCH (06:09)
[2016-12-19 06:55] LABS: ALB/GLOB RATIO 0.9 (1.0-2.1); BILIRUBIN,TOTAL 0.6 mg/dl (0.2-1.3); CALCIUM 8.9 mg/dL (8.4-10.2); TOTAL PROTEIN 7.2 G/DL (6.3-8.2)
[2016-12-19 07:05] LABS: POTASSIUM 6.1 MMOL/L (3.6-5.0)
[2016-12-19 08:14] VITALS: O2SAT 100
[2016-12-19] MEDS ORDERED: Sod Polystyrene Sulf 15 gm/60 ml Oral Susp PO ONE (08:28)
--- NOTE | 2016-12-19 08:28 | CP.PCM.PN ---
Subjective - Date & Time of Evaluation Date of Evaluation: 12/19/16 Time of Evaluation: 08:28 - Subjective Subjective: Podiatry Progress Note - Dr. 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 Patient is accompanied by daughter at bedside. Patient seen sleeping at time of visit, NAD. Patient denies any pain to bilateral LE today. Patient wearing multipodus boots at time of visit. Per patient's daughter, patient does not wear boots at all times while in bed. Patient denies N/V/F/D/C/SOB/calf pain. Offers no other pedal complaints at this time. Objective - Vital Signs/Intake and Output Vital Signs (last 24 hours): Temp Pulse Resp BP Pulse Ox 97.2 F L 80 20 150/47 L 100 12/19/16 08:00 12/19/16 08:00 12/19/16 08:00 12/19/16 08:00 12/19/16 08:00 - Medications Medications: Current Medications Acetaminophen (Tylenol 650mg/20.3ml Solution Ud) 650 mg PO Q6 PRN PRN Reason: Headache Last Admin: 12/17/16 21:12 Dose: 650 mg Amlodipine Besylate (Norvasc) 5 mg PO DAILY [facility] Last Admin: 12/18/16 08:42 Dose: 5 mg Apixaban (Eliquis) 2.5 mg PO BID [facility] PRN Reason: Protocol Last Admin: 12/18/16 16:54 Dose: 2.5 mg Artificial Tears (Artificial Tears) 2 drop OU Q4 PRN PRN Reason: Dry eyes Last Admin: 12/18/16 16:54 Dose: 2 drop Aspirin (Aspirin Chewable) 81 mg PO DAILY [facility] Last Admin: 12/18/16 08:51 Dose: 81 mg Home Med (Rosuvastatin Calcium [Crestor]) 40 mg PO HS [facility] Last Admin: 12/18/16 21:36 Dose: 40 mg Vancomycin HCl 1 gm/ Sodium (Chloride) 250 mls @ 166.667 mls/hr IVPB MWF [facility] Last Admin: 12/14/16 09:55 Dose: 166.667 mls/hr Insulin Human Regular (Humulin R) 0 units SC ACCU-CHECK [facility] PRN Reason: Protocol Last Admin: 12/19/16 06:07 Dose: Not Given Levothyroxine Sodium (Synthroid) 75 mcg PO DAILY@0630 [facility] Last Admin: 12/19/16 06:09 Dose: 75 mcg Metoprolol Succinate (Toprol Xl) 50 mg PO DAILY [facility] Last Admin: 12/18/16 08:40 Dose: 50 mg Pantoprazole Sodium (Protonix Ec Tab) 40 mg PO DAILY [facility] Last Admin: 12/18/16 08:40 Dose: 40 mg Tobramycin/Dexamethasone (Tobradex 0.3%-0.1% Opht Oint) 1 appl OU TID [facility] Last Admin: 12/18/16 16:54 Dose: 1 oin Vitamin B Complex/Vit C/Folic Acid (Nephro-James) 1 tab PO DAILY [facility] - Labs Labs: 12/19/16 04:30 12/19/16 06:41 PT 13.7 Seconds (9.8-13.1) H 12/10/16 16:44 INR 1.3 (0.9-1.2) H 12/10/16 16:44 APTT 27.9 Seconds (25.6-37.1) 12/10/16 16:44 - Constitutional Appears: Well, Non-toxic, No Acute Distress - Extremities Exam Additional comments: Patient wearing offloading boots at time of visit. Dressing to LLE appears clean /dry/intact with no strikethrough noted. VASC: DP pulses palpable 2/4 b/l. Right PT pulse palpable 2/4, left PT pulse non -palpable. TG warm to warm. No edema noted. DERM: Ulceration noted to distolateral aspect of left TMA stump measuring approximately 5 x 2 x 0.2 cm with overlying eschar. Mild erythema noted to proximal aspect of wound, decreasing since last visit. No active drainage, purulence, malodor, fluctuance, or ascending cellulitis noted. (-)probe to bone NEURO: Gross sensation diminished bilaterally. ORTHO: No tenderness to palpation bilateral lower extremity. - Neurological Exam Neurological Exam: Alert, Awake, Oriented x3 - Psychiatric Exam Psychiatric exam: Normal Affect, Normal Mood Assessment and Plan - Assessment and Plan (Free Text) Assessment: 76 year old female with non-healing ulceration to L [facility] Plan: Patient seen and evaluated at bedside Discussed with attending, Dr. Herrera Chart, vitals, labs reviewed = afebrile, WBC WNL @ 6.5 DSD to L TMA Home nursing orders - 4x4 and kerlix to L TMA; patient to offload heels at all times while in mbed C/w pain mgmt per medicine Stable per podiatry Podiatry will continue to follow patient while in house
[2016-12-19] MEDS: Artificial Tears Opht Soln OU PRN (08:33)
[2016-12-19] MEDS: Metoprolol Succinate 50 mg XL Tab PO SCH (08:34)
[2016-12-19] MEDS: Tobramycin/Dexamethasone OPHT OINT OU SCH ×3 (08:34→17:50)
[2016-12-19] MEDS: Pantoprazole 40 mg EC Tab PO SCH (08:35)
--- NOTE | 2016-12-19 09:37 | CP.PCM.PN ---
Subjective - Date & Time of Evaluation Date of Evaluation: 12/19/16 Time of Evaluation: 09:35 - Subjective Subjective: No significant changes reported overnight No new event reported No changes Objective - Vital Signs/Intake and Output Vital Signs (last 24 hours): Temp Pulse Resp BP Pulse Ox 97.2 F L 80 20 150/47 L 100 12/19/16 08:00 12/19/16 08:35 12/19/16 08:00 12/19/16 08:35 12/19/16 08:00 - Medications Medications: Current Medications Acetaminophen (Tylenol 650mg/20.3ml Solution Ud) 650 mg PO Q6 PRN PRN Reason: Headache Last Admin: 12/17/16 21:12 Dose: 650 mg Amlodipine Besylate (Norvasc) 5 mg PO DAILY [facility] Last Admin: 12/19/16 08:35 Dose: 5 mg Apixaban (Eliquis) 2.5 mg PO BID [facility] PRN Reason: Protocol Last Admin: 12/18/16 16:54 Dose: 2.5 mg Artificial Tears (Artificial Tears) 2 drop OU Q4 PRN PRN Reason: Dry eyes Last Admin: 12/19/16 08:33 Dose: 2 drop Aspirin (Aspirin Chewable) 81 mg PO DAILY [facility] Last Admin: 12/19/16 08:33 Dose: 81 mg Home Med (Rosuvastatin Calcium [Crestor]) 40 mg PO HS [facility] Last Admin: 12/18/16 21:36 Dose: 40 mg Vancomycin HCl 1 gm/ Sodium (Chloride) 250 mls @ 166.667 mls/hr IVPB MWF [facility] Last Admin: 12/14/16 09:55 Dose: 166.667 mls/hr Insulin Human Regular (Humulin R) 0 units DE ACCU-CHECK [facility] PRN Reason: Protocol Last Admin: 12/19/16 06:07 Dose: Not Given Levothyroxine Sodium (Synthroid) 75 mcg PO DAILY@0630 [facility] Last Admin: 12/19/16 06:09 Dose: 75 mcg Metoprolol Succinate (Toprol Xl) 50 mg PO DAILY [facility] Last Admin: 12/19/16 08:34 Dose: 50 mg Pantoprazole Sodium (Protonix Ec Tab) 40 mg PO DAILY [facility] Last Admin: 12/19/16 08:35 Dose: 40 mg Tobramycin/Dexamethasone (Tobradex 0.3%-0.1% Opht Oint) 1 appl OU TID [facility] Last Admin: 12/19/16 08:34 Dose: 1 oin Vitamin B Complex/Vit C/Folic Acid (Nephro-James) 1 tab PO DAILY [facility] - Labs Labs: 12/19/16 04:30 12/19/16 06:41 PT 13.7 Seconds (9.8-13.1) H 12/10/16 16:44 INR 1.3 (0.9-1.2) H 12/10/16 16:44 APTT 27.9 Seconds (25.6-37.1) 12/10/16 16:44 - Constitutional Appears: No Acute Distress - ENT Exam ENT Exam: Mucous Membranes Moist - Respiratory Exam Respiratory Exam: NORMAL BREATHING PATTERN - Cardiovascular Exam Cardiovascular Exam: absent: JVD, Rubs - GI/Abdominal Exam GI & Abdominal Exam: Soft, Normal Bowel Sounds. absent: Guarding - Extremities Exam Extremities Exam: absent: Calf Tenderness - Back Exam Back Exam: absent: CVA tenderness (L), CVA tenderness (R) - Neurological Exam Neurological Exam: Altered - Psychiatric Exam Psychiatric exam: Flat Affect Assessment and Plan (1) Cerebellar infarct Status: Acute (2) CKD (chronic kidney disease) stage V requiring chronic dialysis Assessment & Plan: And this stage renal disease patient scheduled to have dialysis for tomorrow Patient need rehabilitation Discussed with the nurse practitioner from neurology The rest of the problem about the same blood pressure better controlled The rest of the problem as noted #2 hypertension, controlled on medication #3 patient has history of chronic A. fib as per primary team. #4 status post CVA for this particular admission and patient making better recovery, As noted per neurology #5 diabetes mellitus management as per primary team #6 hypothyroidism patient is on medication. #7 hyperphosphatemia patient to be given phosphorus binder #8 secondary hyperparathyroidism to repeat serum PTH. 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
--- NOTE | 2016-12-19 09:56 | CP.PCM.PN ---
Subjective - Date & Time of Evaluation Date of Evaluation: 12/19/16 Time of Evaluation: 09:54 - Subjective Subjective: Ms. Mac was seen and examined at the bedside. She is responsive to all stimuli follows simple commands. She is not not in any kind of distress. There is no untoward events overnight. Objective - Vital Signs/Intake and Output Vital Signs (last 24 hours): Temp Pulse Resp BP Pulse Ox 97.2 F L 80 20 150/47 L 100 12/19/16 08:00 12/19/16 08:35 12/19/16 08:00 12/19/16 08:35 12/19/16 08:00 - Medications Medications: Current Medications Acetaminophen (Tylenol 650mg/20.3ml Solution Ud) 650 mg PO Q6 PRN PRN Reason: Headache Last Admin: 12/17/16 21:12 Dose: 650 mg Amlodipine Besylate (Norvasc) 5 mg PO DAILY [facility] Last Admin: 12/19/16 08:35 Dose: 5 mg Apixaban (Eliquis) 2.5 mg PO BID [facility] PRN Reason: Protocol Last Admin: 12/18/16 16:54 Dose: 2.5 mg Artificial Tears (Artificial Tears) 2 drop OU Q4 PRN PRN Reason: Dry eyes Last Admin: 12/19/16 08:33 Dose: 2 drop Aspirin (Aspirin Chewable) 81 mg PO DAILY [facility] Last Admin: 12/19/16 08:33 Dose: 81 mg Home Med (Rosuvastatin Calcium [Crestor]) 40 mg PO HS [facility] Last Admin: 12/18/16 21:36 Dose: 40 mg Vancomycin HCl 1 gm/ Sodium (Chloride) 250 mls @ 166.667 mls/hr IVPB MWF [facility] Last Admin: 12/14/16 09:55 Dose: 166.667 mls/hr Insulin Human Regular (Humulin R) 0 units SC ACCU-CHECK [facility] PRN Reason: Protocol Last Admin: 12/19/16 06:07 Dose: Not Given Levothyroxine Sodium (Synthroid) 75 mcg PO DAILY@0630 [facility] Last Admin: 12/19/16 06:09 Dose: 75 mcg Metoprolol Succinate (Toprol Xl) 50 mg PO DAILY [facility] Last Admin: 12/19/16 08:34 Dose: 50 mg Pantoprazole Sodium (Protonix Ec Tab) 40 mg PO DAILY [facility] Last Admin: 12/19/16 08:35 Dose: 40 mg Tobramycin/Dexamethasone (Tobradex 0.3%-0.1% Opht Oint) 1 appl OU TID [facility] Last Admin: 12/19/16 08:34 Dose: 1 oin Vitamin B Complex/Vit C/Folic Acid (Nephro-James) 1 tab PO DAILY [facility] - Labs Labs: 12/19/16 04:30 12/19/16 06:41 PT 13.7 Seconds (9.8-13.1) H 12/10/16 16:44 INR 1.3 (0.9-1.2) H 12/10/16 16:44 APTT 27.9 Seconds (25.6-37.1) 12/10/16 16:44 - Constitutional Appears: No Acute Distress - Head Exam Head Exam: ATRAUMATIC - Neurological Exam Neurological Exam: Awake Neuro motor strength exam: Left Upper Extremity: 3, Right Upper Extremity: 3, Left Lower Extremity: 2/1, Right Lower Extremity: 2/1 Additional comments: She is able to follow simple commands, sensation remainsintact. - Skin Additional comments: with right arm remains swollen Assessment and Plan (1) Cerebellar infarct Assessment & Plan: Case dsicussed with Dr. Centeno, continue all current medical, physical, and occupational therapy. DVT prophylaxis. Status: Acute
--- NOTE | 2016-12-19 11:21 | CP.PCM.PN ---
Subjective - Date & Time of Evaluation Date of Evaluation: 12/19/16 Time of Evaluation: 13:00 - Subjective Subjective: ID Note- Pt. seen and examined today on tele floor. Pt. sitting up in the chair and in good spirits. denies any complaints. as per MARKETING TRAFFIC COORDINATOR Menita pt. being d/c home today. pt. has picc line in place. Objective - Vital Signs/Intake and Output Vital Signs (last 24 hours): Temp Pulse Resp BP Pulse Ox 97.2 F L 85 20 150/47 L 100 12/19/16 08:00 12/19/16 09:00 12/19/16 08:00 12/19/16 08:35 12/19/16 08:00 - Medications Medications: Current Medications Acetaminophen (Tylenol 650mg/20.3ml Solution Ud) 650 mg PO Q6 PRN PRN Reason: Headache Last Admin: 12/17/16 21:12 Dose: 650 mg Amlodipine Besylate (Norvasc) 5 mg PO DAILY [facility] Last Admin: 12/19/16 08:35 Dose: 5 mg Apixaban (Eliquis) 2.5 mg PO BID [facility] PRN Reason: Protocol Last Admin: 12/18/16 16:54 Dose: 2.5 mg Artificial Tears (Artificial Tears) 2 drop OU Q4 PRN PRN Reason: Dry eyes Last Admin: 12/19/16 08:33 Dose: 2 drop Aspirin (Aspirin Chewable) 81 mg PO DAILY [facility] Last Admin: 12/19/16 08:33 Dose: 81 mg Home Med (Rosuvastatin Calcium [Crestor]) 40 mg PO HS [facility] Last Admin: 12/18/16 21:36 Dose: 40 mg Vancomycin HCl 1 gm/ Sodium (Chloride) 250 mls @ 166.667 mls/hr IVPB MWF [facility] Last Admin: 12/14/16 09:55 Dose: 166.667 mls/hr Insulin Human Regular (Humulin R) 0 units SC ACCU-CHECK [facility] PRN Reason: Protocol Last Admin: 12/19/16 06:07 Dose: Not Given Levothyroxine Sodium (Synthroid) 75 mcg PO DAILY@0630 [facility] Last Admin: 12/19/16 06:09 Dose: 75 mcg Metoprolol Succinate (Toprol Xl) 50 mg PO DAILY [facility] Last Admin: 12/19/16 08:34 Dose: 50 mg Pantoprazole Sodium (Protonix Ec Tab) 40 mg PO DAILY [facility] Last Admin: 12/19/16 08:35 Dose: 40 mg Tobramycin/Dexamethasone (Tobradex 0.3%-0.1% Opht Oint) 1 appl OU TID [facility] Last Admin: 12/19/16 08:34 Dose: 1 oin Vitamin B Complex/Vit C/Folic Acid (Nephro-James) 1 tab PO DAILY [facility] - Labs Labs: 12/19/16 04:30 12/19/16 06:41 PT 13.7 Seconds (9.8-13.1) H 12/10/16 16:44 INR 1.3 (0.9-1.2) H 12/10/16 16:44 APTT 27.9 Seconds (25.6-37.1) 12/10/16 16:44 - Additional Findings Additional findings: - Constitutional Appears: No Acute Distress, - Eye Exam Eye Exam: EOMI - ENT Exam ENT Exam: Normal Oropharynx - Neck Exam Neck exam: Positive for: Full Rom - Respiratory Exam Respiratory Exam: NORMAL BREATHING PATTERN Additional comments: - Cardiovascular Exam Cardiovascular Exam: RRR, +S1, +S2 Additional comments: mid-sternal round lesion with scant sanguinous discharge and raised borders ( chronic) no pus - GI/Abdominal Exam GI & Abdominal Exam: Normal Bowel Sounds, Soft Additional comments: NT, ND - Extremities Exam Additional comments: left TMA site with round dry ulcer at the lateral site, no discharge, dry, no malodor, no erythema - Neurological Exam Additional comments: awake , alert Laboratory Results - last 72 hr 12/15/16 12/16/16 12/16/16 10:25 15:54 21:55 WBC RBC Hgb Hct MCV MCH MCHC RDW Plt Count Sodium Potassium Chloride Carbon Dioxide Anion Gap BUN Creatinine Est GFR ( Amer) Est GFR (Non-Af Amer) POC Glucose (mg/dL) 265 H 172 H Random Glucose Calcium Total Bilirubin AST ALT Alkaline Phosphatase Total Protein Albumin Globulin Albumin/Globulin Ratio PTH Intact Whole Molec 156 H Vancomycin Trough 12/17/16 12/17/16 12/17/16 05:48 10:20 11:31 WBC RBC Hgb Hct MCV MCH MCHC RDW Plt Count Sodium 135 Potassium 4.1 Chloride 94 L Carbon Dioxide 26 Anion Gap 19 BUN 31 H Creatinine 3.4 H Est GFR ( Amer) 16 Est GFR (Non-Af Amer) 13 POC Glucose (mg/dL) 150 H 232 H Random Glucose 240 H Calcium 8.6 Total Bilirubin AST ALT Alkaline Phosphatase Total Protein Albumin Globulin Albumin/Globulin Ratio PTH Intact Whole Molec Vancomycin Trough 12/17/16 12/17/16 12/17/16 12:40 16:10 21:15 WBC RBC Hgb Hct MCV MCH MCHC RDW Plt Count Sodium Potassium Chloride Carbon Dioxide Anion Gap BUN Creatinine Est GFR ( Amer) Est GFR (Non-Af Amer) POC Glucose (mg/dL) 146 H 235 H Random Glucose Calcium Total Bilirubin AST ALT Alkaline Phosphatase Total Protein Albumin Globulin Albumin/Globulin Ratio PTH Intact Whole Molec Vancomycin Trough 26.0 H 12/18/16 12/18/16 12/18/16 05:30 05:30 05:34 WBC 6.4 RBC 4.94 Hgb 12.4 Hct 41.9 MCV 84.9 MCH 25.2 L MCHC 29.7 L RDW 21.0 H Plt Count 159 Sodium 138 Potassium 4.2 Chloride 97 L Carbon Dioxide 27 Anion Gap 18 BUN 17 Creatinine 2.3 H Est GFR ( Amer) 25 Est GFR (Non-Af Amer) 21 POC Glucose (mg/dL) 152 H Random Glucose 153 H Calcium 8.9 Total Bilirubin 0.4 AST 38 H ALT 39 Alkaline Phosphatase 82 Total Protein 6.8 Albumin 3.3 L Globulin 3.5 Albumin/Globulin Ratio 0.9 L PTH Intact Whole Molec Vancomycin Trough 12/18/16 12/18/16 12/18/16 11:14 16:01 21:34 WBC RBC Hgb Hct MCV MCH MCHC RDW Plt Count Sodium Potassium Chloride Carbon Dioxide Anion Gap BUN Creatinine Est GFR ( Amer) Est GFR (Non-Af Amer) POC Glucose (mg/dL) 231 H 173 H 186 H Random Glucose Calcium Total Bilirubin AST ALT Alkaline Phosphatase Total Protein Albumin Globulin Albumin/Globulin Ratio PTH Intact Whole Molec Vancomycin Trough 12/19/16 12/19/16 12/19/16 04:30 04:30 05:15 WBC 6.5 RBC 4.89 Hgb 12.4 Hct 41.2 MCV 84.3 MCH 25.4 L MCHC 30.2 L RDW 20.9 H Plt Count 179 Sodium 136 Potassium 6.4 H* D Chloride 96 L Carbon Dioxide 28 Anion Gap 18 BUN 27 H Creatinine 2.9 H Est GFR ( Amer) 19 Est GFR (Non-Af Amer) 16 POC Glucose (mg/dL) 136 H Random Glucose 138 H Calcium 8.9 Total Bilirubin 0.6 AST 60 H D ALT 33 Alkaline Phosphatase 78 Total Protein 7.0 Albumin 3.4 L Globulin 3.7 Albumin/Globulin Ratio 0.9 L PTH Intact Whole Molec Vancomycin Trough 12/19/16 12/19/16 12/19/16 06:41 11:32 12:35 WBC RBC Hgb Hct MCV MCH MCHC RDW Plt Count Sodium 135 Potassium 6.1 H Chloride 95 L Carbon Dioxide 28 Anion Gap 18 BUN 28 H Creatinine 3.0 H Est GFR ( Amer) 18 Est GFR (Non-Af Amer) 15 POC Glucose (mg/dL) 266 H Random Glucose 148 H Calcium 8.9 Total Bilirubin 0.6 AST 58 H ALT 37 Alkaline Phosphatase 79 Total Protein 7.2 Albumin 3.4 L Globulin 3.8 Albumin/Globulin Ratio 0.9 L PTH Intact Whole Molec Vancomycin Trough 19.7 H Microbiology 12/15/16 05:20 Blood-Venous Blood Culture - Preliminary NO GROWTH AFTER 3 DAYS 12/15/16 04:50 Blood-Venous Blood Culture - Preliminary NO GROWTH AFTER 3 DAYS 12/15/16 09:04 Naris MRSA Culture (Admit) - Final MRSA NOT DETECTED 12/12/16 05:00 Blood-Venous Blood Culture - Final NO GROWTH AFTER 5 DAYS 12/12/16 05:00 Blood-Venous Gram Stain - Final TEST NOT PERFORMED 12/10/16 18:00 Blood-Venous Blood Culture - Final NO GROWTH AFTER 5 DAYS 12/10/16 18:00 Blood-Venous Gram Stain - Final TEST NOT PERFORMED 12/13/16 03:29 Urine,Herrera Urine Culture - Final Yeast Species 12/10/16 16:00 Blood-Venous S.aureus & Coag-Neg Staph PNA FISH - Final 12/10/16 16:00 Blood-Venous Blood Culture - Final Coagulase Neg Staphylococcus 12/10/16 16:00 Blood-Venous Gram Stain - Final 12/10/16 20:00 Naris MRSA Culture (Admit) - Final MRSA DETECTED Assessment and Plan (1) Cerebellar infarct Status: Acute (2) Basal cell carcinoma of chest Status: Acute (3) ESRD on hemodialysis Status: Acute (4) Bacteremia due to Staphylococcus epidermidis Status: Acute (5) DM2 (diabetes mellitus, type 2) Status: Chronic - Assessment and Plan (Free Text) Assessment: A/P- Patient is a 76 year old female with multiple medical conditions including DM II , CAD, ESRD on HD, left foot TMA , A.fib admitted with nausea found to have cerebellar infarct as per Neurosurgery not a surgical candidate. found to have coag neg staph in one blood cx on this admission. has remained afebrile one blood cx- coag neg staph x 1 repeat blood cx- neg x 4 leukocytosis-resolved TTE- no mention of any vegetations on report as read by dispatch coordinator. Plan- vanco had been held since trough was high but can redose now since trough is < 20. to be given only post HD days. if patient is being d/c home then advise vanco post HD days 750 mg for total of 14 doses. check trough and make sure it's less than 20 before redosing. pt. to f/u with podiatry in regards to the nonhealing left TMA site ulcer. cerebellar infarct management as per neuro. primary doc to determine if the basal cell CA of the chest was treated and if not advise to get oncology evaluation. all above d/w MARKETING TRAFFIC COORDINATOR Menita at length.
--- NOTE | 2016-12-19 14:20 | PN ---
DATE: 12/19/2016 SUBJECTIVE: The patient is seen and examined. Interim events noted. Consults noted and appreciated. Nephrology followup and interventions noted and appreciated. The patient remains in Progressive Care Unit on telemetry monitoring. The patient is awake, responsive, but non-communicative. According to the patient's daughter, the patient did have some pain when moved in bed, but no chest pain or shortness of breath. PHYSICAL EXAMINATION: GENERAL: The patient is in no acute distress. VITAL SIGNS: Stable. HEART: S1 and S2, normal and regular. LUNGS: Good bilateral air exchange. ABDOMEN: Soft, nontender. EXTREMITIES: No calf swelling. No tenderness. No acute ischemia. CENTRAL NERVOUS SYSTEM: Essentially unchanged. DIAGNOSTIC DATA: Available diagnostic data reviewed. Potassium level is 6.1. Telephone order was given to give 60 g of Kayexalate 1 time. This potassium was repeated and confirmed twice. ASSESSMENT AND PLAN: Overall, the patient's general medical condition is stable. Plan as ordered. Gerardo Mendoza MD
[2016-12-19 16:45] VITALS: BP 140/79; PULSE 84; RESP 17; TEMP 98.1
== END 2016-12-19 19:00 | DRG 64 ==
LOC: H.ER 16:04 → H.ERHOLD 18:11 → H.ICU/CCU 19:45 → H.TEL 12-15 18:48
PROVIDERS: ADMIT Internal Medicine; ATTEND Internal Medicine
PROC: 3E0234Z Introduction of Serum, Toxoid and Vaccine into Muscle, Percutaneous Approach (ICD-10-PCS; 2016-12-11)
PROC: 05H633Z Insertion of Infusion Device into Left Subclavian Vein, Percutaneous Approach (ICD-10-PCS; principal; 2016-12-12)
PROC: B517ZZA Fluoroscopy of Left Subclavian Vein, Guidance (ICD-10-PCS; 2016-12-12)
PROC: B547ZZA Ultrasonography of Left Subclavian Vein, Guidance (ICD-10-PCS; 2016-12-12)
DX: I63.9 Cerebral infarction, unspecified (principal); L89.153 Pressure ulcer of sacral region, stage 3; I13.2 Hypertensive heart and chronic kidney disease with heart failure and with stage 5 chronic kidney disease, or end stage renal disease; N18.6 End stage renal disease; D68.9 Coagulation defect, unspecified; R78.81 Bacteremia; B95.7 Other staphylococcus as the cause of diseases classified elsewhere; E11.22 Type 2 diabetes mellitus with diabetic chronic kidney disease; F03.90 Unspecified dementia, unspecified severity, without behavioral disturbance, psychotic disturbance, mood disturbance, and anxiety; N25.81 Secondary hyperparathyroidism of renal origin; I16.1 Hypertensive emergency; I50.22 Chronic systolic (congestive) heart failure; J98.11 Atelectasis; E11.65 Type 2 diabetes mellitus with hyperglycemia; C44.91 Basal cell carcinoma of skin, unspecified; E03.9 Hypothyroidism, unspecified; D63.8 Anemia in other chronic diseases classified elsewhere; D72.829 Elevated white blood cell count, unspecified; E78.00 Pure hypercholesterolemia, unspecified; I25.10 Atherosclerotic heart disease of native coronary artery without angina pectoris; I48.91 Unspecified atrial fibrillation; M19.90 Unspecified osteoarthritis, unspecified site; Z66 Do not resuscitate; Z74.01 Bed confinement status; Z79.02 Long term (current) use of antithrombotics/antiplatelets; Z79.82 Long term (current) use of aspirin; Z79.899 Other long term (current) drug therapy; Z86.73 Personal history of transient ischemic attack (TIA), and cerebral infarction without residual deficits; Z87.01 Personal history of pneumonia (recurrent); Z87.442 Personal history of urinary calculi; Z90.49 Acquired absence of other specified parts of digestive tract; Z95.0 Presence of cardiac pacemaker; Z95.1 Presence of aortocoronary bypass graft; Z95.5 Presence of coronary angioplasty implant and graft; Z99.2 Dependence on renal dialysis; E05.90 Thyrotoxicosis, unspecified without thyrotoxic crisis or storm; H26.9 Unspecified cataract; T87.89 Other complications of amputation stump; L97.529 Non-pressure chronic ulcer of other part of left foot with unspecified severity; Z23 Encounter for immunization